=== PATIENT | male | born 1965 | race Caucasian/White ===

== ENCOUNTER → 2017-12-20 | Outpatient (CLI) | payer OTHER | END | disposition home or self-care (01) | LOC: C.LABSPEC 10:52 | PROVIDERS: ATTEND Internal Medicine | DX: L03.90 Cellulitis, unspecified (principal); L97.919 Non-pressure chronic ulcer of unspecified part of right lower leg with unspecified severity ==

== ENCOUNTER 2019-10-08 19:13 | Inpatient (IN) ==
[2019-10-08 20:21] LABS: Basophils # (auto) 0.02 K/uL (0-0.2); Basophils % (auto) 0.2 %; Eosinophils # (auto) 0.31 K/uL (0-0.5); Eosinophils % (auto) 3.4 %; Hemoglobin 11.1 g/dL (14.0-18.0); Immature Granulocytes # (auto) 0.01 K/uL (0.00-0.02); Immature Granulocytes % (auto) 0.1 %; Lymphocytes # (auto) 2.07 K/uL (1.2-3.4); Lymphocytes % (auto) 22.8 %; Mean Corpuscular Hemoglobin 28.1 pg (25-34); Mean Corpuscular Hgb Conc 32.6 g/dL (32-36); Mean Corpuscular Volume 86.1 fL (80-100); Mean Platelet Volume 9.7 fL (7.4-10.4); Monocytes # (auto) 0.98 K/uL (0.11-0.59); Monocytes % (auto) 10.8 %; Neutrophils # (auto) 5.69 K/uL (1.4-6.5); Neutrophils % (auto) 62.7 %; Platelet Count 334 K/uL (130-400); RDW Coefficient of Variation 13.6 % (11.5-14.5); RDW Standard Deviation 42.8 fL (36.4-46.3); Red Blood Count 3.95 M/uL (4.7-6.1); White Blood Count 9.08 K/uL (4.8-10.8)
[2019-10-08 20:42] LABS: Albumin Level 3.3 gm/dl (3.4-5.0); BUN Creatinine Ratio 19.6 (10-20); C Reactive Protein 2.4 mg/dl (0-0.29); Calcium 8.9 mg/dl (8.5-10.1); Creatinine Clr Calc Pharmacy 69.2 ml/min; Est GFR (African American) 62.8; Est GFR (Non-African American) 54.2; Potassium 3.9 mmol/L (3.5-5.1)
[2019-10-08 20:47] LABS: Albumin Globulin Ratio 0.8 (0.9-2); Bilirubin,Total 0.2 mg/dl (0.2-1); Total Protein 7.3 gm/dl (6.4-8.2)
--- NOTE | 2019-10-08 20:54 | XRay Report ---
RIGHT TIBIA AND FIBULA 2 VIEWS CLINICAL HISTORY: Cellulitis and wound. FINDINGS: AP and lateral views of the right tibia and fibula are obtained. No prior studies are avail able for comparison at the time of dictation. The skeletal structures are osteopenic. No fracture is seen. There is no bony erosion or periostitis. Soft tissue edema is present throughout the imaged rig ht lower extremity. The knee and ankle joints are grossly maintained. There are large dorsal and plan tar calcaneal enthesophytes. IMPRESSION: Diffuse soft tissue edema with no acute osseous abnormality identified. Electronically signed by: Kevin Echevarria M.D. 10/08/2019 8:52 PM
[2019-10-08] MEDS ORDERED: VANCOMYCIN HCL 2,000 MG in SODIUM CHLORIDE 0.9% 500 ML IV ONE (21:34)
[2019-10-08] MEDS ORDERED: VANCOMYCIN CONSULT ACTIVE PRN (21:34)
[2019-10-08] MEDS ORDERED: CEFEPIME 2,000 MG/20 ML VIAL IV STA (21:34)
[2019-10-08] MEDS ORDERED: MoRPHine SULFATE 4 MG/ML 1 ML CARP\\VIAL IV STA (21:37)
--- NOTE | 2019-10-08 21:38 | Emergency Department Note ---
Entered by Flash Easton acting as a scribe for ED Provider Note CHIEF COMPLAINT: Worsening ulcer to the outer right ankle HISTORY OF PRESENT ILLNESS: The patient is a 54 year old male who presents to the Emergency Room with co mplaints of worsening ulcer to his outer right ankle beginning 5.5 years ago. The patient states his symptoms started with 2 holes 5.5 years ago in [place], [place]. He reports he was evaluated by Dr. Altamirano about two years ago and given prescriptions for antibiotics and skin bacteria medication. The patient notes one of the medications also caused an increase in drainage from the two holes. He states over the past 2 years, his ankle has been draining a lot. The patient reports he came into the ED tonight because he is tired of the draining and taking ibuprofen just to sleep at night. He notes after he showers it seems like his wound wants to scab but then it keep draining. The patient states a history of a heart murmur, and the last time he had blood work was 2015. He denies a history diabetes or prediabetes. Pt denies LOC, headache, fevers, chills, diaphoresis, visual changes, neck pain, chest pain, drainage of the left leg, breathing difficulties, nausea, vomiting, abdominal pain, back pain, melena, hematochezia, urinary symptoms, numbness, weakness, lymphadenopathy, rash, or other complaints. REVIEW OF SYSTEMS: See HPI for pertinent positives and negatives. A total of ten systems were reviewed and were otherwise negative. PMHx/PSHx: Heart murmur SOCIAL HISTORY: Patient lives at home. PHYSICAL EXAM: GENERAL: Awake, alert, well-appearing, in no distress HENT: Normocephalic, atraumatic. Oropharynx unremarkable. EYES: PERRL. Normal conjunctiva. Sclera non-icteric. NECK: Inspection normal. Non-tender. Supple. No nuchal rigidity. FROM. No mass es. RESPIRATORY: Clear to auscultation. No wheezes. No rales. Normal respiratory effort. CARDIAC: Normal rate. Normal rhythm. Systolic ejection murmurs. No rubs. Extremities warm and well perfused. Pulses equal. No JVD. GI: Soft, non-distended. No tenderness to palpation. No rebound or guarding. No masses. RECTAL: Deferred. MUSCULOSKELETAL: Atraumatic. Chest examination reveals no tenderness. The back is symmetrical on inspection without obvious abnormality. There is no CVA tenderness to palpation. No joint edema. LOWER EXTREMITIES: Calves are non-tender. 1+ pitting edema on the left. 1-2+ pitting edema on the left. Large ulcerative wounds on medial and lateral lower leg and ankle. Surrounding erythema with foul smelling drainage. NEURO: Normal sensorium. No sensory or motor deficits noted. SKIN: No rash or jaundice noted. EMERGENCY DEPARTMENT COURSE: 1936: The patient was evaluated in room C09, and a complete history and physical examination were performed. 2108: Upon reevaluation, the patient is resting comfortably and would like something more for pain. I discussed laboratory and radiographic results with him. He verbalized agreement of the treatment plan. The patient will be evaluated for further management and care. 2122: I reviewed the patient's case with Dr. Garza, [facility] Hospitalist. He will evaluate the patient for further management and is requesting I order an MRI. MEDICAL DECISION MAKING: Triage Nursing notes reviewed and agree them. The patient's history was concerning for swelling and redness of the skin. Differential diagnosis: Etiologies such as cellulitis, osteomyelitis, necrotizing fasciitis, abscess, MRSA infection, dermatitis, drug eruption, as well as others were entertained.. Physical examination: The physical examination was consistent with cellulitis and a superficial wound infection. ER treatment provided: Wound care provided with Adaptic, sterile dressings. IV cefepime and IV vancomycin after wound and blood cultures. IV more On reassessment the patient felt better. Diagnostics interpreted by me: The labs revealed a mild anemia on CBC. Chemistry panel reveals some borderline renal insufficiency as well as mild hyperglycemia. Imaging studies: X-ray imaging of the right lower leg reveals soft tissue edema without obvious fasciitis or osteomyelitis. MRI ordered but is pending. Consultation: A consultation was placed with the hospitalist. The case was discussed and diagnostics were reviewed. The patient was evaluated in the ER for further treatment. This appears to be isolated cellulitis. IMPRESSION: Necrotizing wound of the right lower leg Mild hyperglycemia PLAN: Admitted The scribe's documentation has been prepared under my direction and personally reviewed by me in its entirety. I confirm that the note above accurately reflects all work, treatment, procedures, and medical decision making performed by me. Impression & Plan Wound cellulitis, Hyperglycemia Past Med/Surg History Medical History Heart murmur Surgical History No pertinent past surgical history Family History Other No pertinent family history Social History Preferred Language: Gibralt[place] Feels Safe at Home: Yes Smoking Status: Never smoker Results & Data Vital Signs Vital Signs - 24 hr 10/08/19 19:16 10/08/19 20:59 10/08/19 22:24 Temperature 37.2 C Temperature Source Oral Pulse Rate 104 H Pulse Rate [Left] 81 76 Pulse Rhythm [Left] Regular Regular Pulse Strength [Left] Normal Normal Respiratory Rate 18 18 18 Respiratory Effort / Characteristics Non-Labored Spontaneous Non-Labored Spontaneous Non-Labored Spontaneous Respiratory Depth Normal Normal Normal Respiratory Pattern Regular Regular Regular Blood Pressure 191/106 H Blood Pressure [Right Arm] 155/81 H 179/80 H Blood Pressure Mean 134 Blood Pressure Mean [Right Arm] 105 113 Blood Pressure Position Lying Blood Pressure Position [Right Arm] Lying Lying Pulse Oximetry 97 97 96 Oxygen Delivery Method Room Air Room Air Room Air Sepsis Recent Fever Within 48 Hours No Sepsis Action Taken by Nursing No Action Required Home Medications Current Medication List: was personally reviewed by me Laboratory Data Attestation: I reviewed the patient's lab results. Result diagrams: 10/08/19 20:03 10/08/19 20:03 Lab Results 10/08/19 10/08/19 10/08/19 Range/Units 20:03 20:03 20:03 WBC 9.08 (4.8-10.8) K/uL RBC 3.95 L (4.7-6.1) M/uL Hgb 11.1 L (14.0-18.0) g/dL Hct 34.0 L (42-52) % MCV 86.1 (80-100) fL MCH 28.1 (25-34) pg MCHC 32.6 (32-36) g/dL RDW Std Deviation 42.8 (36.4-46.3) fL RDW Coeff of Stewart 13.6 (11.5-14.5) % Plt Count 334 (130-400) K/uL MPV 9.7 (7.4-10.4) fL Immature Gran % (Auto) 0.1 % Neut % (Auto) 62.7 % Lymph % (Auto) 22.8 % [place] % (Auto) 10.8 % Eos % (Auto) 3.4 % Baso % (Auto) 0.2 % Immature Gran # (Auto) 0.01 (0.00-0.02) K/uL Neut # (Auto) 5.69 (1.4-6.5) K/uL Lymph # (Auto) 2.07 (1.2-3.4) K/uL [place] # (Auto) 0.98 H (0.11-0.59) K/uL Eos # (Auto) 0.31 (0-0.5) K/uL Baso # (Auto) 0.02 (0-0.2) K/uL ESR 46 H (0-14) mm/hr Sodium 137 (136-145) mmol/L Potassium 3.9 (3.5-5.1) mmol/L Chloride 104 (98-107) mmol/L Carbon Dioxide 27 (21-32) mmol/L Anion Gap 6.0 (3-11) BUN 28 H (7-18) mg/dl Creatinine 1.45 H (0.6-1.4) mg/dl Est Cr Clr Drug Dosing 69.2 ml/min Est GFR ( Amer) 62.8 Est GFR (Non-Af Amer) 54.2 BUN/Creatinine Ratio 19.6 (10-20) Glucose 139 H (70-99) mg/dl POC Lactic Acid Ashish (0.90-1.70) mmol/L Calcium 8.9 (8.5-10.1) mg/dl Total Bilirubin 0.2 (0.2-1) mg/dl AST 20 (15-37) U/L ALT 33 (12-78) U/L Alkaline Phosphatase 90 (45-117) U/L C-Reactive Protein 2.40 H (0-0.29) mg/dl Total Protein 7.3 (6.4-8.2) gm/dl Albumin 3.3 L (3.4-5.0) gm/dl Globulin 4.0 (2.5-4.0) gm/dl Albumin/Globulin Ratio 0.8 L (0.9-2) 10/08/ Range/Units 20:13 WBC (4.8-10.8) K/uL RBC (4.7-6.1) M/uL Hgb (14.0-18.0) g/dL Hct (42-52) % MCV (80-100) fL MCH (25-34) pg MCHC (32-36) g/dL RDW Std Deviation (36.4-46.3) fL RDW Coeff of Stewart (11.5-14.5) % Plt Count (130-400) K/uL MPV (7.4-10.4) fL Immature Gran % (Auto) % Neut % (Auto) % Lymph % (Auto) % [place] % (Auto) % Eos % (Auto) % Baso % (Auto) % Immature Gran # (Auto) (0.00-0.02) K/uL Neut # (Auto) (1.4-6.5) K/uL Lymph # (Auto) (1.2-3.4) K/uL [place] # (Auto) (0.11-0.59) K/uL Eos # (Auto) (0-0.5) K/uL Baso # (Auto) (0-0.2) K/uL ESR (0-14) mm/hr Sodium (136-145) mmol/L Potassium (3.5-5.1) mmol/L Chloride (98-107) mmol/L Carbon Dioxide (21-32) mmol/L Anion Gap (3-11) BUN (7-18) mg/dl Creatinine (0.6-1.4) mg/dl Est Cr Clr Drug Dosing ml/min Est GFR ( Amer) Est GFR (Non-Af Amer) BUN/Creatinine Ratio (10-20) Glucose (70-99) mg/dl POC Lactic Acid Ashish 0.69 L (0.90-1.70) mmol/L Calcium (8.5-10.1) mg/dl Total Bilirubin (0.2-1) mg/dl AST (15-37) U/L ALT (12-78) U/L Alkaline Phosphatase (45-117) U/L C-Reactive Protein (0-0.29) mg/dl Total Protein (6.4-8.2) gm/dl Albumin (3.4-5.0) gm/dl Globulin (2.5-4.0) gm/dl Albumin/Globulin Ratio (0.9-2) Administered Medications Discontinued Medications Vancomycin HCl 2,000 mg/ (Sodium Chloride) 540 mls @ 200 mls/hr IV NOW ONE Stop: 10/09/19 00:15 Last Admin: 10/08/19 21:49 Dose: 200 mls/hr Documented by: [id number] Cefepime HCl (Maxipime) 2,000 mg in 20 mls @ 5 mls/min IV NOW STA; Protocol Stop: 10/08/19 21:37 Last Admin: 10/08/19 21:49 Dose: 5 mls/min Documented by: [id number] Morphine Sulfate (Morphine Sulfate) 4 mg IV NOW STA Stop: 10/08/19 21:38 Last Admin: 10/08/19 21:48 Dose: 4 mg Documented by: [id number] Imaging Data Radiologist's Impression: Radiology results as stated below per my review and the radiologist's interpretation: RIGHT TIBIA AND FIBULA 2 VIEWS CLINICAL HISTORY: Cellulitis and wound. FINDINGS: AP and lateral views of the right tibia and fibula are obtained. No prior studies are available for comparison at the time of dictation. The skeletal structures are osteopenic. No fracture is seen. There is no bony erosion or periostitis. Soft tissue edema is present throughout the imaged right lower extremity. The knee and ankle joints are grossly maintained. There are large dorsal and plantar calcaneal enthesophytes. IMPRESSION: Diffuse soft tissue edema with no acute osseous abnormality identified. Electronically signed by: Kevin Echevarria M.D. 10/08/2019 8:52 PM Blood Pressure Blood Pressure Findings: Elevated blood pressure Blood Pressure Disposition: further management by hospitalist Discharge Plan Visit Data Chief Complaint: Leg Injury/Pain Stated Complaint: Leg Cellulitis ED Provider: Micheal Byers Discharge Problem: Wound cellulitis, Hyperglycemia Patient Disposition: Being Evaluated by Hospitalist Discharge Instructions Interventions: ED Discharge Assessment Last Done: 10/08/19 23:29 Forms Stand Alone Forms: My [facility] [employer] Prescriptions Prescriptions: No Action ibuprofen 200 mg Tablet 600 - 800 mg PO BID PRN (Reason: Fever Or Pain) RF: 0 Referrals Referrals: Tiburcio Altamirano MD [Primary Care Provider] - The scribe's documentation has been prepared under my direction and personally reviewed by me in its entirety. I confirm that the note above accurately reflects all work, treatment, procedures, and medical decision making performed by me.
--- NOTE | 2019-10-09 01:11 | History & Physical Report ---
Date of Service October 09, 2019 The patient was seen and examined on 10/08/2019 Assessment & Plan (1) Cellulitis of right lower extremity: Cellulitis of right lower extremity- MRI suggestive of possible chronic venous stasis changes/ Sequela of previous wound. Placed on vancomycin IV and Zosyn IV. Consult infectious disease. Consult wound care. Present on Admission?: Yes (2) Wound cellulitis: See above Present on Admission?: Yes (3) Renal insufficiency: Creatinine 1.45, with GFR 54.2. Encouraged fluid intake, and avoidance of NSAIDs. Present on Admission?: Yes (4) Hyperglycemia: Check hemoglobin A1c Present on Admission?: Yes (5) Heart murmur: Order complete echocardiogram, assessing for SBE Present on Admission?: Yes History of Present Illness Chief Complaint: The patient presents to the emergency department with complaint of worsening ulcer of his right lower extremity primarily around his right ankle, with worsening erythema and pain surrounding. Primary Care Provider: Armand Altamirano MD The patient is a 54-year-old male who presents to the emergency department with a chronically draining and worsening infected right ankle, with an unclear report from him related to treatment with antibiotics in the past. His history is not felt to be completely reliable, as part of what he relates does not make complete sense. He does periodically talk tangentially, but reports no personal history of psychiatric illness. He has taken ibuprofen intermittently in the past for right ankle discomfort. He reports that this infection initially began about 5 years ago when he was involved with some form of injury in [place]. Again, details are somewhat hazy and disjointed. 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: Yes Beliefs That Will Affect Care: None Current Living Situation: Alone Current Living Situation Comment: Apartment Other Information That Helps Us Care for You: No Feels Safe at Home: Yes Smoking Status: Never smoker Do You Dip or Chew Tobacco: No ; Second Hand Exposure: No ; Tobacco Cessation Education Requested by Patient: No Hx Alcohol Use: No Hx Substance Use: No Review of Systems Review of Systems: The patient denies chest pain, palpitations, shortness of breath, dyspnea on exertion, cough, sore throat, fevers, chills, sweats, weight change, fatigue, nausea, vomiting, diarrhea , constipation, abdominal pain, pelvic pain, blood in urine or stool, dysuria, urinary frequency or urgency, lightheadedness, dizziness, headache, memory loss, loss of consciousness, imbalance, focal or generalized weakness, numbness or tingling in arms or left leg, generalized arthralgias or myalgias, back or neck pain, or night sweats. The review of systems is otherwise negative other than for that already noted above, and at least 10 systems have been reviewed. Physical Exam Physical Exam: The patient is awake, alert and oriented 3, well developed and well nourished, normocephalic and atraumatic, lying in bed and in no acute d istress. HEENT--PERRL, EOMI, mucous membranes and oropharynx normal. Neck--supple. No JVD. No bruits. Thyroid normal, trachea midline, no adenopathy. Heart--normal S1 and S2. No murmurs, rubs or gallops. Lungs--clear bilaterally, no respiratory distress, no accessory muscle use. Abdomen--normal bowel sounds and soft. Nontender. Nondistended. Extremities/dermatologic--left lower extremity-skin is normal, with no rash and no areas of abrasion or erosion. --Right lower extremity moderately severe erythema surrounding large area of erosion around the ankle, with underlying granulation tissue, and some weeping. Neurologic--cranial nerves II through XII grossly intact. Rheumatologic--normal range of motion. Psychiatric--normal affect. Results & Data Vital Signs (Past 12 Hours) Vital Signs Temp Pulse Pulse Resp BP BP Pulse Ox 10/08/19 22:24 76 18 179/80 H 96 10/08/19 20:59 81 18 155/81 H 97 10/08/19 19:16 99.0 F 104 H 18 191/106 H 97 Laboratory Results Laboratory Results WBC 9.08 K/uL (4.8-10.8) 10/08/19 20:03 RBC 3.95 M/uL (4.7-6.1) L 10/08/19 20:03 Hgb 11.1 g/dL (14.0-18.0) L 10/08/19 20:03 Hct 34.0 % (42-52) L 10/08/19 20:03 MCV 86.1 fL (80-100) 10/08/19 20:03 MCH 28.1 pg (25-34) 10/08/19 20:03 MCHC 32.6 g/dL (32-36) 10/08/19 20:03 RDW Std Deviation 42.8 fL (36.4-46.3) 10/08/19 20:03 RDW Coeff of Stewart 13.6 % (11.5-14.5) 10/08/19 20:03 Plt Count 334 K/uL (130-400) 10/08/19 20:03 MPV 9.7 fL (7.4-10.4) 10/08/19 20:03 Immature Gran % (Auto) 0.1 % 10/08/19 20:03 Neut % (Auto) 62.7 % 10/08/19 20:03 Lymph % (Auto) 22.8 % 10/08/19 20:03 [place] % (Auto) 10.8 % 10/08/19 20:03 Eos % (Auto) 3.4 % 10/08/19 20:03 Baso % (Auto) 0.2 % 10/08/19 20:03 Immature Gran # (Auto) 0.01 K/uL (0.00-0.02) 10/08/19 20:03 Neut # (Auto) 5.69 K/uL (1.4-6.5) 10/08/19 20:03 Lymph # (Auto) 2.07 K/uL (1.2-3.4) 10/08/19 20:03 [place] # (Auto) 0.98 K/uL (0.11-0.59) H 10/08/19 20:03 Eos # (Auto) 0.31 K/uL (0-0.5) 10/08/19 20:03 Baso # (Auto) 0.02 K/uL (0-0.2) 10/08/19 20:03 ESR 46 mm/hr (0-14) H 10/08/19 20:03 Sodium 137 mmol/L (136-145) 10/08/19 20:03 Potassium 3.9 mmol/L (3.5-5.1) 10/08/19 20:03 Chloride 104 mmol/L (98-107) 10/08/19 20:03 Carbon Dioxide 27 mmol/L (21-32) 10/08/19 20:03 Anion Gap 6.0 (3-11) 10/08/19 20:03 BUN 28 mg/dl (7-18) H 10/08/19 20:03 Creatinine 1.45 mg/dl (0.6-1.4) H 10/08/19 20:03 Est Cr Clr Drug Dosing 69.2 ml/min 10/08/19 20:03 Est GFR ( Amer) 62.8 10/08/19 20:03 Est GFR (Non-Af Amer) 54.2 10/08/19 20:03 BUN/Creatinine Ratio 19.6 (10-20) 10/08/19 20:03 Glucose 139 mg/dl (70-99) H 10/08/19 20:03 POC Lactic Acid Ashish 0.69 mmol/L (0.90-1.70) L 10/08/19 20:13 Calcium 8.9 mg/dl (8.5-10.1) 10/08/19 20:03 Total Bilirubin 0.2 mg/dl (0.2-1) 10/08/19 20:03 AST 20 U/L (15-37) 10/08/19 20:03 ALT 33 U/L (12-78) 10/08/19 20:03 Alkaline Phosphatase 90 U/L (45-117) 10/08/19 20:03 C-Reactive Protein 2.40 mg/dl (0-0.29) H 10/08/19 20:03 Total Protein 7.3 gm/dl (6.4-8.2) 10/08/19 20:03 Albumin 3.3 gm/dl (3.4-5.0) L 10/08/19 20:03 Globulin 4.0 gm/dl (2.5-4.0) 10/08/19 20:03 Albumin/Globulin Ratio 0.8 (0.9-2) L 10/08/19 20:03 Diagnostic Findings [place], [place] [phone] XRay Report Patient: LISA LEGGETT Date: 10/08/19 MR#: [id number]: [address] Acct ID:[id number]: Date: 1965[facility] Zip: [place] [id number] Age: 54Location: ED Sex: M Room/Bed: Att Phy:Diagnosis: Leg Cellulitis Megha Phy: Armand Altamirano MDService Date: 10/08/19 Fam Phy:Interpreting Phy: Kevin Echevarria MD Admit Phy: Ordering Phy: Micheal Byers MD cc: ~ RIGHT TIBIA AND FIBULA 2 VIEWS CLINICAL HISTORY: Cellulitis and wound. FINDINGS: AP and lateral views of the right tibia and fibula are obtained. No prior studies are available for comparison at the time of dictation. The skeletal structures are osteopenic. No fracture is seen. There is no bony eros ion or periostitis. Soft tissue edema is present throughout the imaged right lower extremity. The knee and ankle joints are grossly maintained. There are large dorsal and plantar calcaneal enthesophytes. IMPRESSION: Diffuse soft tissue edema with no acute osseous abnormality identified. Electronically signed by: Kevin Echevarria M.D. 10/08/2019 8:52 PM Dictated: 10/08/192050 Transcribed: 10/08/192050 [facility] Patient: LISA LEGGETT (Male) : 65 test: [id number] Status: IP Date: 10/09/19 02:12 Room #: W359-1 History: hurt leg in 1995. 5.5 years ago all started when must have dinged leg. had discoloration and then a pinhole. states open wound all the way around ankle for 4 years. hx mri in 2013 at [facility] and 2016 at [facility]. states both times said cellulitis on ankle. hx cellulitis on ankle. feels like cinching sensation on outside. no surgery to ankle. hx vein graft in rt leg up in thigh/groin, had previous injury to knee area that led to vein graft. took vein from rt arm and part artificial graft for leg. pt having pain, trouble holding still, scans shortened. Ankle is bandage, markers placed at area pt said wound goes in a U shape around ankle. Slices: 387 Priors: xr rt tib/fib Tech: Vj Sandersno @ [phone] Exams: MRI RIGHT ANKLE Contrast: IV Amt: 10.3ml gadavist Accession Numbers: [id number] Preliminary Findings Only See Final Report For Complete Findings MRI RIGHT ANKLE : Skin defects and soft tissue thickening/edema around the medial, lateral, and posterior aspects of the ankle suggestive of cellulitis or long-term sequela of venous insufficiency. No abscess. No osteomyelitis. Radiologist: Alex Hansen MD Study ready at 02:17 and initial results transmitted at 03:37 Results also transmitted to [facility] ([id number]) @ [phone] (Fax) Results also transmitted to , ER @ [phone] (Fax) *This report constitutes a preliminary interpretation only. Non-acute findings felt to be unrelated to the clinical presentation may not be discussed in this report. The study will be interpreted and a final report will be generated by the local Radiologist the following shift. To reach the hospital radiology department call [phone]. If a discrepancy is found between the preliminary and final interpretations of this study, please notify us via our Client Portal at [email or web address] under [email or web address].You can also fax this report with a description of the discrepancy, or include the final report, to our daytime fax number [phone].If faxing, please indicate the severity of discrepancy using one of the following categories: [ ] 1 - Agree/Informational [ ] 2 - Unlikely to Affect Management [ ] 3 - Possible Eventual Change of Management [ ] 4 - Probable Immediate Change of Management For all other patient related information, please fax us at [phone]. [id number] Code Status & VTE Plan Code Status Full code VTE Prophylaxis Plan VTE Prophylaxis will be ordered: Yes PG Care Time/CCT Total # of Minutes Spent Total Time Spent with Patient: Total time spent is greater than 50% in coordination of care (as documented) at patient's floor/unit and/or counseling patient:
[2019-10-09] MEDS ORDERED: GADOBUTROL 65ML VIAL IV PRN (01:34)
[2019-10-09] MEDS ORDERED: ALUMINUM/MAGNESIUM SUSP 30 ML UDC PO PRN (01:43)
[2019-10-09] MEDS ORDERED: PIPERACILL/TAZOBAC CONSULT ACTIVE PRN (01:43)
[2019-10-09] MEDS ORDERED: ONDANSETRON INJ 2 MG/ML 2 ML VIAL IV PRN (01:43)
[2019-10-09] MEDS ORDERED: CEFEPIME 1,000 MG in SYRINGE 0 ML IV SCH (01:43)
[2019-10-09] MEDS ORDERED: VANCOMYCIN CONSULT ACTIVE PRN (01:43)
[2019-10-09] MEDS ORDERED: MAGNESIUM HYDROXIDE SUSP 30 ML UDC PO PRN (01:43)
[2019-10-09] MEDS ORDERED: PIPERACILLIN/TAZOBACTAM 4.5 GM/120 ML BAG IV ONE (03:00)
--- NOTE | 2019-10-09 05:57 | Magnetic Resonance Report ---
Study: MRI right ankle HISTORY: Infection. Pain. COMPARISON: None. FINDINGS: Signal characteristics of the bony structures are unremarkable. There are findings of mild degenerative bone marrow edema of the intracranial tarsal joints. Mild soft tissue edema is present. No evidence for abscess collection or tendinous disruption. Mild peroneal tendinopathy. Ankle mortise is aligned anatomically. Structures of the plantar fascia region are unremarkable. The study overall is slightly compromised due to moderate patient motion. IMPRESSION: 1. No evidence for osteomyelitis. 2. Mild degenerative change. 3. Mild soft tissue edematous change. 4. Mild peroneal tendinopathy. 5. No evidence for abscess or collection. Electronically signed by: Del Ko M.D. 10/09/2019 5:55 AM
[2019-10-09] MEDS ORDERED: PIPERACILLIN/TAZOBACTAM 3.375 GM in DEXTROSE 5% 100 ML IV SCH (08:00)
[2019-10-09 08:26] LABS: Estimated Average Glucose 131 mg/dl; Hemoglobin A1C 6.2 % (4.5-5.6)
--- NOTE | 2019-10-09 08:42 | Hospitalist Progress Note ---
Date of Service October 09, 2019 Assessment & Plan (1) Cellulitis of right lower extremity: - Per review of Allscripts - patient was seen by Dr. Altamirano in Dec 2017 - started on Bactrim and converted to Cipro - Wound Cx from from that time showed Pseudomonas aeruginosa, group G beta strep, proteus mirabilis - which all appear to have been pansensitive at that time - it appears at that time a full history was hard to obtain as well and duration of issues uncertain - New cultures have been obtained to better select Abx - Ceftaroline BID added - may need further adjustments given H/O Pseudomonas as I cannot find that coverage would be provided with this alone - Overall this does appear to be more venous ulceration with some redness from insufficiency - ID and wound consulted - discussed with wound care nurse and provider will be consulted for debridement - appreciate input (2) Renal insufficiency: - Cr currently 1.51 - uncertain of baseline - Electrolytes stable and will continue to monitor; avoid nephrotoxins (3) Mood disorder: - A full psychiatric history difficult to obtain - appears he has had diagnoses of bipolar/schizophrenia and multiple admissions to the [facility] - Currently not on maintenance medications Patient was noted to make bizarre comments on admission such as serving in the [place] war in 1967 however not obviously possible. Today is descriptions and explanations of things can be abstract or odd making it hard to completely follow the conversation. However largely stays on topic when discussing his leg wound however overall gives vague recall of events. He appears well fed/hydrated/clean. Given the likely prolonged presence of this wound it definitely could look worse. It is hard to say if there may be an intellectual disability as well. However does not appear to be psychotic/hallucinating/delusional at this time. He denies suicidal thoughts/homicidal thoughts and has been cooperative and pleasant. Discussed with psychiatric liasion who can follow along if necessary. Subjective Patient seen with wound care nurse this AM. A true history is hard to obtain as patient gives vague recap of situation but seems this is an on/off process x 5 years. He says he has been trying to manage this on his own with guaze wrapping and over the counter dressings. Does mention lotions and different things like that but uncertain if he has been using other products on this wound. He does venture off topic but largely within context of the topic. But it does make it difficult to truly follow what he is sometimes is trying to explain. He states he lives alone in [place] but did state he has a father that can help him if needed. [facility] but states he hasn't contacted them in 18 months. He appears well groomed/clean. Wound looks better then would be expected. He is not saying bizarre phrases like he did on admission. Does not appear to be delusional/hallucinating/psychotic during my visit. Results & Data Vital Signs (Past 12 Hours) Vital Signs Temp Pulse Pulse Resp BP BP Pulse Ox 10/09/19 06:55 36.7 C 69 18 117/70 95 10/09/19 01:46 36.3 C L 71 16 161/80 H 94 10/08/19 22:24 76 18 179/80 H 96 10/08/19 20:59 81 18 155/81 H 97 PG Care Time/CCT Total # of Minutes Spent Total Time Spent with Patient: Total time spent is greater than 50% in coordination of care (as documented) at patient's floor/unit and/or counseling patient:
[2019-10-09] MEDS ORDERED: CIPROFLOXACIN 400 MG/200 ML BAG IV SCH (09:00)
[2019-10-09] MEDS ORDERED: VANCOMYCIN HCL 1,000 MG in SODIUM CHLORIDE 0.9% 250 ML IV SCH (09:00)
--- NOTE | 2019-10-09 09:11 | Pharmacy Report ---
Pharmacy Abx Initial Consult - Date of Service October 09, 2019 - Pharmacy Dosing Scope Date of Consult: 10/09 Consultation requested by: Dr. Garza Pharmacy is consulted to initiate vancomycin and zosyn IV/PO dosing therapy, order appropriate labs and adjust drug dose/frequency. - Subjective The patient is a 54 year old M admitted on 10/08/19 22:37. - Objective Height: 5 ft 9 in Weight: 101.3 kg Vital Signs (Past 12hrs): Vital Signs Temp Pulse Pulse Resp BP BP Pulse Ox 10/09/19 06:55 36.7 C 69 18 117/70 95 10/09/19 01:46 36.3 C L 71 16 161/80 H 94 10/08/19 22:24 76 18 179/80 H 96 Lab Results (24hrs): Laboratory Tests (24 Hours) 10/08/19 10/08/19 10/08/19 20:03 20:03 20:03 WBC 9.08 Neut # (Auto) 5.69 ESR 46 H Creatinine 1.45 H Est Cr Clr Drug Dosing 69.2 C-Reactive Protein 2.40 H Micro Results: 10/08/19 20:32 Gram Stain - Pending Leg,Right Wound Culture - Pending 10/08/19 20:03 Aerobic Blood Culture - Pending Blood Anaerobic Blood Culture - Pending 10/08/19 20:03 Aerobic Blood Culture - Pending Blood Anaerobic Blood Culture - Pending - Risk Factors for Resistance * History of infection with a multidrug-resistant organism: [dec 2017 - wound culture: PA, group B strep, proteus] - Assessment & Plan Assessment 54 year old male admitted with cellulitis of lower extremity. Hx of wound infection (dec 2017). Blood cultures and wound culture are pending. Imaging of ankle negative for osteomyelitis/negative for abscess. ID consulted to follow the patient. Plan Vancomycin IV * Received loading dose of vancomycin 2000 mg (~20 mg/kg) last evening * Will start maintenance dose of vancomycin 1000 mg iv q 12 hrs to achieve an estimated trough ~15 mcg/ml (less aggressive with dosing due to elevated BMI and increased risk of accumulation while on vancomycin * Estimated kinetics: t1/2~11 hrs, ke~0.06hr-1, CrCl~69 ml/min * Will plan to obtain a trough in next Piperacillin/tazobactam * 3.375 gm iv q 8 hrs - appropriate for CRCL >20 ml/min / no change Pharmacy will continue to follow and will adjust dose/frequency as necessary. Thank you.
--- NOTE | 2019-10-09 09:20 | Infectious Disease Consult ---
Date of Consultation October 09, 2019 Assessment & Plan (1) Cellulitis of right lower extremity: Cellulitis of the right lower extremity complicating chronic venous stasis ulceration. Given patient's BMI, will change to IV ceftaroline to hopefully avoid potential nephrotoxicity of vancomycin and Zosyn pending further culture results. Would obtain wound care consult and likely would benefit from follow- up with wound care center after hospitalization. Length of IV antibiotics will be determined by clinical response and culture results. Will follow. (2) Venous stasis ulcer of ankle: History of Present Illness Reason for Consultation: Right lower extremity cellulitis Attending Physician: Roger Cedeno DO History of Present Illness 54-year-old male, very poor historian, with prior history of heart murmur, hyperglycemia, who states that he has been dealing with right lower extremity lateral leg ulceration for several years. He rarely sought medical care, treated at times with topical antibiotic, but now admitted with several days of progressively worsening leg ulceration with erythema and increasing pain, up to 8 out of 10 in intensity. States that he may have had low-grade fever with some chills. He has been started empirically on vancomycin and Zosyn. He has been afebrile since in the hospital, his white count is normal. Cultures are pending. MRI of the ankle, read by me, shows no evidence of osteomyelitis. Allergies Allergy/AdvReac Type Severity Reaction Status Date / Time bee pollen Allergy Mild FACIAL Unverified 10/09/19 05:36 SWELLING PCN Allergy Mild FACIAL Uncoded 10/08/19 21:21 SWELLING Home Medications Home Medications Medication Instructions Recorded Confirmed Type ibuprofen 600 - 800 mg PO BID PRN 10/08/19 10/08/19 History Patient History Medical History Heart murmur Surgical History No pertinent past surgical history Family History Other No pertinent family history Social History Preferred Language: Chinese 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 Ability: Effective Crtt Required: Yes Beliefs That Will Affect Care: None Current Living Situation: Alone Current Living Situation Comment: Apartment Other Information That Helps Us Care for You: No Feels Safe at Home: Yes Smoking Status: Never smoker Do You Dip or Chew Tobacco: No ; Second Hand Exposure: No ; Tobacco Cessation Education Requested by Patient: No Hx Alcohol Use: No Hx Substance Use: No Review of Systems Review of Systems: All systems reviewed & are unremarkable except as noted in HPI & below Physical Exam Constitutional: WD/WN, vitals as above comfortable; no acute distress Eyes: PERRL, conjunctivae normal, anicteric sclerae ENMT: external ear and nose normal, oropharynx normal Neck: trachea midline, no thyromegaly neck nontender Respiratory: normal respiratory effort, lungs clear to auscultation normal percussion; does not use accessory muscles Cardiovascular: Rate/Rhythm: regular rate and regular rhythm Heart Sounds: normal S1 and normal S2; no gallop, no murmur and no cardiac rub Vessels: normal peripheral pulses; no JVD Gastrointestinal (Abdomen): normal bowel sounds, soft, nontender, no hepatosplenomegaly Musculoskeletal: no cyanosis or clubbing, extremities motor strength 5/5 Spine: thoracic spine normal to inspection and lumbar spine normal to inspection; no cervical spinal tenderness Skin: no rashes, warm and dry normal turgor and + ulcer (Large lateral right ankle ulceration extending posteriorly with surrounding erythema, some serous drainage) Neurologic: patellar DTR's 2+ bilat, sensation intact no focal motor deficits Psychiatric: A+Ox3, euthymic affect Orientation: cooperative Lymphatic: no cervical or axillary lymphadenopathy no inguinal lymphadenopathy Results & Data Vital Signs (Past 12 Hours) Vital Signs Temp Pulse Pulse Resp BP BP Pulse Ox 10/09/19 06:55 36.7 C 69 18 117/70 95 10/09/19 01:46 36.3 C L 71 16 161/80 H 94 10/08/19 22:24 76 18 179/80 H 96 Laboratory Results Short CBC 10/08/19 Range/Units 20:03 WBC 9.08 (4.8-10.8) K/uL Hgb 11.1 L (14.0-18.0) g/dL Hct 34.0 L (42-52) % Plt Count 334 (130-400) K/uL BMP 10/08/19 20:03 Sodium 137 Potassium 3.9 Chloride 104 Carbon Dioxide 27 BUN 28 H Creatinine 1.45 H Glucose 139 H Calcium 8.9 Liver Function 10/08/19 Range/Units 20:03 Total Bilirubin 0.2 (0.2-1) mg/dl AST 20 (15-37) U/L ALT 33 (12-78) U/L Alkaline Phosphatase 90 (45-117) U/L Albumin 3.3 L (3.4-5.0) gm/dl Diagnostic Findings HISTORY: Infection. Pain. COMPARISON: None. FINDINGS: Signal characteristics of the bony structures are unremarkable. There are findings of mild degenerative bone marrow edema of the intracranial tarsal joints. Mild soft tissue edema is present. No evidence for abscess collection or tendinous disruption. Mild peroneal tendinopathy. Ankle mortise is aligned anatomically. Structures of the plantar fascia region are unremarkable. The study overall is slightly compromised due to moderate patient motion. IMPRESSION: 1. No evidence for osteomyelitis. 2. Mild degenerative change. 3. Mild soft tissue edematous change. 4. Mild peroneal tendinopathy. 5. No evidence for abscess or collection. Electronically signed by: Del Ko M.D. 10/09/2019 5:55 AM Dictated: 10/09/19 0549 PG Care Time/CCT Total # of Minutes Spent Total Time Spent with Patient: Total time spent is greater than 50% in coordination of care (as documented) at patient's floor/unit and/or counseling patient:
[2019-10-09 09:51] LABS: Creatinine Clr Calc Pharmacy 65.6 ml/min; Est GFR (African American) 59.8; Est GFR (Non-African American) 51.6
[2019-10-09] MEDS: ACETAMINOPHEN 325 MG TAB PO PRN ×2 (10:40→23:39)
[2019-10-09] MEDS: CEFTAROLINE FOSAMIL ACETATE 600 MG in SODIUM CHLORIDE 0.9% 250 ML IV SCH ×2 (10:47→21:35)
[2019-10-09 13:51] LABS: Amphetamines+Metham, Urine Neg (Neg); Barbiturates, Urine Neg (Neg); Benzodiazepine, Urine Neg (Neg); Cocaine, Urine Neg (Neg); MDMA (Ecstacy), Urine Neg (Neg); Methadone, Urine Neg (Neg); Opiate, Urine Pos (Neg); Phencyclidine, Urine Neg (Neg)
--- NOTE | 2019-10-09 13:56 | Wound Consultation ---
Date of Consultation October 09, 2019 Assessment & Plan (1) Cellulitis of right lower extremity: This is a 54-year-old male with right lower extremity cellulitis in the setting of chronic venous insufficiency. Wounds need debridement. After obtaining permission topical Xylocaine was applied. Using a curette the wound was debrided of fibrin and slough. Scant bleeding was controlled with pressure. This represents a non-excisional debridement of 215 cm. Wound will be dressed with Aquacel Ag and wrapped with a Coban lite wrap. Patient's leg is to tender to obtain ABIs at this time. However, patient does have good pulses. We will check a pulse ox 10 minutes after placement of the wrap. Patient will follow-up in the office upon discharge. Thank you for limited participate in the care of this patient. Please not hesitate to call with any questions. (2) Venous stasis ulcer of ankle: History of Present Illness Reason for Consultation: Right lower extremity cellulitis Attending Physician: Roger Cedeno DO History of Present Illness This is a 54-year-old male who is a poor historian and has a history of CKD and hyperglycemia who was admitted with right lower extremity cellulitis. It appears patient has a history of chronic venous insufficiency and has been followed with wound clinics on and off for the last 5 years. Over the last several days wound is become more painful and patient had developed a low-grade temperature. Patient was admitted. Factious disease is following with the patient. Cultures are pending but preliminary showed gram-negative bacilli, staph aureus and streptococcal species. Allergies Allergy/AdvReac Type Severity Reaction Status Date / Time bee pollen Allergy Mild FACIAL Unverified 10/09/19 05:36 SWELLING Penicillins Allergy Mild FACIAL Verified 10/09/19 09:40 SWELLING Home Medications Home Medications Medication Instructions Recorded Confirmed Type ibuprofen 600 - 800 mg PO BID PRN 10/08/19 10/08/19 History Patient History Medical History Heart murmur Surgical History No pertinent past surgical history Family History Other No pertinent family history Social History (Reviewed 10/09/19 @ 14:00 by ERIK Alvarenga Preferred Language: Tajik 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 Ability: Effective Tire Curer Required: Yes Beliefs That Will Affect Care: None marital status: Single Current Living Situation: Alone Current Living Situation Comment: Apartment Feels Safe at Home: Yes Smoking Status: Never smoker Second Hand Exposure: No ; Hx Alcohol Use: No Hx Substance Use: No Review of Systems Review of Systems: All systems reviewed & are unremarkable except as noted in HPI & below Physical Exam Constitutional: WD/WN, vitals as above Eyes: PERRL, conjunctivae normal, anicteric sclerae ENMT: Ears: no hearing impairment Respiratory: normal respiratory effort, lungs clear to auscultation Cardiovascular: RRR, no murmur, no edema Gastrointestinal (Abdomen): normal bowel sounds, soft, nontender, no hepatosplenomegaly Skin: Wound measuring 12.2 x 17.7 x 0.3 cm. Wound is covered with fibrin and slough. Periwound is intact and erythematous. There is a large amount of drainage and foul odor. Neurologic: awake; not confused Psychiatric: A+Ox3, euthymic affect Results & Data Vital Signs (Past 12 Hours) Vital Signs Temp Pulse Resp BP Pulse Ox 10/09/19 06:55 36.7 C 69 18 117/70 95 PG Care Time/CCT Total # of Minutes Spent Total Time Spent with Patient: Total time spent is greater than 50% in coordination of care (as documented) at patient's floor/unit and/or counseling patient: (1) Venous stasis ulcer of ankle Varicose vein presence: without varicose veins Laterality: right Non- pressure ulcer stage: with fat layer exposed Qualified Code(s): I87.2 - Venous insufficiency (chronic) (peripheral); L97.312 - Non-pressure chronic ulcer of right ankle with fat layer exposed
[2019-10-10 07:54] LABS: Creatinine Clr Calc Pharmacy 69.8 ml/min; Est GFR (African American) 64.4; Est GFR (Non-African American) 55.6
[2019-10-10] MEDS: CEFTAROLINE FOSAMIL ACETATE 600 MG in SODIUM CHLORIDE 0.9% 250 ML IV SCH ×2 (10:00→21:35)
[2019-10-10] MEDS: ACETAMINOPHEN 325 MG TAB PO PRN ×3 (13:54→23:32)
--- NOTE | 2019-10-10 14:21 | Infectious Disease Progress Nt ---
Date of Service October 10, 2019 Assessment & Plan (1) Cellulitis of right lower extremity: Cellulitis of the right lower extremity complicating chronic venous stasis ulceration. Patient should continue on ceftaroline, will await identification of gram-negative bacilli, only will need to change if turns out to be Pseudomonas. We will continue to follow. (2) Venous stasis ulcer of ankle: Subjective Patient seen in follow-up for infected venous stasis ulceration. Wound care consultation noted. Still with significant amount of pain. Remains afebrile. Cultures growing MRSA, streptococcal species, and gram-negative bacilli. Tolerating ceftaroline so far. Review of Systems Review of Systems: All systems reviewed & are unremarkable except as noted in HPI & below Physical Exam Constitutional: WD/WN, vitals as above comfortable; no acute distress Eyes: PERRL, conjunctivae normal, anicteric sclerae ENMT: external ear and nose normal, oropharynx normal Neck: trachea midline, no thyromegaly neck nontender Respiratory: normal respiratory effort, lungs clear to auscultation normal percussion; does not use accessory muscles Cardiovascular: Rate/Rhythm: regular rate and regular rhythm Heart Sounds: normal S1 and normal S2; no gallop, no murmur and no cardiac rub Vessels: normal peripheral pulses; no JVD Gastrointestinal (Abdomen): normal bowel sounds, soft, nontender, no hepatosplenomegaly Musculoskeletal: no cyanosis or clubbing, extremities motor strength 5/5 Spine: thoracic spine normal to inspection and lumbar spine normal to inspection; no cervical spinal tenderness Skin: no rashes, warm and dry normal turgor and + ulcer (Large lateral right ankle ulceration extending posteriorly with surrounding erythema, some serous drainage) Neurologic: patellar DTR's 2+ bilat, sensation intact no focal motor deficits Psychiatric: A+Ox3, euthymic affect Orientation: cooperative Lymphatic: no cervical or axillary lymphadenopathy no inguinal lymph adenopathy Results & Data Vital Signs (Past 12 Hours) Vital Signs Temp Pulse Resp BP Pulse Ox 10/10/19 07:17 36.7 C 75 18 150/68 H 94 Laboratory Results [facility] 10/10/19 06:56 Creatinine 1.42 H Diagnostic Findings Microbiology 10/08/19 20:32 Leg,Right Gram Stain - Final 10/08/19 20:32 Leg,Right Wound Culture - Preliminary Gram negative bacilli Group G Beta Strep Staph aureus MRSA 10/08/19 20:03 Blood Aerobic Blood Culture - Preliminary No growth in Aerobic bottle after 24 hours. 10/08/19 20:03 Blood Anaerobic Blood Culture - Preliminary No growth in Anaerobic bottle after 24 hours. 10/08/19 20:03 Blood Aerobic Blood Culture - Preliminary No growth in Aerobic bottle after 24 hours. 10/08/19 20:03 Blood Anaerobic Blood Culture - Preliminary No growth in Anaerobic bottle after 24 hours. PG Care Time/CCT Total # of Minutes Spent Total Time Spent with Patient: Total time spent is greater than 50% in coordination of care (as documented) at patient's floor/unit and/or counseling patient: (1) Venous stasis ulcer of ankle Varicose vein presence: without varicose veins Laterality: right Non- pressure ulcer stage: with fat layer exposed Qualified Code(s): I87.2 - Venous insufficiency (chronic) (peripheral); L97.312 - Non-pressure chronic ulcer of right ankle with fat layer exposed
--- NOTE | 2019-10-10 20:51 | Hospitalist Progress Note ---
Date of Service October 10, 2019 Assessment & Plan (1) Cellulitis of right lower extremity: - Per review of Allscripts - patient was seen by Dr. Altamirano in Dec 2017 - started on Bactrim and converted to Cipro - Wound Cx from from that time showed Pseudomonas aeruginosa, group G beta strep, proteus mirabilis - which all appear to have been pansensitive at that time - it appears at that time a full history was hard to obtain as well and duration of issues uncertain - New cultures have been obtained to better select Abx - Ceftaroline BID added - may need further adjustments given H/O Pseudomonas -- Currently growing MRSA, Group G Beta Strep, and still waiting on identification of gram negative - Overall this does appear to be more venous ulceration with some redness from insufficiency - ID and wound consulted - S/P debridement - appreciate input -- Dressing instructions - apply aquacel AG, ABD Kerlix and daily changes then PRN - has F/U on Oct 18 - patient states as long as [facility] bus can take him there he can go (2) Renal insufficiency: - Cr currently 1.51 - uncertain of baseline - Electrolytes stable and will continue to monitor; avoid nephrotoxins (3) Mood disorder: - A full psychiatric history difficult to obtain - appears he has had diagnoses of bipolar/schizophrenia and multiple admissions to the [facility] - Currently not on maintenance medications Patient was noted to make bizarre comments on admission such as serving in the [place] war in 1967 however not obviously possible given his age. Today is descriptions and explanations of things can be abstract or odd making it hard to completely follow the conversation. However largely stays on topic when discussing his leg wound however overall gives vague recall of events. He appears well fed/hydrated/clean. Given the likely prolonged presence of this wound it definitely could look worse. It is hard to say if there may be an intellectual disability as well. However does not appear to be psychotic/hallucinating/delusional at this time. But possibly some tangential thinking. He denies suicidal thoughts/homicidal thoughts and has been cooperative and pleasant. Discussed with psychiatric liasion who can follow along if necessary. Subjective Reports feeling well today. Continues to ramble off topic when discussing plan. Seems to always bring the topic back around to the appropriate topic. He can be difficult to truly understand what he is trying to discuss. He went on a long tangent about equilibrium between his extremities and he does this by staying active and working out but he points to his trunk and midsection and says "this doesn't match" when comparing to his extremities? He also had a long discussion on how he was advised to move to his current apartment because he was doing too much work at his previous home and he passed out from exhaustion. He then stated he is glad for the care and that noone has given up on him. It doesn't appear that he is having delusions/hallucinations/psychosis. Review of Systems Constitutional: no fever and no chills Respiratory: no cough and no dyspnea Cardiovascular: no chest pain, no palpitations and no edema Gastrointestinal: no abdominal pain, no nausea, no vomiting, no constipation and no diarrhea/loose stools Genitourinary: no dysuria Musculoskeletal: mild pain/stiffness with ambulating on R foot Integumentary: + skin ulcer Physical Exam Constitutional: WD/WN, vitals as above Respiratory: normal respiratory effort, lungs clear to auscultation Cardiovascular: RRR, no murmur, no edema Gastrointestinal (Abdomen): Inspection/Auscultation: normal bowel sounds Percussion/Palpation: abdomen soft; abdomen nontender Musculoskeletal: Head/Neck/Chest: normocephalic and head atraumatic Skin: + ulcer (currently covered with dressing) did assess wound on 10/09 (however did not place physical exam in note) - would is large and foul smelling with slough present; extends from medial zheng region and wraps around back of foot; thickened yellowed nails Results & Data Vital Signs (Past 12 Hours) Vital Signs Temp Pulse Resp BP Pulse Ox 10/10/19 15:35 36.6 C 77 16 150/80 H 93 PG Care Time/CCT Total # of Minutes Spent Total Time Spent with Patient: Total time spent is greater than 50% in coordination of care (as documented) at patient's floor/unit and/or counseling patient:
[2019-10-11 06:20] LABS: Creatinine Clr Calc Pharmacy 75.6 ml/min; Est GFR (Non-African American) 61.3
[2019-10-11] MEDS: CEFTAROLINE FOSAMIL ACETATE 600 MG in SODIUM CHLORIDE 0.9% 250 ML IV SCH ×2 (09:35→22:21)
--- NOTE | 2019-10-11 13:30 | Hospitalist Progress Note ---
Date of Service October 11, 2019 Assessment & Plan (1) Cellulitis of right lower extremity: - Per review of Allscripts - patient was seen by Dr. Altamirano in Dec 2017 - started Bactrim and converted to Cipro - Wound Cx showed Pseudomonas aeruginosa, group G beta strep, proteus mirabilis. - New wound culture +MRSA, Group B Strep and gram negative bacilli (still pending) - Continue Ceftaroline q12hr, follow wound culture -- will need adjusted if wound culture +Pseudomonas. - ID following, appreciate input. - Wound consulted, s/p debridement. Appreciate input. Continue Aquacel Ag, ABD Kerlix daily changes. Has f/u in wound clinic on Oct 18 (can take the [employer] bus to clinic) - Overall this does appear to be more venous ulceration with some redness from insufficiency. (2) Renal insufficiency: - Creatinine improved to 1.31, monitor frequently. - Renally dose all meds. (3) Mood disorder: - Full psychiatric history difficult to obtain - appears he has had diagnoses of bipolar/schizophrenia and multiple admissions to the [facility]. - Currently not on maintenance medications Dispo: Med/surg; discharge pending results of wound culture. Subjective Pt. has pain in left leg with movement but is doing well otherwise. Denies chest pain, SOB, N/V, decreased appetite. Wound culture is pending. Review of Systems Review of Systems: All systems reviewed & are unremarkable except as noted in HPI & below Constitutional: no fever, no chills, no fatigue and no weakness Respiratory: no cough, no dyspnea, no dyspnea on exertion and no wheezing Cardiovascular: no chest pain and no palpitations Gastrointestinal: no abdominal pain, no nausea and no constipation Genitourinary: no difficulty urinating Musculoskeletal: + joint pain; no back pain Integumentary: + non-healing lesions Physical Exam Physical Exam: General: Resting comfortably HEENT: NC/AT; PERRLA with EOMI; [place] conjunctiva, MMM. No erythema of posterior pharynx Neck: Supple and nontender Cardiac: RRR Lungs: CTA bilaterally Abdomen: Bowel normoactive X 4; Nontender to palpation Extremities: Warm. No edema present. Dressing in place on LLE. Neuro: No focal weakness Skin: see above Results & Data Vital Signs (Past 12 Hours) Vital Signs Temp Pulse Resp BP Pulse Ox 10/11/19 07:16 36.6 C 68 16 149/83 H 94 Laboratory Results 10/11/19 Range/Units 05:33 Creatinine 1.31 (0.6-1.4) mg/dl Est Cr Clr Drug Dosing 75.6 ml/min Est GFR ( Amer) 71.0 Est GFR (Non-Af Amer) 61.3 PG Care Time/CCT Total # of Minutes Spent Total Time Spent with Patient: Total time spent is greater than 50% in coordination of care (as documented) at patient's floor/unit and/or counseling patient:
[2019-10-11] MEDS: ACETAMINOPHEN 325 MG TAB PO PRN ×3 (14:38→23:35)
[2019-10-11] MEDS: ENOXAPARIN INJ 40 MG/0.4 ML SYR SQ SCH (16:03)
[2019-10-12] MEDS: ENOXAPARIN INJ 40 MG/0.4 ML SYR SQ SCH (08:02)
[2019-10-12] MEDS: CEFTAROLINE FOSAMIL ACETATE 600 MG in SODIUM CHLORIDE 0.9% 250 ML IV SCH ×2 (10:11→22:17)
--- NOTE | 2019-10-12 13:04 | Hospitalist Progress Note ---
Date of Service October 12, 2019 Assessment & Plan (1) Cellulitis of right lower extremity: - Per review of Allscripts - patient was seen by Dr. Altamirano in Dec 2017 - started Bactrim and converted to Cipro - Wound Cx showed Pseudomonas aeruginosa, group G beta strep, proteus mirabilis. - New wound culture +MRSA, Group B Strep and gram negative bacilli (still pending, discussed with Micro - culture may need to be sent out tomorrow if no result but is not likely Pseudomonas) - Continue Ceftaroline q12hr, follow wound culture -- discussed with ID, can convert to PO Doxycycline/Levaquin at discharge. - ID following, appreciate input. - Wound consulted, s/p debridement. Appreciate input. Continue Aquacel Ag, ABD Kerlix daily changes. Will need home health for dressing changes. Has f/u in wound clinic on Oct 18 (can take the [employer] bus to clinic) - Overall this does appear to be more venous ulceration with some redness from insufficiency. (2) Renal insufficiency: - Creatinine improved to 1.31, monitor intermittently. - Renally dose all meds. (3) Mood disorder: - Full psychiatric history difficult to obtain - appears he has had diagnoses of bipolar/schizophrenia and multiple admissions to the [facility]. - Currently not on maintenance medications Dispo: Med/surg; discharge on Tuesday, home health is arranged starting Tuesday for daily dressing changes. Subjective Pt. is doing well. Has pain in RLE with movement, denies pain at rest. Dressing was changed this morning. Will need home health for dressing changes and f/u in wound clinic within the next week. Wound culture is pending, +gram negative bacilli at this point. Review of Systems Review of Systems: All systems reviewed & are unremarkable except as noted in HPI & below Constitutional: no fever, no chills, no fatigue, no weakness and no anorexia Respiratory: no cough, no dyspnea, no dyspnea on exertion and no wheezing Cardiovascular: no chest pain, no palpitations and no edema Gastrointestinal: no abdominal pain, no nausea and no constipation Genitourinary: no difficulty urinating Musculoskeletal: no back pain and no joint pain Integumentary: + non-healing lesions and + erythema Physical Exam Physical Exam: General: Resting comfortably HEENT: NC/AT; PERRLA with EOMI; [place] conjunctiva, MMM. No erythema of posterior pharynx Neck: Supple and nontender Cardiac: RRR Lungs: CTA bilaterally Abdomen: Bowel normoactive X 4; Nontender to palpation Extremities: Warm. No edema present. Dressing in place on LLE, non tender to light palpation. Neuro: No focal weakness Skin: see above Results & Data Vital Signs (Past 12 Hours) Vital Signs Temp Pulse Resp BP Pulse Ox 10/12/19 07:34 36.6 C 62 19 139/82 95 PG Care Time/CCT Total # of Minutes Spent Total Time Spent with Patient: Total time spent is greater than 50% in coordination of care (as documented) at patient's floor/unit and/or counseling patient:
[2019-10-12] MEDS: ACETAMINOPHEN 325 MG TAB PO PRN ×3 (14:07→23:33)
[2019-10-13] MEDS: ENOXAPARIN INJ 40 MG/0.4 ML SYR SQ SCH (08:41)
[2019-10-13] MEDS: CEFTAROLINE FOSAMIL ACETATE 600 MG in SODIUM CHLORIDE 0.9% 250 ML IV SCH ×2 (09:48→22:08)
[2019-10-13] MEDS: ACETAMINOPHEN 325 MG TAB PO PRN ×3 (09:54→23:43)
--- NOTE | 2019-10-13 18:24 | Hospitalist Progress Note ---
Date of Service October 13, 2019 Assessment & Plan (1) Cellulitis of right lower extremity: - Venous ulceration with chronic venous insufficiency - Per review of Allscripts - patient was seen by Dr. Altamirano in Dec 2017 - started Bactrim and converted to Cipro - Wound Cx showed Pseudomonas aeruginosa, group G beta strep, proteus mirabilis. - New wound culture +MRSA, Group B Strep and gram negative bacilli (still pending, was discussed with Micro - culture may need to be sent out if no result but is not likely Pseudomonas) - Continue Ceftaroline BID, follow wound culture -- per ID, can convert to PO Doxycycline/Levaquin at discharge - Wound following and S/P Debridement - Continue [employer] Ag, ABD Kerlix daily changes. Will need home health for dressing changes. Has F/U in wound clinic on Oct 18 (can take the [employer] bus to clinic) - ID following - appreciate input (2) Renal insufficiency: - Creatinine improved to 1.31, monitor intermittently. - Renally dose all meds. (3) Mood disorder: - Full psychiatric history difficult to obtain - appears he has had diagnoses of bipolar/schizophrenia and multiple admissions to the [facility]. - Currently not on maintenance medications - Continues to have some circumstantial speech but appears less extreme today; Appears to be taking care of himself adequate and trying to the best of his ability to manage this wound prior to coming in - Continues to not exhibit psychosis/delusions/hallucinations; no suicidal thoughts Dispo: Discharge on Tuesday, home health is arranged starting Tuesday for daily dressing changes. Subjective Verbalizes no complaints today. States pain is somewhat improving when he ambulates but still some pain present. Tolerating dressing changes. Tolerating diet without issue. Thoughts today seem to be less flighty and easier to follow direction of conversation. Review of Systems Constitutional: no fever, no chills and no fatigue Respiratory: no cough and no dyspnea Cardiovascular: no chest pain Gastrointestinal: no abdominal pain, no nausea and no vomiting Musculoskeletal: mild pain/stiffness with ambulating on R foot Integumentary: + non-healing lesions and + erythema Physical Exam Constitutional: WD/WN, vitals as above Eyes: + anicteric sclerae; no conjunctival abnormality ENMT: Ears: no hearing impairment Neck: trachea midline Respiratory: normal respiratory effort, lungs clear to auscultation Cardiovascular: RRR, no murmur, no edema Gastrointestinal (Abdomen): Inspection/Auscultation: normal bowel sounds Percussion/Palpation: abdomen soft; abdomen nontender Musculoskeletal: Head/Neck/Chest: normocephalic and head atraumatic Skin: + ulcer (currently covered with dressing) Neurologic: moves all extremities Psychiatric: Orientation: alert and oriented x 3 Eye Contact: good eye contact Thought Process: + circumstantial thought process Results & Data Vital Signs (Past 12 Hours) Vital Signs Temp Pulse Pulse Resp BP BP Pulse Ox 10/13/19 17:16 36.9 C 82 16 144/78 H 93 10/13/19 15:28 36.7 C 89 17 159/93 H 93 10/13/19 07:05 36.5 C 60 18 149/81 H 95 PG Care Time/CCT Total # of Minutes Spent Total Time Spent with Patient: Total time spent is greater than 50% in coordination of care (as documented) at patient's floor/unit and/or counseling patient:
[2019-10-13 23:06] LABS: Codeine Urine NEGATIVE NG/ML (CUTOFF=50); Hydrocodone Urine NEGATIVE NG/ML (CUTOFF=50); Hydromor Urine NEGATIVE NG/ML (CUTOFF=50); Morphine Urine 377 NG/ML (CUTOFF=50); Norhydrocodone Conf Ur NEGATIVE NG/ML (CUTOFF=50); Noroxycodone Urine NEGATIVE NG/ML (CUTOFF=50); Oxycodone Urine NEGATIVE NG/ML (CUTOFF=50); Oxymorph Urine NEGATIVE NG/ML (CUTOFF=50)
[2019-10-14] MEDS: ACETAMINOPHEN 325 MG TAB PO PRN ×3 (07:01→21:38)
[2019-10-14] MEDS: ENOXAPARIN INJ 40 MG/0.4 ML SYR SQ SCH (08:22)
[2019-10-14] MEDS: CEFTAROLINE FOSAMIL ACETATE 600 MG in SODIUM CHLORIDE 0.9% 250 ML IV SCH ×2 (10:09→21:30)
--- NOTE | 2019-10-14 17:22 | Hospitalist Progress Note ---
Date of Service October 14, 2019 Assessment & Plan (1) Cellulitis of right lower extremity: - Venous ulceration with chronic venous insufficiency - Per review of Allscripts - patient was seen by Dr. Altamirano in Dec 2017 - started Bactrim and converted to Cipro - Wound Cx showed Pseudomonas aeruginosa, group G beta strep, proteus mirabilis. - New wound culture +MRSA, Group B Strep and gram negative bacilli (still pending, was discussed with Micro - culture may need to be sent out if no result but is not likely Pseudomonas) - Continue Ceftaroline BID, follow wound culture -- per ID, can convert to PO Doxycycline/Levaquin at discharge - Wound following and S/P Debridement - Continue [employer] Ag, ABD Kerlix daily changes. Will need home health for dressing changes. Has F/U in wound clinic on Oct 18 (can take the [employer] to clinic) - ID following - appreciate input (2) Renal insufficiency: - Creatinine improved to 1.31, monitor intermittently. - Renally dose all meds. (3) Mood disorder: - Full psychiatric history difficult to obtain - appears he has had diagnoses of bipolar/schizophrenia and multiple admissions to the [facility]. - Currently not on maintenance medications - Continues to have some circumstantial speech but appears less extreme today; Appears to be taking care of himself adequately and trying to the best of his ability to manage this wound prior to coming in - Continues to not exhibit psychosis/delusions/hallucinations; no suicidal thoughts Dispo: Discharge on Tuesday, home health is arranged starting Tuesday for daily dressing changes -patient is largely dependent on [employer] for transportation and was hoping for tomorrow evenings doses of antibiotics if he does leave tomorrow to allow him more time to get to the pharmacy the following day - patient anticipates taking [employer] home from hospital unless other arrangements can be made Subjective Reports feeling well today. Continues to have slightly less pain in his right foot. Pain is more evident when walking. Continues to tolerate dressing changes. Tolerating diet without issue. Anticipating return home tomorrow with outpatient follow-up and home services. Verbalizes no new complaints at this time Review of Systems Constitutional: no fever and no chills Respiratory: no cough and no dyspnea Cardiovascular: no chest pain Gastrointestinal: no abdominal pain, no nausea, no vomiting, no constipation and no diarrhea/loose stools Musculoskeletal: mild pain/stiffness with ambulating on R foot -slowly improving Integumentary: + non-healing lesions and + erythema Neurologic: no tingling and no numbness Physical Exam Constitutional: WD/WN, vitals as above Eyes: + anicteric sclerae; no conjunctival abnormality ENMT: Ears: no hearing impairment Neck: trachea midline Respiratory: normal respiratory effort, lungs clear to auscultation Cardiovascular: RRR, no murmur, no edema Gastrointestinal (Abdomen): Inspection/Auscultation: normal bowel sounds Percussion/Palpation: abdomen soft; abdomen nontender Musculoskeletal: Head/Neck/Chest: normocephalic and head atraumatic Skin: + ulcer (currently covered with dressing) Surrounding skin without erythema or warmth or tenderness; chronic thickening of toenails Neurologic: moves all extremities Psychiatric: Orientation: alert and oriented x 3 Eye Contact: good eye contact Thought Process: + circumstantial thought process Results & Data Vital Signs (Past 12 Hours) Vital Signs Temp Pulse Resp BP Pulse Ox 10/14/19 15:00 36.4 C L 74 16 132/83 94 10/14/19 07:59 36.8 C 70 16 133/79 94 PG Care Time/CCT Total # of Minutes Spent Total Time Spent with Patient: Total time spent is greater than 50% in coordination of care (as documented) at patient's floor/unit and/or counseling patient:
[2019-10-15] MEDS: ENOXAPARIN INJ 40 MG/0.4 ML SYR SQ SCH (08:07)
[2019-10-15] MEDS: ACETAMINOPHEN 325 MG TAB PO PRN (08:11)
[2019-10-15] MEDS: CEFTAROLINE FOSAMIL ACETATE 600 MG in SODIUM CHLORIDE 0.9% 250 ML IV SCH (10:16)
--- NOTE | 2019-10-15 12:24 | Discharge Summary ---
Date of Service October 15, 2019 Admission HPI Per Admitting Provider The patient is a 54-year-old male who presents to the emergency department with a chronically draining and worsening infected right ankle, with an unclear report from him related to treatment with antibiotics in the past. His history is not felt to be completely reliable, as part of what he relates does not make complete sense. He does periodically talk tangentially, but reports no personal history of psychiatric illness. He has taken ibuprofen intermittently in the past for right ankle discomfort. He reports that this infection initially began about 5 years ago when he was involved with some form of injury in [place]. Again, details are somewhat hazy and disjointed. Admission Exam Per Admitting Provider The patient is awake, alert and oriented 3, well developed and well nourished, normocephalic and atraumatic, lying in bed and in no acute distress. HEENT--PERRL, EOMI, mucous membranes and oropharynx normal. Neck--supple. No JVD. No bruits. Thyroid normal, trachea midline, no adenopathy. Heart--normal S1 and S2. No murmurs, rubs or gallops. Lungs--clear bilaterally, no respiratory distress, no accessory muscle use. Abdomen--normal bowel sounds and soft. Nontender. Nondistended. Extremities/dermatologic--left lower extremity-skin is normal, with no rash and no areas of abrasion or erosion. --Right lower extremity moderately severe erythema surrounding large area of erosion around the ankle, with underlying granulation tissue, and some weeping. Neurologic--cranial nerves II through XII grossly intact. Rheumatologic--normal range of motion. Psychiatric--normal affect. Principal Diagnosis Cellulitis Right Lower Extremity Discharge Exam Constitutional WD/WN, vitals as above Eyes PERRL, conjunctivae normal, anicteric sclerae Neck trachea midline, no thyromegaly Respiratory normal respiratory effort, lungs clear to auscultation Cardiovascular Heart Sounds: + murmur (mid systolic EC) Gastrointestinal (Abdomen) normal bowel sounds, soft, nontender, no hepatosplenomegaly Musculoskeletal no cyanosis or clubbing, extremities motor strength 5/5 Skin right heel/medial ankle wound/ulceration with dressing. C/D/I No evidence of streaking Minimally tender to palpation Lymphatic no cervical or axillary lymphadenopathy Discharge Data Allergies Allergy/AdvReac Type Severity Reaction Status Date / Time bee pollen Allergy Mild FACIAL Unverified 10/09/19 05:36 SWELLING Penicillins Allergy Mild FACIAL Verified 10/09/19 09:40 SWELLING Consultations 10/08/19 21:34 ED Decision to Admit Stat 10/09/19 01:43 Consult Case Management - Discharge Planning Routine Consult Infectious Diseases Routine 10/09/19 11:27 Consult Wound Care Provider Routine Ordered Studies 10/08/19 Tibia/Fibula X-Ray 10/09/19 00:32 MR ankle RT wo/w con Urgent Hospital Course (1) Cellulitis of right lower extremity: - Venous ulceration with chronic venous insufficiency. Had been managing as outpatient for the past five years - Per review of Allscripts - patient was seen by Dr. Altamirano in Dec 2017 - started Bactrim and converted to Cipro - Wound Cx showed Pseudomonas aeruginosa, group G beta strep, proteus mirabilis. - New wound culture was done and +MRSA, Group B Strep and gram negative bacilli. Discussion with micro with unlikely pseudomonas, however results sent to reference lab for further testing. - Ceftaroline was given as inpatient and patient was converted to doxycycline/levaquin at discharge for additional ten days -- will need to follow up with infectious disease and wound clinic (2) Renal insufficiency: - Creatinine improved to 1.31 from 1.51 prior to discharge. Medications renally dosed when appropriate. (3) Mood disorder: - Full psychiatric history difficult to obtain - appears he had diagnoses of bipolar/schizophrenia and multiple admissions to the [facility]. However, not on any maintenance medications. No psychosis/delusions/hallucinations or suicidal thoughts prior to discharge Total Time Total Time Spent Total Time Spent (In Minutes): 40 Discharge Plan Discharge Items Patient Disposition: Home - Home Health Services Reason For Visit: RLE CELLULITIS Discharge Diagnosis: Right lower extremity cellulitis Goals: You have been hospitalized for an acute medical problem. During your stay at [facility], we have made an effort to correct the problem that brought you to the hospital while keeping you as comfortable as possible. Medications were used to bring your condition under control and your discharge instructions will include directions for any medications you should take after leaving the hospital. Please make sure you see your Primary Care Provider as part of your follow up plan. Activity: As commented below Exercise/Sports: Wait until after follow-up appointment Non-emergency contact: Primary Care Provider Call non-emergency contact if: you have any medication questions, your symptoms worsen, you have a fever, your wound has increased redness, your wound has increased drainage and your wound pain has increased Follow-up/Referrals: [facility] [place] Group] - 10/18/19 9:00 am (Please, follow up at [facility] on October 18 at 9:00 am. The clinic is located at [address] in [place]. If you need to change this appointment, call the office at [phone].) Tiburcio Altamirano MD [Primary Care Provider] - 10/16/19 3:00 pm (Please, follow up at Dr. Altamirano's office on TuesdayOctober 16 at 3:00 pm. *If you need to change this appointment, call the office at [phone]. ) Diet: Regular Addtl Attending Provider Instructions: 1. Right Lower Extremity Cellulitis * Please continue Levaquin 750 mg daily and Doxycycline 100 mg twice daily for treatment of cellulitis. * You will need to follow up with your primary care provider on Oct 16. * An appointment is scheduled with the wound clinic on Oct 18. * Home health has been arranged for dressing changes. * -- Dressing change instructions: Aquacel Ag with ABD pads and Kerlix wrap daily. Addtl Production Solderer Provider Instructions: You have been provided prescriptions for levaquin (levofloxacin) and doxycycline. These are antibiotics being used to treat your infection. Please take as prescribed and take the full course. Do not skip doses. These antibiotics will be complete on October 24, 2019. For pain, it is recommended that you avoid ibuprofen/motrin/aleeve during the next couple weeks. It is preferred that you use tylenol (acetaminophen) for pain control. Please do not exceed 3,000mg in a 24 hour period. (This is six 500mg tablets in one day). Your A1c (a lab test that measures average blood sugar readings) came back at 6.2. This is technically termed "pre-diabetes". Diet and exercise are encouraged, and follow up testing is recommended in 3-6 months. If continues to remain elevated or rises higher, medications may be neccessary. It was also discussed about a murmur heard on examination. It is recommended that you follow-up on this with your primary care provider and recommended that you have an echocardiogram done as an outpatient. Please keep all appointments with your primary care provider and wound care as scheduled. Our nurse navigator is currently getting an appointment scheduled with infectious disease (Dr. Mcmullen). If you do not hear anything by tomorrow please call the office at [phone]. Please report to the emergency room with any increased drainage, pain, fever or for any other symptoms that are concerning for you. Pending Studies at Discharge: Yes Studies:: Wound culture: +MRSA, Group B strep and Gram negative bacilli (PRELIM) Stand-Alone Forms: [facility], Smoking Cessation Medications and DC Order Prescriptions: New levofloxacin [Levaquin] 750 mg tablet 750 mg PO DAILY 9 Days Qty: 9 RF: 0 doxycycline hyclate 100 mg tablet 100 mg PO BID 9 Days Qty: 18 RF: 0 Discontinued ibuprofen 200 mg Tablet 600 - 800 mg PO BID PRN (Reason: Fever Or Pain) RF: 0 Discharge Orders: Discharge Order (Routine); Ordered 10/15/19 Ordered By: Elly Singer/Other Patient Handouts: Prediabetes, Diabetes Healthy Meals, Diabetes Meal Planning, A1C Admission Data Admit Date/Time: 10/08/19 22:37 Attending Provider: Erich Ambrocio Admit Provider: Dontrell Garza Primary Care Provider: Tiburcio Altamirano Other Providers: Dontrell Garza ; Amberly Ennis ; Emanuel Michaels ; [place] Other Interventions: Discharge Summary Assessment (RN) Last Done: 10/15/19 13:40 DC Date/Time DO NOT enter until pt leaves facility: 10/15/19 15:14 Supervising Physician Co-Signing Physician Notes Attending Attestation & Discharge Note: Pt seen/examined, chart reviewed, discharge care plan d/w LINDSEY Toney. I agree w/ the prater components of her discharge summary. 54yo male with venous insufficiency and mood disorder/psychotic disorder NOS who presented with cellulitis of right ankle region. Improved with IV antibiotic therapy. MRI of right ankle failed to show osteomyelitis or deep tissue infection/abscess. Will discharge home on doxycycline/levaquin as most recent culture showed MRSA, group G strep, and a gram negative dean (pathogen uncertain). Discharge exam: gen - NAD heart - RRR, s1, s2, 2/6 systolic murmur LLSB lungs - CTA b/l abd - soft NT ND BS+ ext - no edema, pulses 2+ b/l skin - right ankle with mod-large ulceration with granulation at periphery; no odor; no drainage; cellulitis resolved psych - alert, no obvious psychotic symptoms f/u with PCP and the [facility] was arranged. Erich Ambrocio MD
--- NOTE | 2019-10-15 13:24 | Infectious Disease Progress Nt ---
Date of Service October 15, 2019 Assessment & Plan (1) Cellulitis of right lower extremity: Cellulitis of the right lower extremity complicating chronic venous stasis ulceration. Patient has improved with IV ceftaroline, agree with transition to oral doxycycline and levofloxacin, likely for 2 more weeks. For follow-up at the wound care center. (2) Venous stasis ulcer of ankle: Subjective Patient seen in follow-up for infected venous stasis ulceration. Recent events reviewed. Patient notes significant improvement in the pain in his right ankle and lower leg. No fever or chills. Still no identification of gram-negative bacilli seen in culture. No other new complaints. Review of Systems Review of Systems: All systems reviewed & are unremarkable except as noted in HPI & below Physical Exam Constitutional: WD/WN, vitals as above comfortable; no acute distress Eyes: PERRL, conjunctivae normal, anicteric sclerae ENMT: external ear and nose normal, oropharynx normal Neck: trachea midline, no thyromegaly neck nontender Respiratory: normal respiratory effort, lungs clear to auscultation normal percussion; does not use accessory muscles Cardiovascular: Rate/Rhythm: regular rate and regular rhythm Heart Sounds: normal S1 and normal S2; no gallop, no murmur and no cardiac rub Vessels: normal peripheral pulses; no JVD Gastrointestinal (Abdomen): normal bowel sounds, soft, nontender, no hepatosplenomegaly Musculoskeletal: no cyanosis or clubbing, extremities motor strength 5/5 Spine: thoracic spine normal to inspection and lumbar spine normal to inspection; no cervical spinal tenderness Skin: no rashes, warm and dry normal turgor and + ulcer (Large lateral right ankle ulceration extending posteriorly with surrounding erythema, some serous drainage) Neurologic: patellar DTR's 2+ bilat, sensation intact no focal motor deficits Psychiatric: A+Ox3, euthymic affect Orientation: cooperative Lymphatic: no cervical or axillary lymphadenopathy no inguinal lymphadenopathy Results & Data Vital Signs (Past 12 Hours) Vital Signs Temp Pulse Resp BP Pulse Ox 10/15/19 07:29 36.8 C 71 17 125/88 93 Laboratory Results Laboratory Results - last 48 hr 10/09/19 13:20 U Codeine Confrm GC/MS NEGATIVE Ur Morphine (GC/MS) 377 A Ur Hydrocodone (GC/MS) NEGATIVE Ur Norhydrocodone NEGATIVE Ur Noroxycodone NEGATIVE Urine Oxycodone (GC/MS) NEGATIVE U Oxymorphone GC/MS NEGATIVE Ur Hydromorphone (GC/MS) NEGATIVE Diagnostic Findings Microbiology 10/08/19 20:32 Leg,Right Gram Stain - Final 10/08/19 20:32 Leg,Right Wound Culture - Preliminary Gram negative bacilli Group G Beta Strep Staph aureus MRSA 10/08/19 20:03 Blood Aerobic Blood Culture - Final No growth in Aerobic bottle after 5 days. 10/08/19 20:03 Blood Anaerobic Blood Culture - Final No growth in Anaerobic bottle after 5 days. 10/08/19 20:03 Blood Aerobic Blood Culture - Final No growth in Aerobic bottle after 5 days. 10/08/19 20:03 Blood Anaerobic Blood Culture - Final No growth in Anaerobic bottle after 5 days. PG Care Time/CCT Total # of Minutes Spent Total Time Spent with Patient: Total time spent is greater than 50% in coordination of care (as documented) at patient's floor/unit and/or counseling patient: (1) Venous stasis ulcer of ankle Varicose vein presence: without varicose veins Laterality: right Non- pressure ulcer stage: with fat layer exposed Qualified Code(s): I87.2 - Venous insufficiency (chronic) (peripheral); L97.312 - Non-pressure chronic ulcer of right ankle with fat layer exposed
== END 2019-10-15 15:14 | disposition home health service (06) | DRG 603 ==
LOC: ED 19:13 → 3W 22:37 → SUATTDRO 22:37 → 3W 23:29

== ENCOUNTER 2023-01-28 14:08 | Inpatient (IN) ==
[2023-01-28] MEDS ORDERED: VANCOMYCIN CONSULT ACTIVE PRN (14:48)
[2023-01-28] MEDS ORDERED: CEFEPIME 2,000 MG in SYRINGE 0 ML IV STA (14:48)
[2023-01-28] MEDS ORDERED: VANCOMYCIN HCL 1,500 MG in SODIUM CHLORIDE 0.9% 500 ML IV ONE (14:48)
[2023-01-28] MEDS ORDERED: metroNIDAZOLE 500 MG/100 ML BAG IV STA (14:50)
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
[2023-01-28] MEDS ORDERED: MoRPHine SULFATE 4 MG/ML 1 ML CARP\\VIAL IV STA (15:37)
[2023-01-28] MEDS ORDERED: ONDANSETRON INJ 2 MG/ML 2 ML VIAL IV STA (15:37)
[2023-01-28 15:38] LABS: Troponin I High Sensitivity 4.2 pg/ml (0-20)
[2023-01-28 15:43] LABS: Albumin Level 3.4 gm/dl (3.4-5.0); Bilirubin,Total 0.3 mg/dl (0.2-1.0); Calcium 8.7 mg/dl (8.5-10.1); Magnesium 1.7 mg/dl (1.7-2.4); Potassium 3.4 mmol/L (3.5-5.1)
--- NOTE | 2023-01-28 15:47 | XRay Report ---
XR ankle RT min 3V routine HISTORY: 57 years-old Male infection patient presents with soft tissue infection of the right lower leg and ankle COMPARISON: Right foot radiographs of same day, right tibia and fibula radiographs 10/08/2019 TECHNIQUE: 3 views of the right ankle FINDINGS: Irregular soft tissue swelling of the distal lower leg and ankle. Progressive cortical thickening wit hin the mid to distal diaphyseal tibia and fibula. No acute fracture, dislocation or osseous erosion. Enthesophytes of the calcaneus. IMPRESSION: 1. Irregular soft tissue swelling without acute fracture, dislocation or acute osseous erosion identi fied. 2. Progressive cortical thickening of the tibia and fibula compared to the study from 2019. This may be secondary to venous stasis. Chronic osteomyelitis could cause a similar appearance. ACT 112: Negative or not required by law. The above report was generated using voice recognition software. It may contain grammatical, syntax o r spelling errors. Electronically signed by: Alex Beyer M.D. 01/28/2023 3:45 PM
[2023-01-28 15:49] LABS: BUN Creatinine Ratio 24.8 (10-20); Creatinine Clr Calc Pharmacy 50.6 ml/min; Est GFR (African American) 54.2 ml/min; Est GFR (Non-African American) 46.8 ml/min; Total Protein 7.5 gm/dl (6.0-8.3)
[2023-01-28] MEDS ORDERED: SODIUM CHLORIDE 0.9% 250 ML IV PRN (15:50)
[2023-01-28] MEDS ORDERED: SODIUM CHLORIDE 0.9% 1000ML 2,000 ML IV ONE (15:51)
--- NOTE | 2023-01-28 15:55 | XRay Report ---
XR chest 1V portable HISTORY: Sepsis COMPARISON: None. FINDINGS: The lungs are clear. Cardiac silhouette is normal in size. No pleural effusions. No pneumot horax. IMPRESSION: No acute process. ACT 112: Negative or not required by law. Electronically signed by: Dawson Corey M.D. 01/28/2023 3:53 PM
[2023-01-28 15:57] LABS: Basophils # (auto) 0.05 K/uL (0-0.2); Basophils % (auto) 0.6 %; Eosinophils # (auto) 0.11 K/uL (0-0.50); Eosinophils % (auto) 1.4 %; Hemoglobin 6.4 g/dl (14.0-18.0); Hypochromasia Present; Immature Granulocytes # (auto) 0.02 K/uL (0.01-0.20); Immature Granulocytes % (auto) 0.3 %; Lymphocytes # (auto) 1.99 K/uL (1.2-3.4); Lymphocytes % (auto) 24.9 %; Mean Corpuscular Hemoglobin 18.9 pg (25.0-34.0); Mean Corpuscular Hgb Conc 29.1 g/dL (32.0-36.0); Mean Corpuscular Volume 65.1 fL (80.0-100.0); Monocytes # (auto) 1.06 K/uL (0.11-0.59); Monocytes % (auto) 13.3 %; Neutrophils # (auto) 4.75 K/uL (1.40-6.50); Neutrophils % (auto) 59.5 %; Platelet Count 629 K/uL (130-400); Polychromasia 1+; RDW Coefficient of Variation 18.6 % (11.5-14.5); RDW Standard Deviation 43.2 fL (36.4-46.3); Red Blood Count 3.38 M/uL (4.70-6.10); Schistocytes 1+; Tear Drop Cells 1+; White Blood Count 7.98 K/ul (4.8-10.8)
--- NOTE | 2023-01-28 16:18 | XRay Report ---
XR foot RT min 3V routine CLINICAL HISTORY: Right foot infection. COMPARISON: MRI of the right ankle October 09, 2019. FINDINGS: Tarsometatarsal joints are intact. No acute fracture within the right foot is noted. Evalu ation of the right first toe is difficult given chronic deformity. There is a suspected wound along t he medial aspect of the right first metatarsophalangeal joint. There is relative lucency within the a djacent lateral aspect of the right first metatarsal head and lateral base of the right first proxima l phalanx. No clear bony destruction is present. IMPRESSION: 1. No fracture or dislocation within the right foot. 2. Soft tissue swelling with suspected wound along the medial aspect of the right first metatarsophal angeal joint. Relative lucency of the adjacent bones is likely artifactual. However, osteomyelitis co uld appear similar. No clear bony destruction. ACT 112: Negative or not required by law. Electronically signed by: Chicho Juárez M.D. 01/28/2023 4:16 PM
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
[2023-01-28] MEDS ORDERED: GLUCAGON FOR INJ 1 MG VIAL SQ PRN (17:54)
[2023-01-28] MEDS ORDERED: GLUCOSE 40% GEL 15 GM TUBE PO PRN (17:54)
[2023-01-28] MEDS ORDERED: GLUCOSE 10 TAB/TUBE PO PRN (17:54)
[2023-01-28] MEDS ORDERED: DEXTROSE 50% 50 ML SYRINGE IV PRN (17:54)
[2023-01-28] MEDS ORDERED: PHARMACY GLYCEMIC MGMT CONSULT PRN (17:54)
[2023-01-28] MEDS ORDERED: CARBOHYDRATES FOR HYPOGLYCEMIA PO PRN (17:54)
--- NOTE | 2023-01-28 18:34 | 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 Note ---
Date of Service: January 28, 2023 Patient initially seen by ROXANN OLSON as on earlier hospitalization previously seen by Lalitha Cisneros and with Lalitha Cisneros PCP. On discussion w pt has recently established with [facility] PCP in the last year. Will transfer to [facility] rounding service in the morning.
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
[2023-01-28] MEDS: PANTOprazole 40 MG in SYRINGE 0 ML IV SCH (20:44)
[2023-01-28] MEDS: INSULIN ASPART PER UNIT CHARGE SC SCH (21:59)
[2023-01-28] MEDS ORDERED: POLYETHYLENE (MIRALAX) 17 GM PACK PO PRN (22:09)
[2023-01-28] MEDS ORDERED: ONDANSETRON INJ 2 MG/ML 2 ML VIAL IV PRN (22:09)
[2023-01-28] MEDS: PLASMA-LYTE A 1,000 ML IV SCH (23:07)
[2023-01-29] MEDS: metroNIDAZOLE 500 MG/100 ML BAG IV SCH ×3 (00:04→17:21)
[2023-01-29 01:14] LABS: Hematocrit (blood only) 23.3 % (42.0-52.0); Hemoglobin 7.2 g/dl (14.0-18.0)
--- NOTE | 2023-01-29 02:38 | Electrocardiogram Report ---
Test Reason : Blood Pressure : / mmHG Vent. Rate : 076 BPM Atrial Rate : 076 BPM P-R Int : 148 ms QRS Dur : 084 ms QT Int : 392 ms P-R-T Axes : 050 052 002 degrees QTc Int : 441 ms Normal sinus rhythm Nonspecific ST and T wave abnormality Abnormal ECG No previous ECGs available Confirmed by Franck Koenig ([id number]) on 01/29/2023 2:38:13 AM Referred By: Confirmed By:Franck Koenig
[2023-01-29] MEDS: VANCOMYCIN HCL 1,000 MG in SODIUM CHLORIDE 0.9% 250 ML IV SCH (05:25)
[2023-01-29] MEDS: CEFEPIME 2,000 MG in SYRINGE 0 ML IV SCH ×2 (05:25→17:21)
[2023-01-29 06:01] LABS: Appearance Urine Clear (Clear); Bacteria Urine Automated Negative (Negative); Bilirubin Urine Negative (Negative); Blood Urine Trace (Negative); Color Urine Yellow; Epithelial Cell Urine Auto >30 /lpf (0-5); Glucose Urine UA Negative (Negative); Ketones Urine Negative (Negative); Leukocyte Esterase Urine 1+ (Negative); Nitrite Urine Negative (Negative); Protein Urine 1+ (Negative); Specific Gravity Urine 1.029 (1.000-1.030); Urobilinogen Urine Negative (Negative); WBC Urine Automated >30 /hpf (0-5); pH Urine 5.5 (4.5-7.5)
[2023-01-29 06:42] LABS: Albumin Level 2.6 gm/dl (3.4-5.0); BUN Creatinine Ratio 25.2 (10-20); Bilirubin,Total 0.5 mg/dl (0.2-1.0); Calcium 7.7 mg/dl (8.5-10.1); Creatinine Clr Calc Pharmacy 63.3 ml/min; Est GFR (African American) 75.1 ml/min; Est GFR (Non-African American) 64.8 ml/min; Globulin 2.7 gm/dl (2.5-4.0); Potassium 3.8 mmol/L (3.5-5.1); Total Protein 5.3 gm/dl (6.0-8.3)
[2023-01-29 06:50] LABS: Hematocrit (blood only) 20.5 % (42.0-52.0); Hemoglobin 6.4 g/dl (14.0-18.0); Mean Corpuscular Hemoglobin 22.9 pg (25.0-34.0); Mean Corpuscular Hgb Conc 31.2 g/dL (32.0-36.0); Mean Corpuscular Volume 73.5 fL (80.0-100.0); Mean Platelet Volume 8.8 fL (9.4-12.4); Platelet Count 340 K/uL (130-400); RDW Coefficient of Variation 22.1 % (11.5-14.5); RDW Standard Deviation 57.9 fL (36.4-46.3); Red Blood Count 2.79 M/uL (4.70-6.10); White Blood Count 6.15 K/ul (4.8-10.8)
[2023-01-29 06:51] LABS: Basophils # (auto) 0.06 K/uL (0-0.2); Eosinophils % (auto) 3.3 %; Immature Granulocytes # (auto) 0.02 K/uL (0.01-0.20); Immature Granulocytes % (auto) 0.3 %; Lymphocytes # (auto) 2.34 K/uL (1.2-3.4); Monocytes # (auto) 0.67 K/uL (0.11-0.59); Monocytes % (auto) 10.9 %; Neutrophils # (auto) 2.86 K/uL (1.40-6.50); Neutrophils % (auto) 46.5 %; Polychromasia 1+
[2023-01-29] MEDS: PLASMA-LYTE A 1,000 ML IV SCH ×2 (07:18→17:21)
[2023-01-29] MEDS ORDERED: SODIUM CHLORIDE 0.9% 250 ML IV PRN (07:31)
[2023-01-29 08:30] LABS: Estimated Average Glucose 105 mg/dl; Hemoglobin A1C 5.3 % (4.5-5.6)
[2023-01-29] MEDS: INSULIN ASPART PER UNIT CHARGE SC SCH ×4 (08:32→20:36)
[2023-01-29 09:47] LABS: Ferritin 10.4 ng/ml (8-388)
--- NOTE | 2023-01-29 10:16 | Hospitalist Progress Note ---
Date of Service January 29, 2023 Assessment & Plan (1) Cellulitis of right lower extremity: (2) Leg wound, right: Plan: Chronic right leg wound Increased drainage and bleeding recently. Foot XR noted soft tiss swelling with wound along medial aspect of Rt 1st MTP j oint. Relative lucency in adjacent bones which could also be osteo Lactate was on presentation and normalized with IVF No leukocytosis MRI pending to rule out osteomyelitis Continue vanc, cefepime and flagyl Follow up blood cultures in lab Surgeon on board (3) Anemia: Plan: Microcytic anemia Likely from bleeding from wound Possible GI bleed as well with report of black stool and ibuprofen intake S/p 2PRBC Hb still at 6.4 today Giving another PRBC this morning Will monitor and transfuse prn to keep >7 Continue PPI BID Avoid NSAIDs Will follow up GI evaluation Get TTE to evaluate murmur (4) ALPHONSO (acute kidney injury): Plan: Cr was 1.61 on presentation. Based on BMP from 2019. Likely ALPHONSO on CKD Cr improved to 1.23 today Monitor (5) Hyperglycemia: Plan: Reported he has been told his blood glucose was high but not diabetic Hemoglobin A1c was 6.2 in 2019. Hence Prediabetic Hemoglobin A1c is normal now at 5.3. Patient has anemia and this was done after 2PRBC yesterday Admission and Anticipated Discharge Date Admission Date: January 28, 2023 Subjective Patient seen and examined. It is tough getting a good history from patient as he is quite tangential. History obtained from him and chart review. He reported he had had right leg wound for years, that started after he had an injury. Stated he was following with [facility] then switched to [facility] PCP in 02/2022 who he saw once. [facility] showed he had presented to Dr Navarrete's on 03/12/2022 to establish care and complained of open wound of right leg. He had mulitple layers of dressing with paper towels, tape, gauze for his large circumferential open wound from ankle to half way up the calf that was foul smelling with black/green drainage. Patient was advised to proceed to the hospital for further eval that day but he declined. Reports ambulatory dysfuntion, worsening pain for the past 1-2 weeks Denied any fever, chills, nausea, vomiting, abd pain, palpitation, chest pain, cough, shortness of breath Reported he had been taking multiple doses of tylenol and ibuprofen for the pain. Reported he has been having black stools for sometime. Denied anxiey/depression/SI/HI Physical Exam Constitutional: + well hydrated; no acute distress Eyes: PERRL, conjunctivae normal, anicteric sclerae ENMT: external ear and nose normal, oropharynx normal Respiratory: normal respiratory effort, lungs clear to auscultation Cardiovascular: Rate/Rhythm: regular rate and regular rhythm S1 S2 +murmur Gastrointestinal (Abdomen): normal bowel sounds, soft, nontender, no hepatosplenomegaly Musculoskeletal: Right leg covered in thick dressing from knee to foot. (will better assess wound once it is time for dressing change today with RN. RN notified) Reviewed wound images from yesterday Neurologic: PERRL, EOMI, accommodation nl, no face palsy, no dysarthria Psychiatric: AOx3. tangential historian. Results & Data Results & Data Vital Signs (Past 12 Hours) Vital Signs Temp Pulse Pulse Resp BP BP Pulse Ox 01/29/23 09:23 36.8 C 64 16 132/75 100 01/29/23 08:53 36.7 C 59 L 16 126/71 100 01/29/23 08:38 36.7 C 59 L 18 109/65 100 01/29/23 08:34 36.3 C L 59 L 18 109/65 100 01/29/23 08:20 36.6 C 61 18 112/65 100 01/29/23 07:49 36.3 C L 60 18 112/63 99 01/29/23 07:25 61 01/28/23 22:01 69 01/28/23 23:01 36.7 C 66 16 118/69 100 O2 Del Method 01/29/23 09:23 01/29/23 08:53 01/29/23 08:38 01/29/23 08:34 01/29/23 08:20 01/29/23 07:49 Room Air 01/29/23 07:25 01/28/23 22:01 01/28/23 23:01 Laboratory Results Abnormal lab results 01/28/23 01/28/23 01/28/23 Range/Units 05:28 12:30 12:30 RBC 3.38 L (4.70-6.10) M/uL Hgb 6.4 L* (14.0-18.0) g/dl Hct 22.0 L (42.0-52.0) % MCV 65.1 L (80.0-100.0) fL MCH 18.9 L (25.0-34.0) pg MCHC 29.1 L (32.0-36.0) g/dL RDW Std Deviation (36.4-46.3) fL RDW Coeff of Stewart 18.6 H (11.5-14.5) % Plt Count 629 H (130-400) K/uL MPV 9.0 L (9.4-12.4) fL Glascock # (Auto) 1.06 H (0.11-0.59) K/uL Potassium 3.4 L (3.5-5.1) mmol/L Chloride (98-107) mmol/L Carbon Dioxide (21-32) mmol/L BUN 40 H (6-23) mg/dl Creatinine 1.61 H (0.6-1.4) mg/dl BUN/Creatinine Ratio 24.8 H (10-20) Glucose 140 H (70-99(Fasting)) mg/dl POC Glucose (70-99) mg/dl Lactate (0.4-2.0) mmol/L Calcium (8.5-10.1) mg/dl Transferrin (200-360) mg/dl AST 9 L (13-39) U/L ALT (7-52) U/L C-Reactive Protein (0-0.5) mg/dl Total Protein (6.0-8.3) gm/dl Albumin (3.4-5.0) gm/dl Urine Protein 1+ H (Negative) Urine Blood Trace H (Negative) Ur Leukocyte Esterase 1+ H (Negative) Urine WBC (Auto) >30 H (0-5) /hpf Urine RBC (Auto) 10-30 H (0-4) /hpf U Hyaline Cast (Auto) 5-10 H (0-5) /lpf U Epithel Cells (Auto) >30 H (0-5) /lpf Crossmatch 01/28/23 01/28/23 01/28/23 Range/Units 15:04 15:04 15:21 RBC (4.70-6.10) M/uL Hgb (14.0-18.0) g/dl Hct (42.0-52.0) % MCV (80.0-100.0) fL MCH (25.0-34.0) pg MCHC (32.0-36.0) g/dL RDW Std Deviation (36.4-46.3) fL RDW Coeff of Stewart (11.5-14.5) % Plt Count (130-400) K/uL MPV (9.4-12.4) fL Glascock # (Auto) (0.11-0.59) K/uL Potassium (3.5-5.1) mmol/L Chloride (98-107) mmol/L Carbon Dioxide (21-32) mmol/L BUN (6-23) mg/dl Creatinine (0.6-1.4) mg/dl BUN/Creatinine Ratio (10-20) Glucose (70-99(Fasting)) mg/dl POC Glucose (70-99) mg/dl Lactate 2.7 H* (0.4-2.0) mmol/L Calcium (8.5-10.1) mg/dl Transferrin (200-360) mg/dl AST (13-39) U/L ALT (7-52) U/L C-Reactive Protein 5.14 H (0-0.5) mg/dl Total Protein (6.0-8.3) gm/dl Albumin (3.4-5.0) gm/dl Urine Protein (Negative) Urine Blood (Negative) Ur Leukocyte Esterase (Negative) Urine WBC (Auto) (0-5) /hpf Urine RBC (Auto) (0-4) /hpf U Hyaline Cast (Auto) (0-5) /lpf U Epithel Cells (Auto) (0-5) /lpf Crossmatch See Detail 01/28/23 01/28/23 01/29/23 Range/Units 19:46 21:50 00:39 RBC (4.70-6.10) M/uL Hgb 7.2 L (14.0-18.0) g/dl Hct 23.3 L (42.0-52.0) % MCV (80.0-100.0) fL MCH (25.0-34.0) pg MCHC (32.0-36.0) g/dL RDW Std Deviation (36.4-46.3) fL RDW Coeff of Stewart (11.5-14.5) % Plt Count (130-400) K/uL MPV (9.4-12.4) fL Glascock # (Auto) (0.11-0.59) K/uL Potassium (3.5-5.1) mmol/L Chloride (98-107) mmol/L Carbon Dioxide (21-32) mmol/L BUN (6-23) mg/dl Creatinine (0.6-1.4) mg/dl BUN/Creatinine Ratio (10-20) Glucose (70-99(Fasting)) mg/dl POC Glucose 113 H 114 H (70-99) mg/dl Lactate (0.4-2.0) mmol/L Calcium (8.5-10.1) mg/dl Transferrin (200-360) mg/dl AST (13-39) U/L ALT (7-52) U/L C-Reactive Protein (0-0.5) mg/dl Total Protein (6.0-8.3) gm/dl Albumin (3.4-5.0) gm/dl Urine Protein (Negative) Urine Blood (Negative) Ur Leukocyte Esterase (Negative) Urine WBC (Auto) (0-5) /hpf Urine RBC (Auto) (0-4) /hpf U Hyaline Cast (Auto) (0-5) /lpf U Epithel Cells (Auto) (0-5) /lpf Crossmatch 01/29/23 01/29/23 01/29/23 Range/Units 05:33 05:33 07:27 RBC 2.79 L (4.70-6.10) M/uL Hgb 6.4 L* (14.0-18.0) g/dl Hct 20.5 L* (42.0-52.0) % MCV 73.5 L D (80.0-100.0) fL MCH 22.9 L (25.0-34.0) pg MCHC 31.2 L (32.0-36.0) g/dL RDW Std Deviation 57.9 H (36.4-46.3) fL RDW Coeff of Stewart 22.1 H (11.5-14.5) % Plt Count (130-400) K/uL MPV 8.8 L (9.4-12.4) fL Glascock # (Auto) 0.67 H (0.11-0.59) K/uL Potassium (3.5-5.1) mmol/L Chloride 114 H (98-107) mmol/L Carbon Dioxide 19 L (21-32) mmol/L BUN 31 H (6-23) mg/dl Creatinine (0.6-1.4) mg/dl BUN/Creatinine Ratio 25.2 H (10-20) Glucose (70-99(Fasting)) mg/dl POC Glucose 101 H (70-99) mg/dl Lactate (0.4-2.0) mmol/L Calcium 7.7 L (8.5-10.1) mg/dl Transferrin (200-360) mg/dl AST 7 L (13-39) U/L ALT 5 L (7-52) U/L C-Reactive Protein 4.00 H (0-0.5) mg/dl Total Protein 5.3 L D (6.0-8.3) gm/dl Albumin 2.6 L (3.4-5.0) gm/dl Urine Protein (Negative) Urine Blood (Negative) Ur Leukocyte Esterase (Negative) Urine WBC (Auto) (0-5) /hpf Urine RBC (Auto) (0-4) /hpf U Hyaline Cast (Auto) (0-5) /lpf U Epithel Cells (Auto) (0-5) /lpf Crossmatch 01/29/23 Range/Units 08:03 RBC (4.70-6.10) M/uL Hgb (14.0-18.0) g/dl Hct (42.0-52.0) % MCV (80.0-100.0) fL MCH (25.0-34.0) pg MCHC (32.0-36.0) g/dL RDW Std Deviation (36.4-46.3) fL RDW Coeff of Stewart (11.5-14.5) % Plt Count (130-400) K/uL MPV (9.4-12.4) fL Glascock # (Auto) (0.11-0.59) K/uL Potassium (3.5-5.1) mmol/L Chloride (98-107) mmol/L Carbon Dioxide (21-32) mmol/L BUN (6-23) mg/dl Creatinine (0.6-1.4) mg/dl BUN/Creatinine Ratio (10-20) Glucose (70-99(Fasting)) mg/dl POC Glucose (70-99) mg/dl Lactate (0.4-2.0) mmol/L Calcium (8.5-10.1) mg/dl Transferrin 191 L (200-360) mg/dl AST (13-39) U/L ALT (7-52) U/L C-Reactive Protein (0-0.5) mg/dl Total Protein (6.0-8.3) gm/dl Albumin (3.4-5.0) gm/dl Urine Protein (Negative) Urine Blood (Negative) Ur Leukocyte Esterase (Negative) Urine WBC (Auto) (0-5) /hpf Urine RBC (Auto) (0-4) /hpf U Hyaline Cast (Auto) (0-5) /lpf U Epithel Cells (Auto) (0-5) /lpf Crossmatch
--- NOTE | 2023-01-29 10:24 | Pharmacy Report ---
Pharmacy PK ABX Note - Date of Service January 29, 2023 - Assessment and Plan Assessment 57 year old M receiving vancomycin/cefepime/flagyl for treatment of left lower extremity wound. Pertinent microbiologic data includes: Blood cultures/urine culture pending. Afebrile, normal white count. SCr initially 1.61 --> 1.23 Plan Vancomycin * Loading dose: 1500 mg IV x 1 * Maintenance dose: 1000 mg IV every 18 hours * Regimen is predicted to achieve target AUC/NASRIN of 400-600 mg/L.hr * Level to be ordered pending change in renal function/continuation Pharmacy will continue to follow and will adjust dose/frequency as necessary. Thank you. Pharmacy has transitioned to AUC monitoring for vancomycin. AUC/NASRIN is the preferred PK/PD target and is associated with decreased risk of nephrotoxicity compared to traditional trough targets.
[2023-01-29] MEDS: PANTOprazole 40 MG in SYRINGE 0 ML IV SCH ×2 (10:28→20:32)
--- NOTE | 2023-01-29 13:03 | Surgery Progress Note ---
Date of Service January 29, 2023 Assessment & Plan (1) Cellulitis of right lower extremity: Plan pt is a 57 year-old male who presents to Er with chronic cellulitis on right low leg, IMP: chronic cellulitis on right low leg, plan, internal medicine team will admit pt to hospital, no emergent surgery indication now, IV antibiotic, MRI to R/O osteomyelitis, Pending, repeat labs in morning, will F/U, 01/29/2023 1:[address] Chávez IMP: chronic cellulitis on right low leg, plan, IV antibiotic, MRI to R/O osteomyelitis, Pending, once get MRI, may decide what kind debridement should do. repeat labs in morning, may need other blood transfusion, will F/U, Admission and Anticipated Discharge Date Admission Date: January 28, 2023 Subjective Patient seen and examined. It is tough getting a good history from patient as he is quite tangential. History obtained from him and chart review. He reported he had had right leg wound for years, that started after he had an injury. Stated he was following with [facility] then switched to [facility] PCP in 02/2022 who he saw once. [facility] showed he had presented to Dr Navarrete's on 03/12/2022 to establish care and complained of open wound of right leg. He had mulitple layers of dressing with paper towels, tape, gauze for his large circumferential open wound from ankle to half way up the calf that was foul smelling with black/green drainage. Patient was advised to proceed to the hospital for further eval that day but he declined. Reports ambulatory dysfuntion, worsening pain for the past 1-2 weeks Denied any fever, chills, nausea, vomiting, abd pain, palpitation, chest pain, cough, shortness of breath Reported he had been taking multiple doses of tylenol and ibuprofen for the pain. Reported he has been having black stools for sometime. Denied anxiey/depression/SI/HI 01/29/2023 12:[address] Chávez F/U RLL infection, pt feels better, no fever, today pt will have MRI done to R/O osteomyelitis. Review of Systems Constitutional: as per Subjective / HPI Eyes: as per Subjective / HPI Respiratory: as per Subjective / HPI Cardiovascular: as per Subjective / HPI Gastrointestinal: as per Subjective / HPI Genitourinary: + as per Subjective / HPI Musculoskeletal: chronic right low cellulitis Neurologic: as per Subjective / HPI Psychiatric: mood disorder Endocrine: as per Subjective / HPI Hematologic / Lymphatic: as per Subjective / HPI anemia Physical Exam Constitutional: WD/WN, vitals as above Eyes: PERRL, conjunctivae normal, anicteric sclerae Neck: trachea midline, no thyromegaly Respiratory: normal respiratory effort, lungs clear to auscultation Cardiovascular: RRR, no murmur, no edema Gastrointestinal (Abdomen): normal bowel sounds, soft, nontender, no hepatosplenomegaly Musculoskeletal: chronic RLL infection, unknown how deep infection, Neurologic: patellar DTR's 2+ bilat, sensation intact Psychiatric: A+Ox3, euthymic affect Results & Data Vital Signs (Past 12 Hours) Vital Signs Temp Pulse Pulse Resp BP BP Pulse Ox 01/29/23 10:45 36.6 C 62 16 126/72 99 01/29/23 10:23 36.5 C 60 16 119/75 100 01/29/23 09:23 36.8 C 64 16 132/75 100 01/29/23 08:53 36.7 C 59 L 16 126/71 100 01/29/23 08:38 36.7 C 59 L 18 109/65 100 01/29/23 08:34 36.3 C L 59 L 18 109/65 100 01/29/23 08:20 36.6 C 61 18 112/65 100 01/29/23 07:49 36.3 C L 60 18 112/63 99 01/29/23 07:25 61 O2 Del Method 01/29/23 10:45 01/29/23 10:23 01/29/23 09:23 01/29/23 08:53 01/29/23 08:38 01/29/23 08:34 01/29/23 08:20 01/29/23 07:49 Room Air 01/29/23 07:25 Laboratory Results Abnormal lab results 01/28/23 01/28/23 01/28/23 Range/Units 05:28 12:30 12:30 RBC 3.38 L (4.70-6.10) M/uL Hgb 6.4 L* (14.0-18.0) g/dl Hct 22.0 L (42.0-52.0) % MCV 65.1 L (80.0-100.0) fL MCH 18.9 L (25.0-34.0) pg MCHC 29.1 L (32.0-36.0) g/dL RDW Std Deviation (36.4-46.3) fL RDW Coeff of Stewart 18.6 H (11.5-14.5) % Plt Count 629 H (130-400) K/uL MPV 9.0 L (9.4-12.4) fL Dickenson # (Auto) 1.06 H (0.11-0.59) K/uL Potassium 3.4 L (3.5-5.1) mmol/L Chloride (98-107) mmol/L Carbon Dioxide (21-32) mmol/L BUN 40 H (6-23) mg/dl Creatinine 1.61 H (0.6-1.4) mg/dl BUN/Creatinine Ratio 24.8 H (10-20) Glucose 140 H (70-99(Fasting)) mg/dl POC Glucose (70-99) mg/dl Lactate (0.4-2.0) mmol/L Calcium (8.5-10.1) mg/dl Transferrin (200-360) mg/dl AST 9 L (13-39) U/L ALT (7-52) U/L C-Reactive Protein (0-0.5) mg/dl Total Protein (6.0-8.3) gm/dl Albumin (3.4-5.0) gm/dl Urine Protein 1+ H (Negative) Urine Blood Trace H (Negative) Ur Leukocyte Esterase 1+ H (Negative) Urine WBC (Auto) >30 H (0-5) /hpf Urine RBC (Auto) 10-30 H (0-4) /hpf U Hyaline Cast (Auto) 5-10 H (0-5) /lpf U Epithel Cells (Auto) >30 H (0-5) /lpf Crossmatch 01/28/23 01/28/23 01/28/23 Range/Units 15:04 15:04 15:21 RBC (4.70-6.10) M/uL Hgb (14.0-18.0) g/dl Hct (42.0-52.0) % MCV (80.0-100.0) fL MCH (25.0-34.0) pg MCHC (32.0-36.0) g/dL RDW Std Deviation (36.4-46.3) fL RDW Coeff of Stewart (11.5-14.5) % Plt Count (130-400) K/uL MPV (9.4-12.4) fL Dickenson # (Auto) (0.11-0.59) K/uL Potassium (3.5-5.1) mmol/L Chloride (98-107) mmol/L Carbon Dioxide (21-32) mmol/L BUN (6-23) mg/dl Creatinine (0.6-1.4) mg/dl BUN/Creatinine Ratio (10-20) Glucose (70-99(Fasting)) mg/dl POC Glucose (70-99) mg/dl Lactate 2.7 H* (0.4-2.0) mmol/L Calcium (8.5-10.1) mg/dl Transferrin (200-360) mg/dl AST (13-39) U/L ALT (7-52) U/L C-Reactive Protein 5.14 H (0-0.5) mg/dl Total Protein (6.0-8.3) gm/dl Albumin (3.4-5.0) gm/dl Urine Protein (Negative) Urine Blood (Negative) Ur Leukocyte Esterase (Negative) Urine WBC (Auto) (0-5) /hpf Urine RBC (Auto) (0-4) /hpf U Hyaline Cast (Auto) (0-5) /lpf U Epithel Cells (Auto) (0-5) /lpf Crossmatch See Detail 01/28/23 01/28/23 01/29/23 Range/Units 19:46 21:50 00:39 RBC (4.70-6.10) M/uL Hgb 7.2 L (14.0-18.0) g/dl Hct 23.3 L (42.0-52.0) % MCV (80.0-100.0) fL MCH (25.0-34.0) pg MCHC (32.0-36.0) g/dL RDW Std Deviation (36.4-46.3) fL RDW Coeff of Stewart (11.5-14.5) % Plt Count (130-400) K/uL MPV (9.4-12.4) fL Dickenson # (Auto) (0.11-0.59) K/uL Potassium (3.5-5.1) mmol/L Chloride (98-107) mmol/L Carbon Dioxide (21-32) mmol/L BUN (6-23) mg/dl Creatinine (0.6-1.4) mg/dl BUN/Creatinine Ratio (10-20) Glucose (70-99(Fasting)) mg/dl POC Glucose 113 H 114 H (70-99) mg/dl Lactate (0.4-2.0) mmol/L Calcium (8.5-10.1) mg/dl Transferrin (200-360) mg/dl AST (13-39) U/L ALT (7-52) U/L C-Reactive Protein (0-0.5) mg/dl Total Protein (6.0-8.3) gm/dl Albumin (3.4-5.0) gm/dl Urine Protein (Negative) Urine Blood (Negative) Ur Leukocyte Esterase (Negative) Urine WBC (Auto) (0-5) /hpf Urine RBC (Auto) (0-4) /hpf U Hyaline Cast (Auto) (0-5) /lpf U Epithel Cells (Auto) (0-5) /lpf Crossmatch 01/29/23 01/29/23 01/29/23 Range/Units 05:33 05:33 07:27 RBC 2.79 L (4.70-6.10) M/uL Hgb 6.4 L* (14.0-18.0) g/dl Hct 20.5 L* (42.0-52.0) % MCV 73.5 L D (80.0-100.0) fL MCH 22.9 L (25.0-34.0) pg MCHC 31.2 L (32.0-36.0) g/dL RDW Std Deviation 57.9 H (36.4-46.3) fL RDW Coeff of Stewart 22.1 H (11.5-14.5) % Plt Count (130-400) K/uL MPV 8.8 L (9.4-12.4) fL Dickenson # (Auto) 0.67 H (0.11-0.59) K/uL Potassium (3.5-5.1) mmol/L Chloride 114 H (98-107) mmol/L Carbon Dioxide 19 L (21-32) mmol/L BUN 31 H (6-23) mg/dl Creatinine (0.6-1.4) mg/dl BUN/Creatinine Ratio 25.2 H (10-20) Glucose (70-99(Fasting)) mg/dl POC Glucose 101 H (70-99) mg/dl Lactate (0.4-2.0) mmol/L Calcium 7.7 L (8.5-10.1) mg/dl Transferrin (200-360) mg/dl AST 7 L (13-39) U/L ALT 5 L (7-52) U/L C-Reactive Protein 4.00 H (0-0.5) mg/dl Total Protein 5.3 L D (6.0-8.3) gm/dl Albumin 2.6 L (3.4-5.0) gm/dl Urine Protein (Negative) Urine Blood (Negative) Ur Leukocyte Esterase (Negative) Urine WBC (Auto) (0-5) /hpf Urine RBC (Auto) (0-4) /hpf U Hyaline Cast (Auto) (0-5) /lpf U Epithel Cells (Auto) (0-5) /lpf Crossmatch 01/29/23 Range/Units 08:03 RBC (4.70-6.10) M/uL Hgb (14.0-18.0) g/dl Hct (42.0-52.0) % MCV (80.0-100.0) fL MCH (25.0-34.0) pg MCHC (32.0-36.0) g/dL RDW Std Deviation (36.4-46.3) fL RDW Coeff of Stewart (11.5-14.5) % Plt Count (130-400) K/uL MPV (9.4-12.4) fL Dickenson # (Auto) (0.11-0.59) K/uL Potassium (3.5-5.1) mmol/L Chloride (98-107) mmol/L Carbon Dioxide (21-32) mmol/L BUN (6-23) mg/dl Creatinine (0.6-1.4) mg/dl BUN/Creatinine Ratio (10-20) Glucose (70-99(Fasting)) mg/dl POC Glucose (70-99) mg/dl Lactate (0.4-2.0) mmol/L Calcium (8.5-10.1) mg/dl Transferrin 191 L (200-360) mg/dl AST (13-39) U/L ALT (7-52) U/L C-Reactive Protein (0-0.5) mg/dl Total Protein (6.0-8.3) gm/dl Albumin (3.4-5.0) gm/dl Urine Protein (Negative) Urine Blood (Negative) Ur Leukocyte Esterase (Negative) Urine WBC (Auto) (0-5) /hpf Urine RBC (Auto) (0-4) /hpf U Hyaline Cast (Auto) (0-5) /lpf U Epithel Cells (Auto) (0-5) /lpf Crossmatch
--- NOTE | 2023-01-29 14:49 | Pharmacy Report ---
Glycemic Ortho Sign Off Note - Date of Service January 29, 2023 - Scope Glycemic Pharmacist consulted for glycemic control and to write orders per [facility] inpatient glycemic control protocol. - Objective Accuchecks BSG (last 24hrs):: 01/28/23 01/28/23 01/28/23 12:30 19:46 21:50 Glucose 140 H POC Glucose 113 H 114 H 01/29/23 01/29/23 01/29/23 05:33 07:27 11:43 Glucose 94 POC Glucose 101 H 92 HbA1c:: Hemoglobin A1c 5.3 % (4.5-5.6) 01/29/23 05:33 - Assessment * Patient does not have a history of diabetes and was not on any anti-diabetic meds prior to admission. * SQ Novolog insulin was ordered yesterday based on weight and stress of 1. Patient has minimal risk factors for insulin resistance (i.e. no steroids). * Patient has not required any insulin in the past 24 hrs. - Plan For Inpatient Glycemic Control * Basal insulin * Not needed based on A1c, pre-op BSGs, and minimal risk factors for insulin resistance * Bolus insulin * Utilize low stress weight based NovoLog parameters per scale ACHS * Pharmacy has entered glycemic orders and is signing off of the glycemic consult. We will no longer be making adjustments to inpatient regimen. Please feel free to re-consult if needed. Thank you.
--- NOTE | 2023-01-29 14:51 | Pharmacy Report ---
Pharmacy Glycemic Sign Off Nt - Date of Service January 29, 2023 - Assessment & Plan ASSESSMENT: * Pharmacy was consulted by Dr Baum on 01/29/23 for glycemic control and to write orders per [facility] inpatient glycemic control protocol. * Patient does not have a history of diabetes and was not on any anti-diabetic meds prior to admission. * SQ Novolog insulin was ordered yesterday based on weight and stress of 1. Patient has minimal risk factors for insulin resistance (i.e. no steroids). * Patient has not required any insulin in the past 24 hrs. PLAN FOR INPATIENT GLYCEMIC CONTROL: No changes needed to current regimen. * Continue NovoLog per scale ACHS/Q6hrs while NPO * Goal range = 110-140 mg/dl * CF = 60 mg/dl/unit * CR = 1 unit for ever 20 g CHO consumed * Pharmacy is signing off of glycemic consult and will no longer be making adjustments to inpatient regimen. Please feel free to re-consult if needed. Thank you.
--- NOTE | 2023-01-29 15:09 | Magnetic Resonance Report ---
MR lower leg RT wo con CLINICAL HISTORY: Nonhealing wound of the right lower leg. Evaluate for osteomyelitis. COMPARISON STUDY: MRI of the right ankle October 09, 2019 and right ankle radiographs January 28 3. TECHNIQUE: Utilizing a 1.5 Marielena magnet and dedicated coil, multiplanar, multiecho imaging of the rig ht lower leg and tibia and fibula was performed without intravenous contrast. FINDINGS: This exam is mildly compromised by motion artifact. However, T1 marrow signal within the ri ght tibia and fibula is preserved. There is no significant marrow edema. There is no MR evidence for acute osteomyelitis of the right tibia or fibula. Moderate subcutaneous fluid of the right lower leg is noted. No fluid collection is identified on this unenhanced exam. There is mild nonspecific signal within the musculature of the right lower leg. Muscular atrophy is present. No significant fascial f luid is present. There is no MR evidence for soft tissue gas. Alignment of the right knee and ankle i s in anatomic. There is a possible small osteochondral defect of the talar dome, suboptimally assesse d on this exam. The Achilles tendon is intact. IMPRESSION: 1. Exam mildly compromised by artifact. No evidence for acute osteomyelitis of the right tibia or fib nelly. 2. Moderate right lower leg subcutaneous fluid. This may reflect edema or cellulitis. No fluid collec tion to suggest abscess on unenhanced exam. 3. Right lower leg muscular atrophy and nonspecific intramuscular signal. No significant fascial flui d. ACT 112: Negative or not required by law. Electronically signed by: Chicho Juárez M.D. 01/29/2023 3:07 PM
--- NOTE | 2023-01-29 15:20 | 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 Note ---
Date of Service: January 29, 2023 GI consult note: patient not at bedside. brief history this is a 57-year-old male with a past medical history of renal insufficiency, chronic right lower extremity recurrent cellulitis, cognitive decline/unreliable historian who presents to the ER with right foot pain swelling and redness.GI consulted for possible gi bleed. He has been having significant bleeding from his RLE wound and hgb noted to be 6.4 this morning. Currently on IV abx and being treated. On protonix BID, did have NSAID use as outpt for his wound pains. Recs: at this time i suspect bleeding is likely from his wound, would monitor for now on protonix BID and off of NSAIDS and continue to treat underlying wound infection via medicine and surgery teams. --continue protonix BID --hold NSAIDS --supportive care, trend h/h transfuse prn --rest as per primary team Bowen Barlow MD Gastroenterology
[2023-01-29] MEDS: ACETAMINOPHEN 325 MG TAB PO PRN (17:20)
[2023-01-29 19:31] LABS: Hematocrit (blood only) 22.9 % (42.0-52.0); Hemoglobin 7.5 g/dl (14.0-18.0); Mean Corpuscular Hemoglobin 24.4 pg (25.0-34.0); Mean Corpuscular Hgb Conc 32.8 g/dL (32.0-36.0); Mean Corpuscular Volume 74.6 fL (80.0-100.0); Mean Platelet Volume 8.8 fL (9.4-12.4); Platelet Count 315 K/uL (130-400); RDW Coefficient of Variation 21.9 % (11.5-14.5); RDW Standard Deviation 58.6 fL (36.4-46.3); Red Blood Count 3.07 M/uL (4.70-6.10)
[2023-01-30] MEDS: VANCOMYCIN HCL 1,000 MG in SODIUM CHLORIDE 0.9% 250 ML IV SCH (00:17)
[2023-01-30] MEDS: metroNIDAZOLE 500 MG/100 ML BAG IV SCH ×3 (00:18→17:16)
[2023-01-30] MEDS: PLASMA-LYTE A 1,000 ML IV SCH ×2 (01:33→09:37)
[2023-01-30] MEDS: CEFEPIME 2,000 MG in SYRINGE 0 ML IV SCH ×2 (06:17→17:16)
[2023-01-30 07:49] LABS: Hematocrit (blood only) 22.8 % (42.0-52.0); Hemoglobin 7.3 g/dl (14.0-18.0); Mean Corpuscular Hemoglobin 24.3 pg (25.0-34.0); Mean Corpuscular Volume 75.7 fL (80.0-100.0); Mean Platelet Volume 8.7 fL (9.4-12.4); Platelet Count 267 K/uL (130-400); RDW Coefficient of Variation 21.9 % (11.5-14.5); RDW Standard Deviation 59.7 fL (36.4-46.3); Red Blood Count 3.01 M/uL (4.70-6.10); White Blood Count 6.98 K/ul (4.8-10.8)
[2023-01-30 08:06] LABS: BUN Creatinine Ratio 20.5 (10-20); Calcium 7.6 mg/dl (8.5-10.1); Creatinine Clr Calc Pharmacy 72.8 ml/min; Est GFR (African American) 84.1 ml/min; Est GFR (Non-African American) 72.5 ml/min; Potassium 4.2 mmol/L (3.5-5.1)
[2023-01-30] MEDS: PANTOprazole 40 MG in SYRINGE 0 ML IV SCH ×2 (09:37→20:01)
[2023-01-30] MEDS: INSULIN ASPART PER UNIT CHARGE SC SCH ×4 (09:43→20:01)
--- NOTE | 2023-01-30 09:52 | Pharmacy Report ---
Pharmacy PK ABX Note - Date of Service January 30, 2023 - Assessment and Plan Assessment 01/30: SCr continues to improve, while current dosing still predicting within low end of goal, will increase dose to ensure patient stays therapeutic. Random level in AM to assist with further dose adjustment 57 year old M receiving vancomycin/cefepime/flagyl for treatment of left lower extremity wound. Pertinent microbiologic data includes: Blood cultures/urine culture pending. Afebrile, normal white count. SCr initially 1.61 --> 1.23 Plan 01/30: * Increase dose to 1250 mg IV every 18 hours * Random level ordered 01/31 AM Vancomycin * Loading dose: 1500 mg IV x 1 * Maintenance dose: 1000 mg IV every 18 hours * Regimen is predicted to achieve target AUC/NASRIN of 400-600 mg/L.hr * Level to be ordered pending change in renal function/continuation Pharmacy will continue to follow and will adjust dose/frequency as necessary. Thank you. Pharmacy has transitioned to AUC monitoring for vancomycin. AUC/NASRIN is the preferred PK/PD target and is associated with decreased risk of nephrotoxicity compared to traditional trough targets.
--- NOTE | 2023-01-30 10:12 | Surgery Progress Note ---
Date of Service January 30, 2023 Assessment & Plan (1) Cellulitis of right lower extremity: Plan pt is a 57 year-old male who presents to [facility] with chronic cellulitis on right low leg, IMP: chronic cellulitis on right low leg, plan, internal medicine team will admit pt to hospital, no emergent surgery indication now, IV antibiotic, MRI to R/O osteomyelitis, Pending, repeat labs in morning, will F/U, 01/29/2023 1:[address] Chávez IMP: chronic cellulitis on right low leg, plan, IV antibiotic, MRI to R/O osteomyelitis, Pending, once get MRI, may decide what kind debridement should do. repeat labs in morning, may need other blood transfusion, will F/U, 01/30/2023 10:[address] Chávez IMP: chronic cellulitis on right low leg, plan, no surgery debridement on RLL now, continue IV antibiotic, MRI - no osteomyelitis, wound care nurse for dressing change once a day, sign off today, please call with questions, Thanks, Admission and Anticipated Discharge Date Admission Date: January 28, 2023 Subjective Patient seen and examined. It is tough getting a good history from patient as he is quite tangential. History obtained from him and chart review. He reported he had had right leg wound for years, that started after he had an injury. Stated he was following with [facility] then switched to [facility] in 02/2022 who he saw once. [facility] showed he had presented to Dr Navarrete's on 03/12/2022 to establish care and complained of open wound of right leg. He had mulitple layers of dressing with paper towels, tape, gauze for his large circumferential open wound from ankle to half way up the calf that was foul smelling with black/green drainage. Patient was advised to proceed to the hospital for further eval that day but he declined. Reports ambulatory dysfuntion, worsening pain for the past 1-2 weeks Denied any fever, chills, nausea, vomiting, abd pain, palpitation, chest pain, cough, shortness of breath Reported he had been taking multiple doses of tylenol and ibuprofen for the pain. Reported he has been having black stools for sometime. Denied anxiey/depression/SI/HI 01/29/2023 12:[address] Chávez F/U RLL infection, pt feels better, no fever, today pt will have MRI done to R/O osteomyelitis. 01/30/2023 10:[address] Chávez F/U RLL infection, pt feels better, no fever, MRI done- no osteomyelitis. Review of Systems Constitutional: as per Subjective / HPI Eyes: as per Subjective / HPI Respiratory: as per Subjective / HPI Cardiovascular: as per Subjective / HPI Gastrointestinal: as per Subjective / HPI Genitourinary: + as per Subjective / HPI Musculoskeletal: chronic right low cellulitis Neurologic: as per Subjective / HPI Psychiatric: mood disorder Endocrine: as per Subjective / HPI Hematologic / Lymphatic: as per Subjective / HPI anemia Physical Exam Constitutional: WD/WN, vitals as above Eyes: PERRL, conjunctivae normal, anicteric sclerae Neck: trachea midline, no thyromegaly Respiratory: normal respiratory effort, lungs clear to auscultation Cardiovascular: RRR, no murmur, no edema Gastrointestinal (Abdomen): normal bowel sounds, soft, nontender, no hepatosplenomegaly Skin: cellulitis on RLL, no abscess, Neurologic: patellar DTR's 2+ bilat, sensation intact Psychiatric: A+Ox3, euthymic affect Results & Data Vital Signs (Past 12 Hours) Vital Signs Temp Pulse Pulse Resp BP Pulse Ox O2 Del Method 01/30/23 07:00 59 L 01/30/23 06:27 36.5 C 63 18 115/67 97 Room Air 01/30/23 03:47 37.3 C 64 16 110/64 98 Room Air 01/29/23 23:42 36.6 C 59 L 16 112/67 98 Room Air Laboratory Results Abnormal lab results 01/29/23 01/30/23 01/30/23 Range/Units 18:55 07:34 07:34 RBC 3.07 L 3.01 L (4.70-6.10) M/uL Hgb 7.5 L 7.3 L (14.0-18.0) g/dl Hct 22.9 L 22.8 L (42.0-52.0) % MCV 74.6 L 75.7 L (80.0-100.0) fL MCH 24.4 L 24.3 L (25.0-34.0) pg RDW Std Deviation 58.6 H 59.7 H (36.4-46.3) fL RDW Coeff of Stewart 21.9 H 21.9 H (11.5-14.5) % MPV 8.8 L 8.7 L (9.4-12.4) fL Sodium 135 L (136-145) mmol/L Chloride 109 H (98-107) mmol/L BUN/Creatinine Ratio 20.5 H (10-20) POC Glucose (70-99) mg/dl Calcium 7.6 L (8.5-10.1) mg/dl 01/30/23 Range/Units 07:41 RBC (4.70-6.10) M/uL Hgb (14.0-18.0) g/dl Hct (42.0-52.0) % MCV (80.0-100.0) fL MCH (25.0-34.0) pg RDW Std Deviation (36.4-46.3) fL RDW Coeff of Stewart (11.5-14.5) % MPV (9.4-12.4) fL Sodium (136-145) mmol/L Chloride (98-107) mmol/L BUN/Creatinine Ratio (10-20) POC Glucose 101 H (70-99) mg/dl Calcium (8.5-10.1) mg/dl Diagnostic Findings MR lower leg RT wo con CLINICAL HISTORY: Nonhealing wound of the right lower leg. Evaluate for osteomyelitis. COMPARISON STUDY: MRI of the right ankle October 09, 2019 and right ankle radiographs January 28, 2023. TECHNIQUE: Utilizing a 1.5 Marielena magnet and dedicated coil, multiplanar, multiecho imaging of the right lower leg and tibia and fibula was performed without intravenous contrast. FINDINGS: This exam is mildly compromised by motion artifact. However, T1 marrow signal within the right tibia and fibula is preserved. There is no significant marrow edema. There is no MR evidence for acute osteomyelitis of the right tibia or fibula. Moderate subcutaneous fluid of the right lower leg is noted. No fluid collection is identified on this unenhanced exam. There is mild nonspecific signal within the musculature of the right lower leg. Muscular atrophy is present. No significant fascial fluid is present. There is no MR evidence for soft tissue gas. Alignment of the right knee and ankle is in anatomic. There is a possible small osteochondral defect of the talar dome, suboptimally assessed on this exam. The Achilles tendon is intact. IMPRESSION: 1. Exam mildly compromised by artifact. No evidence for acute osteomyelitis of the right tibia or fibula. 2. Moderate right lower leg subcutaneous fluid. This may reflect edema or cellulitis. No fluid collection to suggest abscess on unenhanced exam. 3. Right lower leg muscular atrophy and nonspecific intramuscular signal. No significant fascial fluid. ACT 112: Negative or not required by law.
--- NOTE | 2023-01-30 10:49 | Hospitalist Progress Note ---
Date of Service January 30, 2023 Assessment & Plan (1) Cellulitis of right lower extremity: (2) Leg wound, right: Plan: Chronic right leg wound Increased drainage and bleeding recently. Foot XR noted soft tiss swelling with wound along medial aspect of Rt 1st MTP j oint. Relative lucency in adjacent bones which could also be osteo Lactate was 2.7 on presentation and normalized with IVF No leukocytosis MRI reported no evidence of acute osteomyelitis and no fluid Continue vanc, cefepime and flagyl while inpatient Blood cultures negative Surg eval noted. No surgical intervention Continue wound care (3) Anemia: Plan: Microcytic anemia Likely from bleeding from wound Possible GI bleed as well with report of black stool and ibuprofen intake S/p 3 PRBC since admission Hb 7.3today Will monitor and transfuse prn to keep >7 Continue PPI BID Avoid NSAIDs GI evaluation noted. No endoscopy recommended at this time (4) ALPHONSO (acute kidney injury): Plan: Cr was 1.61 on presentation. Based on BMP from 2019. Likely ALPHONSO on CKD Cr improved to 1.12 today Monitor (5) Hyperglycemia: Plan: Reported he has been told his blood glucose was high but not diabetic Hemoglobin A1c was 6.2 in 2019. Hence Prediabetic Hemoglobin A1c is normal now at 5.3. Patient has anemia and this was done after 2PRBC Blood glucose controlled (6) Heart murmur: Plan: Murmur noted on admission No recent previous records to confirm if new or old No previous TTE TTE 01/29/23 noted normal LV size, mild conc LVH, EF 60-65%, mitral valve leaflets and chordea structures are moderately thickened and redundant. Moderate MV posterior leaflet prolaspe with a very eccentric directed anterior jet of mild to mod severity. Considering no sepsis/fever/leukocytosis/bacteremia, low suspicion for endocarditis at this time. However, low threshold for DAO if these develop. DVT ppx- SCD for now May need placement PT/OT eval Admission and Anticipated Discharge Date Admission Date: January 28, 2023 Subjective Patient seen and examined Reports right leg pain is controlled Denied any new complaints Denied fever, chills, nausea, vomiting Denied cough, chest pain, SOB Denied dizziness, palpiations No BM so far today per patient Denied depression, anxiety Very tangential historian Physical Exam Constitutional: + well hydrated; no acute distress Eyes: PERRL, conjunctivae normal, anicteric sclerae ENMT: external ear and nose normal, oropharynx normal Respiratory: normal respiratory effort, lungs clear to auscultation Cardiovascular: Rate/Rhythm: regular rate and regular rhythm S1 S2 +MEGHNA Gastrointestinal (Abdomen): normal bowel sounds, soft, nontender, no hepatosplenomegaly Musculoskeletal: Wound involving much of right leg from upper 1/3 of calf to ankle, malodorous, erythematous Neurologic: PERRL, EOMI, accommodation nl, no face palsy, no dysarthria Psychiatric: AOx3 Results & Data Results & Data Vital Signs (Past 12 Hours) Vital Signs Temp Pulse Pulse Resp BP Pulse Ox O2 Del Method 01/30/23 07:00 59 L 01/30/23 06:27 36.5 C 63 18 115/67 97 Room Air 01/30/23 03:47 37.3 C 64 16 110/64 98 Room Air 01/29/23 23:42 36.6 C 59 L 16 112/67 98 Room Air Laboratory Results Abnormal lab results 01/29/23 01/30/23 01/30/23 Range/Units 18:55 07:34 07:34 RBC 3.07 L 3.01 L (4.70-6.10) M/uL Hgb 7.5 L 7.3 L (14.0-18.0) g/dl Hct 22.9 L 22.8 L (42.0-52.0) % MCV 74.6 L 75.7 L (80.0-100.0) fL MCH 24.4 L 24.3 L (25.0-34.0) pg RDW Std Deviation 58.6 H 59.7 H (36.4-46.3) fL RDW Coeff of Stewart 21.9 H 21.9 H (11.5-14.5) % MPV 8.8 L 8.7 L (9.4-12.4) fL Sodium 135 L (136-145) mmol/L Chloride 109 H (98-107) mmol/L BUN/Creatinine Ratio 20.5 H (10-20) POC Glucose (70-99) mg/dl Calcium 7.6 L (8.5-10.1) mg/dl 01/30/23 Range/Units 07:41 RBC (4.70-6.10) M/uL Hgb (14.0-18.0) g/dl Hct (42.0-52.0) % MCV (80.0-100.0) fL MCH (25.0-34.0) pg RDW Std Deviation (36.4-46.3) fL RDW Coeff of Stewart (11.5-14.5) % MPV (9.4-12.4) fL Sodium (136-145) mmol/L Chloride (98-107) mmol/L BUN/Creatinine Ratio (10-20) POC Glucose 101 H (70-99) mg/dl Calcium (8.5-10.1) mg/dl
[2023-01-30] MEDS: VANCOMYCIN HCL 1,250 MG in SODIUM CHLORIDE 0.9% 250 ML IV SCH (18:18)
[2023-01-30] MEDS: ACETAMINOPHEN 325 MG TAB PO PRN (20:01)
[2023-01-31] MEDS: metroNIDAZOLE 500 MG/100 ML BAG IV SCH ×4 (00:38→22:43)
[2023-01-31] MEDS: CEFEPIME 2,000 MG in SYRINGE 0 ML IV SCH ×2 (06:04→17:05)
[2023-01-31 07:12] LABS: Hematocrit (blood only) 24.2 % (42.0-52.0); Hemoglobin 7.8 g/dl (14.0-18.0); Mean Corpuscular Hemoglobin 24.1 pg (25.0-34.0); Mean Corpuscular Hgb Conc 32.2 g/dL (32.0-36.0); Mean Corpuscular Volume 74.7 fL (80.0-100.0); Mean Platelet Volume 9.6 fL (9.4-12.4); Platelet Count 332 K/uL (130-400); RDW Coefficient of Variation 23.2 % (11.5-14.5); RDW Standard Deviation 62.1 fL (36.4-46.3); Red Blood Count 3.24 M/uL (4.70-6.10); White Blood Count 8.04 K/ul (4.8-10.8)
[2023-01-31 07:35] LABS: BUN Creatinine Ratio 19.7 (10-20); Calcium 7.8 mg/dl (8.5-10.1); Creatinine Clr Calc Pharmacy 59.5 ml/min; Est GFR (African American) 65.9 ml/min; Est GFR (Non-African American) 56.8 ml/min; Potassium 4.4 mmol/L (3.5-5.1)
[2023-01-31] MEDS: ACETAMINOPHEN 325 MG TAB PO PRN ×3 (08:00→22:53)
[2023-01-31] MEDS: INSULIN ASPART PER UNIT CHARGE SC SCH ×4 (09:05→22:44)
[2023-01-31] MEDS: PANTOprazole 40 MG in SYRINGE 0 ML IV SCH ×2 (09:06→22:43)
[2023-01-31] MEDS: VANCOMYCIN HCL 1,250 MG in SODIUM CHLORIDE 0.9% 250 ML IV SCH (12:00)
--- NOTE | 2023-01-31 12:57 | Hospitalist Progress Note ---
Date of Service January 31, 2023 Assessment & Plan (1) Cellulitis of right lower extremity: (2) Leg wound, right: Plan: Chronic right leg wound Increased drainage and bleeding recently. Foot XR noted soft tiss swelling with wound along medial aspect of Rt 1st MTP j oint. Relative lucency in adjacent bones which could also be osteo Lactate was 2.7 on presentation and normalized with IVF No leukocytosis MRI reported no evidence of acute osteomyelitis and no fluid Continue vanc, cefepime and flagyl while inpatient Blood cultures negative Surg eval noted. No surgical intervention Continue wound care Discussed with Infectious disease Dr Dyana Razo. He recommends continuing antibiotics for now. He also recommends getting skin biopsy for pathology to rule out skin malignancy as well as bacterial, fungal cultures and AFB smear/culture Communicated ID recommendations to Surgeon Dr Chávez. Will follow up recommendations (3) Anemia: Plan: Microcytic anemia Likely from bleeding from wound Possible GI bleed as well with report of black stool and ibuprofen intake S/p 3 PRBC since admission Hb 7.8 today Will monitor and transfuse prn to keep >7 Continue PPI BID Avoid NSAIDs GI evaluation noted. No endoscopy recommended at this time (4) ALPHONSO (acute kidney injury): Plan: Cr was 1.61 on presentation. Based on BMP from 2019. Likely ALPHONSO on CKD Cr improved to 1.37 today Monitor (5) Hyperglycemia: Plan: Reported he has been told his blood glucose was high but not diabetic Hemoglobin A1c was 6.2 in 2019. Hence Prediabetic Hemoglobin A1c is normal now at 5.3. Patient has anemia and this was done after 2PRBC Blood glucose controlled (6) Heart murmur: Plan: Murmur noted on admission No recent previous records to confirm if new or old No previous TTE TTE 01/29/23 noted normal LV size, mild conc LVH, EF 60-65%, mitral valve leaflets and chordea structures are moderately thickened and redundant. Moderate MV posterior leaflet prolaspe with a very eccentric directed anterior jet of mild to mod severity. Considering no sepsis/fever/leukocytosis/bacteremia, low suspicion for endocarditis at this time. However, low threshold for DAO if these develop. Patient demonstrates significant tangentiality with history He acknowledged some history of mood disorder but could not get much history of that from him CM working on placement. He will benefit from placement to help with his wound care Psych consulted Discussed with Psych Dr Leonard who noted patient likely has schizotypal personality disorder. She recommended starting ability po 5mg HS PT/OT jorden Shine spent a total of 40 minutes coordinating, documenting and providing care for this patient excluding time spent in performance of separately billed services Admission and Anticipated Discharge Date Admission Date: January 28, 2023 Subjective Patient seen and examined Reports right leg pain is controlled Denied fever, chills, nausea, vomiting, abdominal pain Denied cough, chest pain, SOB Denied depression, anxiety Very tangential historian Physical Exam Constitutional: + well hydrated; no acute distress Eyes: PERRL, conjunctivae normal, anicteric sclerae ENMT: external ear and nose normal, oropharynx normal Respiratory: normal respiratory effort, lungs clear to auscultation Cardiovascular: Rate/Rhythm: regular rate and regular rhythm S1 S2 Gastrointestinal (Abdomen): normal bowel sounds, soft, nontender, no hepatosplenomegaly Musculoskeletal: Right leg wrapped in dressing Neurologic: PERRL, EOMI, accommodation nl, no face palsy, no dysarthria Results & Data Results & Data Vital Signs (Past 12 Hours) Vital Signs Temp Pulse Pulse Resp BP Pulse Ox O2 Del Method 01/31/23 11:34 36.5 C 72 18 135/82 98 Room Air 01/31/23 07:49 51 L 01/31/23 07:28 36.6 C 54 L 18 155/74 H 98 Room Air 01/31/23 06:42 36.5 C 59 L 16 130/71 98 Room Air 01/31/23 03:00 36.8 C 72 16 156/79 H 98 Room Air Laboratory Results Abnormal lab results 01/31/23 01/31/23 01/31/23 Range/Units 06:42 06:42 07:42 RBC 3.24 L (4.70-6.10) M/uL Hgb 7.8 L (14.0-18.0) g/dl Hct 24.2 L (42.0-52.0) % MCV 74.7 L (80.0-100.0) fL MCH 24.1 L (25.0-34.0) pg RDW Std Deviation 62.1 H (36.4-46.3) fL RDW Coeff of Stewart 23.2 H (11.5-14.5) % Sodium 134 L (136-145) mmol/L Chloride 108 H (98-107) mmol/L BUN 27 H (6-23) mg/dl POC Glucose 109 H (70-99) mg/dl Calcium 7.8 L (8.5-10.1) mg/dl 01/31/23 Range/Units 11:33 RBC (4.70-6.10) M/uL Hgb (14.0-18.0) g/dl Hct (42.0-52.0) % MCV (80.0-100.0) fL MCH (25.0-34.0) pg RDW Std Deviation (36.4-46.3) fL RDW Coeff of Stewart (11.5-14.5) % Sodium (136-145) mmol/L Chloride (98-107) mmol/L BUN (6-23) mg/dl POC Glucose 103 H (70-99) mg/dl Calcium (8.5-10.1) mg/dl
--- NOTE | 2023-01-31 13:07 | Pharmacy Report ---
Pharmacy PK ABX Note - Date of Service January 31, 2023 - Assessment and Plan Assessment 01/31: AM random level rendered a level of 15.3 mg/dL, which was similar to the projected value by [employer]. Current regimen achieving ideal target AUC value between 400-600 mg/L.hr, per this projection. Bump in creatinine demonstrated on AM labs, up to 1.37 mg/dL from 1.12 mg/dL. Blood cultures remain NGTD. 01/30: SCr continues to improve, while current dosing still predicting within low end of goal, will increase dose to ensure patient stays therapeutic. Random level in AM to assist with further dose adjustment 57 year old M receiving vancomycin/cefepime/flagyl for treatment of left lower extremity wound. Pertinent microbiologic data includes: Blood cultures/urine culture pending. Afebrile, normal white count. SCr initially 1.61 --> 1.23 Plan 01/31: * Continue Vancomycin 1250 mg IV every 18 hours; Next dose to be given at 0600 on 02/01. 01/30: * Increase dose to 1250 mg IV every 18 hours * Random level ordered 01/31 AM Vancomycin * Loading dose: 1500 mg IV x 1 * Maintenance dose: 1000 mg IV every 18 hours * Regimen is predicted to achieve target AUC/NASRIN of 400-600 mg/L.hr * Level to be ordered pending change in renal function/continuation Pharmacy will continue to follow and will adjust dose/frequency as necessary. Thank you. Pharmacy has transitioned to AUC monitoring for vancomycin. AUC/NASRIN is the preferred PK/PD target and is associated with decreased risk of nephrotoxicity compared to traditional trough targets.
--- NOTE | 2023-01-31 17:25 | Psychiatric Consultation ---
Date of Consultation January 31, 2023 Impression / Recommendations Impression 57 yo man with possible history of schizophrenia though no psychiatric medication use in >5 years and history of polysubstance use in the past admitted for advanced cellulitis for which he significantly delayed medical treatment and then only in part due to involvement of emergency services as part of a welfare check. Diagnostically schizophrenia is possible but less likely given that he has been able to function, though poorly, without medication or any psychiatric hospitalizations in many years; rather suspect he has schizotypal personality disorder which tends to present as eccentric behavior, odd/delusional beliefs, social isolation, and odd thought and speech patterns that can be overly vague or abstract. Review of the medical chart shows quite consistent presentation with odd thought process that tends to be tangential and abstract speech and never with more intense psychiatric symptoms of responding to internal stimuli or evidence of acute sara or major mood episode. Given his long history of alcohol and substance use would not be surprised if there is also a cognitive impairment component at play. At this time I think a trial of an antipsychotic medication would be worthwhile, if tolerated, as it may offer some benefit in improving thought organization and possibly help with encouraging follow-up with medical appointments and necessary treatments for his leg wound. However, overall schizotypal personality disorder does not always respond much to medication treatment. He does not currently meet criteria for inpatient psychiatric hospitalization nor does he desire any type of psychiatric treatment on an inpatient or outpatient basis. The patient is psychiatrically stable for transfer to a retirement facility once medically appropriate for this. There is no acute indication for inpatient psychiatric hospitalization as the patient is not suicidal or homicidal; there is no evidence of acute psychosis, no evidence of responding to internal stimuli nor psychiatric symptoms interfering with their ability to care for their basic needs (he delayed seeking medical care but no evidence this was driven by disorganization/depression/paranoia/delusions but rather seemingly due to his preference to avoid medication and medical care). Psychiatric follow-up care for this patient should include ongoing management of their medications if he benefits from abilify and tolerates this then it should be continued while at SNF. (1) Leg wound, right: (2) Schizotypal personality disorder: Plan -Consider trial of abilify 5mg po HS. If not well tolerated could consider trial of risperidone 0.25 mg po BID in effort to improve motivation for medical follow-up and adherence with tx recommendations for his right leg wound Psych History Identifying Data 57 yo man with possible history of schizophrenia vs schizoaffective disorder, alcohol use disorder in sustained remission, hx of polysubstance use admitted medically for chronic left leg wound with advanced cellulitis resulting in anemia and requiring multiple blood transfusions. Chief Complaint "I do think if we work together we can utilize professional thoughts to consider this". History of Present Illness Miguel was brought to the ED via ambulance for worsening pain and bleeding from a chronic right lower leg wound that he has not sought care for nor followed up with care recommendations in the past. Apparently he has a guardian due to a history of APS involvement for poor decision making and recently his landlord alerted police to concerns for his welfare due to horrible smell coming from his apartment, due to his worsening cellulitis wound. Per case management notes his apartment was very messy and will need to be cleaned before he can return there. He told admitting providers that his leg wound recently became more painful and was bleeding more so he started wrapping it in a garbage bag. On meeting with Miguel is very pleasant but comes across as quite eccentric. He is oriented to person, hospital, tells me the year is 2022 when asked the city and requires me asking this prompt two more times before being able to say [place] and becomes tangential stating "though more officially this is likely considered part of the [facility] landscape or borough), and knows the month (though this takes him some time to come up with). He agrees that in the past a diagnosis of schizophrenia was considered but he states that this was determined to not be accurate. He recalls taking abilify about 8 years ago and seroquel prior to that, he thinks maybe 15 years ago. Reports no recent psychiatric medications. He feels his mood is stable and much better now that his leg pain has improved. Discusses in vague and odd ways his desire to focus his thoughts on being more professional and focused so police don't have to come to his apartment again. Agrees he will need to continue to get treatment for his leg, states frustration in the past with not being able to get refills for his antibiotics after he leaves the hospital and not liking his family medicine providers in the past. Says he delayed coming to the hospital for care of his leg due to concerns about needing to get medication and worried how this would impact his body. He prefers to avoid medication but agrees that since being in the hospital the medication is helping him feel better. He denies SI and HI. Denies any auditory or visual hallucinations but does speak to seeming delusions about "artificial communication" that has been going on in "modern society" for the last 12 years and references use of electronic devices. Denies feeling as though he is being targeted or monitored rather replies by telling me "I'm a man who trusts in God, that's what gives me purpose and helps me out". When asked if he was synagogue he gave a tangential response. Otherwise reality-based throughout our conversation. He is not interested in psychiatric hospitalization or outpatient treatment but does somewhat reluctantly state he would consider trying abilify again at bedtime (because in the past it made him feel "lazy" so only wants to take at night) if the hospitalist provider feels it would be safe for him to get abilify in the midst of the medications and treatment he is receiving for his leg. Without directed questioning he makes vague statements that can be tangential and difficult to follow. Denies any recent substance use, states he has been sober from alcohol for the last 13 years. Toward the end of our conversation, after I ask about the charcoal in his room that is being used to help with the smell from his wound he tells me about a TV program "of Roxana chanting around a charcoal fire". Very pleasant throughout. Per chart review prior ED visit in 2007 with his mother for increase in angry/aggressive statements which he told ED provider was due to being upset his mother had visitors at her apartment and frustration her cats were making a mess and wondered if they had some type of cat disease. At that time his mother reported hx of diagnosis of schizophrenia but in 2008 he had been off psychiatric medication for more than 1 year. History of prior [facility] admissions but unclear why or when but not found to meet hospitalization criteria during 2008 ED visit. History of heavy and significant alcohol use with rehab stays, AA involvement. History of cocaine and amphetamine use in the past. No history of prior suicide attempts. Allergies Allergy/AdvReac Type Severity Reaction Status Date / Time bee venom protein (honey bee) Allergy Severe FACIAL Verified 01/28/23 16:35 SWELLING Penicillins Allergy Severe Anaphylaxis Verified 01/28/23 16:35 Home Medications Medication Instructions Recorded Confirmed Type acetaminophen 500 mg tablet 1,000 mg PO DIRECTED PRN Pain 01/28/23 01/28/23 History (Tylenol Extra Strength) aspirin-caffeine 500 mg-32.5 mg 1 tab PO DIRECTED PRN Pain 01/28/23 01/28/23 History tablet (Back and Body Pain Reliever) calcium carbonate 200 mg calcium 400 mg PO DIRECTED PRN 01/28/23 01/28/23 History (500 mg) chewable tablet (Tums) INDIGESTION/HEARTBURN ibuprofen 200 mg tablet 600 mg PO DIRECTED PRN Pain 01/28/23 01/28/23 History Patient History Medical History (Updated 01/31/23 @ 17:23 by Princess Leonard MD) Heart murmur Surgical History No pertinent past surgical history Family History Other No pertinent family history Social History Smoking Status: Never smoker Second Hand Exposure: No; Do You Dip or Chew Tobacco: No; Hx Alcohol Use: No Hx Substance Use: No Preferred Language: [place]agu[place] 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 Ability: Effective Floor Molder Required: No Beliefs That Will Affect Care: None marital status: Single Current Living Situation: Alone Current Living Situation Comment: Apartment Other Information That Helps Us Care for You: No Feels Safe at Home: Yes Safety Concerns: Feels Safe At This Time Assistive Devices: None Physical Exam Psychiatric: Orientation: alert, oriented to person, oriented to place ([facility], initially responded with 2022 when asked for city) and oriented to time Apperance: appropriately dressed (somewhat odd clothing choice of wearing winter hat ) and appropriately groomed Eye Contact: good eye contact Motor Behavior: no abnormal motor movements Speech: normal rate/rhythm/vo lume of speech Affect: euthymic affect Mood: no depressed mood, no anxious mood and no irritable mood Thought Process: + tangential thought process and + looseness of associations Thought Content: + delusions (possible about "artificial communication" in modern society); not paranoid Suicidal Thoughts: denies suicidal thoughts Homicidal Thoughts: denies homicidal thoughts Hallucinations: no auditory hallucinations and no visual hallucinations Cognition: recent memory grossly intact, attention grossly intact and language grossly intact Insight: + impaired insight Judgment: + impaired judgement Vital Signs (Past 24 Hours): Last Vital Signs Temp 36.6 C 01/31/23 14:46 Pulse 75 01/31/23 15:25 Resp 18 01/31/23 14:46 BP 126/67 01/31/23 14:46 Pulse Ox 98 01/31/23 14:46 O2 Del Method Room Air 01/31/23 14:46 Review of Systems All systems reviewed & are unremarkable except as noted in HPI & below Results & Data (PSY) Laboratory Results mild hyponatremia Medications Administered Acetaminophen (Acetaminophen 325 Mg Tab) 650 mg PO Q4H PRN PRN Reason: Pain or Fever Stop: 02/27/23 22:08 Last Admin: 01/31/23 08:00 Dose: 650 mg Documented By: Admin: 01/30/23 20:01 Dose: 650 mg Documented By: Admin: 01/29/23 17:20 Dose: 650 mg Documented By: DAX Pantoprazole Sodium 40 mg/ (Syringe) 10 mls @ 5 mls/min IV BID FAHAD Stop: 02/27/23 19:44 Last Admin: 01/31/23 09:06 Dose: 5 mls/min Documented By: HRR Co-signed By: JENNIFER Admin: 01/30/23 20:01 Dose: 5 mls/min Documented By: Admin: 01/30/23 09:37 Dose: 5 mls/min Documented By: Admin: 01/29/23 20:32 Dose: 5 mls/min Documented By: Admin: 01/29/23 10:28 Dose: 5 mls/min Documented By: Admin: 01/28/23 20:44 Dose: 5 mls/min Documented By: INOCENCIO Cefepime HCl 2,000 mg/ Syringe 20 mls @ 5 mls/min IV Q12H FAHAD; Protocol Stop: 02/05/23 05:59 Last Admin: 01/31/23 06:04 Dose: 5 mls/min Documented By: Admin: 01/30/23 17:16 Dose: 5 mls/min Documented By: Admin: 01/30/23 06:17 Dose: 5 mls/min Documented By: Admin: 01/29/23 17:21 Dose: 5 mls/min Documented By: Admin: 01/29/23 05:25 Dose: 5 mls/min Documented By: NAIF Metronidazole (Flagyl) 500 mg in 100 mls @ 100 mls/hr IV Q8H FAHAD Stop: 02/05/23 00:00 Last Admin: 01/31/23 15:52 Dose: 100 mls/hr Documented By: Infusion: 01/31/23 10:42 Dose: 0 mls/hr Documented By: Admin: 01/31/23 09:07 Dose: 100 mls/hr Documented By: HRR Co-signed By: JENNIFER Infusion: 01/31/23 01:34 Dose: 0 mls/hr Documented By: Admin: 01/31/23 00:38 Dose: 100 mls/hr Documented By: Infusion: 01/30/23 18:17 Dose: 0 mls/hr Documented By: Admin: 01/30/23 17:16 Dose: 100 mls/hr Documented By: Infusion: 01/30/23 11:10 Dose: 0 mls/hr Documented By: Admin: 01/30/23 09:37 Dose: 100 mls/hr Documented By: Infusion: 01/30/23 02:24 Dose: 0 mls/hr Documented By: Admin: 01/30/23 00:18 Dose: 100 mls/hr Documented By: Infusion: 01/29/23 18:26 Dose: 0 mls/hr Documented By: Admin: 01/29/23 17:21 Dose: 100 mls/hr Documented By: Infusion: 01/29/23 10:44 Dose: 0 mls/hr Documented By: Admin: 01/29/23 09:42 Dose: 100 mls/hr Documented By: Infusion: 01/29/23 01:04 Dose: 0 mls/hr Documented By: Admin: 01/29/23 00:04 Dose: 100 mls/hr Documented By: NAIF Vancomycin HCl 1,250 mg/ (Sodium Chloride) 275 mls @ 200 mls/hr IV Q18H FAHAD; Protocol Stop: 02/06/23 17:59 Last Infusion: 01/31/23 13:32 Dose: 0 mls/hr Documented By: MTHoda Admin: 01/31/23 12:00 Dose: 200 mls/hr Documented By: Infusion: 01/30/23 20:02 Dose: 0 mls/hr Documented By: Admin: 01/30/23 18:18 Dose: 200 mls/hr Documented By: DAX Insulin Aspart (Insulin Aspart Per Unit) 0 units SC ACHS FAHAD Stop: 02/27/23 20:59 Last Admin: 01/31/23 11:56 Dose: 3 units Documented By: VERONICA Co-signed By: MG Admin: 01/31/23 09:05 Dose: 1 units Documented By: HRR Co-signed By: JENNIFER Admin: 01/30/23 20:01 Dose: Not Given Documented By: Admin: 01/30/23 17:16 Dose: 1 units Documented By: DAX Co-signed By: MOHSEN Admin: 01/30/23 12:26 Dose: 2 units Documented By: DAX Co-signed By: [id number] Admin: 01/30/23 09:43 Dose: 1 units Documented By: DAX Co-signed By: [id number] Admin: 01/29/23 20:36 Dose: Not Given Documented By: Admin: 01/29/23 17:23 Dose: 3 units Documented By: DAX Co-signed By: JLA Admin: 01/29/23 12:13 Dose: Not Given Documented By: Admin: 01/29/23 08:32 Dose: Not Given Documented By: Admin: 01/28/23 21:59 Dose: Not Given Documented By: RC Miscellaneous Information (Vancomycin Consult Active) 1 each N/A UD PRN PRN Reason: Consult Stop: 02/27/23 14:47 Last Admin: 01/28/23 15:51 Dose: 1 each Documented By: MONA Coding Level of Care Code 79143 IN/OBS CONSULT LVL 4,60M Diagnoses Leg wound, right S81.801A Schizotypal personality disorder F21 Time Spent (min) 60
[2023-01-31] MEDS: ARIPiprazole 5 MG TAB PO SCH (22:44)
[2023-02-01] MEDS: ACETAMINOPHEN 325 MG TAB PO PRN ×2 (05:13→13:29)
[2023-02-01] MEDS: VANCOMYCIN HCL 1,250 MG in SODIUM CHLORIDE 0.9% 250 ML IV SCH (05:13)
[2023-02-01] MEDS: CEFEPIME 2,000 MG in SYRINGE 0 ML IV SCH ×2 (05:13→17:54)
[2023-02-01] MEDS: metroNIDAZOLE 500 MG/100 ML BAG IV SCH ×2 (08:57→16:32)
[2023-02-01] MEDS: PANTOprazole 40 MG in SYRINGE 0 ML IV SCH ×2 (08:57→22:11)
[2023-02-01] MEDS: INSULIN ASPART PER UNIT CHARGE SC SCH ×4 (08:58→22:10)
[2023-02-01 10:04] LABS: Hematocrit (blood only) 24.9 % (42.0-52.0); Hemoglobin 8.1 g/dl (14.0-18.0); Mean Corpuscular Hemoglobin 24.2 pg (25.0-34.0); Mean Corpuscular Hgb Conc 32.5 g/dL (32.0-36.0); Mean Corpuscular Volume 74.3 fL (80.0-100.0); Mean Platelet Volume 9.4 fL (9.4-12.4); Platelet Count 345 K/uL (130-400); RDW Coefficient of Variation 23.6 % (11.5-14.5); RDW Standard Deviation 62.7 fL (36.4-46.3); Red Blood Count 3.35 M/uL (4.70-6.10)
[2023-02-01 10:21] LABS: BUN Creatinine Ratio 27.4 (10-20); Calcium 7.9 mg/dl (8.5-10.1); Creatinine Clr Calc Pharmacy 72.1 ml/min; Est GFR (African American) 83.2 ml/min; Est GFR (Non-African American) 71.8 ml/min; Potassium 4.4 mmol/L (3.5-5.1)
--- NOTE | 2023-02-01 11:24 | Hospitalist Progress Note ---
Date of Service February 01, 2023 Assessment & Plan (1) Cellulitis of right lower extremity: (2) Leg wound, right: Plan: Chronic right leg wound Increased drainage and bleeding recently. Foot XR noted soft tiss swelling with wound along medial aspect of Rt 1st MTP j oint. Relative lucency in adjacent bones which could also be osteo Lactate was 2.7 on presentation and normalized with IVF No leukocytosis MRI reported no evidence of acute osteomyelitis and no fluid Continue vanc, cefepime and flagyl while inpatient Blood cultures negative Surg eval noted. No surgical intervention Continue wound care Infectious disease Dr Dyana Razo recommends continuing antibiotics for now and getting HIV test He also recommends getting skin biopsy for pathology to rule out skin malignancy as well as bacterial, fungal cultures and AFB smear/culture Dr Madison will evaluate patient today for that Patient updated about recommendations and he agreed PT/OT eval noted. SNF recommended (3) Anemia: Plan: Microcytic anemia Likely from bleeding from wound Possible GI bleed as well with report of black stool and ibuprofen intake S/p 3 PRBC since admission Hb 8.1 today Will monitor and transfuse prn to keep >7 Continue PPI BID Avoid NSAIDs GI evaluation noted. No endoscopy recommended at this time (4) ALPHONSO (acute kidney injury): Plan: Cr was 1.61 on presentation. Based on BMP from 2019. Likely ALPHONSO on CKD Cr improved to 1.13 today Monitor (5) Hyperglycemia: Plan: Reported he has been told his blood glucose was high but not diabetic Hemoglobin A1c was 6.2 in 2019. Hence Prediabetic Hemoglobin A1c is normal now at 5.3. Patient has anemia and this was done after 2PRBC Blood glucose controlled (6) Heart murmur: Plan: Murmur noted on admission No recent previous records to confirm if new or old No previous TTE TTE 01/29/23 noted normal LV size, mild conc LVH, EF 60-65%, mitral valve leaflets and chordea structures are moderately thickened and redundant. Moderate MV posterior leaflet prolaspe with a very eccentric directed anterior jet of mild to mod severity. Considering no sepsis/fever/leukocytosis/bacteremia, low suspicion for endocarditis at this time. However, low threshold for DAO if these develop. (7) Schizotypal personality disorder: Plan: Patient demonstrates significant tangentiality with history He acknowledged some history of mood disorder but could not get much history of that from him CM working on placement. He will benefit from placement to help with his wound care Psych evaluation noted Psych noted patient likely has schizotypal personality disorder and recommended starting ability po 5mg HS Continue abilify already started I spent a total of 45 minutes coordinating, documenting and providing care for this patient excluding time spent in performance of separately billed services Admission and Anticipated Discharge Date Admission Date: January 28, 2023 Subjective Patient seen and examined Reports right leg pain especially with activity Denied fever, chills, nausea, vomiting, abdominal pain Denied cough, chest pain, SOB Denied depression, anxiety Physical Exam Constitutional: + well hydrated; no acute distress Eyes: PERRL, conjunctivae normal, anicteric sclerae ENMT: external ear and nose normal, oropharynx normal Respiratory: normal respiratory effort, lungs clear to auscultation Cardiovascular: Rate/Rhythm: regular rate and regular rhythm S1 S2 +systolic murmur Gastrointestinal (Abdomen): normal bowel sounds, soft, nontender, no hepatosplenomegaly Musculoskeletal: RLE wrapped in clean dressing, malodorous Neurologic: PERRL, EOMI, accommodation nl, no face palsy, no dysarthria Psychiatric: AOx3, tangential historian Results & Data Results & Data Vital Signs (Past 12 Hours) Vital Signs Temp Pulse Pulse Resp BP Pulse Ox O2 Del Method 02/01/23 07:59 82 02/01/23 07:45 36.4 C L 67 131/71 97 Room Air 02/01/23 04:21 37.1 C 78 18 134/64 96 Room Air 01/31/23 23:45 36.7 C 71 18 132/70 97 Room Air Laboratory Results Abnormal lab results 01/31/23 02/01/23 02/01/23 Range/Units 11:33 07:34 09:30 WBC 11.20 H (4.8-10.8) K/ul RBC 3.35 L (4.70-6.10) M/uL Hgb 8.1 L (14.0-18.0) g/dl Hct 24.9 L (42.0-52.0) % MCV 74.3 L (80.0-100.0) fL MCH 24.2 L (25.0-34.0) pg RDW Std Deviation 62.7 H (36.4-46.3) fL RDW Coeff of Stewart 23.6 H (11.5-14.5) % Sodium (136-145) mmol/L BUN (6-23) mg/dl BUN/Creatinine Ratio (10-20) Glucose (70-99(Fasting)) mg/dl POC Glucose 103 H 110 H (70-99) mg/dl Calcium (8.5-10.1) mg/dl 02/01/23 02/01/23 Range/Units 09:30 11:17 WBC (4.8-10.8) K/ul RBC (4.70-6.10) M/uL Hgb (14.0-18.0) g/dl Hct (42.0-52.0) % MCV (80.0-100.0) fL MCH (25.0-34.0) pg RDW Std Deviation (36.4-46.3) fL RDW Coeff of Stewart (11.5-14.5) % Sodium 133 L (136-145) mmol/L BUN 31 H (6-23) mg/dl BUN/Creatinine Ratio 27.4 H (10-20) Glucose 115 H (70-99(Fasting)) mg/dl POC Glucose 116 H (70-99) mg/dl Calcium 7.9 L (8.5-10.1) mg/dl
--- NOTE | 2023-02-01 12:43 | Psychiatric Progress Note ---
Date of Service February 01, 2023 Impression / Recommendations Impression 57 yo man with possible history of schizophrenia though no psychiatric medication use in >5 years and history of polysubstance use in the past admitted for advanced cellulitis for which he significantly delayed medical treatment and then only in part due to involvement of emergency services as part of a welfare check. Diagnostically schizophrenia is possible but less likely given that he has been able to function, though poorly, without medication or any psychiatric hospitalizations in many years; rather suspect he has schizotypal personality disorder which tends to present as eccentric behavior, odd/delusional beliefs, social isolation, and odd thought and speech patterns that can be overly vague or abstract. Review of the medical chart shows quite consistent presentation with odd thought process that tends to be tangential and abstract speech and never with more intense psychiatric symptoms of responding to internal stimuli or evidence of acute sara or major mood episode. Given his long history of alcohol and substance use would not be surprised if there is also a cognitive impairment component at play. The patient is psychiatrically stable for transfer to a custodial facility once medically appropriate for this. There is no acute indication for inpatient psychiatric hospitalization as the patient is not suicidal or homicidal; there is no evidence of acute psychosis, no evidence of responding to internal stimuli nor psychiatric symptoms interfering with their ability to care for their basic needs (he delayed seeking medical care but no evidence this was driven by disorganization/depression/paranoia/delusions but rather seemingly due to his preference to avoid medication and medical care). Psychiatric follow-up care for this patient should include ongoing management of their medications if he benefits from abilify and tolerates this then it should be continued while at SNF. 02/01/2023: no side effects from abilify and may be helping somewhat with thought organization. Remains without any prominent psychiatric symptoms but wants to continue with abilify as he feels this helped him with sleep in the past and likes that it could offer benefit for thought organization. (1) Leg wound, right: (2) Schizotypal personality disorder: Plan -Continue with abilify 5mg po HS. If not well tolerated could consider trial of risperidone 0.25 mg po BID in effort to improve motivation for medical follow-up and adherence with tx recommendations for his right leg wound Interval History Identifying Information 57 yo man with possible history of schizophrenia vs schizoaffective disorder, alcohol use disorder in sustained remission, hx of polysubstance use admitted medically for chronic left leg wound with advanced cellulitis resulting in anemia and requiring multiple blood transfusions. Chief Complaint "I'm good, it's a good day". Review of Systems Notes poor sleep, normal appetite Subjective Subjective Patient was seen & assessed and interval progress reviewed. Took abilify last night though he couldn't recall taking it. Feels tired today as he struggled with sleep last night with some awakenings. Mood is good today, has some pain in his right leg when he moves it. Plans to rest today but hopeful in a few days he can start to walk around more with the walker. Thoughts seem more organized today, made one vague comment about having a nice setup with a table, lamp and cup of coffee after we were talking about the book he is reading that he seemed to feel was somehow related to the theme of the book. But able to describe details about the book and story in an organized way. Denies any other concerns. Continues to have his backpack at his side in bed and continues to wear a winter hat. Physical Exam Psychiatric Orientation: alert, oriented to person, oriented to place ([facility], initially responded with 2022 when asked for city) and oriented to time Apperance: appropriately dressed (somewhat odd clothing choice of wearing winter hat ) and appropriately groomed Eye Contact: good eye contact Motor Behavior: no abnormal motor movements Speech: normal rate/rhythm/volume of speech Affect: euthymic affect Mood: no depressed mood, no anxious mood and no irritable mood Thought Process: + circumstantial thought process and + looseness of associations Thought Content: reality based without delusions Suicidal Thoughts: denies suicidal thoughts Homicidal Thoughts: denies homicidal thoughts Hallucinations: no auditory hallucinations and no visual hallucinations Cognition: recent memory grossly intact, attention grossly intact and language grossly intact Insight: + impaired insight Judgment: + impaired judgement Vital Signs (Past 24 Hours) Last Vital Signs Temp 36.4 C L 02/01/23 11:33 Pulse 71 02/01/23 11:33 Resp 18 02/01/23 04:21 BP 148/75 H 02/01/23 11:33 Pulse Ox 98 02/01/23 11:33 O2 Del Method Room Air 02/01/23 11:33 Results & Data ([facility]) Laboratory Results Laboratory Results - last 24 hr 01/31/23 01/31/23 02/01/23 16:36 20:41 07:34 WBC RBC Hgb Hct MCV MCH MCHC RDW Std Deviation RDW Coeff of Stewart Plt Count MPV Sodium Potassium Chloride Carbon Dioxide Anion Gap BUN Creatinine Est Cr Clr Drug Dosing Est GFR ( Amer) Est GFR (Non-Af Amer) BUN/Creatinine Ratio Glucose POC Glucose 98 97 110 H Calcium HIV (1&2) Ag & Ab Conf 02/01/23 02/01/23 02/01/23 09:30 09:30 09:30 WBC 11.20 H RBC 3.35 L Hgb 8.1 L Hct 24.9 L MCV 74.3 L MCH 24.2 L MCHC 32.5 RDW Std Deviation 62.7 H RDW Coeff of Stewart 23.6 H Plt Count 345 MPV 9.4 Sodium 133 L Potassium 4.4 Chloride 106 Carbon Dioxide 22 Anion Gap 5 BUN 31 H Creatinine 1.13 Est Cr Clr Drug Dosing 72.1 Est GFR ( Amer) 83.2 Est GFR (Non-Af Amer) 71.8 BUN/Creatinine Ratio 27.4 H Glucose 115 H POC Glucose Calcium 7.9 L HIV (1&2) Ag & Ab Conf Pending 02/01/23 11:17 WBC RBC Hgb Hct MCV MCH MCHC RDW Std Deviation RDW Coeff of Stewart Plt Count MPV Sodium Potassium Chloride Carbon Dioxide Anion Gap BUN Creatinine Est Cr Clr Drug Dosing Est GFR ( Amer) Est GFR (Non-Af Amer) BUN/Creatinine Ratio Glucose POC Glucose 116 H Calcium HIV (1&2) Ag & Ab Conf Current Inpatient Medications Current Inpatient Medications: Current Inpatient Medications Acetaminophen (Acetaminophen 325 Mg Tab) 650 mg PO Q4H PRN PRN Reason: Pain or Fever Stop: 02/27/23 22:08 Last Admin: 02/01/23 05:13 Dose: 650 mg Aripiprazole (Aripiprazole 5 Mg Tab) 5 mg PO HS FAHAD Stop: 03/02/23 20:59 Last Admin: 01/31/23 22:44 Dose: 5 mg Dextrose (Dextrose 50% 50 Ml Syringe) 25 - 50 ml IV UD PRN; Protocol PRN Reason: Hypoglycemia Protocol Stop: 02/27/23 17:53 Glucagon (Glucagon For Inj 1 Mg Vial) 1 mg SQ UD PRN; Protocol PRN Reason: Hypoglycemia Protocol Stop: 02/27/23 17:53 Glucose (Glucose 10 Tab/Tube) 4 - 8 tab PO UD PRN; Protocol PRN Reason: Hypoglycemia Treatment Stop: 02/27/23 17:53 Glucose (Glucose 40% Gel 15 Gm Tube) 15 - 30 gm PO UD PRN; Protocol PRN Reason: Hypoglycemia Protocol Stop: 02/27/23 17:53 Pantoprazole Sodium 40 mg/ (Syringe) 10 mls @ 5 mls/min IV BID FAHAD Stop: 02/27/23 19:44 Last Admin: 02/01/23 08:57 Dose: 5 mls/min Cefepime HCl 2,000 mg/ Syringe 20 mls @ 5 mls/min IV Q12H [facility]; Protocol Stop: 02/05/23 05:59 Last Admin: 02/01/23 05:13 Dose: 5 mls/min Metronidazole (Flagyl) 500 mg in 100 mls @ 100 mls/hr IV Q8H [facility] Stop: 02/05/23 00:00 Last Infusion: 02/01/23 10:56 Dose: Infused Vancomycin HCl 1,250 mg/ (Sodium Chloride) 275 mls @ 200 mls/hr IV Q24H [facility]; Protocol Stop: 02/09/23 05:59 Insulin Aspart (Insulin Aspart Per Unit) 0 units SC ACHS [facility]AD Stop: 02/27/23 20:59 Last Admin: 02/01/23 08:58 Dose: 3 units Miscellaneous (Carbohydrates For Hypoglycemia ) 15 - 30 gm PO UD PRN PRN Reason: Hypoglycemia Protocol Stop: 02/27/23 17:53 Miscellaneous Information (Vancomycin Consult Active) 1 each N/A UD PRN PRN Reason: Consult Stop: 02/27/23 14:47 Last Admin: 01/28/23 15:51 Dose: 1 each Ondansetron HCl (Ondansetron Inj 2 Mg/Ml 2 Ml Vial) 4 mg IV Q6H PRN PRN Reason: Nausea Stop: 02/27/23 22:08 Polyethylene Glycol (Polyethylene (Miralax) 17 Gm Pack) 17 gm PO DAILY PRN PRN Reason: Constipation Stop: 02/27/23 22:08
--- NOTE | 2023-02-01 14:56 | Surgery Progress Note ---
Date of Service February 01, 2023 Assessment & Plan (1) Cellulitis of right lower extremity: Plan chronic right lower extremity wound with cellulitis Infectious disease recommending punch biopsy to rule out malignancy as well as cultures Wound looks improved today per wound nurse, continue dressings and wound care will plan for punch biopsy of the wound tomorrow under local anesthesia dr. carbajal has seen and examined pt, agrees with above. Admission and Anticipated Discharge Date Admission Date: January 28, 2023 Subjective patients states he has some discomfort of the RLE and has had this wound for 10+ yeasr Patient seen with wound care nurse Mary Paulino, wound looks improved since she last saw it on Tuesday Patient states he has had multiple cultures of wound but does not believe he has had a biopsy or tissue removed for evaluation. Limited history from patient Physical Exam Constitutional: WD/WN, vitals as above cooperative; no acute distress and not ill appearing Respiratory: normal respiratory effort; no respiratory distress Musculoskeletal: Right lower extremity wound encompassing most of the lower right extremity circumferentially. Hypergranulation tissue is present. There is a ulcer at the lateral ankle with fibrinous tissue present. Small wounds on the toes. Results & Data Vital Signs (Past 12 Hours) Vital Signs Temp Pulse Pulse Resp BP BP Pulse Ox 02/01/23 11:33 36.4 C L 71 148/75 H 98 02/01/23 07:59 82 02/01/23 07:45 36.4 C L 67 131/71 97 02/01/23 04:21 37.1 C 78 18 134/64 96 O2 Del Method 02/01/23 11:33 Room Air 02/01/23 07:59 02/01/23 07:45 Room Air 02/01/23 04:21 Room Air Laboratory Results 02/01/23 02/01/23 02/01/23 Range/Units 11:17 09:30 09:30 WBC (4.8-10.8) K/ul RBC (4.70-6.10) M/uL Hgb (14.0-18.0) g/dl Hct (42.0-52.0) % MCV (80.0-100.0) fL MCH (25.0-34.0) pg MCHC (32.0-36.0) g/dL RDW Std Deviation (36.4-46.3) fL RDW Coeff of Stewart (11.5-14.5) % Plt Count (130-400) K/uL MPV (9.4-12.4) fL Sodium 133 L (136-145) mmol/L Potassium 4.4 (3.5-5.1) mmol/L Chloride 106 (98-107) mmol/L Carbon Dioxide 22 (21-32) mmol/L Anion Gap 5 (3-11) BUN 31 H (6-23) mg/dl Creatinine 1.13 (0.6-1.4) mg/dl Est Cr Clr Drug Dosing 72.1 ml/min Est GFR ( Amer) 83.2 ml/min Est GFR (Non-Af Amer) 71.8 ml/min BUN/Creatinine Ratio 27.4 H (10-20) Glucose 115 H (70-99(Fasting)) mg/dl POC Glucose 116 H (70-99) mg/dl Calcium 7.9 L (8.5-10.1) mg/dl HIV (1&2) Ag & Ab Conf Pending 02/01/23 02/01/23 01/31/23 Range/Units 09:30 07:34 20:41 WBC 11.20 H (4.8-10.8) K/ul RBC 3.35 L (4.70-6.10) M/uL Hgb 8.1 L (14.0-18.0) g/dl Hct 24.9 L (42.0-52.0) % MCV 74.3 L (80.0-100.0) fL MCH 24.2 L (25.0-34.0) pg MCHC 32.5 (32.0-36.0) g/dL RDW Std Deviation 62.7 H (36.4-46.3) fL RDW Coeff of Stewart 23.6 H (11.5-14.5) % Plt Count 345 (130-400) K/uL MPV 9.4 (9.4-12.4) fL Sodium (136-145) mmol/L Potassium (3.5-5.1) mmol/L Chloride (98-107) mmol/L Carbon Dioxide (21-32) mmol/L Anion Gap (3-11) BUN (6-23) mg/dl Creatinine (0.6-1.4) mg/dl Est Cr Clr Drug Dosing ml/min Est GFR ( Amer) ml/min Est GFR (Non-Af Amer) ml/min BUN/Creatinine Ratio (10-20) Glucose (70-99(Fasting)) mg/dl POC Glucose 110 H 97 (70-99) mg/dl Calcium (8.5-10.1) mg/dl HIV (1&2) Ag & Ab Conf 01/31/23 Range/Units 16:36 WBC (4.8-10.8) K/ul RBC (4.70-6.10) M/uL Hgb (14.0-18.0) g/dl Hct (42.0-52.0) % MCV (80.0-100.0) fL MCH (25.0-34.0) pg MCHC (32.0-36.0) g/dL RDW Std Deviation (36.4-46.3) fL RDW Coeff of Tsewart (11.5-14.5) % Plt Count (130-400) K/uL MPV (9.4-12.4) fL Sodium (136-145) mmol/L Potassium (3.5-5.1) mmol/L Chloride (98-107) mmol/L Carbon Dioxide (21-32) mmol/L Anion Gap (3-11) BUN (6-23) mg/dl Creatinine (0.6-1.4) mg/dl Est Cr Clr Drug Dosing ml/min Est GFR ( Amer) ml/min Est GFR (Non-Af Amer) ml/min BUN/Creatinine Ratio (10-20) Glucose (70-99(Fasting)) mg/dl POC Glucose 98 (70-99) mg/dl Calcium (8.5-10.1) mg/dl HIV (1&2) Ag & Ab Conf
[2023-02-01] MEDS: traMADol HCL 50 MG TABLET PO PRN (16:33)
[2023-02-01] MEDS: ARIPiprazole 5 MG TAB PO SCH (22:10)
[2023-02-02] MEDS: metroNIDAZOLE 500 MG/100 ML BAG IV SCH ×3 (00:07→15:57)
[2023-02-02] MEDS: VANCOMYCIN HCL 1,250 MG in SODIUM CHLORIDE 0.9% 250 ML IV SCH ×2 (01:12→17:06)
[2023-02-02] MEDS: CEFEPIME 2,000 MG in SYRINGE 0 ML IV SCH ×2 (05:52→17:04)
[2023-02-02] MEDS ORDERED: VANCOMYCIN HCL 1,250 MG in SODIUM CHLORIDE 0.9% 250 ML IV SCH (06:00)
[2023-02-02 06:58] LABS: Hematocrit (blood only) 24.4 % (42.0-52.0); Hemoglobin 7.9 g/dl (14.0-18.0); Mean Corpuscular Hemoglobin 24.2 pg (25.0-34.0); Mean Corpuscular Hgb Conc 32.4 g/dL (32.0-36.0); Mean Corpuscular Volume 74.6 fL (80.0-100.0); Mean Platelet Volume 9.2 fL (9.4-12.4); Platelet Count 349 K/uL (130-400); RDW Coefficient of Variation 24.4 % (11.5-14.5); RDW Standard Deviation 64.1 fL (36.4-46.3); Red Blood Count 3.27 M/uL (4.70-6.10)
[2023-02-02 07:23] LABS: BUN Creatinine Ratio 24.4 (10-20); Creatinine Clr Calc Pharmacy 64.2 ml/min; Est GFR (African American) 72.2 ml/min; Est GFR (Non-African American) 62.3 ml/min; Potassium 4.2 mmol/L (3.5-5.1)
[2023-02-02] MEDS: INSULIN ASPART PER UNIT CHARGE SC SCH ×4 (07:53→20:43)
[2023-02-02] MEDS: ACETAMINOPHEN 325 MG TAB PO PRN ×2 (07:57→19:37)
[2023-02-02] MEDS: PANTOprazole 40 MG in SYRINGE 0 ML IV SCH ×2 (08:03→20:42)
--- NOTE | 2023-02-02 11:15 | Psychiatric Progress Note ---
Date of Service February 02, 2023 Impression / Recommendations Impression 57 yo man with possible history of schizophrenia though no psychiatric medication use in >5 years and history of polysubstance use in the past admitted for advanced cellulitis for which he significantly delayed medical treatment and then only in part due to involvement of emergency services as part of a welfare check. Diagnostically schizophrenia is possible but less likely given that he has been able to function, though poorly, without medication or any psychiatric hospitalizations in many years; rather suspect he has schizotypal personality disorder which tends to present as eccentric behavior, odd/delusional beliefs, social isolation, and odd thought and speech patterns that can be overly vague or abstract. Review of the medical chart shows quite consistent presentation with odd thought process that tends to be tangential and abstract speech and never with more intense psychiatric symptoms of responding to internal stimuli or evidence of acute sara or major mood episode. Given his long history of alcohol and substance use would not be surprised if there is also a cognitive impairment component at play. The patient is psychiatrically stable for transfer to a fdc facility once medically appropriate for this. There is no acute indication for inpatient psychiatric hospitalization as the patient is not suicidal or homicidal; there is no evidence of acute psychosis, no evidence of responding to internal stimuli nor psychiatric symptoms interfering with their ability to care for their basic needs (he delayed seeking medical care but no evidence this was driven by disorganization/depression/paranoia/delusions but rather seemingly due to his preference to avoid medication and medical care). Psychiatric follow-up care for this patient should include ongoing management of their medications if he benefits from abilify and tolerates this then it should be continued while at SNF. 02/02/2023: Continues to tolerate abilify without side effects. Recommend continuing this if he remains agreeable as may help with thought process and motivation for outpatient follow-up/adherence. Could consider abilify PARK in the future if he continues to tolerate this. Psych liasons will continue to assess if he's agreeable to referal for outpatient psychiatric follow-up (currently declining this but said he would think about it, especially if he finds the abilify helpful). (1) Leg wound, right: (2) Schizotypal personality disorder: Plan -Continue with abilify 5mg po HS. Option for abilify PARK in the future. If not well tolerated could consider trial of risperidone 0.25 mg po BID in effort to improve motivation for medical follow-up and adherence with tx recommendations for his right leg wound Interval History Identifying Information 57 yo man with possible history of schizophrenia vs schizoaffective disorder, alcohol use disorder in sustained remission, hx of polysubstance use admitted medically for chronic left leg wound with advanced cellulitis resulting in anemia and requiring multiple blood transfusions. Chief Complaint "I'm ok". Subjective Subjective Patient was seen & assessed and interval progress reviewed. Continues to have some leg pain. Mood is "ok". Liked having the abilify last night, had only one awakening and was able to fall back asleep. States some confusion in a vague manner about the term "placement" which is written as a goal on the board in his room. Reviewed what subacute rehab is and goals for improving his leg wound through ongoing care once ready to leave the hospital. He stated agreement with this plan and then talked in a somewhat tangential manner about how he prefers care in the hospital and dislikes dealing with outpatient practices for getting medications or wound care. Physical Exam Psychiatric Orientation: alert, oriented to person, oriented to place ([facility], initially responded with 2022 when asked for city) and oriented to time Apperance: appropriately dressed (somewhat odd clothing choice of wearing winter hat ) and appropriately groomed Eye Contact: good eye contact Motor Behavior: no abnormal motor movements Speech: normal rate/rhythm/volume of speech Affect: euthymic affect Mood: no depressed mood, no anxious mood and no irritable mood Thought Process: + circumstantial thought process and + looseness of associations Thought Content: reality based without delusions Suicidal Thoughts: denies suicidal thoughts Homicidal Thoughts: denies homicidal thoughts Hallucinations: no auditory hallucinations and no visual hallucinations Cognition: recent memory grossly intact, attention grossly intact and language grossly intact Insight: + impaired insight Judgment: + impaired judgement Vital Signs (Past 24 Hours) Last Vital Signs Temp 36.8 C 02/02/23 08:46 Pulse 59 L 02/02/23 08:46 Resp 18 02/02/23 08:46 BP 111/64 02/02/23 08:46 Pulse Ox 97 02/02/23 08:46 O2 Del Method Room Air 02/02/23 08:46 Results & Data ([facility]) Laboratory Results Laboratory Results - last 24 hr 02/01/23 02/01/23 02/01/23 11:17 16:42 20:51 WBC RBC Hgb Hct MCV MCH MCHC RDW Std Deviation RDW Coeff of Stewart Plt Count MPV Sodium Potassium Chloride Carbon Dioxide Anion Gap BUN Creatinine Est Cr Clr Drug Dosing Est GFR ( Amer) Est GFR (Non-Af Amer) BUN/Creatinine Ratio Glucose POC Glucose 116 H 90 100 H Calcium 02/02/23 02/02/23 02/02/23 05:55 05:55 07:42 WBC 9.90 RBC 3.27 L Hgb 7.9 L Hct 24.4 L MCV 74.6 L MCH 24.2 L MCHC 32.4 RDW Std Deviation 64.1 H RDW Coeff of Stewart 24.4 H Plt Count 349 MPV 9.2 L Sodium 135 L Potassium 4.2 Chloride 108 H Carbon Dioxide 23 Anion Gap 4 BUN 31 H Creatinine 1.27 Est Cr Clr Drug Dosing 64.2 Est GFR ( Amer) 72.2 Est GFR (Non-Af Amer) 62.3 BUN/Creatinine Ratio 24.4 H Glucose 93 POC Glucose 95 Calcium 8.0 L Current Inpatient Medications Current Inpatient Medications: Current Inpatient Medications Acetaminophen (Acetaminophen 325 Mg Tab) 650 mg PO Q4H PRN PRN Reason: Pain or Fever Stop: 02/27/23 22:08 Last Admin: 02/02/23 07:57 Dose: 650 mg Aripiprazole (Aripiprazole 5 Mg Tab) 5 mg PO HS FAHAD Stop: 03/02/23 20:59 Last Admin: 02/01/23 22:10 Dose: 5 mg Dextrose (Dextrose 50% 50 Ml Syringe) 25 - 50 ml IV UD PRN; Protocol PRN Reason: Hypoglycemia Protocol Stop: 02/27/23 17:53 Glucagon (Glucagon For Inj 1 Mg Vial) 1 mg SQ UD PRN; Protocol PRN Reason: Hypoglycemia Protocol Stop: 02/27/23 17:53 Glucose (Glucose 10 Tab/Tube) 4 - 8 tab PO UD PRN; Protocol PRN Reason: Hypoglycemia Treatment Stop: 02/27/23 17:53 Glucose (Glucose 40% Gel 15 Gm Tube) 15 - 30 gm PO UD PRN; Protocol PRN Reason: Hypoglycemia Protocol Stop: 02/27/23 17:53 Pantoprazole Sodium 40 mg/ (Syringe) 10 mls @ 5 mls/min IV BID [facility]HAD Stop: 02/27/23 19:44 Last Admin: 02/02/23 08:03 Dose: 5 mls/min Cefepime HCl 2,000 mg/ Syringe 20 mls @ 5 mls/min IV Q12H [facility]; Protocol Stop: 02/05/23 05:59 Last Admin: 02/02/23 05:52 Dose: 5 mls/min Metronidazole (Flagyl) 500 mg in 100 mls @ 100 mls/hr IV Q8H [facility] Stop: 02/05/23 00:00 Last Infusion: 02/02/23 08:34 Dose: Infused Vancomycin HCl 1,250 mg/ (Sodium Chloride) 275 mls @ 200 mls/hr IV Q18H [facility]; Protocol Stop: 02/09/23 00:00 Last Infusion: 02/02/23 02:41 Dose: Infused Insulin Aspart (Insulin Aspart Per Unit) 0 units SC ACHS [facility] Stop: 02/27/23 20:59 Last Admin: 02/02/23 07:53 Dose: 3 units Miscellaneous (Carbohydrates For Hypoglycemia ) 15 - 30 gm PO UD PRN PRN Reason: Hypoglycemia Protocol Stop: 02/27/23 17:53 Miscellaneous Information (Vancomycin Consult Active) 1 each N/A UD PRN PRN Reason: Consult Stop: 02/27/23 14:47 Last Admin: 01/28/23 15:51 Dose: 1 each Ondansetron HCl (Ondansetron Inj 2 Mg/Ml 2 Ml Vial) 4 mg IV Q6H PRN PRN Reason: Nausea Stop: 02/27/23 22:08 Polyethylene Glycol (Polyethylene (Miralax) 17 Gm Pack) 17 gm PO DAILY PRN PRN Reason: Constipation Stop: 02/27/23 22:08 Tramadol HCl (Tramadol Hcl 50 Mg Tablet) 25 mg PO Q6H PRN PRN Reason: moderate to severe pain Stop: 03/03/23 16:00 Last Admin: 02/01/23 16:33 Dose: 25 mg
[2023-02-02] MEDS ORDERED: LIDOCAINE/EPINEPHRINE 1% 20 ML VIAL INFIL ONE (12:15)
--- NOTE | 2023-02-02 19:42 | Hospitalist Progress Note ---
Date of Service February 02, 2023 Assessment & Plan (1) Cellulitis of right lower extremity: (2) Leg wound, right: Plan: Chronic right leg wound Increased drainage and bleeding recently. Foot XR noted soft tiss swelling with wound along medial aspect of Rt 1st MTP j oint. Relative lucency in adjacent bones which could also be osteo Lactate was 2.7 on presentation and normalized with IVF No leukocytosis MRI reported no evidence of acute osteomyelitis and no fluid Continue vanc, cefepime and flagyl while inpatient Blood cultures negative Surg eval noted. No surgical intervention Continue wound care Infectious disease Dr Dyana Razo recommends continuing antibiotics for now and getting HIV test He also recommends getting skin biopsy for pathology to rule out skin malignancy as well as bacterial, fungal cultures and AFB smear/culture Dr Madison will evaluate patient today for that Patient updated about recommendations and he agreed Surgery plan for punch biopsy tomorrow PT/OT eval noted. SNF recommended (3) Anemia: Plan: Microcytic anemia Likely from bleeding from wound Possible GI bleed as well with report of black stool and ibuprofen intake S/p 3 PRBC since admission Hb 8.1 today Will monitor and transfuse prn to keep >7 Continue PPI BID Avoid NSAIDs GI evaluation noted. No endoscopy recommended at this time (4) ALPHONSO (acute kidney injury): Plan: Cr was 1.61 on presentation. Based on BMP from 2019. Likely ALPHONSO on CKD Cr improved to 1.13 today Monitor (5) Hyperglycemia: Plan: Reported he has been told his blood glucose was high but not diabetic Hemoglobin A1c was 6.2 in 2019. Hence Prediabetic Hemoglobin A1c is normal now at 5.3. Patient has anemia and this was done after 2PRBC Blood glucose controlled (6) Heart murmur: Plan: Murmur noted on admission No recent previous records to confirm if new or old No previous TTE TTE 01/29/23 noted normal LV size, mild conc LVH, EF 60-65%, mitral valve leaflets and chordea structures are moderately thickened and redundant. Moderate MV posterior leaflet prolaspe with a very eccentric directed anterior jet of mild to mod severity. Considering no sepsis/fever/leukocytosis/bacteremia, low suspicion for endocardi tis at this time. However, low threshold for DAO if these develop. (7) Schizotypal personality disorder: Plan: Patient demonstrates significant tangentiality with history He acknowledged some history of mood disorder but could not get much history of that from him CM working on placement. He will benefit from placement to help with his wound care Psych evaluation noted Psych noted patient likely has schizotypal personality disorder and recommended starting ability po 5mg HS Continue abilify already started I spent a total of 45 minutes coordinating, documenting and providing care for this patient excluding time spent in performance of separately billed services Admission and Anticipated Discharge Date Admission Date: January 28, 2023 Subjective Patient was seen and evaluated for follow-up Lying in bed no acute distress Patient said wound is starting to look better Denies any chest pain, palpitation, dizziness, shortness of breath. Review of Systems Review of Systems: All systems reviewed & are unremarkable except as noted in Subjective Physical Exam Physical Exam: General- No acute distress Head- atraumatic Eyes- PERRL, EOMI, ENT- oropharynx clear Neck- supple, no JVD Lungs- clear to auscultation Heart- regular rhythm; no murmur Abdomen- normal bowel sounds, soft, nontender Extremities- no calf tenderness, Right lower extremity wound wrapped Neuro- alert, oriented x 3; PERRL, EOMI; no facial palsy; no dysarthria Skin- warm & dry Results & Data Results & Data Vital Signs (Past 12 Hours) Vital Signs Temp Pulse Pulse Resp BP Pulse Ox O2 Del Method 02/02/23 16:14 36.6 C 79 18 116/65 96 Room Air 02/02/23 15:37 88 02/02/23 12:21 36.5 C 71 18 119/66 96 Room Air 02/02/23 08:46 36.8 C 59 L 18 111/64 97 Room Air
[2023-02-02] MEDS: ARIPiprazole 5 MG TAB PO SCH (20:42)
[2023-02-03] MEDS: metroNIDAZOLE 500 MG/100 ML BAG IV SCH ×3 (00:38→16:42)
[2023-02-03] MEDS: ACETAMINOPHEN 325 MG TAB PO PRN ×2 (03:02→18:00)
[2023-02-03] MEDS: CEFEPIME 2,000 MG in SYRINGE 0 ML IV SCH ×2 (06:18→18:00)
[2023-02-03 07:09] LABS: Hematocrit (blood only) 24.4 % (42.0-52.0); Hemoglobin 7.8 g/dl (14.0-18.0); Mean Corpuscular Hemoglobin 24.5 pg (25.0-34.0); Mean Corpuscular Volume 76.5 fL (80.0-100.0); Mean Platelet Volume 9.1 fL (9.4-12.4); Platelet Count 319 K/uL (130-400); RDW Coefficient of Variation 24.6 % (11.5-14.5); RDW Standard Deviation 67.1 fL (36.4-46.3); Red Blood Count 3.19 M/uL (4.70-6.10); White Blood Count 8.32 K/ul (4.8-10.8)
[2023-02-03 07:18] LABS: BUN Creatinine Ratio 29.7 (10-20); Calcium 8.3 mg/dl (8.6-10.3); Creatinine Clr Calc Pharmacy 69.1 ml/min; Est GFR (African American) 78.9 ml/min; Est GFR (Non-African American) 68.1 ml/min; Potassium 4.2 mmol/L (3.5-5.1)
--- NOTE | 2023-02-03 08:39 | Pharmacy Report ---
Pharmacy Vanc AUC Short Note - Date of Service February 03, 2023 - Assessment & Plan Assessment 57 year old M receiving vancomycin, cefepime and flagyl for right LE cellulitis. MRI with no evidence of osteomyelitis. Blood cultures negative. ID following patient and recommend broad spectrum antibiotics for now. ID recommends getting skin biopsy to rule out malignancy. Day #7 of antimicrobial therapy. Vancomycin * AUC/NASRIN is the preferred PK/PD target for vancomycin * AUC guided dosing is effective and associated with decreased risk of nephrotoxicity compared to traditional trough targets * Random vancomycin level this morning ~15 mcg/ml - current vancomycin dosing of 1250 mg iv q 18 hr is associated with target AUC/NASRIN of 400-600 mg/L.hr and may be associated with a 8 % risk of nephrotoxicity * Plan to continue current vancomycin regimen. Will consider rechecking level in next 2-3 days or sooner if renal function changes. Pharmacy will continue to follow and will adjust dose/frequency as necessary. Thank you.
[2023-02-03] MEDS: INSULIN ASPART PER UNIT CHARGE SC SCH ×4 (08:43→21:48)
[2023-02-03] MEDS: PANTOprazole 40 MG in SYRINGE 0 ML IV SCH (08:43)
[2023-02-03] MEDS: traMADol HCL 50 MG TABLET PO PRN (13:32)
[2023-02-03] MEDS: VANCOMYCIN HCL 1,250 MG in SODIUM CHLORIDE 0.9% 250 ML IV SCH (13:32)
--- NOTE | 2023-02-03 16:23 | Post Operative Brief Note ---
Immediate Post Op Note v1 Date of Surgery February 03, 2023 Pre & Post Diagnosis Preop diagnosis: Progressive skin lesion right lower leg postop diagnosis same I identified the patient and participated in the time-out.: Yes Procedure Punch biopsy right lower leg Surgeon Musa Madison MD Director Of Consumer Affairs None Estimated Blood Loss 1 Findings Consistent with Post-Op Diagnosis
--- NOTE | 2023-02-03 16:25 | Operative Report ---
Post Operative Report Pre & Post Diagnosis Preop diagnosis: Progressive skin lesion right lower leg Postop diagnosis: Same I identified the patient and participated in the time-out.: Yes Procedure Punch biopsy right lower leg skin lesion Surgeon Musa Madison MD Primer Waterproofing Machine Adjuster None Estimated Blood Loss 1 Findings Consistent with Post-Op Diagnosis Specimens Punch biopsy right lower leg Drains None Anesthesia Type Local Complications No immediate complications Description of Procedure Patient was in his hospital bed. Consent was obtained, and he was prepped with Betadine and draped in the normal sterile fashion. Local anesthetic, 5 mL of lidocaine with epinephrine was injected into and around the area. A 3 mm punch biopsy was taken and sent off field for specimen. Bleeding was controlled with pressure. Dressings were applied. He tolerated the procedure without complication. I attest to the content of the Intraoperative Record and any orders documented therein. Any exceptions are noted below.
[2023-02-03] MEDS: ARIPiprazole 5 MG TAB PO SCH (21:48)
[2023-02-03] MEDS: PANTOprazole 40 MG TAB PO SCH (21:48)
--- NOTE | 2023-02-03 22:59 | Hospitalist Progress Note ---
Date of Service February 03, 2023 Assessment & Plan (1) Cellulitis of right lower extremity: (2) Leg wound, right: Plan: Chronic right leg wound Increased drainage and bleeding recently. Foot XR noted soft tiss swelling with wound along medial aspect of Rt 1st MTP j oint. Relative lucency in adjacent bones which could also be osteo Lactate was 2.7 on presentation and normalized with IVF No leukocytosis MRI reported no evidence of acute osteomyelitis and no fluid Continue vanc, cefepime and flagyl while inpatient Blood cultures negative Surg eval noted. No surgical intervention Continue wound care Infectious disease Dr Dyana Razo recommends continuing antibiotics for now and getting HIV test He also recommends getting skin biopsy for pathology to rule out skin malignancy as well as bacterial, fungal cultures and AFB smear/culture Dr Madison will evaluate patient today for that Patient updated about recommendations and he agreed punch biopsy done today PT/OT eval noted. SNF recommended (3) Anemia: Plan: Microcytic anemia Likely from bleeding from wound Possible GI bleed as well with report of black stool and ibuprofen intake S/p 3 PRBC since admission Hb 8.1 today Will monitor and transfuse prn to keep >7 Continue PPI BID Avoid NSAIDs GI evaluation noted. No endoscopy recommended at this time (4) ALPHONSO (acute kidney injury): Plan: Cr was 1.61 on presentation. Based on BMP from 2019. Likely ALPHONSO on CKD Cr improved to 1.13 today Monitor (5) Hyperglycemia: Plan: Reported he has been told his blood glucose was high but not diabetic Hemoglobin A1c was 6.2 in 2019. Hence Prediabetic Hemoglobin A1c is normal now at 5.3. Patient has anemia and this was done after 2PRBC Blood glucose controlled (6) Heart murmur: Plan: Murmur noted on admission No recent previous records to confirm if new or old No previous TTE TTE 01/29/23 noted normal LV size, mild conc LVH, EF 60-65%, mitral valve leaflets and chordea structures are moderately thickened and redundant. Moderate MV posterior leaflet prolaspe with a very eccentric directed anterior jet of mild to mod severity. Considering no sepsis/fever/leukocytosis/bacteremia, low suspicion for endocarditis at this time. However, low threshold for DAO if these develop. (7) Schizotypal personality disorder: Plan: Patient demonstrates significant tangentiality with history He acknowledged some history of mood disorder but could not get much history of that from him CM working on placement. He will benefit from placement to help with his wound c are Psych evaluation noted Psych noted patient likely has schizotypal personality disorder and recommended starting ability po 5mg HS Continue abilify already started I spent a total of 45 minutes coordinating, documenting and providing care for this patient excluding time spent in performance of separately billed services Admission and Anticipated Discharge Date Admission Date: January 28, 2023 Subjective Patient was seen and evaluated for follow-up Lying in bed no acute distress Patient said wound is starting to look better Spoke to surgery and punch biopsy was done at bedside while I was there to assess the wound Denies any chest pain, palpitation, dizziness, shortness of breath. Review of Systems Review of Systems: All systems reviewed & are unremarkable except as noted in Subjective Physical Exam Physical Exam: General- No acute distress Head- atraumatic Eyes- PERRL, EOMI, ENT- oropharynx clear Neck- supple, no JVD Lungs- clear to auscultation Heart- regular rhythm; no murmur Abdomen- normal bowel sounds, soft, nontender Extremities- no calf tenderness, Right lower extremity wound wrapped Neuro- alert, oriented x 3; PERRL, EOMI; no facial palsy; no dysarthria Skin- warm & dry Results & Data Results & Data Vital Signs (Past 12 Hours) Vital Signs Temp Pulse Resp BP BP Pulse Ox O2 Del Method 02/03/23 22:00 36.5 C 85 18 123/68 93 Room Air 02/03/23 19:56 36.6 C 84 18 112/68 95 Room Air 02/03/23 14:47 36.8 C 78 18 124/77 98 Room Air
[2023-02-04] MEDS: metroNIDAZOLE 500 MG/100 ML BAG IV SCH ×4 (00:07→23:52)
[2023-02-04] MEDS: ACETAMINOPHEN 325 MG TAB PO PRN ×2 (01:44→17:17)
[2023-02-04] MEDS: VANCOMYCIN HCL 1,250 MG in SODIUM CHLORIDE 0.9% 250 ML IV SCH ×2 (05:41→23:52)
[2023-02-04] MEDS: CEFEPIME 2,000 MG in SYRINGE 0 ML IV SCH ×2 (05:41→17:17)
[2023-02-04] MEDS: INSULIN ASPART PER UNIT CHARGE SC SCH ×4 (08:21→20:46)
[2023-02-04 08:26] LABS: Creatinine Clr Calc Pharmacy 73.4 ml/min; Est GFR (Non-African American) 73.3 ml/min
[2023-02-04] MEDS: PANTOprazole 40 MG TAB PO SCH ×2 (08:27→20:46)
[2023-02-04] MEDS: traMADol HCL 50 MG TABLET PO PRN (13:05)
--- NOTE | 2023-02-04 17:04 | Hospitalist Progress Note ---
Date of Service February 04, 2023 Assessment & Plan (1) Cellulitis of right lower extremity: (2) Leg wound, right: Plan: Chronic right leg wound Increased drainage and bleeding recently. Foot XR noted soft tiss swelling with wound along medial aspect of Rt 1st MTP j oint. Relative lucency in adjacent bones which could also be osteo Lactate was 2.7 on presentation and normalized with IVF No leukocytosis MRI reported no evidence of acute osteomyelitis and no fluid Continue vanc, cefepime and flagyl while inpatient Blood cultures negative Surg eval noted. No surgical intervention Continue wound care Infectious disease Dr Dyana Razo recommends continuing antibiotics for now and getting HIV test He also recommends getting skin biopsy for pathology to rule out skin malignancy as well as bacterial, fungal cultures and AFB smear/culture punch biopsy done by surgery PT/OT eval noted. SNF recommended Tried to reach ID today about abx duration, waiting for final recommendation from ID (3) Anemia: Plan: Microcytic anemia Likely from bleeding from wound Possible GI bleed as well with report of black stool and ibuprofen intake S/p 3 PRBC since admission Hb 8.1 today Will monitor and transfuse prn to keep >7 Continue PPI BID Avoid NSAIDs GI evaluation noted. No endoscopy recommended at this time (4) ALPHONSO (acute kidney injury): Plan: Cr was 1.61 on presentation. Based on BMP from 2019. Likely ALPHONSO on CKD Cr improved to 1.1 today Monitor (5) Hyperglycemia: Plan: Reported he has been told his blood glucose was high but not diabetic Hemoglobin A1c was 6.2 in 2019. Hence Prediabetic Hemoglobin A1c is normal now at 5.3. Patient has anemia and this was done after 2PRBC Blood glucose controlled (6) Heart murmur: Plan: Murmur noted on admission No recent previous records to confirm if new or old No previous TTE TTE 01/29/23 noted normal LV size, mild conc LVH, EF 60-65%, mitral valve leaflets and chordea structures are moderately thickened and redundant. Moderate MV posterior leaflet prolaspe with a very eccentric directed anterior jet of mild to mod severity. Considering no sepsis/fever/leukocytosis/bacteremia, low suspicion for endocarditis at this time. However, low threshold for DAO if these develop. (7) Schizotypal personality disorder: Plan: Patient demonstrates significant tangentiality with history He acknowledged some history of mood disorder but could not get much history of that from him CM working on placement. He will benefit from placement to help with his wound care Psych evaluation noted Psych noted patient likely has schizotypal personality disorder and recommended starting ability po 5mg HS Continue abilify already started I spent a total of 45 minutes coordinating, documenting and providing care for this patient excluding time spent in performance of separately billed services Admission and Anticipated Discharge Date Admission Date: January 28, 2023 Subjective Patient was seen and examined for follow-up Lying in bed with no acute distress Denies any chest pain, palpitation, dizziness, shortness of breath. Review of Systems Review of Systems: All systems reviewed & are unremarkable except as noted in Subjective Physical Exam Physical Exam: General- No acute distress Head- atraumatic Eyes- PERRL, EOMI, ENT- oropharynx clear Neck- supple, no JVD Lungs- clear to auscultation Heart- regular rhythm; no murmur Abdomen- normal bowel sounds, soft, nontender Extremities- no calf tenderness, Right lower extremity wound wrapped Neuro- alert, oriented x 3; PERRL, EOMI; no facial palsy; no dysarthria Skin- warm & dry Results & Data Results & Data Vital Signs (Past 12 Hours) Vital Signs Temp Pulse Pulse Resp BP Pulse Ox O2 Del Method 02/04/23 14:44 94 H 02/04/23 15:24 36.6 C 85 18 145/76 H 96 Room Air 02/04/23 11:42 36.6 C 68 16 145/75 H 100 Room Air 02/04/23 07:43 36.4 C L 70 16 111/68 97 Room Air 02/04/23 07:18 71
[2023-02-04] MEDS: ARIPiprazole 5 MG TAB PO SCH (20:45)
[2023-02-05] MEDS: CEFEPIME 2,000 MG in SYRINGE 0 ML IV SCH ×2 (05:56→18:22)
[2023-02-05 07:55] LABS: Hematocrit (blood only) 25.5 % (42.0-52.0); Mean Corpuscular Hgb Conc 31.4 g/dL (32.0-36.0); Mean Corpuscular Volume 76.3 fL (80.0-100.0); Mean Platelet Volume 9.3 fL (9.4-12.4); Platelet Count 353 K/uL (130-400); RDW Coefficient of Variation 25.5 % (11.5-14.5); RDW Standard Deviation 67.9 fL (36.4-46.3); Red Blood Count 3.34 M/uL (4.70-6.10)
[2023-02-05 08:17] LABS: BUN Creatinine Ratio 31.9 (10-20); Calcium 8.4 mg/dl (8.6-10.3); Creatinine Clr Calc Pharmacy 72.1 ml/min; Est GFR (African American) 83.2 ml/min; Est GFR (Non-African American) 71.8 ml/min; Potassium 4.2 mmol/L (3.5-5.1)
[2023-02-05] MEDS: PANTOprazole 40 MG TAB PO SCH ×2 (09:16→21:02)
[2023-02-05] MEDS: metroNIDAZOLE 500 MG/100 ML BAG IV SCH ×3 (09:16→23:53)
[2023-02-05] MEDS: INSULIN ASPART PER UNIT CHARGE SC SCH ×4 (09:20→21:02)
--- NOTE | 2023-02-05 17:57 | Hospitalist Progress Note ---
Date of Service February 05, 2023 Assessment & Plan (1) Cellulitis of right lower extremity: (2) Leg wound, right: Plan: Chronic right leg wound Increased drainage and bleeding recently. Foot XR noted soft tiss swelling with wound along medial aspect of Rt 1st MTP j oint. Relative lucency in adjacent bones which could also be osteo Lactate was 2.7 on presentation and normalized with IVF No leukocytosis MRI reported no evidence of acute osteomyelitis and no fluid Continue vanc, cefepime and flagyl while inpatient Blood cultures negative Surg eval noted. No surgical intervention Continue wound care Infectious disease Dr Dyana Razo recommends continuing antibiotics for now and getting HIV test He also recommends getting skin biopsy for pathology to rule out skin malignancy as well as bacterial, fungal cultures and AFB smear/culture punch biopsy done by surgery PT/OT eval noted. SNF recommended waiting for ID final recommendation about abx duration (3) Anemia: Plan: Microcytic anemia Likely from bleeding from wound Possible GI bleed as well with report of black stool and ibuprofen intake S/p 3 PRBC since admission Hb 8 today Will monitor and transfuse prn to keep >7 Continue PPI BID Avoid NSAIDs GI evaluation noted. No endoscopy recommended at this time (4) ALPHONSO (acute kidney injury): Plan: Cr was 1.61 on presentation. Based on BMP from 2019. Likely ALPHONSO on CKD Cr improved to 1.1 today Monitor (5) Hyperglycemia: Plan: Reported he has been told his blood glucose was high but not diabetic Hemoglobin A1c was 6.2 in 2019. Hence Prediabetic Hemoglobin A1c is normal now at 5.3. Patient has anemia and this was done after 2PRBC Blood glucose controlled (6) Heart murmur: Plan: Murmur noted on admission No recent previous records to confirm if new or old No previous TTE TTE 01/29/23 noted normal LV size, mild conc LVH, EF 60-65%, mitral valve leaflets and chordea structures are moderately thickened and redundant. Moderate MV posterior leaflet prolaspe with a very eccentric directed anterior jet of mild to mod severity. Considering no sepsis/fever/leukocytosis/bacteremia, low suspicion for endocarditis at this time. However, low threshold for DAO if these develop. (7) Schizotypal personality disorder: Plan: Patient demonstrates significant tangentiality with history He acknowledged some history of mood disorder but could not get much history of that from him CM working on placement. He will benefit from placement to help with his wound care Psych evaluation noted Psych noted patient likely has schizotypal personality disorder and recommended starting ability po 5mg HS Continue abilify already started I spent a total of 40 minutes coordinating, documenting and providing care for this patient excluding time spent in performance of separately billed services Admission and Anticipated Discharge Date Admission Date: January 28, 2023 Subjective Patient was seen and examined for follow-up Lying in bed with no acute distress Denies any chest pain, palpitation, dizziness, shortness of breath. Review of Systems Review of Systems: All systems reviewed & are unremarkable except as noted in Subjective Physical Exam Physical Exam: General- No acute distress Head- atraumatic Eyes- PERRL, EOMI, ENT- oropharynx clear Neck- supple, no JVD Lungs- clear to auscultation Heart- regular rhythm; no murmur Abdomen- normal bowel sounds, soft, nontender Extremities- no calf tenderness, Right lower extremity wound wrapped with dressing Neuro- alert, oriented x 3; PERRL, EOMI; no facial palsy; no dysarthria Skin- warm & dry Results & Data Results & Data Vital Signs (Past 12 Hours) Vital Signs Temp Pulse Pulse Resp BP Pulse Ox O2 Del Method 02/05/23 13:27 70 02/05/23 15:44 36.6 C 71 16 126/81 96 Room Air 02/05/23 12:02 36.6 C 72 16 138/73 96 Room Air 02/05/23 07:20 37.2 C 72 16 120/68 96 Room Air 02/05/23 07:14 79
[2023-02-05] MEDS: VANCOMYCIN HCL 1,250 MG in SODIUM CHLORIDE 0.9% 250 ML IV SCH (18:22)
[2023-02-05] MEDS: ARIPiprazole 5 MG TAB PO SCH (21:02)
[2023-02-05] MEDS: ACETAMINOPHEN 325 MG TAB PO PRN (23:55)
[2023-02-06] MEDS: CEFEPIME 2,000 MG in SYRINGE 0 ML IV SCH ×2 (05:08→17:29)
[2023-02-06] MEDS: ACETAMINOPHEN 325 MG TAB PO PRN ×3 (05:15→23:52)
[2023-02-06 07:25] LABS: Creatinine Clr Calc Pharmacy 77.6 ml/min; Est GFR (African American) 90.9 ml/min; Est GFR (Non-African American) 78.4 ml/min
[2023-02-06] MEDS: INSULIN ASPART PER UNIT CHARGE SC SCH ×4 (08:43→21:43)
[2023-02-06] MEDS: PANTOprazole 40 MG TAB PO SCH ×2 (08:47→21:43)
[2023-02-06] MEDS: metroNIDAZOLE 500 MG/100 ML BAG IV SCH ×3 (08:47→23:52)
--- NOTE | 2023-02-06 10:44 | Pharmacy Report ---
Pharmacy PK ABX Note - Date of Service February 06, 2023 - Assessment and Plan Assessment 57 year old M receiving vancomycin/cefepime/flagyl for treatment of left lower extremity wound. Pertinent microbiologic data includes: Blood cultures negative at 5 days. SCr 1.61 --> 1.23 -->1.05. ID consulted. 01/30: SCr continues to improve, while current dosing still predicting within low end of goal, will increase dose to ensure patient stays therapeutic. Random level in AM to assist with further dose adjustment 01/31: AM random level rendered a level of 15.3 mg/dL, which was similar to the projected value by [facility]. Current regimen achieving ideal target AUC value between 400-600 mg/L.hr, per this projection. Bump in creatinine demonstrated on AM labs, up to 1.37 mg/dL from 1.12 mg/dL. Blood cultures remain NGTD. 02/06: Random vancomycin level this AM, 15.1mcg/mL (~12hr level) on 1250mg IV q18hr regimen. This regimen predicted to achieve a SS AUC 408mg/L.hr with an efficacy probability of 56%. Will optimize dose today to ensure therapeutic SS AUC. 1500mg IV q18h predicted to achieve SS AUC 486mg/L.hr with a 92% efficacy probability (SS trough 13.3mcg/mL). Plan Vancomycin * Maintenance dose: 1500mg IV every 18 hours * Regimen is predicted to achieve target AUC/NASRIN of 400-600 mg/L.hr * Will repeat a level around steady state if vancomycin continued. Pharmacy will continue to follow and will adjust dose/frequency as necessary. Thank you. Pharmacy has transitioned to AUC monitoring for vancomycin. AUC/NASRIN is the preferred PK/PD target and is associated with decreased risk of nephrotoxicity compared to traditional trough targets.
[2023-02-06] MEDS: VANCOMYCIN HCL 1,500 MG in SODIUM CHLORIDE 0.9% 500 ML IV SCH (12:17)
--- NOTE | 2023-02-06 17:03 | Hospitalist Progress Note ---
Date of Service February 06, 2023 Assessment & Plan (1) Cellulitis of right lower extremity: (2) Leg wound, right: Plan: Chronic right leg wound Increased drainage and bleeding recently. Foot XR noted soft tiss swelling with wound along medial aspect of Rt 1st MTP j oint. Relative lucency in adjacent bones which could also be osteo Lactate was 2.7 on presentation and normalized with IVF No leukocytosis MRI reported no evidence of acute osteomyelitis and no fluid Continue vanc, cefepime and flagyl while inpatient Blood cultures negative Surg eval noted. No surgical intervention Continue wound care Infectious disease Dr Dyana Razo recommends continuing antibiotics for now and getting HIV test He also recommends getting skin biopsy for pathology to rule out skin malignancy as well as bacterial, fungal cultures and AFB smear/culture punch biopsy done by surgery PT/OT eval noted. SNF recommended waiting for ID final recommendation about abx duration (3) Anemia: Plan: Microcytic anemia Likely from bleeding from wound Possible GI bleed as well with report of black stool and ibuprofen intake S/p 3 PRBC since admission Hb 8 today Will monitor and transfuse prn to keep >7 Continue PPI BID Avoid NSAIDs GI evaluation noted. No endoscopy recommended at this time (4) ALPHONSO (acute kidney injury): Plan: Cr was 1.61 on presentation. Based on BMP from 2019. Likely ALPHONSO on CKD Cr improved to 1.05 today Monitor (5) Hyperglycemia: Plan: Reported he has been told his blood glucose was high but not diabetic Hemoglobin A1c was 6.2 in 2019. Hence Prediabetic Hemoglobin A1c is normal now at 5.3. Patient has anemia and this was done after 2PRBC Blood glucose controlled (6) Heart murmur: Plan: Murmur noted on admission No recent previous records to confirm if new or old No previous TTE TTE 01/29/23 noted normal LV size, mild conc LVH, EF 60-65%, mitral valve leaflets and chordea structures are moderately thickened and redundant. Moderate MV posterior leaflet prolaspe with a very eccentric directed anterior jet of mild to mod severity. Considering no sepsis/fever/leukocytosis/bacteremia, low suspicion for endocarditis at this time. However, low threshold for DAO if these develop. (7) Schizotypal personality disorder: Plan: Patient demonstrates significant tangentiality with history He acknowledged some history of mood disorder but could not get much history of that from him CM working on placement. He will benefit from placement to help with his wound care Psych evaluation noted Psych noted patient likely has schizotypal personality disorder and recommended starting ability po 5mg HS Continue abilify already started I spent a total of 40 minutes coordinating, documenting and providing care for this patient excluding time spent in performance of separately billed services Admission and Anticipated Discharge Date Admission Date: January 28, 2023 Subjective Patient was seen and examined for follow-up Lying in bed with no acute distress watching TV Denies any chest pain, palpitation, dizziness, shortness of breath. Review of Systems Review of Systems: All systems reviewed & are unremarkable except as noted in Subjective Physical Exam Physical Exam: General- No acute distress Head- atraumatic Eyes- PERRL, EOMI, ENT- oropharynx clear Neck- supple, no JVD Lungs- clear to auscultation Heart- regular rhythm; no murmur Abdomen- normal bowel sounds, soft, nontender Extremities- no calf tenderness, Right lower extremity wound wrapped with dressing Neuro- alert, oriented x 3; PERRL, EOMI; no facial palsy; no dysarthria Skin- warm & dry Results & Data Results & Data Vital Signs (Past 12 Hours) Vital Signs Temp Pulse Pulse Resp BP BP Pulse Ox 02/06/23 15:27 36.8 C 71 16 112/68 96 02/06/23 12:14 36.8 C 68 16 135/75 99 02/06/23 07:39 36.6 C 65 16 101/63 96 02/06/23 07:11 64 O2 Del Method 02/06/23 15:27 Room Air 02/06/23 12:14 Room Air 02/06/23 07:39 Room Air 02/06/23 07:11
[2023-02-06] MEDS: ARIPiprazole 5 MG TAB PO SCH (21:43)
[2023-02-07] MEDS: CEFEPIME 2,000 MG in SYRINGE 0 ML IV SCH ×2 (05:24→17:40)
[2023-02-07] MEDS: VANCOMYCIN HCL 1,500 MG in SODIUM CHLORIDE 0.9% 500 ML IV SCH (05:33)
[2023-02-07] MEDS: metroNIDAZOLE 500 MG/100 ML BAG IV SCH ×3 (08:58→23:59)
[2023-02-07] MEDS: INSULIN ASPART PER UNIT CHARGE SC SCH ×4 (09:04→22:20)
[2023-02-07] MEDS: PANTOprazole 40 MG TAB PO SCH ×2 (09:19→22:21)
[2023-02-07 09:46] LABS: Hematocrit (blood only) 24.4 % (42.0-52.0); Hemoglobin 7.7 g/dl (14.0-18.0); Mean Corpuscular Hemoglobin 24.1 pg (25.0-34.0); Mean Corpuscular Hgb Conc 31.6 g/dL (32.0-36.0); Mean Corpuscular Volume 76.5 fL (80.0-100.0); Mean Platelet Volume 9.7 fL (9.4-12.4); Platelet Count 364 K/uL (130-400); RDW Coefficient of Variation 24.7 % (11.5-14.5); RDW Standard Deviation 67.5 fL (36.4-46.3); Red Blood Count 3.19 M/uL (4.70-6.10); White Blood Count 7.07 K/ul (4.8-10.8)
[2023-02-07 10:03] LABS: Albumin Globulin Ratio 0.9 (0.9-2); BUN Creatinine Ratio 35.2 (10-20); Bilirubin,Total 0.2 mg/dl (0.2-1.0); Creatinine Clr Calc Pharmacy 77.6 ml/min; Est GFR (African American) 90.9 ml/min; Est GFR (Non-African American) 78.4 ml/min; Globulin 3.2 gm/dl (2.5-4.0); Potassium 4.1 mmol/L (3.5-5.1); Total Protein 6.2 gm/dl (6.0-8.3)
[2023-02-07] MEDS: traMADol HCL 50 MG TABLET PO PRN (16:21)
--- NOTE | 2023-02-07 22:08 | Hospitalist Progress Note ---
Date of Service February 07, 2023 Assessment & Plan (1) Cellulitis of right lower extremity: (2) Leg wound, right: Plan: Chronic right leg wound Increased drainage and bleeding recently. Foot XR noted soft tiss swelling with wound along medial aspect of Rt 1st MTP j oint. Relative lucency in adjacent bones which could also be osteo Lactate was 2.7 on presentation and normalized with IVF No leukocytosis MRI reported no evidence of acute osteomyelitis and no fluid Continue vanc, cefepime and flagyl while inpatient Blood cultures negative Surg eval noted. No surgical intervention Continue wound care Infectious disease Dr Dyana Razo recommends continuing antibiotics for now and getting HIV test He also recommends getting skin biopsy for pathology to rule out skin malignancy as well as bacterial, fungal cultures and AFB smear/culture punch biopsy done by surgery PT/OT eval noted. SNF recommended Case discussed with ID about abx duration that recommended to d/c abx since pt already completed 10 days course and there was no evidence of abscess (3) Anemia: Plan: Microcytic anemia Likely from bleeding from wound Possible GI bleed as well with report of black stool and ibuprofen intake S/p 3 PRBC since admission Hb 8 today Will monitor and transfuse prn to keep >7 Continue PPI BID Avoid NSAIDs GI evaluation noted. No endoscopy recommended at this time (4) ALPHONSO (acute kidney injury): Plan: Cr was 1.61 on presentation. Based on BMP from 2019. Likely ALPHONSO on CKD Cr improved to 1.05 today Monitor (5) Hyperglycemia: Plan: Reported he has been told his blood glucose was high but not diabetic Hemoglobin A1c was 6.2 in 2019. Hence Prediabetic Hemoglobin A1c is normal now at 5.3. Patient has anemia and this was done after 2PRBC Blood glucose controlled (6) Heart murmur: Plan: Murmur noted on admission No recent previous records to confirm if new or old No previous TTE TTE 01/29/23 noted normal LV size, mild conc LVH, EF 60-65%, mitral valve leaflets and chordea structures are moderately thickened and redundant. Moderate MV posterior leaflet prolaspe with a very eccentric directed anterior jet of mild to mod severity. Considering no sepsis/fever/leukocytosis/bacteremia, low suspicion for endocarditis at this time. However, low threshold for DAO if these develop. (7) Schizotypal personality disorder: Plan: Patient demonstrates significant tangentiality with history He acknowledged some history of mood disorder but could not get much history of that from him CM working on placement. He will benefit from placement to help with his wound care Psych evaluation noted Psych noted patient likely has schizotypal personality disorder and recommended starting ability po 5mg HS Continue abilify already started I spent a total of 40 minutes coordinating, documenting and providing care for this patient excluding time spent in performance of separately billed services Admission and Anticipated Discharge Date Admission Date: January 28, 2023 Subjective Patient was seen and examined for follow-up Lying in bed with no acute distress watching TV I spoke to ID today about the ID duration Denies any chest pain, palpitation, dizziness, shortness of breath. Review of Systems Review of Systems: All systems reviewed & are unremarkable except as noted in Subjective Physical Exam Physical Exam: General- No acute distress Head- atraumatic Eyes- PERRL, EOMI, ENT- oropharynx clear Neck- supple, no JVD Lungs- clear to auscultation Heart- regular rhythm; no murmur Abdomen- normal bowel sounds, soft, nontender Extremities- no calf tenderness, Right lower extremity wound wrapped with dressing Neuro- alert, oriented x 3; PERRL, EOMI; no facial palsy; no dysarthria Skin- warm & dry Results & Data Results & Data Vital Signs (Past 12 Hours) Vital Signs Temp Pulse Pulse Resp BP Pulse Ox O2 Del Method 02/07/23 20:08 36.4 C L 85 20 127/71 97 Room Air 02/07/23 16:56 99 H 02/07/23 15:41 36.5 C 85 16 137/85 97 Room Air 02/07/23 11:47 36.3 C L 72 16 123/67 96 Room Air
[2023-02-07] MEDS: ARIPiprazole 5 MG TAB PO SCH (22:21)
[2023-02-07] MEDS: ACETAMINOPHEN 325 MG TAB PO PRN (22:25)
[2023-02-08] MEDS: VANCOMYCIN HCL 1,500 MG in SODIUM CHLORIDE 0.9% 500 ML IV SCH (01:00)
[2023-02-08] MEDS: CEFEPIME 2,000 MG in SYRINGE 0 ML IV SCH (06:15)
[2023-02-08] MEDS: PANTOprazole 40 MG TAB PO SCH ×2 (09:10→20:02)
[2023-02-08] MEDS: metroNIDAZOLE 500 MG/100 ML BAG IV SCH (09:10)
[2023-02-08] MEDS: INSULIN ASPART PER UNIT CHARGE SC SCH ×4 (09:16→20:05)
[2023-02-08] MEDS: ACETAMINOPHEN 325 MG TAB PO PRN ×2 (09:18→20:22)
[2023-02-08 09:23] LABS: Creatinine Clr Calc Pharmacy 80.7 ml/min; Est GFR (African American) 95.3 ml/min; Est GFR (Non-African American) 82.2 ml/min
[2023-02-08] MEDS ORDERED: INSULIN ASPART PER UNIT CHARGE SC ONE (10:41)
[2023-02-08 10:58] LABS: Hematocrit (blood only) 25.5 % (42.0-52.0); Hemoglobin 7.9 g/dl (14.0-18.0); Mean Corpuscular Volume 77.5 fL (80.0-100.0); Mean Platelet Volume 9.9 fL (9.4-12.4); Platelet Count 394 K/uL (130-400); RDW Coefficient of Variation 24.7 % (11.5-14.5); Red Blood Count 3.29 M/uL (4.70-6.10); White Blood Count 7.41 K/ul (4.8-10.8)
--- NOTE | 2023-02-08 17:01 | Hospitalist Progress Note ---
Date of Service February 08, 2023 Assessment & Plan (1) Cellulitis of right lower extremity: (2) Leg wound, right: Plan: Chronic right leg wound Increased drainage and bleeding recently. Foot XR noted soft tiss swelling with wound along medial aspect of Rt 1st MTP j oint. Relative lucency in adjacent bones which could also be osteo Lactate was 2.7 on presentation and normalized with IVF No leukocytosis MRI reported no evidence of acute osteomyelitis and no fluid Continue vanc, cefepime and flagyl while inpatient Blood cultures negative Surg eval noted. No surgical intervention Continue wound care Infectious disease Dr Dyana Razo recommends continuing antibiotics for now and getting HIV test He also recommends getting skin biopsy for pathology to rule out skin malignancy as well as bacterial, fungal cultures and AFB smear/culture punch biopsy done by surgery PT/OT eval noted. SNF recommended Case discussed with ID about abx duration that recommended to d/c abx since pt already completed 10 days course and there was no evidence of abscess IV antibiotic discontinued today Continue daily wound care (3) Anemia: Plan: Microcytic anemia Likely from bleeding from wound Possible GI bleed as well with report of black stool and ibuprofen intake S/p 3 PRBC since admission Hb 7.9 today Continue monitor and transfuse prn to keep >7 Continue PPI BID Avoid NSAIDs GI evaluation noted. No endoscopy recommended at this time (4) ALPHONSO (acute kidney injury): Plan: Cr was 1.61 on presentation. Based on BMP from 2019. Likely ALPHONSO on CKD Cr improved to 1.01 today Monitor (5) Hyperglycemia: Plan: Reported he has been told his blood glucose was high but not diabetic Hemoglobin A1c was 6.2 in 2019. Hence Prediabetic Hemoglobin A1c is normal now at 5.3. Patient has anemia and this was done after 2PRBC Blood glucose controlled (6) Heart murmur: Plan: Murmur noted on admission No recent previous records to confirm if new or old No previous TTE TTE 01/29/23 noted normal LV size, mild conc LVH, EF 60-65%, mitral valve leaflets and chordea structures are moderately thickened and redundant. Moderate MV posterior leaflet prolaspe with a very eccentric directed anterior jet of mil d to mod severity. Considering no sepsis/fever/leukocytosis/bacteremia, low suspicion for endocarditis at this time. However, low threshold for DAO if these develop. (7) Schizotypal personality disorder: Plan: Patient demonstrates significant tangentiality with history He acknowledged some history of mood disorder but could not get much history of that from him CM working on placement. He will benefit from placement to help with his wound care Psych evaluation noted Psych noted patient likely has schizotypal personality disorder and recommended starting ability po 5mg HS Continue abilify already started I spent a total of 40 minutes coordinating, documenting and providing care for this patient excluding time spent in performance of separately billed services Admission and Anticipated Discharge Date Admission Date: January 28, 2023 Subjective Patient was seen and examined for follow-up Lying in bed with no acute distress watching TV Denies any chest pain, palpitation, dizziness, shortness of breath. Review of Systems Review of Systems: All systems reviewed & are unremarkable except as noted in Subjective Physical Exam Physical Exam: General- No acute distress Head- atraumatic Eyes- PERRL, EOMI, ENT- oropharynx clear Neck- supple, no JVD Lungs- clear to auscultation Heart- regular rhythm; no murmur Abdomen- normal bowel sounds, soft, nontender Extremities- no calf tenderness, Right lower extremity wound wrapped with dressing Neuro- alert, oriented x 3; PERRL, EOMI; no facial palsy; no dysarthria Skin- warm & dry Results & Data Results & Data Vital Signs (Past 12 Hours) Vital Signs Temp Pulse Pulse Resp BP BP Pulse Ox 02/08/23 16:15 36.8 C 87 16 121/76 99 02/08/23 14:10 85 02/08/23 10:40 36.6 C 66 18 114/52 L 97 02/08/23 07:55 36.8 C 80 16 112/66 97 02/08/23 07:10 72 O2 Del Method 02/08/23 16:15 Room Air 02/08/23 14:10 02/08/23 10:40 Room Air 02/08/23 07:55 Room Air 02/08/23 07:10
[2023-02-08] MEDS: ARIPiprazole 5 MG TAB PO SCH (20:03)
[2023-02-09 08:24] LABS: Hematocrit (blood only) 23.6 % (42.0-52.0); Hemoglobin 7.5 g/dl (14.0-18.0); Mean Corpuscular Hemoglobin 23.8 pg (25.0-34.0); Mean Corpuscular Hgb Conc 31.8 g/dL (32.0-36.0); Mean Corpuscular Volume 74.9 fL (80.0-100.0); Mean Platelet Volume 9.8 fL (9.4-12.4); Platelet Count 369 K/uL (130-400); RDW Coefficient of Variation 24.9 % (11.5-14.5); Red Blood Count 3.15 M/uL (4.70-6.10); White Blood Count 7.59 K/ul (4.8-10.8)
[2023-02-09] MEDS: INSULIN ASPART PER UNIT CHARGE SC SCH ×4 (09:15→21:43)
[2023-02-09] MEDS: PANTOprazole 40 MG TAB PO SCH ×2 (09:18→21:48)
[2023-02-09 09:39] LABS: Calcium 8.4 mg/dl (8.6-10.3); Potassium 4.3 mmol/L (3.5-5.1)
[2023-02-09 09:44] LABS: BUN Creatinine Ratio 40.6 (10-20); Creatinine Clr Calc Pharmacy 76.9 ml/min; Est GFR (African American) 89.9 ml/min; Est GFR (Non-African American) 77.5 ml/min
--- NOTE | 2023-02-09 12:41 | Hospitalist Progress Note ---
Date of Service February 09, 2023 Assessment & Plan (1) Cellulitis of right lower extremity: (2) Leg wound, right: Plan: Chronic right leg wound Increased drainage and bleeding recently - prior to admission. Foot XR noted soft tissue swelling with wound along medial aspect of Rt 1st MTP joint. Relative lucency in adjacent bones which could also be osteo Lactate was 2.7 on presentation and normalized with IVF No leukocytosis MRI reported no evidence of acute osteomyelitis and no fluid Continued vanc, cefepime and flagyl while inpatient Blood cultures negative Surg eval noted. No surgical intervention Continue wound care Infectious disease Dr Dyana Razo recommends continuing antibiotics for now and getting HIV test (HIV non-reactive) He also recommends getting skin biopsy for pathology to rule out skin malignancy as well as bacterial, fungal cultures and AFB smear/culture punch biopsy done by surgery - pathology results - - Stasis dermatitis with hemosiderin deposition PT/OT eval noted. SNF recommended Case discussed with ID about abx duration that recommended to d/c abx since pt already completed 10 days course and there was no evidence of abscess IV antibiotic discontinued on 02/08/2023 Continue daily wound care (3) Anemia: Plan: Microcytic anemia Likely from bleeding from wound Possible GI bleed as well with report of black stool and ibuprofen intake S/p 3 PRBC since admission Hb 7.5 today Continue monitor and transfuse prn to keep >7 Continue PPI BID Avoid NSAIDs GI evaluation noted. No endoscopy recommended at this time (4) ALPHONSO (acute kidney injury): Plan: Cr was 1.61 on presentation. Based on BMP from 2019. Likely ALPHONSO on CKD Cr improved to 1 now Monitor (5) Hyperglycemia: Plan: Reported he has been told his blood glucose was high but not diabetic Hemoglobin A1c was 6.2 in 2019. Hence Prediabetic Hemoglobin A1c is normal now at 5.3. Patient has anemia and this was done after 2PRBC Blood glucose controlled (6) Heart murmur: Plan: Murmur noted on admission No recent previous records to confirm if new or old No previous TTE TTE 01/29/23 noted normal LV size, mild conc LVH, EF 60-65%, mitral valve leaflets and chordea structures are moderately thickened and redundant. Moderate MV posterior leaflet prolaspe with a very eccentric directed anterior jet of mild to mod severity. Considering no sepsis/fever/leukocytosis/bacteremia, low suspicion for endocarditis at this time. However, low threshold for DAO if these develop. (7) Schizotypal personality disorder: Plan: Patient demonstrates significant tangentiality with history He acknowledged some history of mood disorder but could not get much history of that from him CM working on placement. He will benefit from placement to help with his wound care Psych evaluation noted Psych noted patient likely has schizotypal personality disorder and recommended starting Abilify po 5mg HS Continue abilify already started Admission and Anticipated Discharge Date Admission Date: January 28, 2023 Subjective Patient seen in follow up of LE cellulitis/wound Sitting up in bed in no acute distress, eating lunch Denies any fever, chills, chest pain, palpitation,shortness of breath, abd. pain, n/v Review of Systems Review of Systems: All systems reviewed & are unremarkable except as noted in Subjective Physical Exam Physical Exam: General- WD/WN M in no acute distress Head- atraumatic Eyes- PERRL, EOMI, ENT- oropharynx clear Neck- supple, no JVD Lungs- clear to auscultation Heart- regular rhythm; no murmur Abdomen- normal bowel sounds, soft, nontender Extremities- Right lower extremity wound wrapped with clean dressings Neuro- alert, oriented x 3; PERRL, EOMI; no facial palsy; no dysarthria, moves extremities Skin- warm & dry Results & Data Results & Data Vital Signs (Past 12 Hours) Vital Signs Temp Pulse Pulse Resp BP Pulse Ox O2 Del Method 02/09/23 10:58 36.5 C 73 18 115/60 97 Room Air 02/09/23 07:52 36.9 C 75 18 118/67 96 Room Air 02/09/23 07:06 95 H 02/09/23 03:25 36.7 C 77 18 117/58 L 96 Room Air Laboratory Results 02/09/23 02/09/23 02/09/23 Range/Units 11:20 07:39 07:30 WBC (4.8-10.8) K/ul RBC (4.70-6.10) M/uL Hgb (14.0-18.0) g/dl Hct (42.0-52.0) % MCV (80.0-100.0) fL MCH (25.0-34.0) pg MCHC (32.0-36.0) g/dL RDW Std Deviation (36.4-46.3) fL RDW Coeff of Stewart (11.5-14.5) % Plt Count (130-400) K/uL MPV (9.4-12.4) fL Sodium 136 (136-145) mmol/L Potassium 4.3 (3.5-5.1) mmol/L Chloride 106 (98-107) mmol/L Carbon Dioxide 24 (21-32) mmol/L Anion Gap 6 (3-11) BUN 43 H (6-23) mg/dl Creatinine 1.06 (0.6-1.4) mg/dl Est Cr Clr Drug Dosing 76.9 ml/min Est GFR ( Amer) 89.9 ml/min Est GFR (Non-Af Amer) 77.5 ml/min BUN/Creatinine Ratio 40.6 H (10-20) Glucose 95 (70-99(Fasting)) mg/dl POC Glucose 116 H 105 H (70-99) mg/dl Calcium 8.4 L (8.6-10.3) mg/dl 02/09/23 02/08/23 02/08/23 Range/Units 07:30 20:04 16:31 WBC 7.59 (4.8-10.8) K/ul RBC 3.15 L (4.70-6.10) M/uL Hgb 7.5 L (14.0-18.0) g/dl Hct 23.6 L (42.0-52.0) % MCV 74.9 L (80.0-100.0) fL MCH 23.8 L (25.0-34.0) pg MCHC 31.8 L (32.0-36.0) g/dL RDW Std Deviation 66.0 H (36.4-46.3) fL RDW Coeff of Stewart 24.9 H (11.5-14.5) % Plt Count 369 (130-400) K/uL MPV 9.8 (9.4-12.4) fL Sodium (136-145) mmol/L Potassium (3.5-5.1) mmol/L Chloride (98-107) mmol/L Carbon Dioxide (21-32) mmol/L Anion Gap (3-11) BUN (6-23) mg/dl Creatinine (0.6-1.4) mg/dl Est Cr Clr Drug Dosing ml/min Est GFR ( Amer) ml/min Est GFR (Non-Af Amer) ml/min BUN/Creatinine Ratio (10-20) Glucose (70-99(Fasting)) mg/dl POC Glucose 101 H 107 H (70-99) mg/dl Calcium (8.6-10.3) mg/dl Medications Administered Current Inpatient Medications Acetaminophen (Acetaminophen 325 Mg Tab) 650 mg PO Q4H PRN PRN Reason: Pain or Fever Stop: 02/27/23 22:08 Last Admin: 02/08/23 20:22 Dose: 650 mg Aripiprazole (Aripiprazole 5 Mg Tab) 5 mg PO HS [facility] Stop: 03/02/23 20:59 Last Admin: 02/08/23 20:03 Dose: 5 mg Dextrose (Dextrose 50% 50 Ml Syringe) 25 - 50 ml IV UD PRN; Protocol PRN Reason: Hypoglycemia Protocol Stop: 02/27/23 17:53 Glucagon (Glucagon For Inj 1 Mg Vial) 1 mg SQ UD PRN; Protocol PRN Reason: Hypoglycemia Protocol Stop: 02/27/23 17:53 Glucose (Glucose 10 Tab/Tube) 4 - 8 tab PO UD PRN; Protocol PRN Reason: Hypoglycemia Treatment Stop: 02/27/23 17:53 Glucose (Glucose 40% Gel 15 Gm Tube) 15 - 30 gm PO UD PRN; Protocol PRN Reason: Hypoglycemia Protocol Stop: 02/27/23 17:53 Insulin Aspart (Insulin Aspart Per Unit Charge) 0 units SC ACHS [facility] Stop: 03/09/23 11:29 Last Admin: 02/09/23 09:15 Dose: 3 units Miscellaneous (Carbohydrates For Hypoglycemia ) 15 - 30 gm PO UD PRN PRN Reason: Hypoglycemia Protocol Stop: 02/27/23 17:53 Ondansetron HCl (Ondansetron Inj 2 Mg/Ml 2 Ml Vial) 4 mg IV Q6H PRN PRN Reason: Nausea Stop: 02/27/23 22:08 Pantoprazole Sodium (Pantoprazole 40 Mg Tab) 40 mg PO BID [facility] Stop: 03/05/23 20:59 Last Admin: 02/09/23 09:18 Dose: 40 mg Polyethylene Glycol (Polyethylene (Miralax) 17 Gm Pack) 17 gm PO DAILY PRN PRN Reason: Constipation Stop: 02/27/23 22:08 Tramadol HCl (Tramadol Hcl 50 Mg Tablet) 25 mg PO Q6H PRN PRN Reason: moderate to severe pain Stop: 03/03/23 16:00 Last Admin: 02/07/23 16:21 Dose: 25 mg
[2023-02-09] MEDS: ARIPiprazole 5 MG TAB PO SCH (21:51)
[2023-02-09] MEDS: ACETAMINOPHEN 325 MG TAB PO PRN (21:51)
[2023-02-10] MEDS: INSULIN ASPART PER UNIT CHARGE SC SCH ×2 (08:53→12:12)
[2023-02-10] MEDS: PANTOprazole 40 MG TAB PO SCH (09:01)
--- NOTE | 2023-02-10 11:17 | Discharge Summary ---
Date of Service February 10, 2023 Admission HPI Per Admitting Provider Miguel Gillis is a 57-year-old male with a past medical history of renal insufficiency, chronic right lower extremity recurrent cellulitis, cognitive decline/unreliable historian who presents to the ER with right foot pain swelling and redness. Patient has kept the leg wrapped for 10 days. Patient was placed on cefepime/vancomycin/Flagyl on admission. He is penicillin allergic. Miguel is seen at the bedside. He reports that he has had chronic issues with his right lower extremity bleeding and with a wound which started on his right ankle but which has progressively worsened for 2 years. He feels this has been much worse in the last month, and then acutely worsened 10 days ago. It has had much more bleeding, discharge, and a foul smell. He wrapped the wound in a trash bag and was trying to keep it covered, but was having increasing pain for which she was taking ojwe-[id number] ibuprofen with little relief. Was taking 600 mg of ibuprofen in addition to aspirincaffeine several times a day. He reports the pain was continuing to worsen, and has not improved until arrival to the ER at which point he was given 4 mg of morphine which does seem to help a little. He has felt like he had chills at night, denies fever, lightheadedness, dizziness. He has had no chest pain or chest pressure. Reports he takes no prescription medications. Did recently establish with [facility] in the last year and [place] office. Full code. Is allergic to penicillin and bees, denies other allergies. He is a former smoker, denies recent tobacco use. Denies alcohol use. Denies recreational drug use Medical History: Reviewed Medications: Reviewed Surgical History: Reviewed Family history: Reviewed Allergies: Reviewed Social History: Reviewed Code Status: Full code Admission Exam Per Admitting Provider General: Circumferential thought process during exam but is oriented to name, place, and date. No acute distress. HEENT: Atraumatic, normocephalic. Vision/hearing intact. Pupils equal and reactive to light. Pulm: CTAB A&P. -wheezes, -rales, -rhonchi. Symmetrical chest rise. No increased work of breathing. No respiratory distress. Cardiac: RRR, +sm. Radial pulses intact and symmetrical. Abdominal: Nontender, nondistended, soft. BS present. Extremities: Right lower extremity with extensive bleeding, discharge, and foul odor. See same-day photographs under notes. Of note PT pulse is intact and palpable. Left lower extremity warm, dry and PT pulse intact. Ankle dorsiflexion/plantarflexion, global cto strength, elbow flexion 5/5 bilaterally. Principal Diagnosis RLE cellulitis Stasis dermatitis Discharge Exam General- WD/WN M in no acute distress Head- atraumatic Eyes- PERRL, EOMI, ENT- oropharynx clear Neck- supple, no JVD Lungs- clear to auscultation Heart- regular rhythm; no murmur Abdomen- normal bowel sounds, soft, nontender Extremities- Right lower extremity wound wrapped with clean dressings Neuro- alert, oriented x 3; PERRL, EOMI; no facial palsy; no dysarthria, moves extremities Skin- warm & dry Discharge Data Allergies Allergy/AdvReac Type Severity Reaction Status Date / Time bee venom protein (honey bee) Allergy Severe FACIAL Verified 01/28/23 16:35 SWELLING Penicillins Allergy Severe Anaphylaxis Verified 01/28/23 16:35 Consultations 01/28/23 15:51 ED Decision to Admit Stat 01/28/23 22:09 Consult Gastroenterology Routine Consult General Surgery Routine 01/31/23 07:53 Consult Infectious Diseases Routine 01/31/23 10:40 Consult Psychiatry Routine Ordered Studies 01/29/23 08:52 MR lower leg RT wo con Routine FINDINGS: This exam is mildly compromised by motion artifact. However, T1 marrow signal within the right tibia and fibula is preserved. There is no significant marrow edema. There is no MR evidence for acute osteomyelitis of the right tibia or fibula. Moderate subcutaneous fluid of the right lower leg is noted. No fluid collection is identified on this unenhanced exam. There is mild nonspecific signal within the musculature of the right lower leg. Muscular atrophy is present. No significant fascial fluid is present. There is no MR evidence for soft tissue gas. Alignment of the right knee and ankle is in anatomic. There is a possible small osteochondral defect of the talar dome, suboptimally assessed on this exam. The Achilles tendon is intact. IMPRESSION: 1. Exam mildly compromised by artifact. No evidence for acute osteomyelitis of the right tibia or fibula. 2. Moderate right lower leg subcutaneous fluid. This may reflect edema or cellulitis. No fluid collection to suggest abscess on unenhanced exam. 3. Right lower leg muscular atrophy and nonspecific intramuscular signal. No significant fascial fluid. Hospital Course (1) Cellulitis of right lower extremity: (2) Leg wound, right: Chronic right leg wound Increased drainage and bleeding recently - prior to admission. Foot XR noted soft tissue swelling with wound along medial aspect of Rt 1st MTP joint. Relative lucency in adjacent bones which could also be osteo Lactate was 2.7 on presentation and normalized with IVF No leukocytosis MRI reported no evidence of acute osteomyelitis and no fluid Continued vanc, cefepime and flagyl while inpatient Blood cultures negative Surg eval noted. No surgical intervention Continue wound care Infectious disease Dr Dyana Razo recommends continuing antibiotics for now and getting HIV test (HIV non-reactive) He also recommends getting skin biopsy for pathology to rule out skin malignancy as well as bacterial, fungal cultures and AFB smear/culture punch biopsy done by surgery - pathology results - - Stasis dermatitis with hemosiderin deposition PT/OT eval noted. SNF recommended Case discussed with ID about abx duration that recommended to d/c abx since pt already completed 10 days course and there was no evidence of abscess IV antibiotic discontinued on 02/08/2023 Continue daily wound care (3) Anemia: Microcytic anemia Likely from bleeding from wound Possible GI bleed as well with report of black stool and ibuprofen intake S/p 3 PRBC since admission Hb 7.5 today Continue monitor and transfuse prn to keep >7 Continue PPI BID Avoid NSAIDs iron supplement started GI evaluation noted. No endoscopy recommended at this time (4) ALPHONSO (acute kidney injury): Cr was 1.61 on presentation. Based on BMP from 2019. Likely ALPHONSO on CKD Cr improved to 1 now Monitor (5) Hyperglycemia: Reported he has been told his blood glucose was high but not diabetic Hemoglobin A1c was 6.2 in 2019. Hence Prediabetic Hemoglobin A1c is normal now at 5.3. Patient has anemia and this was done after 2PRBC Blood glucose controlled (6) Heart murmur: Murmur noted on admission No recent previous records to confirm if new or old No previous TTE TTE 01/29/23 noted normal LV size, mild conc LVH, EF 60-65%, mitral valve leaflets and chordea structures are moderately thickened and redundant. Moderate MV posterior leaflet prolaspe with a very eccentric directed anterior jet of mild to mod severity. Considering no sepsis/fever/leukocytosis/bacteremia, low suspicion for endocarditis at this time. However, low threshold for DAO if these develop. (7) Schizotypal personality disorder: Patient demonstrates significant tangentiality with history He acknowledged some history of mood disorder but could not get much history of that from him CM working on placement. He will benefit from placement to help with his wound care Psych evaluation noted Psych noted patient likely has schizotypal personality disorder and recommended starting Abilify po 5mg HS Continue abilify already started Total Time Total Time Spent Total Time Spent (In Minutes): 40 Discharge Plan Discharge Items Patient Disposition: Transfer Care Home Fac Reason For Visit: RLE CELLULITIS, OSTEO Discharge Diagnosis: RLE cellulitis Stasis dermatitis Activity: Per Instructions section Non-emergency contact: Primary Care Provider Call non-emergency contact if: you have any medication questions and your symptoms worsen Follow-up/Referrals: Elkin Navarrete MD [Primary Care Provider] - Diet: Carb Consistent or DM2 and Heart Healthy Addtl Attending Provider Instructions: Follow up with your primary care doctor and wound care within one week after you leave [facility]. Wound care is very important for your right leg to heal. Due to some blood loss and anemia, recommend taking iron pill supplement. For pain, recommend using tylenol and tramadol. Try to avoid ibuprofen and other NSAIDs such as motrin, aleve.. Continue taking pantoprazole 40 mg twice a day and discuss with your primary care doctor how long you should be on it. You were also started here on a new medication, abilify, take is directed, 5 mg every night. Pending Studies at Discharge: No Stand-Alone Forms: My [facility] Skilled Items Patient informed of condition?: Yes DNR: No Discharge Level of Care: Skilled Communicable Disease: No Discharge Prognosis: Stable Lines: None Urinary Catheter: No Medications and DC Order Prescriptions: New aripiprazole [Abilify] 5 mg Tablet 5 mg PO HS 30 Days Qty: 30 0RF pantoprazole 40 mg Tablet,Delayed Release (Dr/Ec) 40 mg PO BID 30 Days Qty: 60 0RF ferrous sulfate 325 mg (65 mg iron) Tablet,Delayed Release (Dr/Ec) 325 mg PO BIDM 30 Days Qty: 60 0RF tramadol 50 mg Tablet 25 mg PO Q6H PRN (Reason: pain) Qty: 14 0RF Continued acetaminophen [Tylenol Extra Strength] 500 mg Tablet 1,000 mg PO DIRECTED PRN (Reason: Pain) calcium carbonate [Tums] 200 mg calcium (500 mg) Tablet,Chewable 400 mg PO DIRECTED PRN (Reason: INDIGESTION/HEARTBURN) Back and Body Pain Reliever 500-32.5 mg Tablet 1 tab PO DIRECTED PRN (Reason: Pain) Discontinued ibuprofen 200 mg Tablet 600 mg PO DIRECTED PRN (Reason: Pain) Discharge Orders: Discharge Order (Routine); Ordered 02/10/23 Ordered By: Kevin Diaz Admission Data Admit Date/Time: 01/28/23 18:26 Attending Provider: Kevin Diaz Admit Provider: Rogleio Baum Primary Care Provider: Elkin Navarrete Other Providers: Rogelio Baum ; Bowen Barlow ; Adan Chávez ; [facility] ; [facility] ; [facility], ; Peter Jurado ; Russ Turpin ; Jeremiah Hodgson I. ; Darinel Anders II ; Aliyah Pierson ; Del Thurman ; Daniel Rush ; Gauri Hopkins ; Princess Leonard ; Meri Teresa ; Del Jenkins ; Zita Thomas I. ; Kaitlin Rubio
[2023-02-10] MEDS: ACETAMINOPHEN 325 MG TAB PO PRN (11:52)
[2023-02-10] MEDS ORDERED: FERROUS SULFATE 325 MG TAB PO SCH (17:00)
== END 2023-02-10 16:50 | DRG 603 ==
LOC: ED 14:08 → 2W 18:26 → SUATTDRO 18:26 → 2W 21:20

== ENCOUNTER 2023-05-11 18:49 | Inpatient (IN) ==
--- NOTE | 2023-05-11 19:03 | ED Triage Note ---
Date of Service May 11, 2023 History of Present Illness This patient was briefly evaluated while in triage. An abbreviated physical exam was performed. This patient is a 57-year-old Male who presents to the ED for evaluation of right leg wound. Has had this for awhile. Increasing pain and swelling. PCP re portedly sent to ER. Leg is foul smelling. Physical Exam Limited Triage Exam: VITALS: Vitals are noted on the nurse's note and reviewed by myself. Vital signs stable. GENERAL: White male, who is in no acute distress and resting comfortably. Patient is cooperative with the examination. HEART: Regular rate and rhythm without murmurs gallops or rubs. LUNGS: Clear to auscultation bilaterally without wheezes, rales or rhonchi. No retractions or accessory muscle use. NEURO: Patient was alert and oriented to person place and time. CN II through XII grossly intact. Initial orders for labs and / or imaging were placed and patient was placed in the waiting area until a bed is available. Please see further documentation for the full ED course. MDM / Impression Impression Impression: Cellulitis of right leg, Anemia, Wound infection Impression: Anemia Qualifiers: Anemia type: unspecified type Qualified Code(s): D64.9 - Anemia, unspecified
[2023-05-11 19:39] LABS: Basophils # (auto) 0.06 K/uL (0-0.2); Basophils % (auto) 0.6 %; Eosinophils % (auto) 4.8 %; Hematocrit (blood only) 32.2 % (42.0-52.0); Immature Granulocytes # (auto) 0.04 K/uL (0.01-0.20); Immature Granulocytes % (auto) 0.4 %; Lymphocytes # (auto) 1.66 K/uL (1.2-3.4); Lymphocytes % (auto) 15.9 %; Mean Corpuscular Hemoglobin 24.2 pg (25.0-34.0); Mean Corpuscular Hgb Conc 31.1 g/dL (32.0-36.0); Mean Corpuscular Volume 77.8 fL (80.0-100.0); Mean Platelet Volume 10.1 fL (9.4-12.4); Monocytes # (auto) 0.91 K/uL (0.11-0.59); Monocytes % (auto) 8.7 %; Neutrophils % (auto) 69.6 %; Platelet Count 376 K/uL (130-400); RDW Coefficient of Variation 18.4 % (11.5-14.5); RDW Standard Deviation 50.9 fL (36.4-46.3); Red Blood Count 4.14 M/uL (4.70-6.10); White Blood Count 10.47 K/ul (4.8-10.8)
[2023-05-11 20:02] LABS: Albumin Globulin Ratio 1.1 (0.9-2); BUN Creatinine Ratio 26.7 (10-20); Bilirubin,Total 0.2 mg/dl (0.2-1.0); C Reactive Protein 1.74 mg/dl (0-0.5); Calcium 8.6 mg/dl (8.6-10.3); Creatinine Clr Calc Pharmacy 66.7 ml/min; Est GFR (African American) 67.1 ml/min; Est GFR (Non-African American) 57.9 ml/min; Globulin 3.5 gm/dl (2.5-4.0); Potassium 4.3 mmol/L (3.5-5.1); Total Protein 7.5 gm/dl (6.0-8.3)
[2023-05-11] MEDS ORDERED: VANCOMYCIN CONSULT ACTIVE PRN (20:09)
[2023-05-11] MEDS ORDERED: CLINDAMYCIN/D5W 900 MG/50 ML BAG IV ONE (20:09)
[2023-05-11] MEDS ORDERED: VANCOMYCIN HCL 2,250 MG in SODIUM CHLORIDE 0.9% 500 ML IV ONE (20:09)
--- NOTE | 2023-05-11 20:16 | Emergency Department Note ---
Impression & Plan Cellulitis of right leg, Anemia, Wound infection ED Provider Note NAME: LISA LEGGETT AGE: 57 SEX: M : 1965 ARRIVES VIA: Walk-In INFORMANT: [Patient] ED PROVIDER(S): [Kevin Don MD] CHIEF COMPLAINT: Infection HISTORY OF PRESENT ILLNESS: The patient is a 57-year-old male who presents to the ED with increasing drainage and odor to the right lower extremity. He has an ongoing wound to this leg. He was in the hospital previously for this wound. He was at [facility] up until about a month ago. Since discharge from [facility], the wound has worsened and he has noticed increased drainage as well as a foul odor. No fever or chills. Has been no vomiting or diarrhea, no cough or congestion. He is concerned for worsening infection. He is not currently on any antibiotics PMHx/PSHx: See Below SOCIAL HISTORY: See Below. PHYSICAL EXAM: GENERAL: Patient is in no acute distress. HEENT: No acute trauma, normocephalic atraumatic, mucous membranes moist, no nasal congestion. NECK: No stridor, no adenopathy, no meningismus, trachea is midline. LUNGS: Clear to auscultation bilaterally, no wheeze, no rhonchi, breath sounds equal. HEART: Subtle systolic murmur, regular rate and rhythm. ABDOMEN: Soft, nontender, bowel sounds positive, no peritonitis. EXTREMITIES: No cyanosis. The patient has a yellow soaked dressing on the right lower extremity. When this was removed, there was a foul odor. The patient had extensive discharge and debris about the mid to distal right lower extremity. There was surrounding erythema. The wound was circumferential. NEUROLOGIC: Oriented x 3, no acute motor or sensory deficits, no focal weakness. SKIN: No jaundice, no diaphoresis. DIFFERENTIAL DIAGNOSIS: Cellulitis, wound infection, MRSA, pseudomonal infection, failed outpatient management, bacteremia or sepsis, among others. EMERGENCY DEPARTMENT COURSE/PROCEDURES: Prior/Outside records reviewed: Previous discharge summary. MEDICAL DECISION MAKING: There is no leukocytosis. The patient is anemic however, the hemoglobin is improved compared to recent testing. There is a normal platelet count. No renal failure or significant electrolyte abnormality. Lactic acid level is not elevated making sepsis less likely. There was no concerning liver enzyme elevation. C-reactive protein was somewhat elevated at 1.74, although, improved compared to previous testing. Sed rate was elevated at 60, higher than previous testing. COVID test returned negative. On exam, the patient had a foul-sme lling dressing and wound. He had an open area and there appeared to be associated cellulitis. No evidence for right lower extremity neurovascular compromise. A culture of the wound discharge was obtained. This result is pending. Patient was given IV vancomycin, IV clindamycin. The patient does not appear septic. He does have a right lower extremity cellulitis though and I do think hospitalization for IV antibiotic therapy would be warranted. I spoke with the patient and case management, the on-call hospitalist was consulted. DISPOSITION: Patient's presentation and findings warrant a hospital stay. Past Med/Surg History Medical History Anemia Cellulitis of right lower extremity chronic cellulitis on right low leg Heart murmur Leg wound, right Schizotypal personality disorder Surgical History No pertinent past surgical history Family History Other No pertinent family history Social History Smoking Status: Never smoker Second Hand Exposure: No; Do You Dip or Chew Tobacco: No; Hx Alcohol Use: No Hx Substance Use: No Preferred Language: Swedish 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 Ability: Effective Conveyor Operator Required: No Beliefs That Will Affect Care: None marital status: Single Current Living Situation: Alone Current Living Situation Comment: Apartment Feels Safe at Home: Yes Assistive Devices: None Allergies Allergies Allergy/AdvReac Type Severity Reaction Status Date / Time bee venom protein (honey bee) Allergy Severe FACIAL Verified 05/11/23 21:14 SWELLING Penicillins Allergy Severe Anaphylaxis Verified 05/11/23 21:14 Home Meds Home Medications Medication Instructions Recorded Confirmed aripiprazole 5 mg tablet 5 mg PO HS 05/11/23 05/11/23 pantoprazole 40 mg tablet,delayed 40 mg PO DIRECTED 05/11/23 05/11/23 release Previous Rx's Medication Instructions Recorded tramadol 50 mg tablet 25 mg PO Q6H PRN pain #14 tabs 02/10/23 Results & Data (ED) Vital Signs Vital Signs - 24 hr 05/11/23 18:59 05/11/23 20:46 Temperature 36.9 C Temperature Source Temporal Artery Scan Pulse Rate 99 H Pulse Rate [Finger] 77 Respiratory Rate 18 16 Blood Pressure 137/77 Blood Pressure [Left Arm] 133/79 Blood Pressure Mean 97 Blood Pressure Mean [Left Arm] 97 Pulse Oximetry 95 100 Oxygen Delivery Method Room Air Room Air Sepsis Recent Fever Within 48 Hours No Sepsis New/Unexplained Change in Mental Status No Sepsis Action Taken by Nursing No Action Required Home Medications Current Medication List: was personally reviewed by me Laboratory Data Attestation: I reviewed the patient's lab results. 05/11/23 19:08 05/11/23 19:08 Lab Results 05/11/23 05/11/23 05/11/23 Range/Units 19:08 19:08 19:08 WBC 10.47 (4.8-10.8) K/ul RBC 4.14 L (4.70-6.10) M/uL Hgb 10.0 L (14.0-18.0) g/dl Hct 32.2 L (42.0-52.0) % MCV 77.8 L (80.0-100.0) fL MCH 24.2 L (25.0-34.0) pg MCHC 31.1 L (32.0-36.0) g/dL RDW Std Deviation 50.9 H (36.4-46.3) fL RDW Coeff of Stewart 18.4 H (11.5-14.5) % Plt Count 376 (130-400) K/uL MPV 10.1 (9.4-12.4) fL Immature Gran % (Auto) 0.4 % Neut % (Auto) 69.6 % Lymph % (Auto) 15.9 % Kings % (Auto) 8.7 % Eos % (Auto) 4.8 % Baso % (Auto) 0.6 % Neut # (Auto) 7.30 H (1.40-6.50) K/uL Lymph # (Auto) 1.66 (1.2-3.4) K/uL Kings # (Auto) 0.91 H (0.11-0.59) K/uL Eos # (Auto) 0.50 (0-0.50) K/uL Baso # (Auto) 0.06 (0-0.2) K/uL Immature Gran # (Auto) 0.04 (0.01-0.20) K/uL ESR 60 H (0-20) mm/hr Sodium (136-145) mmol/L Potassium (3.5-5.1) mmol/L Chloride (98-107) mmol/L Carbon Dioxide (21-32) mmol/L Anion Gap (3-11) BUN (6-23) mg/dl Creatinine (0.6-1.4) mg/dl Est Cr Clr Drug Dosing ml/min Est GFR ( Amer) ml/min Est GFR (Non-Af Amer) ml/min BUN/Creatinine Ratio (10-20) Glucose (70-99(Fasting)) mg/dl Lactate 0.8 (0.4-2.0) mmol/L Calcium (8.6-10.3) mg/dl Total Bilirubin (0.2-1.0) mg/dl AST (13-39) U/L ALT (7-52) U/L Alkaline Phosphatase (34-104) U/L C-Reactive Protein (0-0.5) mg/dl Total Protein (6.0-8.3) gm/dl Albumin (3.4-5.0) gm/dl Globulin (2.5-4.0) gm/dl Albumin/Globulin Ratio (0.9-2) SARS-CoV-2, RNA, NAAT (NEGATIVE) 05/11/23 05/11/23 Range/Units 19:08 20:55 WBC (4.8-10.8) K/ul RBC (4.70-6.10) M/uL Hgb (14.0-18.0) g/dl Hct (42.0-52.0) % MCV (80.0-100.0) fL MCH (25.0-34.0) pg MCHC (32.0-36.0) g/dL RDW Std Deviation (36.4-46.3) fL RDW Coeff of Stewart (11.5-14.5) % Plt Count (130-400) K/uL MPV (9.4-12.4) fL Immature Gran % (Auto) % Neut % (Auto) % Lymph % (Auto) % Kings % (Auto) % Eos % (Auto) % Baso % (Auto) % Neut # (Auto) (1.40-6.50) K/uL Lymph # (Auto) (1.2-3.4) K/uL Kings # (Auto) (0.11-0.59) K/uL Eos # (Auto) (0-0.50) K/uL Baso # (Auto) (0-0.2) K/uL Immature Gran # (Auto) (0.01-0.20) K/uL ESR (0-20) mm/hr Sodium 138 (136-145) mmol/L Potassium 4.3 (3.5-5.1) mmol/L Chloride 107 (98-107) mmol/L Carbon Dioxide 24 (21-32) mmol/L Anion Gap 7 (3-11) BUN 36 H (6-23) mg/dl Creatinine 1.35 (0.6-1.4) mg/dl Est Cr Clr Drug Dosing 66.7 ml/min Est GFR ( Amer) 67.1 ml/min Est GFR (Non-Af Amer) 57.9 ml/min BUN/Creatinine Ratio 26.7 H (10-20) Glucose 93 (70-99(Fasting)) mg/dl Lactate (0.4-2.0) mmol/L Calcium 8.6 (8.6-10.3) mg/dl Total Bilirubin 0.2 (0.2-1.0) mg/dl AST 21 (13-39) U/L ALT 17 (7-52) U/L Alkaline Phosphatase 95 (34-104) U/L C-Reactive Protein 1.74 H (0-0.5) mg/dl Total Protein 7.5 (6.0-8.3) gm/dl Albumin 4.0 (3.4-5.0) gm/dl Globulin 3.5 (2.5-4.0) gm/dl Albumin/Globulin Ratio 1.1 (0.9-2) SARS-CoV-2, RNA, NAAT NEGATIVE (NEGATIVE) Administered Medications Sodium Chloride (Nss 1000ml) 1,000 mls @ 60 mls/hr IV .[id number] ONE Stop: 05/12/23 13:07 Last Admin: 06/28/23 20:45 Dose: 60 mls/hr Documented By: RAJNI Discontinued Medications Clindamycin Phosphate (Cleocin/D5w) 900 mg in 50 mls @ 100 mls/hr IV NOW ONE Stop: 05/11/23 20:38 Last Infusion: 05/11/23 22:30 Dose: 0 mls/hr Documented By: Admin: 05/11/23 21:59 Dose: 100 mls/hr Documented By: RAJNI Vancomycin HCl 2,250 mg/ (Sodium Chloride) 545 mls @ 200 mls/hr IV NOW ONE Stop: 05/11/23 22:52 Last Admin: 05/11/23 22:35 Dose: 200 mls/hr Documented By: RAJNI Cefepime HCl (Maxipime) 2,000 mg in 20 mls @ 5 mls/min IV NOW STA; Protocol Stop: 05/11/23 20:29 Last Admin: 05/11/23 20:43 Dose: 5 mls/min Documented By: RAJNI Imaging Data Radiologist's Impression: Lower Extremity CT 05/11/23 21:45 Exam(s): CT EXTREMITY RIGHT LOWER With Contrast IV Amt: 90 ml optiray 320 EXAM: CT Right Lower Extremity With Intravenous Contrast CLINICAL HISTORY: Reason for exam: RLE swelling ro abscess. TECHNIQUE: Axial computed tomography images of the right lower extremity with intravenous contrast. CTDI is 6.03 mGy and DLP is 296.72 mGy-cm. Automated exposure control was utilized for the study. A dose lowering technique was utilized adhering to the principles of ALARA. CONTRAST: Patient received 90 ml optiray 320 of IV contrast COMPARISON: No relevant prior studies available. FINDINGS: Bones/joints: No acute fracture. No dislocation. No CT evidence of osteomyelitis. Soft tissues: Severe subcutaneous edema and skin irregularity, consistent with cellulitis. These findings preferentially involve the lower calf and ankle No fluid collection or abscess. No subcutaneous air. No edema or infection involving the compartments of the calf. IMPRESSION: Severe subcutaneous edema and skin irregularity, consistent with cellulitis. These findings preferentially involve the lower calf and ankle No fluid collection or abscess. No subcutaneous air. Electronically signed by: Tye Rodriguez MD 05/11/23 23:31 PM Discharge Plan Visit Data Chief Complaint: Infection, Wound Stated Complaint: REF BY ABDON,R LEG PAIN,DISCHARGE COMING FROM WOUND ED Provider: Kevin Don Discharge Problem: Cellulitis of right leg, Anemia, Wound infection Patient Disposition: Admitted As Inpatient Condition: Fair Discharge Instructions Interventions: ED Discharge Assessment Last Done: 05/11/23 23:30
[2023-05-11] MEDS ORDERED: CEFEPIME 2,000 MG/20 ML VIAL IV STA (20:26)
[2023-05-11] MEDS ORDERED: SODIUM CHLORIDE 0.9% 1000ML 1,000 ML IV ONE (20:28)
--- NOTE | 2023-05-11 20:41 | History & Physical Report ---
Date of Service May 11, 2023 Assessment & Plan (1) Cellulitis of right lower extremity: (2) Leg wound, right: (3) Schizotypal personality disorder: (4) Anemia: Plan: Assessment and plan per Dr. Khan. See addendum. History of Present Illness Chief Complaint: Right leg wound Primary Care Provider: Dr. Navarrete Patient is 57-year-old male with PMH chronic right leg wound, schizotypical personality disorder presented to the ER with complaint of worsening appearance of right leg wound. Patient is very poor historian and has tangential thoughts and history is difficult to obtain. Per chart review patient with recent hospitalization January 2023 for RLE cellulitis. At that time MRI was without acute osteomyelitis. Had punch biopsy by general surgeon with results of stasis dermatitis with hemosiderin deposition. Was treated with IV antibiotics. He was also noted to have anemia and was given 3 units PRBC transfusion. GI was consulted and no endoscopy was recommended, and anemia was thought secondary to bleeding from wound with possible underlying GI source secondary to patient's ibuprofen use. Patient states presented to ER today secondary to increased drainage from right lower extremity wound. He states it has been draining yellow fluid for the past week. He feels for the past 2 to 3 weeks has had increased redness around wound. He also reports increased discomfort to right lower leg. He states he has been wrapping wound with gauze and a "surgical dressing". Patient prev iously was at [facility] after last admission. He is unsure when he was discharged from [facility]. Patient reports currently is residing at the [facility]. Patient keeps referring to as "we" live at the [facility] however he does not describe if anyone else is living with him. Patient admits that he has not been taking any prescription medication. He denies any recent follow-up. He states he has been using 2 ibuprofen daily the past several days secondary to right lower extremity pain. Denies fever/chills, diaphoresis, N/V/D/C, ROSAS, dizziness, syncope, CP, SOB, orthopnea, palpitations, cough, sore throat, rhinorrhea, abdominal pain, paresthesias, weakness, extremity edema, rashes, urinary symptoms. Allergies Allergy/AdvReac Type Severity Reaction Status Date / Time bee venom protein (honey bee) Allergy Severe FACIAL Verified 05/11/23 21:14 SWELLING Penicillins Allergy Severe Anaphylaxis Verified 05/11/23 21:14 Home Medications Medication Instructions Recorded Confirmed Type tramadol 50 mg tablet 25 mg PO Q6H PRN pain #14 tabs 02/10/23 05/11/23 Rx aripiprazole 5 mg tablet 5 mg PO HS 05/11/23 05/11/23 History pantoprazole 40 mg tablet,delayed 40 mg PO DIRECTED 05/11/23 05/11/23 History release Past Med/Surg History Medical History Anemia Cellulitis of right lower extremity chronic cellulitis on right low leg Heart murmur Leg wound, right Schizotypal personality disorder Surgical History No pertinent past surgical history Family History Other No pertinent family history Social History Smoking Status: Never smoker Second Hand Exposure: No; Do You Dip or Chew Tobacco: No; Hx Alcohol Use: No Hx Substance Use: No Preferred Language: Japanese 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 Ability: Effective Commercial Estimator Required: No Beliefs That Will Affect Care: None marital status: Single Current Living Situation: Alone Current Living Situation Comment: living in a hotel Feels Safe at Home: Yes Safety Concerns: Feels Safe At This Time Assistive Devices: Cane Review of Systems Review of Systems: All systems reviewed & are unremarkable except as noted in HPI & below Physical Exam Physical Exam: General: no acute distress, WDWN Head: normocephalic, atraumatic Eyes: conjunctiva non-injected, anicteric ENT: normal inspection external ears, nose, mucous membranes moist Neck: supple, trachea midline Lungs: clear, no respiratory distress, no wheezing/rhonchi/rales CV: RRR, + murmur, no pretibial edema Abd: normal BS, soft, non-tender Ext: no cyanosis; RLE: +extensive wound with slough to right lower leg that is circumferential with yellow drainage, +surrounding erythema and edema, +tender to palpation, right medial aspect great toe with ulcer without drainage, + dorsalis pedis pulse with doppler Neuro: Alert, oriented to person, place and year. +tangential thoughts, no focal deficits noted Skin: warm, dry Results & Data Results & Data Vital Signs (Past 12 Hours) Vital Signs Temp Pulse Resp BP Pulse Ox O2 Del Method 05/11/23 18:59 36.9 C 99 H 18 137/77 95 Room Air Laboratory Results Short CBC 05/11/23 Range/Units 19:08 WBC 10.47 (4.8-10.8) K/ul Hgb 10.0 L (14.0-18.0) g/dl Hct 32.2 L (42.0-52.0) % Plt Count 376 (130-400) K/uL BMP 05/11/23 19:08 Sodium 138 Potassium 4.3 Chloride 107 Carbon Dioxide 24 BUN 36 H Creatinine 1.35 Glucose 93 Calcium 8.6 Liver Function 05/11/23 Range/Units 19:08 Total Bilirubin 0.2 (0.2-1.0) mg/dl AST 21 (13-39) U/L ALT 17 (7-52) U/L Alkaline Phosphatase 95 (34-104) U/L Albumin 4.0 (3.4-5.0) gm/dl Supervising Physician Co-Signing Physician Notes IM ATTENDING : Patient seen and examined. History obtained from patient and records. Preceding documentation by Ms. Antonia Miller PA-C reviewed. FINAL ASSESSMENT AND PLAN as follows : Recurrent RLE wound hx stasis dermatitis as per records (MRSA, group G beta strep, Wohlfahrtiimonas on prior wound CS) No sepsis for now Rule out osteomyelitis Schizotypal personality disorder, patient unable to comply with Abilify Rx since discharge from [facility] GERD on PPI Chronic anemia, hemoglobin at baseline Functional disability likely secondary to psychiatric disorder, patient open to placement. Past tobacco abuse GMF CS, Doxycycline, Cefepime MRI right leg rule out osteomyelitis General surgery consult Re: Infected RLE wound (Patient seen by [facility] last visit.) Facilitate patient's Abilify and GERD medications for chronic disease. PT OT eval Social service re: possible placement DVT prophylaxis with Lovenox subcu Full code Patient requests for stepfather to be given periodic updates regarding his care. Mr. Sin Ortez, contact #[phone]. Text document was generated using Dragon voice recognition software. It may contain grammatical or spelling errors. Kindly contact undersigned for clarification of any documentation item in question.
--- NOTE | 2023-05-11 23:31 | CT Scan Report ---
Exam(s): CT EXTREMITY RIGHT LOWER With Contrast IV Amt: 90 ml optiray 320 EXAM: CT Right Lower Extremity With Intravenous Contrast CLINICAL HISTORY: Reason for exam: RLE swelling ro abscess. TECHNIQUE: Axial computed tomography images of the right lower extremity with intravenous contrast. CTDI is 6.03 mGy and DLP is 296.72 mGy-cm. Automated exposure control was utilized for the study. A dose lowering technique was utilized adhering to the principles of ALARA. CONTRAST: Patient received 90 ml optiray 320 of IV contrast COMPARISON: No relevant prior studies available. FINDINGS: Bones/joints: No acute fracture. No dislocation. No CT evidence of osteomyelitis. Soft tissues: Severe subcutaneous edema and skin irregularity, consistent with cellulitis. These findings preferentially involve the lower calf and ankle No fluid collection or abscess. No subcutaneous air. No edema or infection involving the compartments of the calf. IMPRESSION: Severe subcutaneous edema and skin irregularity, consistent with cellulitis. These findings preferentially involve the lower calf and ankle No fluid collection or abscess. No subcutaneous air. Electronically signed by: Tye Rodriguez MD 05/11/23 23:31 PM
[2023-05-11] MEDS ORDERED: PROMETHAZINE HCL 12.5 MG in SODIUM CHLORIDE 0.9% 50 ML IV PRN (23:37)
--- NOTE | 2023-05-12 00:30 | Ultrasound Report ---
Exam(s): US VENOUS RIGHT LOWER EXTREMITY EXAM: US Duplex Right Lower Extremity Veins CLINICAL HISTORY: Reason for exam: RLE swelling. TECHNIQUE: Real-time duplex ultrasound scan of the right lower extremity veins integrating B-mode two-dimensional vascular structure, Doppler spectral analysis, color flow Doppler imaging and compression. COMPARISON: No relevant prior studies available. FINDINGS: Deep veins: Unremarkable. No DVT in the visualized common femoral, femoral, proximal deep femoral or popliteal veins. The veins demonstrate normal color flow, are normally compressible, with normal phasic flow and/or augmentation response. Superficial veins: Unremarkable. No thrombus in the visualized great saphenous vein. Soft tissues: Subcutaneous edema. RIGHT Chavez cyst measures 5.2 x 2.4 cm. Lymph nodes: RIGHT inguinal lymph node measures 6.0 x 2.8 cm. IMPRESSION: No acute findings in the right lower extremity veins. Electronically signed by: Tye Rodriguez MD 05/12/23 00:28 AM
[2023-05-12] MEDS: ARIPiprazole 5 MG TAB PO SCH ×2 (00:37→20:06)
[2023-05-12] MEDS: traMADol HCL 50 MG TABLET PO PRN ×2 (02:25→16:23)
[2023-05-12] MEDS: CEFEPIME 2,000 MG in SYRINGE 0 ML IV SCH ×3 (05:43→22:01)
[2023-05-12] MEDS: PANTOprazole 40 MG TAB PO SCH (08:21)
[2023-05-12] MEDS: DOXYCYCLINE HYCLATE 100 MG CAP PO SCH ×2 (08:21→20:06)
[2023-05-12] MEDS: ENOXAPARIN INJ 40 MG/0.4 ML SYR SQ SCH (08:22)
--- NOTE | 2023-05-12 10:50 | Surgery Consultation ---
Date of Consultation May 12, 2023 Assessment & Plan (1) Cellulitis of right leg: We took the dressing down and the patient does have significant circumferential right lower extremity wound with significant cellulitis and slough present This is been present in some form or another since 2018 Due to the location and size of the wound, would advocate for an orthopedic consult to see if debridement is indicated Agree with an MRI to rule out any osteomyelitis If he has not had a vascular work-up in the past, would order arterial duplexes General surgery will sign off at this time, please call with any questions or concerns (2) Wound infection: (3) Leg wound, right: History of Present Illness Reason for Consultation: Right lower extremity wound Attending Physician: Ray Lyman MD History of Present Illness This is a 57-year-old male for which we were consulted for right lower extremity wound. Patient states he had the wound for many years that is worsened over time. Dr. Madison performed a punch biopsy of this in January 2023. He does state that over the last couple weeks its been worsening and smell and drainage lenz. He denies any fevers or chills. Allergies Allergy/AdvReac Type Severity Reaction Status Date / Time bee venom protein (honey bee) Allergy Severe FACIAL Verified 05/11/23 21:14 SWELLING Penicillins Allergy Severe Anaphylaxis Verified 05/11/23 21:14 Home Medications Medication Instructions Recorded Confirmed Type tramadol 50 mg tablet 25 mg PO Q6H PRN pain #14 tabs 02/10/23 05/11/23 Rx aripiprazole 5 mg tablet 5 mg PO HS 05/11/23 05/11/23 History pantoprazole 40 mg tablet,delayed 40 mg PO DIRECTED 05/11/23 05/11/23 History release Patient History Medical History Anemia Cellulitis of right lower extremity chronic cellulitis on right low leg Heart murmur Leg wound, right Schizotypal personality disorder Surgical History No pertinent past surgical history Family History Other No pertinent family history Social History Smoking Status: Never smoker Second Hand Exposure: No; Do You Dip or Chew Tobacco: No; Hx Alcohol Use: No Hx Substance Use: No Preferred Language: Nepali 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 Ability: Effective Barn Worker Required: No Beliefs That Will Affect Care: None marital status: Single Current Living Situation: Alone Current Living Situation Comment: living in a hotel Feels Safe at Home: Yes Safety Concerns: Feels Safe At This Time Assistive Devices: Cane Review of Systems Constitutional: no fever and no chills Eyes: no worsening vision Ear, Nose, Mouth, Throat: no ear pain and no hearing loss Respiratory: no cough and no dyspnea Cardiovascular: no chest pain, no dyspnea on exertion and no palpitations Gastrointestinal: + abdominal pain; no nausea and no vomiting Genitourinary: no dysuria Musculoskeletal: no back pain and no neck pain Integumentary: + skin ulcer, + erythema and + skin swelling Neurologic: no headache(s) Psychiatric: no behavioral changes and no depression Physical Exam Constitutional: WD/WN, vitals as above Eyes: PERRL, conjunctivae normal, anicteric sclerae ENMT: external ear and nose normal, oropharynx normal Neck: trachea midline, no thyromegaly Respiratory: normal respiratory effort, lungs clear to auscultation Cardiovascular: RRR, no murmur, no edema Gastrointestinal (Abdomen): normal bowel sounds, soft, nontender, no hepatosplenomegaly Musculoskeletal: Circumferential distal right lower extremity wound, foul-smelling, significant slough present Skin: no rashes, warm and dry Neurologic: PERRL, EOMI, accommodation nl, no face palsy, no dysarthria Psychiatric: A+Ox3, euthymic affect Results & Data Vital Signs (Past 12 Hours) Vital Signs Temp Pulse Resp BP Pulse Ox O2 Del Method 05/12/23 07:52 36.3 C L 74 18 126/67 95 Room Air 05/11/23 23:37 36.3 C L 77 18 157/92 H 97 Room Air PG Care Time/CCT Total # of Minutes Spent Total Time Spent with Patient: Total time spent is greater than 50% in coordination of care (as documented) at patient's floor/unit and/or counseling patient: Coding Level of Care Code 80242 IN/OBS CONSULT LVL 3,45M Diagnoses Cellulitis of right leg L03.115 Wound infection T14.8XXA; L08.9 Leg wound, right S81.801A
--- NOTE | 2023-05-12 12:00 | Orthopedic Consultation ---
Date of Consultation May 12, 2023 Assessment & Plan (1) Venous stasis ulcer of ankle: Patient was evaluated with the wound care nurse present. She applied Aquacel dressings circumferentially over the necrotic tissue along with ABDs and a light wrap. She states that she will need results of a duplex arterial study before she can debride the hypergranular tissue. An order was placed for the study. I also placed a consultation order for her to treat the patient as well. At this point I do not feel that this is an orthopedic issue. There is no sign of any type of osteomyelitis. We will defer care to the medicine service. Supervising Physician Co-Signing Physician Notes I saw and examined the patient, reviewed his imaging and chart and agree with the above note. No orthopaedic surgery indicated. Needs appropriate follow-up for his stasis dermatitis after discharge. History of Present Illness Reason for Consultation: Right lower extremity venous stasis dermatitis Requesting Physician: Rogelio Gomez MD Attending Physician: Ray Lyman MD History of Present Illness This 57-year-old male seen in consultation for possible infection of his right lower extremity. He has a history of venous stasis dermatitis and cellulitis. Patient states he resides at [facility]. He states that over the past 2 weeks since being discharged the wound on his lower extremity has extended from his mid lower leg to the ankle circumferentially. He states that the overlying tissue is yellow in appearance and is malodorous. He states that he has had issues with wounds on the right lower extremity for the past 10 years. He denies being diabetic but states that when he is admitted to the hospital he usually give him insulin. He has a significant psych history as well as history of renal insufficiency and anemia. Currently he denies chest pain, shortness of breath, fever, chills, sweats or numbness or tingling in the right lower extremity. Allergies Allergy/AdvReac Type Severity Reaction Status Date / Time bee venom protein (honey bee) Allergy Severe FACIAL Verified 05/11/23 21:14 SWELLING Penicillins Allergy Severe Anaphylaxis Verified 05/11/23 21:14 Home Medications Medication Instructions Recorded Confirmed Type tramadol 50 mg tablet 25 mg PO Q6H PRN pain #14 tabs 02/10/23 05/11/23 Rx aripiprazole 5 mg tablet 5 mg PO HS 05/11/23 05/11/23 History pantoprazole 40 mg tablet,delayed 40 mg PO DIRECTED 05/11/23 05/11/23 History release Patient History Medical History Anemia Cellulitis of right lower extremity chronic cellulitis on right low leg Heart murmur Leg wound, right Schizotypal personality disorder Surgical History No pertinent past surgical history Family History Other No pertinent family history Social History Smoking Status: Never smoker Second Hand Exposure: No; Do You Dip or Chew Tobacco: No; Hx Alcohol Use: No Hx Substance Use: No Preferred Language: Pashto 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 Ability: Effective Manager Brand Required: No Beliefs That Will Affect Care: None marital status: Single Current Living Situation: Alone Current Living Situation Comment: living in a hotel Feels Safe at Home: Yes Safety Concerns: Feels Safe At This Time Assistive Devices: None Review of Systems Review of Systems: All systems reviewed & are unremarkable except as noted in Subjective Physical Exam Physical Exam: Right lower extremity: Patient has significant amount of hypergranular tissue extending approximately 18 cm medial laterally and circumferentially for 26 cm. Underlying tissue appears to be macerated. Patient's peripheral pulses are 2+. He is able to detect light sensation to touch over the pads of all digits. There is significant malodorous smell from the necrotic tissue. He is neurovascularly intact. Results & Data Vital Signs (Past 12 Hours) Vital Signs Temp Pulse Resp BP Pulse Ox O2 Del Method 05/12/23 07:52 36.3 C L 74 18 126/67 95 Room Air Diagnostic Findings Laboratory Results WBC 10.47 K/ul (4.8-10.8) 05/11/23 19:08 RBC 4.14 M/uL (4.70-6.10) L 05/11/23 19:08 Hgb 10.0 g/dl (14.0-18.0) L 05/11/23 19:08 Hct 32.2 % (42.0-52.0) L 05/11/23 19:08 MCV 77.8 fL (80.0-100.0) L 05/11/23 19:08 MCH 24.2 pg (25.0-34.0) L 05/11/23 19:08 MCHC 31.1 g/dL (32.0-36.0) L 05/11/23 19:08 RDW Std Deviation 50.9 fL (36.4-46.3) H 05/11/23 19:08 RDW Coeff of Stewart 18.4 % (11.5-14.5) H 05/11/23 19:08 Plt Count 376 K/uL (130-400) 05/11/23 19:08 MPV 10.1 fL (9.4-12.4) 05/11/23 19:08 Immature Gran % (Auto) 0.4 % 05/11/23 19:08 Neut % (Auto) 69.6 % 05/11/23 19:08 Lymph % (Auto) 15.9 % 05/11/23 19:08 [place] % (Auto) 8.7 % 05/11/23 19:08 Eos % (Auto) 4.8 % 05/11/23 19:08 Baso % (Auto) 0.6 % 05/11/23 19:08 Neut # (Auto) 7.30 K/uL (1.40-6.50) H 05/11/23 19:08 Lymph # (Auto) 1.66 K/uL (1.2-3.4) 05/11/23 19:08 [place] # (Auto) 0.91 K/uL (0.11-0.59) H 05/11/23 19:08 Eos # (Auto) 0.50 K/uL (0-0.50) 05/11/23 19:08 Baso # (Auto) 0.06 K/uL (0-0.2) 05/11/23 19:08 Immature Gran # (Auto) 0.04 K/uL (0.01-0.20) 05/11/23 19:08 ESR 60 mm/hr (0-20) H 05/11/23 19:08 Sodium 138 mmol/L (136-145) 05/11/23 19:08 Potassium 4.3 mmol/L (3.5-5.1) 05/11/23 19:08 Chloride 107 mmol/L (98-107) 05/11/23 19:08 Carbon Dioxide 24 mmol/L (21-32) 05/11/23 19:08 Anion Gap 7 (3-11) 05/11/23 19:08 BUN 36 mg/dl (6-23) H 05/11/23 19:08 Creatinine 1.35 mg/dl (0.6-1.4) 05/11/23 19:08 Est Cr Clr Drug Dosing 66.7 ml/min 05/11/23 19:08 Est GFR ( Amer) 67.1 ml/min 05/11/23 19:08 Est GFR (Non-Af Amer) 57.9 ml/min 05/11/23 19:08 BUN/Creatinine Ratio 26.7 (10-20) H 05/11/23 19:08 Glucose 93 mg/dl (70-99(Fasting)) 05/11/23 19:08 Lactate 0.8 mmol/L (0.4-2.0) 05/11/23 19:08 Calcium 8.6 mg/dl (8.6-10.3) 05/11/23 19:08 Total Bilirubin 0.2 mg/dl (0.2-1.0) 05/11/23 19:08 AST 21 U/L (13-39) 05/11/23 19:08 ALT 17 U/L (7-52) 05/11/23 19:08 Alkaline Phosphatase 95 U/L (34-104) 05/11/23 19:08 C-Reactive Protein 1.74 mg/dl (0-0.5) H 05/11/23 19:08 Total Protein 7.5 gm/dl (6.0-8.3) 05/11/23 19:08 Albumin 4.0 gm/dl (3.4-5.0) 05/11/23 19:08 Globulin 3.5 gm/dl (2.5-4.0) 05/11/23 19:08 Albumin/Globulin Ratio 1.1 (0.9-2) 05/11/23 19:08 SARS-CoV-2, RNA, NAAT NEGATIVE (NEGATIVE) 05/11/23 20:[address] 05/11/23 21:45 Exam(s): CT EXTREMITY RIGHT LOWER With Contrast IV Amt: 90 ml optiray 320 EXAM: CT Right Lower Extremity With Intravenous Contrast CLINICAL HISTORY: Reason for exam: RLE swelling ro abscess. TECHNIQUE: Axial computed tomography images of the right lower extremity with intravenous contrast. CTDI is 6.03 mGy and DLP is 296.72 mGy-cm. Automated exposure control was utilized for the study. A dose lowering technique was utilized adhering to the principles of ALARA. CONTRAST: Patient received 90 ml optiray 320 of IV contrast COMPARISON: No relevant prior studies available. FINDINGS: Bones/joints: No acute fracture. No dislocation. No CT evidence of osteomyelitis. Soft tissues: Severe subcutaneous edema and skin irregularity, consistent with cellulitis. These findings preferentially involve the lower calf and ankle No fluid collection or abscess. No subcutaneous air. No edema or infection involving the compartments of the calf. IMPRESSION: Severe subcutaneous edema and skin irregularity, consistent with cellulitis. These findings preferentially involve the lower calf and ankle No fluid collection or abscess. No subcutaneous air. Electronically signed by: Tye Rodriguez MD 05/11/23 23:31 PM Venous Doppler Study 05/11/23 21:45 Exam(s): US VENOUS RIGHT LOWER EXTREMITY EXAM: US Duplex Right Lower Extremity Veins CLINICAL HISTORY: Reason for exam: RLE swelling. TECHNIQUE: Real-time duplex ultrasound scan of the right lower extremity veins integrating B-mode two-dimensional vascular structure, Doppler spectral analysis, color flow Doppler imaging and compression. COMPARISON: No relevant prior studies available. FINDINGS: Deep veins: Unremarkable. No DVT in the visualized common femoral, femoral, proximal deep femoral or popliteal veins. The veins demonstrate normal color flow, are normally compressible, with normal phasic flow and/or augmentation response. Superficial veins: Unremarkable. No thrombus in the visualized great saphenous vein. Soft tissues: Subcutaneous edema. RIGHT Chavez cyst measures 5.2 x 2.4 cm. Lymph nodes: RIGHT inguinal lymph node measures 6.0 x 2.8 cm. IMPRESSION: No acute findings in the right lower extremity veins. Electronically signed by: Tye Rodriguez MD 05/12/23 00:28 AM (1) Venous stasis ulcer of ankle Laterality: right Non-pressure ulcer stage: with fat layer exposed Varicose vein presence: without varicose veins Qualified Code(s): I87.2 - Venous insufficiency (chronic) (peripheral); L97.312 - Non-pressure chronic ulcer of right ankle with fat layer exposed
[2023-05-12] MEDS ORDERED: GADOBUTROL 65ML VIAL IV ONE (13:25)
--- NOTE | 2023-05-12 14:01 | Magnetic Resonance Report ---
MR lower leg RT wo/w con CLINICAL HISTORY: Worsening right lower extremity wound. COMPARISON STUDY: MRI of the right lower leg January 29, 2023. CT of the right tibia and fibula April. TECHNIQUE: Utilizing a 1.5 Marielena magnet and dedicated coil, multiplanar, multiecho imaging of the rig ht lower leg was performed pre and postcontrast administration. Intravenous injection of 9 cc of Gada vist was uneventful. FINDINGS: No marrow edema within the right tibia or fibula is present. There is no fracture within th e right tibia or fibula. No suspicious marrow replacement is present. Note is made of extensive subcu taneous edema of the right lower leg and ankle. This has increased since compared to MRI of January 29, 2023. No fluid collection is identified to suggest an abscess. There is no soft tissue gas by MRI. N o gas was shown on the CT performed on May 11, 2023. Mild increased T2 signal within the musculature of the right lower leg has slightly decreased when compared to prior exam. The Achilles tendon is in tact. Flexor and extensor tendons appear intact. Peroneal tendons are intact. IMPRESSION: 1. No evidence for acute osteomyelitis within the right tibia or fibula. 2. Extensive right lower leg and ankle soft tissue swelling. This could reflect cellulitis or edema. No rim-enhancing fluid collection to suggest abscess. ACT 112: Negative or not required by law. Electronically signed by: Chicho Juárez M.D. 05/12/2023 2:00 PM
--- NOTE | 2023-05-12 15:19 | Ultrasound Report ---
ULTRASOUND RIGHT LOWER EXTREMITY ARTERIAL CLINICAL HISTORY: Venous stasis. Dermatitis. COMPARISON STUDY: No priors. TECHNIQUE: Real-time grayscale and color Doppler sonography of the arteries of the right lower extrem ity is performed from the inguinal crease to the foot. Ankle brachial indices were not assessed due t o bandages around the ankle. FINDINGS: Atherosclerotic plaque and irregularity is seen throughout the arteries of the right lower extremity. There are triphasic arterial waveforms in the common femoral artery with velocities measur ing up to 174 cm/s. The profunda femoris artery is patent with velocities measuring up to 76 cm/s. Th ere are triphasic arterial waveforms throughout the superficial femoral artery with velocities measur ing up to 155 cm/s. There are [id number]-[id number] waveforms in the popliteal artery with velocities measuring up to 127 cm/s. There is three-vessel runoff to the foot. Velocities within the calf arter ies measure up to 127 cm/s. The dorsalis pedis artery is patent with velocities measuring up to 67 cm /s. IMPRESSION: There is no sonographic evidence of high-grade stenosis or focal vessel cut off throughou t the arteries of the right lower extremity. Dictated: 05/12/2023 2:49 PM Transcribed: 05/12/2023 3:12 PM Emiliano [id number] [email or web address] Electronically signed by: Kevin Echevarria M.D. 05/12/2023 3:18 PM
--- NOTE | 2023-05-12 15:38 | Hospitalist Progress Note ---
Date of Service May 12, 2023 Assessment & Plan (1) Cellulitis of right lower extremity: (2) Leg wound, right: (3) Schizotypal personality disorder: (4) Anemia: Plan Recurrent Right leg wound Venous stasis ulcer of ankle H/O stasis dermatitis H/O MRSA, group G beta strep, Wohlfahrtiimonas on prior wound cultures --LE CT:Severe subcutaneous edema and skin irregularity, consistent with cellulitis. These findings preferentially involve the lower calf and ankle. No fluid collection or abscess. No subcutaneous air. --Venous Doppler:No acute findings in the right lower extremity veins. --LE MRI:No evidence for acute osteomyelitis within the right tibia or fibula. Extensive right lower leg and ankle soft tissue swelling. This could reflect cellulitis or edema. No rim-enhancing fluid collection to suggest abscess. --Arterial Doppler:There is no sonographic evidence of high-grade stenosis or focal vessel cut off throughout the arteries of the right lower extremity. -- Blood cultures pending Wound cultures pending --Continue doxycycline, cefepime Appreciate orthopedics, surgery input: No surgical intervention suggested Consult ID for further recommendations Continue wound care Schizotypal personality disorder Noncompliant with Abilify treatment No acute issues Continue Abilify GERD Continue Protonix Chronic anemia Hb at baseline Monitor CBC Functional disability likely secondary to psychiatric disorder Past tobacco abuse May need placement PT OT eval DVT Px: Lovenox SQ Code Status Full code Admission and Anticipated Discharge Date Admission Date: May 11, 2023 Subjective Patient is seen and examined at bedside States having some pain of right lower extremity wound associated with swelling Denies any chest pain, dyspnea, dizziness, nausea, vomiting, abdominal pain Discussed with surgery today Review of Systems Review of Systems: All systems reviewed & are unremarkable except as noted in Subjective Physical Exam Physical Exam: Physical Exam: Vitals signs as noted above General Appearance:Moderately built and nourished, no apparent distress Head: normocephalic, Atraumatic Eyes: normal inspection, EOMI Neck: supple, Trachea midline Respiratory/Chest: Normal breath sounds, CTA, No accessory muscle use Cardiovascular: S1, S2, No murmur Abdomen/GI:Soft, Non tender, Bowel sounds present Extremities/Musculoskeletal:normal inspection, right distal lower extremity circumferential wound, foul-smelling, significant slough Neurologic/Psych:AAOX3, grossly no focal neurological deficits Skin: normal color, warm Results & Data Results & Data Vital Signs (Past 12 Hours) Vital Signs Temp Pulse Resp BP Pulse Ox O2 Del Method 05/12/23 07:52 36.3 C L 74 18 126/67 95 Room Air Laboratory Results Short CBC 05/11/23 Range/Units 19:08 WBC 10.47 (4.8-10.8) K/ul Hgb 10.0 L (14.0-18.0) g/dl Hct 32.2 L (42.0-52.0) % Plt Count 376 (130-400) K/uL BMP 05/11/23 19:08 Sodium 138 Potassium 4.3 Chloride 107 Carbon Dioxide 24 BUN 36 H Creatinine 1.35 Glucose 93 Calcium 8.6 Liver Function 05/11/23 Range/Units 19:08 Total Bilirubin 0.2 (0.2-1.0) mg/dl AST 21 (13-39) U/L ALT 17 (7-52) U/L Alkaline Phosphatase 95 (34-104) U/L Albumin 4.0 (3.4-5.0) gm/dl
[2023-05-12 16:34] LABS: Basophils # (auto) 0.06 K/uL (0-0.2); Basophils % (auto) 0.6 %; Eosinophils # (auto) 0.53 K/uL (0-0.50); Eosinophils % (auto) 5.6 %; Hematocrit (blood only) 29.8 % (42.0-52.0); Hemoglobin 9.4 g/dl (14.0-18.0); Immature Granulocytes # (auto) 0.03 K/uL (0.01-0.20); Immature Granulocytes % (auto) 0.3 %; Lymphocytes # (auto) 1.23 K/uL (1.2-3.4); Lymphocytes % (auto) 12.9 %; Mean Corpuscular Hemoglobin 24.4 pg (25.0-34.0); Mean Corpuscular Hgb Conc 31.5 g/dL (32.0-36.0); Mean Corpuscular Volume 77.2 fL (80.0-100.0); Mean Platelet Volume 9.9 fL (9.4-12.4); Monocytes # (auto) 0.86 K/uL (0.11-0.59); Neutrophils # (auto) 6.83 K/uL (1.40-6.50); Neutrophils % (auto) 71.6 %; Platelet Count 307 K/uL (130-400); RDW Coefficient of Variation 18.5 % (11.5-14.5); RDW Standard Deviation 51.7 fL (36.4-46.3); Red Blood Count 3.86 M/uL (4.70-6.10); White Blood Count 9.54 K/ul (4.8-10.8)
[2023-05-12 16:49] LABS: BUN Creatinine Ratio 21.5 (10-20); Calcium 8.3 mg/dl (8.6-10.3); Creatinine Clr Calc Pharmacy 61.8 ml/min; Est GFR (Non-African American) 53.5 ml/min; Potassium 4.5 mmol/L (3.5-5.1)
[2023-05-13] MEDS: CEFEPIME 2,000 MG in SYRINGE 0 ML IV SCH ×3 (05:56→21:45)
[2023-05-13 07:12] LABS: BUN Creatinine Ratio 23.3 (10-20); Calcium 8.4 mg/dl (8.6-10.3); Creatinine Clr Calc Pharmacy 66.9 ml/min; Est GFR (African American) 68.3 ml/min; Est GFR (Non-African American) 58.9 ml/min; Potassium 4.4 mmol/L (3.5-5.1)
[2023-05-13] MEDS: PANTOprazole 40 MG TAB PO SCH (08:13)
[2023-05-13] MEDS: DOXYCYCLINE HYCLATE 100 MG CAP PO SCH ×2 (08:14→20:07)
[2023-05-13] MEDS: ENOXAPARIN INJ 40 MG/0.4 ML SYR SQ SCH (08:14)
[2023-05-13] MEDS ORDERED: SODIUM CHLORIDE 0.9% 1000ML 1,000 ML IV ONE (09:04)
--- NOTE | 2023-05-13 16:16 | Hospitalist Progress Note ---
Date of Service May 13, 2023 Assessment & Plan (1) Cellulitis of right lower extremity: (2) Leg wound, right: (3) Schizotypal personality disorder: (4) Anemia: Plan Recurrent Right leg wound Venous stasis ulcer of ankle H/O stasis dermatitis H/O MRSA, group G beta strep, Wohlfahrtiimonas on prior wound cultures --LE CT:Severe subcutaneous edema and skin irregularity, consistent with cellulitis. These findings preferentially involve the lower calf and ankle. No fluid collection or abscess. No subcutaneous air. --Venous Doppler:No acute findings in the right lower extremity veins. --LE MRI:No evidence for acute osteomyelitis within the right tibia or fibula. Extensive right lower leg and ankle soft tissue swelling. This could reflect cellulitis or edema. No rim-enhancing fluid collection to suggest abscess. --Arterial Doppler:There is no sonographic evidence of high-grade stenosis or focal vessel cut off throughout the arteries of the right lower extremity. -- Blood cultures negative to date Wound cultures : Preliminary--mixed probable skin microbiota --Continue doxycycline, cefepime Appreciate orthopedics, surgery input: No surgical intervention suggested Appreciate ID input: We will consider to transition to ceftriaxone. Continue doxycycline for now. Will anticipate 2-week antibiotic course. Aggressive wound care, if no improvement will likely need repeat skin biopsy for pathology and wound cultures to rule out cancer or alternative dermatological process. Needs follow-up with wound clinic upon discharge Discussed with orthopedics today--regarding need for debridement, await input Continue wound care Schizotypal personality disorder Noncompliant with Abilify treatment No acute issues Continue Abilify GERD Continue Protonix Chronic anemia Hb at baseline Monitor CBC Functional disability likely secondary to psychiatric disorder Past tobacco abuse May need placement PT OT eval DVT Px: Lovenox SQ Code Status Full code Admission and Anticipated Discharge Date Admission Date: May 11, 2023 Subjective Patient is seen and examined at bedside Right leg pain is better Was able to ambulate with PT this morning with no issues Discussed with ID, Ortho today Also discussed with wound care No new complaints Denies any chest pain, dyspnea, dizziness, nausea, vomiting, abdominal pain Review of Systems Review of Systems: All systems reviewed & are unremarkable except as noted in Subjective Physical Exam Physical Exam: Physical Exam: Vitals signs as noted above General Appearance:Moderately built and nourished, no apparent distress Head: normocephalic, Atraumatic Eyes: normal inspection, EOMI Neck: supple, Trachea midline Respiratory/Chest: Normal breath sounds, CTA, No accessory muscle use Cardiovascular: S1, S2, No murmur Abdomen/GI:Soft, Non tender, Bowel sounds present Extremities/Musculoskeletal:normal inspection, right distal lower extremity circumferential wound, foul-smelling, significant slough in dressing Neurologic/Psych:AAOX3, grossly no focal neurological deficits Skin: normal color, warm Results & Data Results & Data Vital Signs (Past 12 Hours) Vital Signs Temp Pulse Resp BP Pulse Ox O2 Del Method 05/13/23 15:24 36.3 C L 75 16 139/84 99 Room Air 05/13/23 08:57 36.4 C L 74 16 116/72 96 Room Air Laboratory Results Short CBC 05/12/23 Range/Units 16:13 WBC 9.54 (4.8-10.8) K/ul Hgb 9.4 L (14.0-18.0) g/dl Hct 29.8 L (42.0-52.0) % Plt Count 307 (130-400) K/uL [facility] 05/12/23 05/13/23 16:13 06:01 Sodium 137 136 Potassium 4.5 4.4 Chloride 108 H 110 H Carbon Dioxide 23 21 BUN 31 H 31 H Creatinine 1.44 H 1.33 Glucose 110 H 95 Calcium 8.3 L 8.4 L
--- NOTE | 2023-05-13 16:24 | 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 Note ---
Date of Service: May 13, 2023 Discussed with orthopedics today. Recommends to consult plastic surgery/vascular surgery for wound debridement
[2023-05-13] MEDS: ARIPiprazole 5 MG TAB PO SCH (20:07)
[2023-05-14] MEDS: CEFEPIME 2,000 MG in SYRINGE 0 ML IV SCH ×2 (05:23→14:08)
[2023-05-14 06:15] LABS: Hematocrit (blood only) 31.3 % (42.0-52.0); Hemoglobin 9.9 g/dl (14.0-18.0); Mean Corpuscular Hemoglobin 24.4 pg (25.0-34.0); Mean Corpuscular Hgb Conc 31.6 g/dL (32.0-36.0); Mean Corpuscular Volume 77.3 fL (80.0-100.0); Mean Platelet Volume 9.9 fL (9.4-12.4); Platelet Count 306 K/uL (130-400); RDW Coefficient of Variation 17.9 % (11.5-14.5); RDW Standard Deviation 50.2 fL (36.4-46.3); Red Blood Count 4.05 M/uL (4.70-6.10); White Blood Count 8.06 K/ul (4.8-10.8)
[2023-05-14 06:41] LABS: Calcium 8.5 mg/dl (8.6-10.3); Creatinine Clr Calc Pharmacy 58.5 ml/min; Est GFR (African American) 58.1 ml/min; Est GFR (Non-African American) 50.1 ml/min; Potassium 4.3 mmol/L (3.5-5.1)
[2023-05-14] MEDS: DOXYCYCLINE HYCLATE 100 MG CAP PO SCH ×2 (08:56→20:46)
[2023-05-14] MEDS: ENOXAPARIN INJ 40 MG/0.4 ML SYR SQ SCH (08:57)
[2023-05-14] MEDS: PANTOprazole 40 MG TAB PO SCH (08:58)
[2023-05-14] MEDS ORDERED: SODIUM CHLORIDE 0.9% 1000ML 1,000 ML IV ONE (09:51)
[2023-05-14] MEDS: ACETAMINOPHEN 325 MG TAB PO PRN (14:17)
--- NOTE | 2023-05-14 17:18 | Hospitalist Progress Note ---
Date of Service May 14, 2023 Assessment & Plan (1) Cellulitis of right lower extremity: (2) Leg wound, right: (3) Schizotypal personality disorder: (4) Anemia: Plan Recurrent Right leg wound Venous stasis ulcer of ankle H/O stasis dermatitis H/O MRSA, group G beta strep, Wohlfahrtiimonas on prior wound cultures --LE CT:Severe subcutaneous edema and skin irregularity, consistent with cellulitis. These findings preferentially involve the lower calf and ankle. No fluid collection or abscess. No subcutaneous air. --Venous Doppler:No acute findings in the right lower extremity veins. --LE MRI:No evidence for acute osteomyelitis within the right tibia or fibula. Extensive right lower leg and ankle soft tissue swelling. This could reflect cellulitis or edema. No rim-enhancing fluid collection to suggest abscess. --Arterial Doppler:There is no sonographic evidence of high-grade stenosis or focal vessel cut off throughout the arteries of the right lower extremity. -- Blood cultures negative to date Wound cultures : Gram-negative bacilli --Continue doxycycline, cefepime Appreciate orthopedics, surgery input: No surgical intervention suggested Appreciate ID input: We will consider to transition to ceftriaxone. Continue doxycycline for now. Will anticipate 2-week antibiotic course. Aggressive wound care, if no improvement will likely need repeat skin biopsy for pathology and wound cultures to rule out cancer or alternative dermatological process. Needs follow-up with wound clinic upon discharge Continue wound care Plan for wound debridement on Tuesday Plastic surgery consulted Follow-up cultures Schizotypal personality disorder Noncompliant with Abilify treatment No acute issues Continue Abilify GERD Continue Protonix Chronic anemia Hb at baseline Monitor CBC Functional disability likely secondary to psychiatric disorder Past tobacco abuse May need placement PT OT eval DVT Px: Lovenox SQ Code Status Full code Admission and Anticipated Discharge Date Admission Date: May 11, 2023 Subjective Patient is seen and examined at bedside No new complaints Denies any right leg pain today Denies any chest pain, dyspnea, dizziness, nausea, vomiting, abdominal pain Review of Systems Review of Systems: All systems reviewed & are unremarkable except as noted in Subjective Physical Exam Physical Exam: Physical Exam: Vitals signs as noted above General Appearance:Moderately built and nourished, no apparent distress Head: normocephalic, Atraumatic Eyes: normal inspection, EOMI Neck: supple, Trachea midline Respiratory/Chest: Normal breath sounds, CTA, No accessory muscle use Cardiovascular: S1, S2, No murmur Abdomen/GI:Soft, Non tender, Bowel sounds present Extremities/Musculoskeletal:normal inspection, right distal lower extremity circumferential wound, foul-smelling, significant slough in dressing Neurologic/Psych:AAOX3, grossly no focal neurological deficits Skin: normal color, warm Results & Data Results & Data Vital Signs (Past 12 Hours) Vital Signs Temp Pulse Resp BP Pulse Ox O2 Del Method 05/14/23 15:54 36.6 C 78 16 156/87 H 99 Room Air 05/14/23 07:44 36.5 C 72 16 138/78 98 Room Air Laboratory Results Short CBC 05/14/23 Range/Units 05:36 WBC 8.06 (4.8-10.8) K/ul Hgb 9.9 L (14.0-18.0) g/dl Hct 31.3 L (42.0-52.0) % Plt Count 306 (130-400) K/uL BMP 05/14/23 05:36 Sodium 136 Potassium 4.3 Chloride 109 H Carbon Dioxide 20 L BUN 35 H Creatinine 1.52 H Glucose 98 Calcium 8.5 L
[2023-05-14] MEDS: ARIPiprazole 5 MG TAB PO SCH (20:45)
[2023-05-15] MEDS: CEFEPIME 2,000 MG in SYRINGE 0 ML IV SCH ×2 (01:18→15:09)
[2023-05-15 06:34] LABS: BUN Creatinine Ratio 24.5 (10-20); Calcium 8.3 mg/dl (8.6-10.3); Est GFR (African American) 64.7 ml/min; Est GFR (Non-African American) 55.9 ml/min; Potassium 4.7 mmol/L (3.5-5.1)
[2023-05-15] MEDS: PANTOprazole 40 MG TAB PO SCH (08:28)
[2023-05-15] MEDS: DOXYCYCLINE HYCLATE 100 MG CAP PO SCH ×2 (08:28→20:42)
[2023-05-15] MEDS: ENOXAPARIN INJ 40 MG/0.4 ML SYR SQ SCH (08:28)
[2023-05-15] MEDS: ACETAMINOPHEN 325 MG TAB PO PRN (15:14)
--- NOTE | 2023-05-15 16:31 | Hospitalist Progress Note ---
Date of Service May 15, 2023 Assessment & Plan (1) Cellulitis of right lower extremity: (2) Leg wound, right: (3) Schizotypal personality disorder: (4) Anemia: Plan Recurrent Right leg wound Venous stasis ulcer of ankle H/O stasis dermatitis H/O MRSA, group G beta strep, Wohlfahrtiimonas on prior wound cultures --LE CT:Severe subcutaneous edema and skin irregularity, consistent with cellulitis. These findings preferentially involve the lower calf and ankle. No fluid collection or abscess. No subcutaneous air. --Venous Doppler:No acute findings in the right lower extremity veins. --LE MRI:No evidence for acute osteomyelitis within the right tibia or fibula. Extensive right lower leg and ankle soft tissue swelling. This could reflect cellulitis or edema. No rim-enhancing fluid collection to suggest abscess. --Arterial Doppler:There is no sonographic evidence of high-grade stenosis or focal vessel cut off throughout the arteries of the right lower extremity. -- Blood cultures negative to date Wound cultures : Gram-negative bacilli --Continue doxycycline, cefepime Appreciate orthopedics, surgery input: No surgical intervention suggested Appreciate ID input: We will consider to transition to ceftriaxone. Continue doxycycline for now. Will anticipate 2-week antibiotic course. Aggressive wound care, if no improvement will likely need repeat skin biopsy for pathology and wound cultures to rule out cancer or alternative dermatological process. Needs follow-up with wound clinic upon discharge Continue wound care Plan for wound debridement on Tuesday Plastic surgery consulted Continue current management for now Schizotypal personality disorder Noncompliant with Abilify treatment No acute issues Continue Abilify GERD Continue Protonix Chronic anemia Hb at baseline Monitor CBC Functional disability likely secondary to psychiatric disorder Past tobacco abuse May need placement PT OT eval DVT Px: Lovenox SQ Code Status Full code Admission and Anticipated Discharge Date Admission Date: May 11, 2023 Subjective Patient is seen and examined at bedside Offers no new complaints Had right leg dressing changed today Right leg wound draining discharge Denies any chest pain, dyspnea, dizziness, nausea, vomiting, abdominal pain Review of Systems Review of Systems: All systems reviewed & are unremarkable except as noted in Subjective Physical Exam Physical Exam: Physical Exam: Vitals signs as noted above General Appearance:Moderately built and nourished, no apparent distress Head: normocephalic, Atraumatic Eyes: normal inspection, EOMI Neck: supple, Trachea midline Respiratory/Chest: Normal breath sounds, CTA, No accessory muscle use Cardiovascular: S1, S2, No murmur Abdomen/GI:Soft, Non tender, Bowel sounds present Extremities/Musculoskeletal:normal inspection, right distal lower extremity circumferential wound, foul-smelling, significant slough in dressing Neurologic/Psych:AAOX3, grossly no focal neurological deficits Skin: normal color, warm Results & Data Results & Data Vital Signs (Past 12 Hours) Vital Signs Temp Pulse Resp BP Pulse Ox O2 Del Method 05/15/23 15:29 36.6 C 73 16 153/88 H 100 Room Air 05/15/23 07:12 36.7 C 77 16 133/82 97 Room Air Laboratory Results [facility] 05/15/23 05:56 Sodium 137 Potassium 4.7 Chloride 111 H Carbon Dioxide 21 BUN 34 H Creatinine 1.39 Glucose 100 H Calcium 8.3 L
[2023-05-15] MEDS: ARIPiprazole 5 MG TAB PO SCH (20:42)
[2023-05-16] MEDS: CEFEPIME 2,000 MG in SYRINGE 0 ML IV SCH (02:37)
[2023-05-16 07:19] LABS: Hematocrit (blood only) 31.5 % (42.0-52.0); Hemoglobin 9.9 g/dl (14.0-18.0); Mean Corpuscular Hemoglobin 24.1 pg (25.0-34.0); Mean Corpuscular Hgb Conc 31.4 g/dL (32.0-36.0); Mean Corpuscular Volume 76.6 fL (80.0-100.0); Mean Platelet Volume 9.7 fL (9.4-12.4); Platelet Count 301 K/uL (130-400); RDW Coefficient of Variation 17.7 % (11.5-14.5); RDW Standard Deviation 49.7 fL (36.4-46.3); Red Blood Count 4.11 M/uL (4.70-6.10); White Blood Count 8.54 K/ul (4.8-10.8)
[2023-05-16 07:30] LABS: Calcium 8.5 mg/dl (8.6-10.3); Creatinine Clr Calc Pharmacy 63.5 ml/min; Est GFR (African American) 64.2 ml/min; Est GFR (Non-African American) 55.4 ml/min; Potassium 4.4 mmol/L (3.5-5.1)
[2023-05-16] MEDS: PANTOprazole 40 MG TAB PO SCH (08:33)
[2023-05-16] MEDS: DOXYCYCLINE HYCLATE 100 MG CAP PO SCH (08:33)
[2023-05-16] MEDS: ENOXAPARIN INJ 40 MG/0.4 ML SYR SQ SCH (08:34)
[2023-05-16] MEDS: traMADol HCL 50 MG TABLET PO PRN ×2 (10:58→17:05)
--- NOTE | 2023-05-16 12:41 | Surgery Consultation ---
Date of Consultation May 16, 2023 Assessment & Plan (1) Venous stasis ulcer of ankle: (2) Wound infection: (3) Leg wound, right: Plan Patient seen and examined with Dr. Lambert. Miguel is a 57 yo male with recurrent right lower extremity wound. He was recently admitted due to worsening of the wound and need for IV antibiotics. Our service was consulted to assess need for debridement. Bedside debridement was performed today. Patient tolerated this well. Post- debridement culture was obtained. Initial culture showed growth of Pseudomonas. Recommend acetic acid solution for next 2 days- can change dressing daily. Continue current antibiotic regimen per primary service. Will plan to see patient on Tuesday if he is still hospitalized. He will need follow-up with [facility] once discharged. Supervising Physician Co-Signing Physician Notes I personally saw and examined this patient with Ms. Madison prior to and during debridement today. Cx obtained. Biopsy of wound performed by Dr. Madison in January shows stasis dermatitis. Will dress with acetic acid dressings to cover pseudomonas noted in culture on admission. We will follow up Tuesday. If discharged patient should follow up at the wound care center. History of Present Illness Reason for Consultation: Wound of right leg- venous stasis ulcer of right ankle. Attending Physician: Ray Lyman MD History of Present Illness Miguel is a 57-year-old male with recurrent right lower extremity wound- venous stasis ulcer of right ankle. Wound has been present for many years, but has recently become worse. He was admitted for antibiotics. Plastic Surgery has been consulted for possible wound debridement. Allergies Allergy/AdvReac Type Severity Reaction Status Date / Time bee venom protein (honey bee) Allergy Severe FACIAL Verified 05/11/23 21:14 SWELLING Penicillins Allergy Severe Anaphylaxis Verified 05/11/23 21:14 Home Medications Medication Instructions Recorded Confirmed Type tramadol 50 mg tablet 25 mg PO Q6H PRN pain #14 tabs 02/10/23 05/11/23 Rx aripiprazole 5 mg tablet 5 mg PO HS 05/11/23 05/11/23 History pantoprazole 40 mg tablet,delayed 40 mg PO DIRECTED 05/11/23 05/11/23 History release Patient History Medical History Anemia Cellulitis of right lower extremity chronic cellulitis on right low leg Heart murmur Leg wound, right Schizotypal personality disorder Surgical History No pertinent past surgical history Family History Other No pertinent family history Social History Smoking Status: Never smoker Second Hand Exposure: No; Do You Dip or Chew Tobacco: No; Hx Alcohol Use: No Hx Substance Use: No Preferred Language: Albanian 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 Ability: Effective Office Assistance Required: No Beliefs That Will Affect Care: None marital status: Single Current Living Situation: Alone Current Living Situation Comment: living in a hotel Feels Safe at Home: Yes Safety Concerns: Feels Safe At This Time Assistive Devices: None Physical Exam Constitutional: WD/WN, vitals as above Respiratory: normal respiratory effort; no respiratory distress and no labored breathing Skin: Patient seen and examined with Dr. Lambert. 17 cm x 27 cm wound of the right distal lower extremity- circumferential wound, foul-smelling, significant slough in dressing. Significant debridement was performed at bedside after topical anesthetic applied to the wound. With the patient's permission wound was debrided of slough using sterile scissors and forceps. Minimal bleeding occurred, which was controlled with pressure. Patient tolerated the procedure well. This represents a nonexcisional debridement of greater than 20 cm. Wound was then irrigated with 50 cc of normal saline. Post-debridement culture was obtained. Wound dressed by Reanna Paulino using Dakins solution. Results & Data Vital Signs (Past 12 Hours) Vital Signs Temp Pulse Resp BP Pulse Ox O2 Del Method 05/16/23 07:06 36.7 C 74 18 150/81 H 97 Room Air PG Care Time/CCT Total # of Minutes Spent Total Time Spent with Patient: Total time spent is greater than 50% in coordination of care (as documented) at patient's floor/unit and/or counseling patient: Coding Level of Care Code 74462 IN/OBS CONSULT LVL 3,45M Diagnoses Venous stasis ulcer of ankle I87.2; L97.312 Laterality: right Non-pressure ulcer stage: with fat layer exposed Varicose vein presence: without varicose veins Wound infection T14.8XXA; L08.9 Leg wound, right S81.801A (1) Venous stasis ulcer of ankle Laterality: right Non-pressure ulcer stage: with fat layer exposed Varicose vein presence: without varicose veins Qualified Code(s): I87.2 - Venous insufficiency (chronic) (peripheral); L97.312 - Non-pressure chronic ulcer of right ankle with fat layer exposed
[2023-05-16] MEDS ORDERED: CEFEPIME 2,000 MG in SYRINGE 0 ML IV SCH (13:00)
[2023-05-16] MEDS: CIPROFLOXACIN 500 MG TAB PO SCH ×2 (17:02→20:13)
[2023-05-16] MEDS: ADVANCED PROBIOTIC 1250 MG CAPSULE PO SCH (17:03)
[2023-05-16] MEDS: cephALEXin 500 MG CAP PO SCH ×2 (17:03→20:14)
--- NOTE | 2023-05-16 19:06 | Hospitalist Progress Note ---
Date of Service May 16, 2023 Assessment & Plan (1) Cellulitis of right lower extremity: (2) Leg wound, right: (3) Schizotypal personality disorder: (4) Anemia: Plan Recurrent Right leg wound Venous stasis ulcer of ankle H/O stasis dermatitis H/O MRSA, group G beta strep, Wohlfahrtiimonas on prior wound cultures --LE CT:Severe subcutaneous edema and skin irregularity, consistent with cellulitis. These findings preferentially involve the lower calf and ankle. No fluid collection or abscess. No subcutaneous air. --Venous Doppler:No acute findings in the right lower extremity veins. --LE MRI:No evidence for acute osteomyelitis within the right tibia or fibula. Extensive right lower leg and ankle soft tissue swelling. This could reflect cellulitis or edema. No rim-enhancing fluid collection to suggest abscess. --Arterial Doppler:There is no sonographic evidence of high-grade stenosis or focal vessel cut off throughout the arteries of the right lower extremity. -- Blood cultures negative to date Wound cultures : +Pseudomonas --S/P bedside wound debridement by Dr. Lambert on 05/16/2023 -- Postdebridement wound cultures pending --Continue doxycycline, cefepime>> patient refused IV access so transition to p.o. antibiotics as below Appreciate orthopedics, surgery input: No surgical intervention suggested Appreciate ID input: Discussed with on 05/16/23: Advised to transition cefepime, doxycycline to ciprofloxacin, Keflex Needs follow-up with wound clinic upon discharge Continue wound care Appreciate plastic surgery help Follow-up final cultures Schizotypal personality disorder Noncompliant with Abilify treatment No acute issues Continue Abilify GERD Continue Protonix Chronic anemia Hb at baseline Monitor CBC Functional disability likely secondary to psychiatric disorder Past tobacco abuse May need placement PT OT eval DVT Px: Lovenox SQ Code Status Full code Admission and Anticipated Discharge Date Admission Date: May 11, 2023 Subjective Patient is seen and examined at bedside Patient had wound debridement today No new complaints Denies any chest pain, dyspnea, dizziness, nausea, vomiting, abdominal pain Discussed with plastic surgery today Review of Systems Review of Systems: All systems reviewed & are unremarkable except as noted in Subjective Physical Exam Physical Exam: Physical Exam: Vitals signs as noted above General Appearance:Moderately built and nourished, no apparent distress Head: normocephalic, Atraumatic Eyes: normal inspection, EOMI Neck: supple, Trachea midline Respiratory/Chest: Normal breath sounds, CTA, No accessory muscle use Cardiovascular: S1, S2, No murmur Abdomen/GI:Soft, Non tender, Bowel sounds present Extremities/Musculoskeletal:normal inspection, right distal lower extremity circumferential wound, foul-smelling, significant slough in dressing Neurologic/Psych:AAOX3, grossly no focal neurological deficits Skin: normal color, warm Results & Data Results & Data Vital Signs (Past 12 Hours) Vital Signs Temp Pulse Resp BP Pulse Ox O2 Del Method 05/16/23 15:03 36.5 C 77 18 150/72 H 98 Room Air 05/16/23 07:06 36.7 C 74 18 150/81 H 97 Room Air Laboratory Results Short CBC 05/16/23 Range/Units 06:33 WBC 8.54 (4.8-10.8) K/ul Hgb 9.9 L (14.0-18.0) g/dl Hct 31.5 L (42.0-52.0) % Plt Count 301 (130-400) K/uL BMP 05/16/23 06:33 Sodium 136 Potassium 4.4 Chloride 108 H Carbon Dioxide 22 BUN 35 H Creatinine 1.40 Glucose 93 Calcium 8.5 L
[2023-05-16] MEDS: ARIPiprazole 5 MG TAB PO SCH (20:14)
[2023-05-17] MEDS: traMADol HCL 50 MG TABLET PO PRN ×2 (03:34→20:44)
[2023-05-17] MEDS: cephALEXin 500 MG CAP PO SCH ×4 (09:32→20:45)
[2023-05-17] MEDS: PANTOprazole 40 MG TAB PO SCH (09:32)
[2023-05-17] MEDS: ENOXAPARIN INJ 40 MG/0.4 ML SYR SQ SCH (09:32)
[2023-05-17] MEDS: CIPROFLOXACIN 500 MG TAB PO SCH ×2 (09:33→20:45)
[2023-05-17] MEDS: ADVANCED PROBIOTIC 1250 MG CAPSULE PO SCH (09:33)
[2023-05-17] MEDS ORDERED: ACETIC ACID 0.25% IRRIG SOLN 1000 ML PLCT IR PRN (10:15)
[2023-05-17] MEDS: ACETAMINOPHEN 325 MG TAB PO PRN ×2 (11:04→17:37)
--- NOTE | 2023-05-17 17:02 | Hospitalist Progress Note ---
Date of Service May 17, 2023 Assessment & Plan (1) Cellulitis of right lower extremity: (2) Leg wound, right: (3) Schizotypal personality disorder: (4) Anemia: Plan Recurrent Right leg wound Venous stasis ulcer of ankle H/O stasis dermatitis H/O MRSA, group G beta strep, Wohlfahrtiimonas on prior wound cultures --LE CT:Severe subcutaneous edema and skin irregularity, consistent with cellulitis. These findings preferentially involve the lower calf and ankle. No fluid collection or abscess. No subcutaneous air. --Venous Doppler:No acute findings in the right lower extremity veins. --LE MRI:No evidence for acute osteomyelitis within the right tibia or fibula. Extensive right lower leg and ankle soft tissue swelling. This could reflect cellulitis or edema. No rim-enhancing fluid collection to suggest abscess. --Arterial Doppler:There is no sonographic evidence of high-grade stenosis or focal vessel cut off throughout the arteries of the right lower extremity. -- Blood cultures negative to date Wound cultures : +Pseudomonas --S/P bedside wound debridement by Dr. Lambert on 05/16/2023 -- Postdebridement wound cultures growing gram-negative bacilli --Continue doxycycline, cefepime>> patient refused IV access so transition to p.o. antibiotics as below Appreciate orthopedics, surgery input: No surgical intervention suggested Appreciate ID input: Discussed with on 05/16/23: Advised to transition cefepime, doxycycline to ciprofloxacin, Keflex Continue wound care Appreciate plastic surgery help Plan to discharge once cultures finalized Possible repeat debridement at bedside tomorrow Needs follow-up with wound clinic upon discharge Schizotypal personality disorder Noncompliant with Abilify treatment No acute issues Continue Abilify GERD Continue Protonix Chronic anemia Hb at baseline Monitor CBC Functional disability likely secondary to psychiatric disorder Past tobacco abuse May need placement PT OT eval DVT Px: Lovenox SQ Code Status Full code Admission and Anticipated Discharge Date Admission Date: May 11, 2023 Subjective Patient is seen and examined at bedside Plan for repeat wound debridement tomorrow as per patient Offers no complaints Denies any chest pain, dyspnea, dizziness, nausea, vomiting, abdominal pain Review of Systems Review of Systems: All systems reviewed & are unremarkable except as noted in Subjective Physical Exam Physical Exam: Physical Exam: Vitals signs as noted above General Appearance:Moderately built and nourished, no apparent distress Head: normocephalic, Atraumatic Eyes: normal inspection, EOMI Neck: supple, Trachea midline Respiratory/Chest: Normal breath sounds, CTA, No accessory muscle use Cardiovascular: S1, S2, No murmur Abdomen/GI:Soft, Non tender, Bowel sounds present Extremities/Musculoskeletal:normal inspection, right distal lower extremity circumferential wound, foul-smelling, significant slough in dressing Neurologic/Psych:AAOX3, grossly no focal neurological deficits Skin: normal color, warm Results & Data Results & Data Vital Signs (Past 12 Hours) Vital Signs Temp Pulse Resp BP Pulse Ox O2 Del Method 05/17/23 14:58 36.7 C 63 18 137/78 99 Room Air 05/17/23 07:11 36.8 C 69 16 114/70 96 Room Air
[2023-05-17] MEDS: ARIPiprazole 5 MG TAB PO SCH (20:45)
[2023-05-18] MEDS: ENOXAPARIN INJ 40 MG/0.4 ML SYR SQ SCH (08:34)
[2023-05-18] MEDS: cephALEXin 500 MG CAP PO SCH ×4 (08:35→20:44)
[2023-05-18] MEDS: ADVANCED PROBIOTIC 1250 MG CAPSULE PO SCH (08:36)
[2023-05-18] MEDS: CIPROFLOXACIN 500 MG TAB PO SCH ×2 (08:36→20:44)
[2023-05-18] MEDS: PANTOprazole 40 MG TAB PO SCH (08:37)
[2023-05-18] MEDS: traMADol HCL 50 MG TABLET PO PRN ×2 (11:52→20:44)
[2023-05-18] MEDS ORDERED: DAKIN'S SOLN 0.125% QUARTER STRENGTH 473 ML BTL EXT SCH (13:15)
--- NOTE | 2023-05-18 13:18 | Surgery Progress Note ---
Date of Service May 18, 2023 Assessment & Plan (1) Venous stasis ulcer of ankle: (2) Wound infection: (3) Leg wound, right: Plan 05/18/23 Patient seen with Mary Paulino RN. Additional debridement performed today at bedside. Still significant amount of slough and necrotic tissue present. Will switch treatment from Acetic Acid solution to Dakins solution. No need for debridement in operating room. Recent culture results reviewed. Infectious Disease has been consulted by Primary Service. Spoke with Primary Service, Dr. Diaz, regarding discharge planning. Recommend that patient return to [facility] at discharge for wound management, if possible. I do not feel that he would be able to carry out wound care/dressing changes on his own. If patient is unable to go to facility following discharge then [facility]. If patient remains in hospital, will plan on seeing patient Tuesday. 05/16/23 Patient seen and examined with Dr. Lambert. Miguel is a 57 yo male with recurrent right lower extremity wound. He was recently admitted due to worsening of the wound and need for IV antibiotics. Our service was consulted to assess need for debridement. Bedside debridement was performed today. Patient tolerated this well. Post-debridement culture was obtained. Initial culture showed growth of Pseudomonas. Recommend acetic acid solution for next 2 days- can change dressing daily. Continue current antibiotic regimen per primary service. Will plan to see patient on Tuesday if he is still hospitalized. He will need follow-up with [facility] once discharged. Admission and Anticipated Discharge Date Admission Date: May 11, 2023 Subjective Miguel is resting in bed- bedside debridement performed 2 days ago on recurrent right lower extremity wound. Wound is currently being dressed with Acetic Acid solution. Wound culture obtained 2 days ago, following debridement, shows growth of Citrobacter freundii and Proteus mirabilis. Physical Exam Constitutional: WD/WN, vitals as above Respiratory: normal respiratory effort; no respiratory distress and no labored breathing Skin: Dressing saturated- wound size unchanged from 2 days ago 17 cm x 27 cm wound of the right distal lower extremity- circumferential wound, foul-smelling, significant slough in dressing. Significant debridement was performed at bedside after topical anesthetic applied to the wound. With the patient's permission wound was debrided of slough using sterile scissors and forceps. Minimal bleeding occurred, which was controlled with pressure. Patient tolerated the procedure well. This represents a nonexcisional debridement of greater than 20 cm. Wound dressed by Reanna Paulino using Dakins solution. Results & Data Vital Signs (Past 12 Hours) Vital Signs Temp Pulse Resp BP Pulse Ox O2 Del Method 05/18/23 07:24 36.8 C 70 16 137/85 96 Room Air PG Care Time/CCT Total # of Minutes Spent Total Time Spent with Patient: Total time spent is greater than 50% in coordination of care (as documented) at patient's floor/unit and/or counseling patient: Coding Level of Care Code 16081 SUB INP/OBS CARE 2/35MIN Diagnoses Venous stasis ulcer of ankle I87.2; L97.312 Laterality: right Non-pressure ulcer stage: with fat layer exposed Varicose vein presence: without varicose veins Wound infection T14.8XXA; L08.9 Leg wound, right S81.801A (1) Venous stasis ulcer of ankle Laterality: right Non-pressure ulcer stage: with fat layer exposed Varicose vein presence: without varicose veins Qualified Code(s): I87.2 - Venous insufficiency (chronic) (peripheral); L97.312 - Non-pressure chronic ulcer of right ankle with fat layer exposed
--- NOTE | 2023-05-18 18:00 | Hospitalist Progress Note ---
Date of Service May 18, 2023 Assessment & Plan (1) Cellulitis of right lower extremity: (2) Leg wound, right: (3) Schizotypal personality disorder: (4) Anemia: Plan Recurrent Right leg wound Venous stasis ulcer of ankle H/O stasis dermatitis H/O MRSA, group G beta strep, Wohlfahrtiimonas on prior wound cultures --LE CT:Severe subcutaneous edema and skin irregularity, consistent with cellulitis. These findings preferentially involve the lower calf and ankle. No fluid collection or abscess. No subcutaneous air. --Venous Doppler:No acute findings in the right lower extremity veins. --LE MRI:No evidence for acute osteomyelitis within the right tibia or fibula. Extensive right lower leg and ankle soft tissue swelling. This could reflect cellulitis or edema. No rim-enhancing fluid collection to suggest abscess. --Arterial Doppler:There is no sonographic evidence of high-grade stenosis or focal vessel cut off throughout the arteries of the right lower extremity. -- Blood cultures negative Wound cultures : +Pseudomonas --S/P bedside wound debridement by Dr. Lambert on 05/16/2023 -- Postdebridement wound cultures growing gram-negative bacilli - Citrobacter freundii, and Proteus mirabilis --Continue doxycycline, cefepime>> patient refused IV access so transition to p.o. antibiotics as below Appreciate orthopedics, surgery input: No surgical intervention suggested Appreciate ID input: Discussed with on 05/16/23: Advised to transition cefepime, doxycycline to ciprofloxacin, Keflex Continue wound care Appreciate plastic surgery help Plan to discharge once cultures finalized S/ p repeat debridement at bedside today 05/18 Needs follow-up with wound clinic upon discharge Schizotypal personality disorder Noncompliant with Abilify treatment No acute issues Continue Abilify GERD Continue Protonix Chronic anemia Hb at baseline Monitor CBC Functional disability likely secondary to psychiatric disorder Past tobacco abuse May need placement PT OT eval DVT Px: Lovenox SQ Code Status Full code Admission and Anticipated Discharge Date Admission Date: May 11, 2023 Subjective Patient is seen in follow up of R leg wound S/p debridement today and 2 days ago by plastic surgery Pt offers no complaints Denies any chest pain, dyspnea, dizziness, nausea, vomiting, abdominal pain Discussed w/ plastic surgery - ideally pt placed so that wound care is adequate Review of Systems Review of Systems: All systems reviewed & are unremarkable except as noted in Subjective Physical Exam Physical Exam: General Appearance:Moderately built and nourished, no apparent distress Head: normocephalic, Atraumatic Eyes: normal inspection, EOMI Neck: supple Respiratory/Chest: Normal breath sounds, CTA, No accessory muscle use Cardiovascular: S1, S2, + murmur Abdomen/GI:Soft, Non tender, Bowel sounds present Extremities/Musculoskeletal:normal inspection, right distal lower extremity c ircumferential wound (pls see image in EMR), dressings applied Neurologic/Psych:AAOX3, grossly no focal neurological deficits Skin: normal color, warm Results & Data Results & Data Vital Signs (Past 12 Hours) Vital Signs Temp Pulse Resp BP Pulse Ox O2 Del Method 05/18/23 16:02 36.4 C L 68 16 166/74 H 99 Room Air 05/18/23 07:24 36.8 C 70 16 137/85 96 Room Air Medications Administered Current Inpatient Medications Acetaminophen (Acetaminophen 325 Mg Tab) 650 mg PO Q4H PRN PRN Reason: pain/fever Stop: 06/10/23 23:36 Last Admin: 05/17/23 17:37 Dose: 650 mg Aripiprazole (Aripiprazole 5 Mg Tab) 5 mg PO HS [facility] Stop: 06/10/23 23:36 Last Admin: 05/17/23 20:45 Dose: 5 mg Cephalexin HCl (Cephalexin 500 Mg Cap) 500 mg PO QID [facility]; Protocol Stop: 05/23/23 16:59 Last Admin: 05/18/23 17:37 Dose: 500 mg Ciprofloxacin (Ciprofloxacin 500 Mg Tab) 500 mg PO BID [facility]; Protocol Stop: 05/23/23 15:29 Last Admin: 05/18/23 08:36 Dose: 500 mg Enoxaparin Sodium (Enoxaparin Inj 40 Mg/0.4 Ml Syr) 40 mg SQ QAM [facility] Stop: 06/11/23 08:59 Last Admin: 05/18/23 08:34 Dose: Not Given Promethazine HCl 12.5 mg/ (Sodium Chloride) 50.5 mls @ 202 mls/hr IV Q6H PRN PRN Reason: Nausea And Vomiting Stop: 06/10/23 23:36 Lactobacillus Acidophilus (Advanced Probiotic 1250 Mg Capsule) 2 cap PO DAILY [facility] Stop: 08/02/23 15:59 Last Admin: 05/18/23 08:36 Dose: 2 cap Pantoprazole Sodium (Pantoprazole 40 Mg Tab) 40 mg PO DAILY [facility] Stop: 06/11/23 08:59 Last Admin: 05/18/23 08:37 Dose: 40 mg Sodium Hypochlorite (Dakin's Soln 0.125% Quarter Strength 473 Ml Btl) 1 appln EXT UD [facility] Stop: 06/17/23 13:14 Tramadol HCl (Tramadol Hcl 50 Mg Tablet) 25 - 50 mg PO Q4H PRN PRN Reason: Pain Stop: 06/10/23 23:36 Last Admin: 05/18/23 11:52 Dose: 50 mg
[2023-05-18] MEDS: ARIPiprazole 5 MG TAB PO SCH (20:48)
[2023-05-19] MEDS: ADVANCED PROBIOTIC 1250 MG CAPSULE PO SCH (08:22)
[2023-05-19] MEDS: CIPROFLOXACIN 500 MG TAB PO SCH ×2 (08:22→21:38)
[2023-05-19] MEDS: cephALEXin 500 MG CAP PO SCH ×4 (08:22→21:39)
[2023-05-19] MEDS: ENOXAPARIN INJ 40 MG/0.4 ML SYR SQ SCH (08:22)
[2023-05-19] MEDS: PANTOprazole 40 MG TAB PO SCH (08:23)
[2023-05-19] MEDS: ACETAMINOPHEN 325 MG TAB PO PRN ×2 (08:40→21:51)
--- NOTE | 2023-05-19 19:14 | Hospitalist Progress Note ---
Date of Service May 19, 2023 Assessment & Plan (1) Cellulitis of right lower extremity: (2) Leg wound, right: (3) Schizotypal personality disorder: (4) Anemia: Plan Recurrent Right leg wound Venous stasis ulcer of ankle H/O stasis dermatitis H/O MRSA, group G beta strep, Wohlfahrtiimonas on prior wound cultures --LE CT:Severe subcutaneous edema and skin irregularity, consistent with cellulitis. These findings preferentially involve the lower calf and ankle. No fluid collection or abscess. No subcutaneous air. --Venous Doppler:No acute findings in the right lower extremity veins. --LE MRI:No evidence for acute osteomyelitis within the right tibia or fibula. Extensive right lower leg and ankle soft tissue swelling. This could reflect cellulitis or edema. No rim-enhancing fluid collection to suggest abscess. --Arterial Doppler:There is no sonographic evidence of high-grade stenosis or focal vessel cut off throughout the arteries of the right lower extremity. -- Blood cultures negative Wound cultures : +Pseudomonas --S/P bedside wound debridement by Dr. Lambert on 05/16/2023 and 05/18/23 -- Postdebridement wound cultures growing gram-negative bacilli - Citrobacter freundii, and Proteus mirabilis, and Staph - sensitivities pending for Staph (discussed w/ ID Dr. Rush - 05/19/23) --Continue doxycycline, cefepime>> patient refused IV access so transitioned to p.o. antibiotics as below Appreciate orthopedics, surgery input: No surgical intervention suggested Appreciate ID input: Discussed with on 05/16/23: Advised to transition cefepime, doxycycline to ciprofloxacin, Keflex Continue wound care Appreciate plastic surgery help Plan to discharge once cultures finalized Needs follow-up with wound clinic upon discharge Schizotypal personality disorder Noncompliant with Abilify treatment No acute issues Continue Abilify GERD Continue Protonix Chronic anemia Hb at baseline Monitor CBC Functional disability likely secondary to psychiatric disorder Past tobacco abuse May need placement PT OT eval DVT Px: Lovenox SQ Code Status Full code Admission and Anticipated Discharge Date Admission Date: May 11, 2023 Subjective Patient is seen in follow up of R leg wound S/p debridement x2 during this admission by plastic surgery Pt offers no complaints Denies any chest pain, dyspnea, dizziness, nausea, vomiting, abdominal pain Discussed w/ plastic surgery - ideally pt placed so that wound care is adequate Discussed w/ ID - await results of cultx and sensitivities of Staph Review of Systems Review of Systems: All systems reviewed & are unremarkable except as noted in Subjective Physical Exam Physical Exam: General Appearance:Moderately built and nourished, no apparent distress Head: normocephalic, Atraumatic Eyes: normal inspection, EOMI Neck: supple Respiratory/Chest: Normal breath sounds, CTA, No accessory muscle use Cardiovascular: S1, S2, + murmur Abdomen/GI:Soft, Non tender, Bowel sounds present Extremities/Musculoskeletal:normal inspection, right distal lower extremity circumferential wound (pls see image in EMR), dressings applied Neurologic/Psych:AAOX3, grossly no focal neurological deficits Skin: normal color, warm Results & Data Results & Data Vital Signs (Past 12 Hours) Vital Signs Temp Pulse Resp BP Pulse Ox O2 Del Method 05/19/23 14:52 36.5 C 63 16 133/79 100 Room Air 05/19/23 07:23 36.7 C 74 16 114/61 94 Room Air Medications Administered Current Inpatient Medications Acetaminophen (Acetaminophen 325 Mg Tab) 650 mg PO Q4H PRN PRN Reason: pain/fever Stop: 06/10/23 23:36 Last Admin: 05/19/23 08:40 Dose: 650 mg Aripiprazole (Aripiprazole 5 Mg Tab) 5 mg PO HS [facility] Stop: 06/10/23 23:36 Last Admin: 05/18/23 20:48 Dose: 5 mg Cephalexin HCl (Cephalexin 500 Mg Cap) 500 mg PO QID [facility]; Protocol Stop: 05/23/23 16:59 Last Admin: 05/19/23 17:56 Dose: 500 mg Ciprofloxacin (Ciprofloxacin 500 Mg Tab) 500 mg PO BID [facility]; Protocol Stop: 05/23/23 15:29 Last Admin: 05/19/23 08:22 Dose: 500 mg Enoxaparin Sodium (Enoxaparin Inj 40 Mg/0.4 Ml Syr) 40 mg SQ QAM [facility] Stop: 06/11/23 08:59 Last Admin: 05/19/23 08:22 Dose: Not Given Promethazine HCl 12.5 mg/ (Sodium Chloride) 50.5 mls @ 202 mls/hr IV Q6H PRN PRN Reason: Nausea And Vomiting Stop: 06/10/23 23:36 Lactobacillus Acidophilus (Advanced Probiotic 1250 Mg Capsule) 2 cap PO DAILY [facility] Stop: 06/15/23 15:59 Last Admin: 05/19/23 08:22 Dose: 2 cap Pantoprazole Sodium (Pantoprazole 40 Mg Tab) 40 mg PO DAILY [facility] Stop: 06/11/23 08:59 Last Admin: 05/19/23 08:23 Dose: 40 mg Sodium Hypochlorite (Dakin's Soln 0.125% Quarter Strength 473 Ml Btl) 1 appln EXT UD [facility] Stop: 06/17/23 13:14 Tramadol HCl (Tramadol Hcl 50 Mg Tablet) 25 - 50 mg PO Q4H PRN PRN Reason: Pain Stop: 06/10/23 23:36 Last Admin: 05/18/23 20:44 Dose: 50 mg
[2023-05-19] MEDS: DOXYCYCLINE HYCLATE 100 MG CAP PO SCH (21:37)
[2023-05-19] MEDS: ARIPiprazole 5 MG TAB PO SCH (21:39)
[2023-05-20] MEDS: CIPROFLOXACIN 500 MG TAB PO SCH ×2 (08:10→22:15)
[2023-05-20] MEDS: cephALEXin 500 MG CAP PO SCH (08:10)
[2023-05-20] MEDS: ENOXAPARIN INJ 40 MG/0.4 ML SYR SQ SCH ×2 (08:10→08:11)
[2023-05-20] MEDS: PANTOprazole 40 MG TAB PO SCH (08:10)
[2023-05-20] MEDS: ADVANCED PROBIOTIC 1250 MG CAPSULE PO SCH (08:10)
[2023-05-20] MEDS: DOXYCYCLINE HYCLATE 100 MG CAP PO SCH ×2 (08:10→22:14)
[2023-05-20] MEDS: traMADol HCL 50 MG TABLET PO PRN (11:02)
--- NOTE | 2023-05-20 13:28 | Surgery Progress Note ---
Date of Service May 20, 2023 Assessment & Plan (1) Venous stasis ulcer of ankle: (2) Wound infection: (3) Leg wound, right: Plan 05/20/23 Patient seen with Mary Paulino RN. Additional debridement performed today at bedside. Still significant amount of slough and necrotic tissue present. Continue to dress wound with Dakins solution (please see wound dressing treatment plan from Mary Paulino). No need for debridement in operating room. Per case management note, insurance has denied admission to [facility]. Attempting to get approval for home health. Unsure if patient will be able to manage wound dressing changes on his own. We will continue to follow while he remains in house. 05/18/23 Patient seen with Mary Paulino RN. Additional debridement performed today at bedside. Still significant amount of slough and necrotic tissue present. Will switch treatment from Acetic Acid solution to Dakins solution. No need for debridement in operating room. Recent culture results reviewed. Infectious Disease has been consulted by Primary Service. Spoke with Primary Service, Dr. Diaz, regarding discharge planning. Recommend that patient return to [facility] at discharge for wound management, if possible. I do not feel that he would be able to carry out wound care/dressing changes on his own. If patient is unable to go to facility following discharge then he must [facility]. If patient remains in hospital, will plan on seeing patient Tuesday. 05/16/23 Patient seen and examined with Dr. Lambert. Miguel is a 57 yo male with recurrent right lower extremity wound. He was recently admitted due to worsening of the wound and need for IV antibiotics. Our service was consulted to assess need for debridement. Bedside debridement was performed today. Patient tolerated this well. Post- debridement culture was obtained. Initial culture showed growth of Pseudomonas. Recommend acetic acid solution for next 2 days- can change dressing daily. Continue current antibiotic regimen per primary service. Will plan to see patient on Tuesday if he is still hospitalized. He will need follow-up with [facility] once discharged. Admission and Anticipated Discharge Date Admission Date: May 11, 2023 Subjective Miguel is resting in bed- bedside debridement performed both on 05/16 and 05/18 on recurrent right lower extremity wound. Wound is currently being dressed with Dakin's solution. Physical Exam Constitutional: WD/WN, vitals as above Respiratory: normal respiratory effort; no respiratory distress and no labored breathing Skin: Dressing saturated- wound size still measuring essentially the same, large amount of hypergranulated tissue circumferential wound, foul-smelling, significant slough in dressing. Significant debridement was performed at bedside after topical anesthetic applied to the wound. With the patient's permission wound was debrided of slough using sterile scissors and forceps. Minimal bleeding occurred, which was controlled with pressure. Patient tolerated the procedure well. This represents a nonexcisional debridement of greater than 20 cm. Wound dressed by Reanna Paulino using Dakins solution. Results & Data Vital Signs (Past 12 Hours) Vital Signs Temp Pulse Resp BP Pulse Ox O2 Del Method 05/20/23 07:07 36.8 C 74 16 132/69 96 Room Air PG Care Time/CCT Total # of Minutes Spent Total Time Spent with Patient: Total time spent is greater than 50% in coordination of care (as documented) at patient's floor/unit and/or counseling patient: Coding Level of Care Code 36047 SUB INP/OBS CARE 2/35MIN Diagnoses Venous stasis ulcer of ankle I87.2; L97.312 Varicose vein presence: without varicose veins Laterality: right Non-pressure ulcer stage: with fat layer exposed Wound infection T14.8XXA; L08.9 Leg wound, right S81.801A (1) Venous stasis ulcer of ankle Varicose vein presence: without varicose veins Laterality: right Non- pressure ulcer stage: with fat layer exposed Qualified Code(s): I87.2 - Venous insufficiency (chronic) (peripheral); L97.312 - Non-pressure chronic ulcer of right ankle with fat layer exposed
--- NOTE | 2023-05-20 18:38 | Hospitalist Progress Note ---
Date of Service May 20, 2023 Assessment & Plan (1) Cellulitis of right lower extremity: (2) Leg wound, right: (3) Schizotypal personality disorder: (4) Anemia: Plan Recurrent Right leg wound Venous stasis ulcer of ankle H/O stasis dermatitis H/O MRSA, group G beta strep, Wohlfahrtiimonas on prior wound cultures --LE CT:Severe subcutaneous edema and skin irregularity, consistent with cellulitis. These findings preferentially involve the lower calf and ankle. No fluid collection or abscess. No subcutaneous air. --Venous Doppler:No acute findings in the right lower extremity veins. --LE MRI:No evidence for acute osteomyelitis within the right tibia or fibula. Extensive right lower leg and ankle soft tissue swelling. This could reflect cellulitis or edema. No rim-enhancing fluid collection to suggest abscess. --Arterial Doppler:There is no sonographic evidence of high-grade stenosis or focal vessel cut off throughout the arteries of the right lower extremity. -- Blood cultures negative Wound cultures : +Pseudomonas --S/P bedside wound debridement by Dr. Lambert / plastic surg. w/wound care - on 05/16/2023 and 05/18/23 and 05/20/23 -- Postdebridement wound cultures growing gram-negative bacilli - Citrobacter freundii, and Proteus mirabilis, and Staph - MRSA (discussed w/ ID Dr. Rush - 05/19/23 and 05/20) --Continued doxycycline, cefepime>> patient refused IV access so transitioned to p.o. antibiotics as below Appreciate orthopedics, surgery input: No surgical intervention suggested Appreciate ID input: Discussed with on 05/16/23: Advised to transition cefepime, doxycycline to ciprofloxacin, Keflex Discussed w/ Dr. Rush after culx back - cont. w/ cipro + doxy Continue wound care Appreciate plastic surgery help Plan to discharge once cultures finalized and plan for wound care established Needs follow-up with wound clinic upon discharge - ideally pt is placed so that wound care is adequate Schizotypal personality disorder Noncompliant with Abilify treatment No acute issues Continue Abilify GERD Continue Protonix Chronic anemia Hb at baseline Monitor CBC Functional disability likely secondary to psychiatric disorder Past tobacco abuse May need placement PT OT eval DVT Px: Lovenox SQ Code Status Full code Admission and Anticipated Discharge Date Admission Date: May 11, 2023 Subjective Patient is seen in follow up of R leg wound S/p debridement x2 during this admission by plastic surgery and additional debridement today Pt offers no complaints Denies any chest pain, dyspnea, dizziness, nausea, vomiting, abdominal pain Discussed w/ plastic surgery - ideally pt placed so that wound care is adequate Discussed w/ID - staph now to mrsa - cont. w/ cipro and doxy Review of Systems Review of Systems: All systems reviewed & are unremarkable except as noted in Subjective Physical Exam Physical Exam: General Appearance:Moderately built and nourished, no apparent distress Head: normocephalic, Atraumatic Eyes: normal inspection, EOMI Neck: supple Respiratory/Chest: Normal breath sounds, CTA, No accessory muscle use Cardiovascular: S1, S2, + murmur Abdomen/GI:Soft, Non tender, Bowel sounds present Extremities/Musculoskeletal:normal inspection, right distal lower extremity circumferential wound (pls see image in EMR), dressings applied Neurologic/Psych:AAOX3, grossly no focal neurological deficits Skin: normal color, warm Results & Data Results & Data Vital Signs (Past 12 Hours) Vital Signs Temp Pulse Resp BP Pulse Ox O2 Del Method 05/20/23 14:48 36.3 C L 69 18 128/74 97 Room Air 05/20/23 07:07 36.8 C 74 16 132/69 96 Room Air Medications Administered Current Inpatient Medications Acetaminophen (Acetaminophen 325 Mg Tab) 650 mg PO Q4H PRN PRN Reason: pain/fever Stop: 06/10/23 23:36 Last Admin: 05/19/23 21:51 Dose: 650 mg Aripiprazole (Aripiprazole 5 Mg Tab) 5 mg PO HS [facility] Stop: 06/10/23 23:36 Last Admin: 05/19/23 21:39 Dose: 5 mg Ciprofloxacin (Ciprofloxacin 500 Mg Tab) 500 mg PO BID [facility]; Protocol Stop: 05/23/23 15:29 Last Admin: 05/20/23 08:10 Dose: 500 mg Doxycycline Hyclate (Doxycycline Hyclate 100 Mg Cap) 100 mg PO BID [facility] Stop: 05/26/23 20:59 Last Admin: 05/20/23 08:10 Dose: 100 mg Enoxaparin Sodium (Enoxaparin Inj 40 Mg/0.4 Ml Syr) 40 mg SQ QAM [facility] Stop: 06/11/23 08:59 Last Admin: 05/20/23 08:11 Dose: Not Given Promethazine HCl 12.5 mg/ (Sodium Chloride) 50.5 mls @ 202 mls/hr IV Q6H PRN PRN Reason: Nausea And Vomiting Stop: 06/10/23 23:36 Lactobacillus Acidophilus (Advanced Probiotic 1250 Mg Capsule) 2 cap PO DAILY [facility] Stop: 06/15/23 15:59 Last Admin: 05/20/23 08:10 Dose: 2 cap Pantoprazole Sodium (Pantoprazole 40 Mg Tab) 40 mg PO DAILY [facility] Stop: 06/11/23 08:59 Last Admin: 05/20/23 08:10 Dose: 40 mg Sodium Hypochlorite (Dakin's Soln 0.125% Quarter Strength 473 Ml Btl) 1 appln EXT UD [facility] Stop: 06/17/23 13:14 Tramadol HCl (Tramadol Hcl 50 Mg Tablet) 25 - 50 mg PO Q4H PRN PRN Reason: Pain Stop: 06/10/23 23:36 Last Admin: 05/20/23 11:02 Dose: 50 mg
[2023-05-20] MEDS: ARIPiprazole 5 MG TAB PO SCH (22:15)
[2023-05-20] MEDS: ACETAMINOPHEN 325 MG TAB PO PRN (22:23)
--- NOTE | 2023-05-21 09:25 | Hospitalist Progress Note ---
Date of Service May 21, 2023 Assessment & Plan (1) Cellulitis of right lower extremity: (2) Leg wound, right: (3) Schizotypal personality disorder: (4) Anemia: Plan Recurrent Right leg wound Venous stasis ulcer of ankle H/O stasis dermatitis H/O MRSA, group G beta strep, Wohlfahrtiimonas on prior wound cultures --LE CT:Severe subcutaneous edema and skin irregularity, consistent with cellulitis. These findings preferentially involve the lower calf and ankle. No fluid collection or abscess. No subcutaneous air. --Venous Doppler:No acute findings in the right lower extremity veins. --LE MRI:No evidence for acute osteomyelitis within the right tibia or fibula. Extensive right lower leg and ankle soft tissue swelling. This could reflect cellulitis or edema. No rim-enhancing fluid collection to suggest abscess. --Arterial Doppler:There is no sonographic evidence of high-grade stenosis or focal vessel cut off throughout the arteries of the right lower extremity. -- Blood cultures negative Wound cultures : +Pseudomonas --S/P bedside wound debridement by Dr. Lambert / plastic surg. w/wound care - on 05/16/2023 and 05/18/23 and 05/20/23 -- Postdebridement wound cultures growing gram-negative bacilli - Citrobacter freundii, and Proteus mirabilis, and Staph - MRSA (discussed w/ ID Dr. Rush - 05/19/23 and 05/20) --Continued doxycycline, cefepime>> patient refused IV access so transitioned to p.o. antibiotics as below Appreciate orthopedics, surgery input: No surgical intervention suggested Appreciate ID input: Discussed with on 05/16/23: Advised to transition cefepime, doxycycline to ciprofloxacin, Keflex Discussed w/ Dr. Rush after culx back - cont. w/ cipro + doxy Continue wound care Appreciate plastic surgery help Plan to discharge once cultures finalized and plan for wound care established Needs follow-up with wound clinic upon discharge - ideally pt is placed so that wound care is adequate Schizotypal personality disorder Noncompliant with Abilify treatment No acute issues Continue Abilify GERD Continue Protonix Chronic anemia Hb at baseline Monitor CBC Functional disability likely secondary to psychiatric disorder Past tobacco abuse May need placement PT OT eval DVT Px: Lovenox SQ Code Status Full code Admission and Anticipated Discharge Date Admission Date: May 11, 2023 Subjective Patient is seen in follow up of R leg wound S/p debridement x3 during this admission by plastic surgery / wound care, last time yesterday Pt offers no complaints Denies any chest pain, dyspnea, dizziness, nausea, vomiting, abdominal pain Discussed w/ plastic surgery - ideally pt placed so that wound care is adequate Review of Systems Review of Systems: All systems reviewed & are unremarkable except as noted in Subjective Physical Exam Physical Exam: General Appearance:Moderately built and nourished, no apparent distress Head: normocephalic, Atraumatic Eyes: normal inspection, EOMI Neck: supple Respiratory/Chest: Normal breath sounds, CTA, No accessory muscle use Cardiovascular: S1, S2, + murmur Abdomen/GI:Soft, Non tender, Bowel sounds present Extremities/Musculoskeletal:normal inspection, right distal lower extremity circumferential wound (pls see image in EMR), dressings applied Neurologic/Psych:AAOX3, grossly no focal neurological deficits Skin: normal color, warm Results & Data Results & Data Vital Signs (Past 12 Hours) Vital Signs Temp Pulse Resp BP Pulse Ox O2 Del Method 05/21/23 07:46 37.1 C 79 16 137/66 96 Room Air Medications Administered Current Inpatient Medications Acetaminophen (Acetaminophen 325 Mg Tab) 650 mg PO Q4H PRN PRN Reason: pain/fever Stop: 06/10/23 23:36 Last Admin: 05/20/23 22:23 Dose: 650 mg Aripiprazole (Aripiprazole 5 Mg Tab) 5 mg PO HS [facility] Stop: 06/10/23 23:36 Last Admin: 05/20/23 22:15 Dose: 5 mg Ciprofloxacin (Ciprofloxacin 500 Mg Tab) 500 mg PO BID [facility]; Protocol Stop: 05/23/23 15:29 Last Admin: 05/20/23 22:15 Dose: 500 mg Doxycycline Hyclate (Doxycycline Hyclate 100 Mg Cap) 100 mg PO BID [facility] Stop: 05/26/23 20:59 Last Admin: 05/20/23 22:14 Dose: 100 mg Enoxaparin Sodium (Enoxaparin Inj 40 Mg/0.4 Ml Syr) 40 mg SQ QAM [facility] Stop: 06/11/23 08:59 Last Admin: 05/20/23 08:11 Dose: Not Given Promethazine HCl 12.5 mg/ (Sodium Chloride) 50.5 mls @ 202 mls/hr IV Q6H PRN PRN Reason: Nausea And Vomiting Stop: 06/10/23 23:36 Lactobacillus Acidophilus (Advanced Probiotic 1250 Mg Capsule) 2 cap PO DAILY [facility] Stop: 06/15/23 15:59 Last Admin: 05/20/23 08:10 Dose: 2 cap Pantoprazole Sodium (Pantoprazole 40 Mg Tab) 40 mg PO DAILY [facility] Stop: 06/11/23 08:59 Last Admin: 05/20/23 08:10 Dose: 40 mg Sodium Hypochlorite (Dakin's Soln 0.125% Quarter Strength 473 Ml Btl) 1 appln EXT UD [facility] Stop: 06/17/23 13:14 Tramadol HCl (Tramadol Hcl 50 Mg Tablet) 25 - 50 mg PO Q4H PRN PRN Reason: Pain Stop: 06/10/23 23:36 Last Admin: 05/20/23 11:02 Dose: 50 mg
[2023-05-21] MEDS: CIPROFLOXACIN 500 MG TAB PO SCH ×2 (09:33→20:47)
[2023-05-21] MEDS: ADVANCED PROBIOTIC 1250 MG CAPSULE PO SCH (09:34)
[2023-05-21] MEDS: DOXYCYCLINE HYCLATE 100 MG CAP PO SCH ×2 (09:34→20:32)
[2023-05-21] MEDS: PANTOprazole 40 MG TAB PO SCH (09:34)
[2023-05-21] MEDS: ENOXAPARIN INJ 40 MG/0.4 ML SYR SQ SCH (09:35)
[2023-05-21] MEDS: traMADol HCL 50 MG TABLET PO PRN ×2 (09:39→15:36)
[2023-05-21] MEDS: ACETAMINOPHEN 325 MG TAB PO PRN (20:31)
[2023-05-21] MEDS: ARIPiprazole 5 MG TAB PO SCH (20:48)
[2023-05-22] MEDS: DOXYCYCLINE HYCLATE 100 MG CAP PO SCH ×2 (08:20→21:07)
[2023-05-22] MEDS: CIPROFLOXACIN 500 MG TAB PO SCH ×2 (08:20→21:10)
[2023-05-22] MEDS: ENOXAPARIN INJ 40 MG/0.4 ML SYR SQ SCH (08:21)
[2023-05-22] MEDS: PANTOprazole 40 MG TAB PO SCH (08:21)
[2023-05-22] MEDS: ADVANCED PROBIOTIC 1250 MG CAPSULE PO SCH (08:21)
[2023-05-22] MEDS: ACETAMINOPHEN 325 MG TAB PO PRN (09:31)
--- NOTE | 2023-05-22 13:36 | Hospitalist Progress Note ---
Date of Service May 22, 2023 Assessment & Plan (1) Cellulitis of right lower extremity: (2) Leg wound, right: (3) Schizotypal personality disorder: (4) Anemia: Plan Recurrent Right leg wound Venous stasis ulcer of ankle H/O stasis dermatitis H/O MRSA, group G beta strep, Wohlfahrtiimonas on prior wound cultures --LE CT:Severe subcutaneous edema and skin irregularity, consistent with cellulitis. These findings preferentially involve the lower calf and ankle. No fluid collection or abscess. No subcutaneous air. --Venous Doppler:No acute findings in the right lower extremity veins. --LE MRI:No evidence for acute osteomyelitis within the right tibia or fibula. Extensive right lower leg and ankle soft tissue swelling. This could reflect cellulitis or edema. No rim-enhancing fluid collection to suggest abscess. --Arterial Doppler:There is no sonographic evidence of high-grade stenosis or focal vessel cut off throughout the arteries of the right lower extremity. -- Blood cultures negative Wound cultures : +Pseudomonas --S/P bedside wound debridement by Dr. Lambert / plastic surg. w/wound care - on 05/16/2023 and 05/18/23 and 05/20/23 -- Postdebridement wound cultures growing gram-negative bacilli - Citrobacter freundii, and Proteus mirabilis, and Staph - MRSA (discussed w/ ID Dr. Rush - 05/19/23 and 05/20) --Continued doxycycline, cefepime>> patient refused IV access so transitioned to p.o. antibiotics as below Appreciate orthopedics, surgery input: No surgical intervention suggested Appreciate ID input: Discussed with on 05/16/23: Advised to transition cefepime, doxycycline to ciprofloxacin, Keflex Discussed w/ Dr. Rush after culx back - cont. w/ cipro + doxy Continue wound care Appreciate plastic surgery help Plan to discharge once cultures finalized and plan for wound care established Needs follow-up with wound clinic upon discharge - recommend pt is placed so that wound care is adequate Schizotypal personality disorder Noncompliant with Abilify treatment No acute issues Continue Abilify GERD Continue Protonix Chronic anemia Hb at baseline Monitor CBC Functional disability likely secondary to psychiatric disorder Past tobacco abuse May need placement PT OT eval DVT Px: Lovenox SQ Code Status Full code Admission and Anticipated Discharge Date Admission Date: May 11, 2023 Subjective Patient is seen in follow up of R leg wound S/p debridement x3 during this admission by plastic surgery / wound care, last time on Tuesday - wound care to resume and re-assess for any further need for debridement tmrw Pt offers no complaints Denies any chest pain, dyspnea, dizziness, nausea, vomiting, abdominal pain Discussed w/ plastic surgery - recommend placement so that wound care is adequate Review of Systems Review of Systems: All systems reviewed & are unremarkable except as noted in Subjective Physical Exam Physical Exam: General Appearance:Moderately built and nourished, no apparent distress Head: normocephalic, Atraumatic Eyes: normal inspection, EOMI Neck: supple Respiratory/Chest: Normal breath sounds, CTA, No accessory muscle use Cardiovascular: S1, S2, + murmur Abdomen/GI:Soft, Non tender, Bowel sounds present Extremities/Musculoskeletal:normal inspection, right distal lower extremity circumferential wound (pls see image in EMR), dressings applied Neurologic/Psych:AAOX3, grossly no focal neurological deficits Skin: normal color, warm Results & Data Results & Data Vital Signs (Past 12 Hours) Vital Signs Temp Pulse Resp BP Pulse Ox O2 Del Method 05/22/23 07:18 36.6 C 74 16 133/71 95 Room Air Medications Administered Current Inpatient Medications Acetaminophen (Acetaminophen 325 Mg Tab) 650 mg PO Q4H PRN PRN Reason: pain/fever Stop: 06/10/23 23:36 Last Admin: 05/22/23 09:31 Dose: 650 mg Aripiprazole (Aripiprazole 5 Mg Tab) 5 mg PO HS [facility] Stop: 06/10/23 23:36 Last Admin: 05/21/23 20:48 Dose: 5 mg Ciprofloxacin (Ciprofloxacin 500 Mg Tab) 500 mg PO BID [facility]; Protocol Stop: 05/23/23 15:29 Last Admin: 05/22/23 08:20 Dose: 500 mg Doxycycline Hyclate (Doxycycline Hyclate 100 Mg Cap) 100 mg PO BID [facility] Stop: 05/26/23 20:59 Last Admin: 05/22/23 08:20 Dose: 100 mg Enoxaparin Sodium (Enoxaparin Inj 40 Mg/0.4 Ml Syr) 40 mg SQ QAM [facility] Stop: 06/11/23 08:59 Last Admin: 05/22/23 08:21 Dose: Not Given Promethazine HCl 12.5 mg/ (Sodium Chloride) 50.5 mls @ 202 mls/hr IV Q6H PRN PRN Reason: Nausea And Vomiting Stop: 06/10/23 23:36 Lactobacillus Acidophilus (Advanced Probiotic 1250 Mg Capsule) 2 cap PO DAILY [facility] Stop: 06/15/23 15:59 Last Admin: 05/22/23 08:21 Dose: 2 cap Pantoprazole Sodium (Pantoprazole 40 Mg Tab) 40 mg PO DAILY [facility] Stop: 06/11/23 08:59 Last Admin: 05/22/23 08:21 Dose: 40 mg Sodium Hypochlorite (Dakin's Soln 0.125% Quarter Strength 473 Ml Btl) 1 appln EXT UD [facility] Stop: 06/17/23 13:14 Last Admin: 05/22/23 08:22 Dose: 1 appln Tramadol HCl (Tramadol Hcl 50 Mg Tablet) 25 - 50 mg PO Q4H PRN PRN Reason: Pain Stop: 06/10/23 23:36 Last Admin: 05/21/23 15:36 Dose: 50 mg
[2023-05-22] MEDS: ARIPiprazole 5 MG TAB PO SCH (21:07)
[2023-05-23] MEDS: DOXYCYCLINE HYCLATE 100 MG CAP PO SCH ×2 (08:53→20:25)
[2023-05-23] MEDS: metroNIDAZOLE 500 MG TAB PO SCH ×3 (08:53→20:24)
[2023-05-23] MEDS: PANTOprazole 40 MG TAB PO SCH (08:54)
[2023-05-23] MEDS: ENOXAPARIN INJ 40 MG/0.4 ML SYR SQ SCH (08:54)
[2023-05-23] MEDS: ADVANCED PROBIOTIC 1250 MG CAPSULE PO SCH (08:54)
[2023-05-23] MEDS: CIPROFLOXACIN 500 MG TAB PO SCH ×2 (08:54→20:25)
[2023-05-23] MEDS: traMADol HCL 50 MG TABLET PO PRN (11:43)
--- NOTE | 2023-05-23 16:05 | Hospitalist Progress Note ---
Date of Service May 23, 2023 Assessment & Plan (1) Cellulitis of right lower extremity: (2) Leg wound, right: (3) Schizotypal personality disorder: (4) Anemia: Plan Recurrent Right leg wound Venous stasis ulcer of ankle H/O stasis dermatitis H/O MRSA, group G beta strep, Wohlfahrtiimonas on prior wound cultures --LE CT:Severe subcutaneous edema and skin irregularity, consistent with cellulitis. These findings preferentially involve the lower calf and ankle. No fluid collection or abscess. No subcutaneous air. --Venous Doppler:No acute findings in the right lower extremity veins. --LE MRI:No evidence for acute osteomyelitis within the right tibia or fibula. Extensive right lower leg and ankle soft tissue swelling. This could reflect cellulitis or edema. No rim-enhancing fluid collection to suggest abscess. --Arterial Doppler:There is no sonographic evidence of high-grade stenosis or focal vessel cut off throughout the arteries of the right lower extremity. -- Blood cultures negative Wound cultures : +Pseudomonas --S/P bedside wound debridement by Dr. Lambert / plastic surg. w/wound care - on 05/16/2023 and 05/18/23 and 05/20/23. Limited debridement today 05/23. -- Postdebridement wound cultures growing gram-negative bacilli - Citrobacter freundii, and Proteus mirabilis, and Staph - MRSA (discussed w/ ID Dr. Rush - 05/19/23 and 05/20). Also growing Eggerthella lenta (05/23) and metronidazole started. --Continued doxycycline, cefepime>> patient refused IV access so transitioned to p.o. antibiotics as below Appreciate orthopedics, surgery input: No surgical intervention suggested Appreciate ID input: Discussed with on 05/16/23: Advised to transition cefepime, doxycycline to ciprofloxacin, Keflex Discussed w/ Dr. Rush after culx back - cont. w/ cipro + doxy Continue wound care Appreciate plastic surgery help Plan to discharge once cultures finalized and plan for wound care established Needs follow-up with wound clinic upon discharge - recommend pt is placed so t hat wound care is adequate 05/23 another bacteria identified on wound culture Eggerthella lenta - metronidazole started. Patient also underwent limited debridement today again with plastic surgery/wound care. Schizotypal personality disorder Noncompliant with Abilify treatment No acute issues Continue Abilify GERD Continue Protonix Chronic anemia Hb at baseline Monitor CBC Functional disability likely secondary to psychiatric disorder Past tobacco abuse May need placement PT OT eval DVT Px: Lovenox SQ Code Status Full code Admission and Anticipated Discharge Date Admission Date: May 11, 2023 Subjective Patient is seen in follow up of R leg wound S/p debridement x3 during this admission by plastic surgery / wound care, and another limited debridement today Pt offers no complaints Denies any chest pain, dyspnea, dizziness, nausea, vomiting, abdominal pain Discussed w/ plastic surgery - recommend placement so that wound care is adequate Another bacteria identified on wound cultx - Eggerthella lenta - metronidazole started Review of Systems Review of Systems: All systems reviewed & are unremarkable except as noted in Subjective Physical Exam Physical Exam: General Appearance:Moderately built and nourished, no apparent distress Head: normocephalic, Atraumatic Eyes: normal inspection, EOMI Neck: supple Respiratory/Chest: Normal breath sounds, CTA, No accessory muscle use Cardiovascular: S1, S2, + murmur Abdomen/GI:Soft, Non tender, Bowel sounds present Extremities/Musculoskeletal:normal inspection, right distal lower extremity circumferential wound (pls see image in EMR), dressings applied Neurologic/Psych:AAOX3, grossly no focal neurological deficits Skin: normal color, warm Results & Data Results & Data Vital Signs (Past 12 Hours) Vital Signs Temp Pulse Resp BP Pulse Ox O2 Del Method 05/23/23 07:49 36.4 C L 68 16 159/80 H 96 Room Air Medications Administered Current Inpatient Medications Acetaminophen (Acetaminophen 325 Mg Tab) 650 mg PO Q4H PRN PRN Reason: pain/fever Stop: 06/10/23 23:36 Last Admin: 05/22/23 09:31 Dose: 650 mg Aripiprazole (Aripiprazole 5 Mg Tab) 5 mg PO HS [facility] Stop: 06/10/23 23:36 Last Admin: 05/22/23 21:07 Dose: 5 mg Doxycycline Hyclate (Doxycycline Hyclate 100 Mg Cap) 100 mg PO BID [facility] Stop: 05/26/23 20:59 Last Admin: 05/23/23 08:53 Dose: 100 mg Enoxaparin Sodium (Enoxaparin Inj 40 Mg/0.4 Ml Syr) 40 mg SQ QAM [facility] Stop: 06/11/23 08:59 Last Admin: 05/23/23 08:54 Dose: Not Given Promethazine HCl 12.5 mg/ (Sodium Chloride) 50.5 mls @ 202 mls/hr IV Q6H PRN PRN Reason: Nausea And Vomiting Stop: 06/10/23 23:36 Lactobacillus Acidophilus (Advanced Probiotic 1250 Mg Capsule) 2 cap PO DAILY [facility] Stop: 06/15/23 15:59 Last Admin: 05/23/23 08:54 Dose: 2 cap Metronidazole (Metronidazole 500 Mg Tab) 500 mg PO TID [facility] Stop: 05/30/23 08:59 Last Admin: 05/23/23 13:40 Dose: 500 mg Pantoprazole Sodium (Pantoprazole 40 Mg Tab) 40 mg PO DAILY [facility] Stop: 06/11/23 08:59 Last Admin: 05/23/23 08:54 Dose: 40 mg Sodium Hypochlorite (Dakin's Soln 0.125% Quarter Strength 473 Ml Btl) 1 appln EXT UD [facility] Stop: 06/17/23 13:14 Last Admin: 05/22/23 08:22 Dose: 1 appln Tramadol HCl (Tramadol Hcl 50 Mg Tablet) 25 - 50 mg PO Q4H PRN PRN Reason: Pain Stop: 06/10/23 23:36 Last Admin: 05/23/23 11:43 Dose: 50 mg
--- NOTE | 2023-05-23 16:15 | Surgery Progress Note ---
Date of Service May 23, 2023 Assessment & Plan (1) Venous stasis ulcer of ankle: (2) Wound infection: (3) Leg wound, right: Plan 05/23/23 Patient seen with Theresa Bro. Limited amount of bedside debridement performed today. Will continue to dress would with Dakins solution- will increase dressing change to BID due to dressing being significantly saturated. Unlikely that wound will need additional debridement at bedside tomorrow. Continue mechanical debridement with dressing changes. May consider switching to Santyl tomorrow after evaluation. Still continue to recommend placement in [facility] for aggressive, localized wound care. Plastic surgery will see patient tomorrow. 05/20/23 Patient seen with Mary Paulino RN. Additional debridement performed today at bedside. Still significant amount of slough and necrotic tissue present. Continue to dress wound with Dakins solution (please see wound dressing treatment plan from Mary Paulino). No need for debridement in operating room. Per case management note, insurance has denied admission to [facility]. Attempting to get approval for home health. Unsure if patient will be able to manage wound dressing changes on his own. We will continue to follow while he remains in house. 05/18/23 Patient seen with Mary Paulino RN. Additional debridement performed today at bedside. Still significant amount of slough and necrotic tissue present. Will switch treatment from Acetic Acid solution to Dakins solution. No need for debri awais in operating room. Recent culture results reviewed. Infectious Disease has been consulted by Primary Service. Spoke with Primary Service, Dr. Diaz, regarding discharge planning. Recommend that patient return to [facility] at discharge for wound management, if possible. I do not feel that he would be able to carry out wound care/dressing changes on his own. If patient is unable to go to facility following discharge then he must [facility] with [facility]. If patient remains in hospital, will plan on seeing patient Tuesday. 05/16/23 Patient seen and examined with Dr. Lambert. Miguel is a 57 yo male with recurrent right lower extremity wound. He was recently admitted due to worsening of the wound and need for IV antibiotics. Our service was consulted to assess need for debridement. Bedside debridement was performed today. Patient tolerated this well. Post- debridement culture was obtained. Initial culture showed growth of Pseudomonas. Recommend acetic acid solution for next 2 days- can change dressing daily. Continue current antibiotic regimen per primary service. Will plan to see patient on Tuesday if he is still hospitalized. He will need [facility] with [facility] once discharged. Admission and Anticipated Discharge Date Admission Date: May 11, 2023 Subjective Miguel is resting in bed- bedside debridement performed on 05/16, 05/18, 05/20 on recurrent right lower extremity wound. Wound is currently being dressed with Dakin's solution. Review of Systems Review of Systems: All systems reviewed & are unremarkable except as noted in Subjective Physical Exam Constitutional: WD/WN, vitals as above Respiratory: normal respiratory effort; no respiratory distress and no labored breathing Skin: Dressing saturated- wound size still measuring essentially the same, circumferential wound, no longer malodorous, significant slough in dressing. Minimal amount of debridement performed at bedside today. Wound dressed by Theresa Bro using Dakins solution. Results & Data Vital Signs (Past 12 Hours) Vital Signs Temp Pulse Resp BP Pulse Ox O2 Del Method 05/23/23 07:49 36.4 C L 68 16 159/80 H 96 Room Air PG Care Time/CCT Total # of Minutes Spent Total Time Spent with Patient: Total time spent is greater than 50% in coordination of care (as documented) at patient's floor/unit and/or counseling patient: Coding Level of Care Code 86470 SUB INP/OBS CARE 2/35MIN Diagnoses Venous stasis ulcer of ankle I87.2; L97.312 Varicose vein presence: without varicose veins Laterality: right Non-pressure ulcer stage: with fat layer exposed Wound infection T14.8XXA; L08.9 Leg wound, right S81.801A (1) Venous stasis ulcer of ankle Varicose vein presence: without varicose veins Laterality: right Non- pressure ulcer stage: with fat layer exposed Qualified Code(s): I87.2 - Venous insufficiency (chronic) (peripheral); L97.312 - Non-pressure chronic ulcer of right ankle with fat layer exposed
[2023-05-23] MEDS: ARIPiprazole 5 MG TAB PO SCH (20:25)
[2023-05-23] MEDS: ACETAMINOPHEN 325 MG TAB PO PRN (20:28)
[2023-05-24] MEDS: ENOXAPARIN INJ 40 MG/0.4 ML SYR SQ SCH (09:15)
[2023-05-24] MEDS: CIPROFLOXACIN 500 MG TAB PO SCH ×2 (09:16→20:25)
[2023-05-24] MEDS: DOXYCYCLINE HYCLATE 100 MG CAP PO SCH ×2 (09:16→20:25)
[2023-05-24] MEDS: metroNIDAZOLE 500 MG TAB PO SCH ×3 (09:16→20:25)
[2023-05-24] MEDS: PANTOprazole 40 MG TAB PO SCH (09:16)
[2023-05-24] MEDS: ADVANCED PROBIOTIC 1250 MG CAPSULE PO SCH (09:16)
[2023-05-24] MEDS: traMADol HCL 50 MG TABLET PO PRN ×2 (09:30→14:32)
[2023-05-24] MEDS: ACETAMINOPHEN 325 MG TAB PO PRN (12:08)
--- NOTE | 2023-05-24 12:49 | Hospitalist Progress Note ---
Date of Service May 24, 2023 Assessment & Plan (1) Cellulitis of right lower extremity: (2) Leg wound, right: (3) Schizotypal personality disorder: (4) Anemia: Plan Recurrent Right leg wound Venous stasis ulcer of ankle H/O stasis dermatitis H/O MRSA, group G beta strep, Wohlfahrtiimonas on prior wound cultures --LE CT:Severe subcutaneous edema and skin irregularity, consistent with cellulitis. These findings preferentially involve the lower calf and ankle. No fluid collection or abscess. No subcutaneous air. --Venous Doppler:No acute findings in the right lower extremity veins. --LE MRI:No evidence for acute osteomyelitis within the right tibia or fibula. Extensive right lower leg and ankle soft tissue swelling. This could reflect cellulitis or edema. No rim-enhancing fluid collection to suggest abscess. --Arterial Doppler:There is no sonographic evidence of high-grade stenosis or focal vessel cut off throughout the arteries of the right lower extremity. -- Blood cultures negative Wound cultures : +Pseudomonas --S/P bedside wound debridement by Dr. Lambert / plastic surg. w/wound care - on 05/16/2023 , 05/18/23 and 05/20/23, 05/23 and 05/24 -- Postdebridement wound cultures growing gram-negative bacilli - Citrobacter freundii, and Proteus mirabilis, and Staph - MRSA (discussed w/ ID Dr. Rush - 05/19/23 and 05/20). Also growing Eggerthella lenta (05/23) and metronidazole started. --Continued doxycycline, cefepime>> patient refused IV access so transitioned to p.o. antibiotics as below Appreciate orthopedics, surgery input: No surgical intervention suggested Appreciate ID input: Discussed with on 05/16/23: Advised to transition cefepime, doxycycline to ciprofloxacin, Keflex Discussed w/ Dr. Rush after culx back - cont. w/ cipro + doxy Continue wound care Appreciate plastic surgery help Plan to discharge once cultures finalized and plan for wound care established Needs follow-up with wound clinic upon discharge - recommend pt is placed so that wound care is adequate 05/23 another bacteria identified on wound culture Eggerthella lenta - metronidazole started. Patient also underwent limited debridement today again with plastic surgery/wound care. 7/11 patient underwent another debridement by plastic surgery/wound care. Patient in need of aggressive wound care, recommend dressing changes twice a day. Ideally patient discharged to [facility]. CM involved. Schizotypal personality disorder Noncompliant with Abilify treatment No acute issues Continue Abilify GERD Continue Protonix Chronic anemia Hb at baseline Monitor CBC Functional disability likely secondary to psychiatric disorder Past tobacco abuse May need placement PT OT eval DVT Px: Lovenox SQ Code Status Full code Admission and Anticipated Discharge Date Admission Date: May 11, 2023 Subjective Patient is seen in follow up of R leg wound S/p debridement x5 during this admission by plastic surgery / wound care, last debridement today Pt offers no complaints Denies any chest pain, dyspnea, dizziness, nausea, vomiting, abdominal pain Discussed w/ plastic surgery - recommend placement so that wound care is adequate -aggressive wound care with twice daily dressing changes recommended Another bacteria identified on wound cultx yesterday - Eggertangelic lenta - metronidazole started Review of Systems Review of Systems: All systems reviewed & are unremarkable except as noted in Subjective Physical Exam Physical Exam: General Appearance:Moderately built and nourished, no apparent distress Head: normocephalic, Atraumatic Eyes: normal inspection, EOMI Neck: supple Respiratory/Chest: Normal breath sounds, CTA, No accessory muscle use Cardiovascular: S1, S2, + murmur Abdomen/GI:Soft, Non tender, Bowel sounds present Extremities/Musculoskeletal:normal inspection, right distal lower extremity circumferential wound (pls see image in EMR), dressings applied Neurologic/Psych:AAOX3, grossly no focal neurological deficits Skin: normal color, warm Results & Data Results & Data Vital Signs (Past 12 Hours) Vital Signs Temp Pulse Resp BP Pulse Ox O2 Del Method 05/24/23 07:26 37.1 C 69 14 114/66 96 Room Air Medications Administered Current Inpatient Medications Acetaminophen (Acetaminophen 325 Mg Tab) 650 mg PO Q4H PRN PRN Reason: pain/fever Stop: 06/10/23 23:36 Last Admin: 05/24/23 12:08 Dose: 650 mg Aripiprazole (Aripiprazole 5 Mg Tab) 5 mg PO HS FAHAD Stop: 06/10/23 23:36 Last Admin: 05/23/23 20:25 Dose: 5 mg Ciprofloxacin (Ciprofloxacin 500 Mg Tab) 500 mg PO BID FAHAD; Protocol Stop: 05/30/23 20:59 Last Admin: 05/24/23 09:16 Dose: 500 mg Doxycycline Hyclate (Doxycycline Hyclate 100 Mg Cap) 100 mg PO BID [facility] Stop: 05/26/23 20:59 Last Admin: 05/24/23 09:16 Dose: 100 mg Enoxaparin Sodium (Enoxaparin Inj 40 Mg/0.4 Ml Syr) 40 mg SQ QAM [facility] Stop: 06/11/23 08:59 Last Admin: 05/24/23 09:15 Dose: Not Given Promethazine HCl 12.5 mg/ (Sodium Chloride) 50.5 mls @ 202 mls/hr IV Q6H PRN PRN Reason: Nausea And Vomiting Stop: 06/10/23 23:36 Lactobacillus Acidophilus (Advanced Probiotic 1250 Mg Capsule) 2 cap PO DAILY [facility] Stop: 06/15/23 15:59 Last Admin: 05/24/23 09:16 Dose: 2 cap Metronidazole (Metronidazole 500 Mg Tab) 500 mg PO TID [facility] Stop: 05/30/23 08:59 Last Admin: 05/24/23 09:16 Dose: 500 mg Pantoprazole Sodium (Pantoprazole 40 Mg Tab) 40 mg PO DAILY [facility] Stop: 06/11/23 08:59 Last Admin: 05/24/23 09:16 Dose: 40 mg Sodium Hypochlorite (Dakin's Soln 0.125% Quarter Strength 473 Ml Btl) 1 appln EXT UD [facility] Stop: 06/17/23 13:14 Last Admin: 05/22/23 08:22 Dose: 1 appln Tramadol HCl (Tramadol Hcl 50 Mg Tablet) 25 - 50 mg PO Q4H PRN PRN Reason: Pain Stop: 06/10/23 23:36 Last Admin: 05/24/23 09:30 Dose: 50 mg
--- NOTE | 2023-05-24 12:53 | Surgery Progress Note ---
Date of Service May 24, 2023 Assessment & Plan (1) Venous stasis ulcer of ankle: (2) Wound infection: (3) Leg wound, right: Plan Patient seen with Theresa Bro. Bedside debridement performed today. Will continue to dress would with Dakins solution-continue with twice daily dressing changes for optimal mechanical debridement. Still continue to recommend placement in [facility] for aggressive, localized wound care. Patient will continue to follow with wound car for dressing changes until he is able to be evaluated and treated at the wound care enter once discharged. If they are unable to accept patient, he can be seen at [facility]. There is no acute surgical intervention required at this time, will sign off. Admission and Anticipated Discharge Date Admission Date: May 11, 2023 Polo Rivera is resting in bed- bedside debridement performed on 05/16, 05/18, 05/20, 05/23, 05/24 on recurrent right lower extremity wound. Wound is being dressed with Daki n's solution wet-dry, twice daily. Currently working towards placement at [facility]. Review of Systems Review of Systems: All systems reviewed & are unremarkable except as noted in HPI & below Physical Exam Constitutional: WD/WN, vitals as above Respiratory: normal respiratory effort; no respiratory distress, no labored breathing and does not use accessory muscles Skin: Dressing saturated- wound size still measuring essentially the same, circumferential wound, no longer malodorous, significant slough in dressing. Significant amount of slough was debrided today using scissor and forceps. Majority of the thick slough is now debrided. wound bed has areas of hypergranulation, fibrin Wound dressed by Theresa Bro using Dakins solution. Results & Data Vital Signs (Past 12 Hours) Vital Signs Temp Pulse Resp BP Pulse Ox O2 Del Method 05/24/23 07:26 37.1 C 69 14 114/66 96 Room Air PG Care Time/CCT Total # of Minutes Spent Total Time Spent with Patient: Total time spent is greater than 50% in coordination of care (as documented) at patient's floor/unit and/or counseling patient: Coding Level of Care Code 04696 SUB INP/OBS CARE 2/35MIN Diagnoses Venous stasis ulcer of ankle I87.2; L97.312 Varicose vein presence: without varicose veins Laterality: right Non-pressure ulcer stage: with fat layer exposed Wound infection T14.8XXA; L08.9 Leg wound, right S81.801A CPT Codes Debride Skin/Tissue - 47629 ([id number]) (1) Venous stasis ulcer of ankle Varicose vein presence: without varicose veins Laterality: right Non- pressure ulcer stage: with fat layer exposed Qualified Code(s): I87.2 - Venous insufficiency (chronic) (peripheral); L97.312 - Non-pressure chronic ulcer of right ankle with fat layer exposed
[2023-05-24] MEDS: ARIPiprazole 5 MG TAB PO SCH (20:25)
[2023-05-24 21:14] LABS: Hematocrit (blood only) 30.1 % (42.0-52.0); Hemoglobin 9.7 g/dl (14.0-18.0); Mean Corpuscular Hemoglobin 24.7 pg (25.0-34.0); Mean Corpuscular Hgb Conc 32.2 g/dL (32.0-36.0); Mean Corpuscular Volume 76.6 fL (80.0-100.0); Mean Platelet Volume 9.4 fL (9.4-12.4); Platelet Count 246 K/uL (130-400); RDW Coefficient of Variation 17.1 % (11.5-14.5); RDW Standard Deviation 47.9 fL (36.4-46.3); Red Blood Count 3.93 M/uL (4.70-6.10); White Blood Count 6.48 K/ul (4.8-10.8)
[2023-05-24 21:31] LABS: BUN Creatinine Ratio 21.3 (10-20); Calcium 8.7 mg/dl (8.6-10.3); Creatinine Clr Calc Pharmacy 54.2 ml/min; Est GFR (Non-African American) 45.7 ml/min; Magnesium 1.7 mg/dl (1.7-2.4); Phosphorus 4.1 mg/dl (2.5-4.9)
[2023-05-25] MEDS: ACETAMINOPHEN 325 MG TAB PO PRN ×2 (04:44→13:45)
[2023-05-25] MEDS: ENOXAPARIN INJ 40 MG/0.4 ML SYR SQ SCH (08:02)
[2023-05-25] MEDS: metroNIDAZOLE 500 MG TAB PO SCH ×3 (08:02→20:00)
[2023-05-25] MEDS: PANTOprazole 40 MG TAB PO SCH (08:02)
[2023-05-25] MEDS: CIPROFLOXACIN 500 MG TAB PO SCH ×2 (08:02→20:00)
[2023-05-25] MEDS: ADVANCED PROBIOTIC 1250 MG CAPSULE PO SCH (08:02)
[2023-05-25] MEDS: DOXYCYCLINE HYCLATE 100 MG CAP PO SCH ×2 (08:02→20:00)
--- NOTE | 2023-05-25 17:08 | Hospitalist Progress Note ---
Date of Service May 25, 2023 Assessment & Plan (1) Cellulitis of right lower extremity: (2) Leg wound, right: (3) Schizotypal personality disorder: (4) Anemia: Plan per Dr. Diaz's notes with addendum: Recurrent Right leg wound Venous stasis ulcer of ankle H/O stasis dermatitis H/O MRSA, group G beta strep, Wohlfahrtiimonas on prior wound cultures --LE CT:Severe subcutaneous edema and skin irregularity, consistent with cellulitis. These findings preferentially involve the lower calf and ankle. No fluid collection or abscess. No subcutaneous air. --Venous Doppler:No acute findings in the right lower extremity veins. --LE MRI:No evidence for acute osteomyelitis within the right tibia or fibula. Extensive right lower leg and ankle soft tissue swelling. This could reflect cellulitis or edema. No rim-enhancing fluid collection to suggest abscess. --Arterial Doppler:There is no sonographic evidence of high-grade stenosis or focal vessel cut off throughout the arteries of the right lower extremity. -- Blood cultures negative Wound cultures : +Pseudomonas --S/P bedside wound debridement by Dr. Lambert / plastic surg. w/wound care - on 05/16/2023 , 05/18/23 and 05/20/23, 05/23 and 05/24 -- Postdebridement wound cultures growing gram-negative bacilli - Citrobacter freundii, and Proteus mirabilis, and Staph - MRSA (discussed w/ ID Dr. Rush - 05/19/23 and 05/20). Also growing Eggerthella lenta (05/23) and metronidazole star rudy. --Continued doxycycline, cefepime>> patient refused IV access so transitioned to p.o. antibiotics as below Appreciate orthopedics, surgery input: No surgical intervention suggested Appreciate ID input: Discussed with on 05/16/23: Advised to transition cefepime, doxycycline to ciprofloxacin, Keflex Discussed w/ Dr. Rush after culx back - cont. w/ cipro + doxy Continue wound care Appreciate plastic surgery help Plan to discharge once cultures finalized and plan for wound care established Needs follow-up with wound clinic upon discharge - recommend pt is placed so that wound care is adequate 05/23 another bacteria identified on wound culture Eggerthella lenta - metronidazole started. Patient also underwent limited debridement today again with plastic surgery/wound care. 05/24 patient underwent another debridement by plastic surgery/wound care. Patient in need of aggressive wound care, recommend dressing changes twice a day. Ideally patient discharged to [facility]. CM involved. 05/25 We will check wound under the dressing tomorrow with dressing change Continue Cipro, Doxy, Flagyl p.o. Continue probiotics Continue daily wound care manager information working on transitioning patient to [facility] facility Schizotypal personality disorder Noncompliant with Abilify treatment Stable at this time Continue Abilify GERD Continue Protonix Chronic anemia Hb at baseline Monitor CBC Functional disability likely secondary to psychiatric disorder Past tobacco abuse PT OT evaluation DVT Px: Lovenox SQ Code Status Full code Disposition Transition to [facility] facility when accepted plan of care discussed with patient in detail and at length all questions answered he is understanding, agreeable, comfortable with the plan of care Admission and Anticipated Discharge Date Admission Date: May 11, 2023 Subjective ff up for current right leg wound, etc. Seen sitting up at the edge of the bed, comfortable, not in distress States he feels fine overall Very minimal discomfort over the right foot No fevers or chills no chest pain, dyspnea, palpitations, dizziness No other new symptoms Review of Systems Review of Systems: all noted and negative except for above Physical Exam Physical Exam: General- oriented x 3, not in distress, speaks in sentences with no effort or accessory muscle use Head- atraumatic Eyes- PERRL, EOMI, anicteric ENT- oropharynx clear Neck- supple, no JVD, no adenopathy, no thyromegaly; carotids +2/2, no bruits appreciated Lungs- clear to auscultation bilaterally, no rales/wheezes Heart- normal rate, regular rhythm; no murmur, no gallop, no rub appreciated Abdomen- normal bowel sounds, nondistended, soft, nontender, no masses or hepatosplenomegaly Extremities- no pretibial edema, no calf tenderness; peripheral pulses intact Right lower extremity: Heavy dressing in place, no bleeding or discharge Mild surrounding edema, but no warmth, no tenderness Neuro- alert, oriented x 3; CN 2-12 grossly intact; motor 5/5 bilaterally;sensation 100% on all extremities; no other gross focal neurologic deficits Skin- warm & dry Results & Data Results & Data Vital Signs (Past 12 Hours) Vital Signs Temp Pulse Resp BP Pulse Ox O2 Del Method 05/25/23 15:11 36.7 C 65 16 140/74 99 Room Air 05/25/23 07:16 36.6 C 72 18 133/73 93 Room Air all noted and reviewed including below
[2023-05-25] MEDS: ARIPiprazole 5 MG TAB PO SCH (19:59)
[2023-05-25] MEDS: traMADol HCL 50 MG TABLET PO PRN (20:04)
[2023-05-26] MEDS: traMADol HCL 50 MG TABLET PO PRN ×2 (03:24→20:27)
[2023-05-26] MEDS: metroNIDAZOLE 500 MG TAB PO SCH ×3 (07:53→20:28)
[2023-05-26] MEDS: ADVANCED PROBIOTIC 1250 MG CAPSULE PO SCH (07:53)
[2023-05-26] MEDS: CIPROFLOXACIN 500 MG TAB PO SCH ×2 (07:53→20:28)
[2023-05-26] MEDS: PANTOprazole 40 MG TAB PO SCH (07:53)
[2023-05-26] MEDS: DOXYCYCLINE HYCLATE 100 MG CAP PO SCH (07:53)
[2023-05-26] MEDS: ENOXAPARIN INJ 40 MG/0.4 ML SYR SQ SCH (07:53)
[2023-05-26] MEDS: ACETAMINOPHEN 325 MG TAB PO PRN (09:45)
[2023-05-26 10:13] LABS: BUN Creatinine Ratio 21.5 (10-20); Calcium 8.5 mg/dl (8.6-10.3); Creatinine Clr Calc Pharmacy 61.8 ml/min; Est GFR (Non-African American) 53.5 ml/min; Potassium 4.2 mmol/L (3.5-5.1)
--- NOTE | 2023-05-26 18:48 | Hospitalist Progress Note ---
Date of Service May 26, 2023 Assessment & Plan (1) Cellulitis of right lower extremity: (2) Leg wound, right: (3) Schizotypal personality disorder: (4) Anemia: Plan per Dr. Diaz's notes with addendum: Recurrent Right leg wound Venous stasis ulcer of ankle H/O stasis dermatitis H/O MRSA, group G beta strep, Wohlfahrtiimonas on prior wound cultures --LE CT:Severe subcutaneous edema and skin irregularity, consistent with cellulitis. These findings preferentially involve the lower calf and ankle. No fluid collection or abscess. No subcutaneous air. --Venous Doppler:No acute findings in the right lower extremity veins. --LE MRI:No evidence for acute osteomyelitis within the right tibia or fibula. Extensive right lower leg and ankle soft tissue swelling. This could reflect cellulitis or edema. No rim-enhancing fluid collection to suggest abscess. --Arterial Doppler:There is no sonographic evidence of high-grade stenosis or focal vessel cut off throughout the arteries of the right lower extremity. -- Blood cultures negative Wound cultures : +Pseudomonas --S/P bedside wound debridement by Dr. Lambert / plastic surg. w/wound care - on 05/16/2023 , 05/18/23 and 05/20/23, 05/23 and 05/24 -- Postdebridement wound cultures growing gram-negative bacilli - Citrobacter freundii, and Proteus mirabilis, and Staph - MRSA (discussed w/ ID Dr. Rush - 05/19/23 and 05/20). Also growing Eggerthella lenta (05/23) and metronidazole star rudy. --Continued doxycycline, cefepime>> patient refused IV access so transitioned to p.o. antibiotics as below Appreciate orthopedics, surgery input: No surgical intervention suggested Appreciate ID input: Discussed with on 05/16/23: Advised to transition cefepime, doxycycline to ciprofloxacin, Keflex Discussed w/ Dr. Rush after culx back - cont. w/ cipro + doxy Continue wound care Appreciate plastic surgery help Plan to discharge once cultures finalized and plan for wound care established Needs follow-up with wound clinic upon discharge - recommend pt is placed so that wound care is adequate 05/23 another bacteria identified on wound culture Eggerthella lenta - metronidazole started. Patient also underwent limited debridement today again with plastic surgery/wound care. 05/24 patient underwent another debridement by plastic surgery/wound care. Patient in need of aggressive wound care, recommend dressing changes twice a day. Ideally patient discharged to [facility]. CM involved. 05/25 We will check wound under the dressing tomorrow with dressing change Continue Cipro, Doxy, Flagyl p.o. Continue probiotics Continue daily wound care oracle manager working on transitioning patient to shelter facility 05/26 Stable overall Continue Cipro plus Doxy plus Flagyl Daily wound care Schizotypal personality disorder Noncompliant with Abilify treatment Stable at this time Continue Abilify GERD Continue Protonix Chronic anemia Hb at baseline Monitor CBC Functional disability likely secondary to psychiatric disorder Past tobacco abuse PT OT evaluation DVT Px: Lovenox SQ Code Status Full code Disposition Transition to shelter facility when accepted plan of care discussed with patient in detail and at length all questions answered he is understanding, agreeable, comfortable with the plan of care Admission and Anticipated Discharge Date Admission Date: May 11, 2023 Subjective Follow-up for right lower extremity wound infection, etc. Seen sitting up in bed, comfortable, not in distress, States he feels fine overall Minimal discomfort over the wound site no chest pain, dyspnea, palpitations, dizziness No fevers or chills No other symptoms Review of Systems Review of Systems: all noted and negative except for above Physical Exam Physical Exam: General- oriented x 3, not in distress, speaks in sentences with no effort or accessory muscle use Eyes- anicteric Neck- no JVD Lungs- clear BS BL Heart- normal rate, regular rhythm; no murmurs Abdomen- normal bowel sounds, nondistended, soft, no tenderness Extremities-left lower extremity: No pretibial edema, no calf tenderness Right lower extremity: Large open wound on the distal lower leg-granulation tissue noted, surrounding mild erythema, no warmth, no tenderness Neuro- alert, oriented x 3; no gross focal neurologic deficits Skin- warm & dry Results & Data Results & Data Vital Signs (Past 12 Hours) Vital Signs Temp Pulse Resp BP Pulse Ox O2 Del Method 05/26/23 16:01 36.7 C 75 16 139/78 100 Room Air 05/26/23 07:57 36.9 C 14 123/81 93 Room Air all noted and reviewed including below
[2023-05-26] MEDS: ARIPiprazole 5 MG TAB PO SCH (20:29)
[2023-05-27] MEDS: CIPROFLOXACIN 500 MG TAB PO SCH (08:04)
[2023-05-27] MEDS: ENOXAPARIN INJ 40 MG/0.4 ML SYR SQ SCH (08:04)
[2023-05-27] MEDS: PANTOprazole 40 MG TAB PO SCH (08:05)
[2023-05-27] MEDS: metroNIDAZOLE 500 MG TAB PO SCH ×2 (08:05→13:22)
[2023-05-27] MEDS: ADVANCED PROBIOTIC 1250 MG CAPSULE PO SCH (08:05)
[2023-05-27] MEDS: ACETAMINOPHEN 325 MG TAB PO PRN (12:55)
--- NOTE | 2023-05-27 15:38 | Hospitalist Progress Note ---
Date of Service May 27, 2023 Assessment & Plan (1) Cellulitis of right lower extremity: (2) Leg wound, right: (3) Schizotypal personality disorder: (4) Anemia: Plan per Dr. Diaz's notes with addendum: Recurrent Right leg wound Venous stasis ulcer of ankle H/O stasis dermatitis H/O MRSA, group G beta strep, Wohlfahrtiimonas on prior wound cultures --LE CT:Severe subcutaneous edema and skin irregularity, consistent with cellulitis. These findings preferentially involve the lower calf and ankle. No fluid collection or abscess. No subcutaneous air. --Venous Doppler:No acute findings in the right lower extremity veins. --LE MRI:No evidence for acute osteomyelitis within the right tibia or fibula. Extensive right lower leg and ankle soft tissue swelling. This could reflect cellulitis or edema. No rim-enhancing fluid collection to suggest abscess. --Arterial Doppler:There is no sonographic evidence of high-grade stenosis or focal vessel cut off throughout the arteries of the right lower extremity. -- Blood cultures negative Wound cultures : +Pseudomonas --S/P bedside wound debridement by Dr. Lambert / plastic surg. w/wound care - on 05/16/2023 , 05/18/23 and 05/20/23, 05/23 and 05/24 -- Postdebridement wound cultures growing gram-negative bacilli - Citrobacter freundii, and Proteus mirabilis, and Staph - MRSA (discussed w/ ID Dr. Rush - 05/19/23 and 05/20). Also growing Eggerthella lenta (05/23) and metronidazole started. Appreciate orthopedics, surgery input: No surgical intervention suggested ID consulted, multiple discussions held with all specialists Discussed w/ Dr. Rush after culx back - cont. w/ cipro + doxy Patient in need of aggressive wound care, recommend dressing changes twice a day Patient completed 2-week course of ciprofloxacin Patient to continue doxycycline 100 mg twice daily x5 more days, and Flagyl x5 more days Continue probiotics Continue daily wound care Transition to group home facility Schizotypal personality disorder Noncompliant with Abilify treatment Stable at this time Continue Abilify GERD Continue Protonix Chronic anemia Hb at baseline Monitor CBC Functional disability likely secondary to psychiatric disorder Past tobacco abuse PT OT evaluation DVT Px: Lovenox SQ Code Status Full code Disposition Transition to group home facility Follow-up with [facility] care center in 1 week Admission and Anticipated Discharge Date Admission Date: May 11, 2023 Subjective Follow-up for right lower extremity wound, etc. Seen resting at the edge of the bed, comfortable, in good spirits States he feels fine overall Minimal pain over the wound site No fevers or chills No any other symptoms Review of Systems Review of Systems: all noted and negative except for above Physical Exam Physical Exam: General- oriented x 3, not in distress, speaks in sentences with no effort or accessory muscle use Eyes- anicteric Neck- no JVD Lungs- clear breath sounds bilaterally, no wheezing no crackles Heart- normal rate, regular rhythm; no murmurs Abdomen- normal bowel sounds, nondistended, soft, nontender Extremities- no pretibial edema, no calf tenderness Right lower extremity: Wound site with heavy dressing in place, no bleeding or discharge, minimal surrounding erythema Neuro- alert, oriented x 3; no gross focal neurologic deficits Skin- warm & dry Results & Data Results & Data Vital Signs (Past 12 Hours) Vital Signs Temp Pulse Resp BP Pulse Ox O2 Del Method 05/27/23 08:11 36.6 C 76 14 149/77 H 97 Room Air all noted and reviewed including below
--- NOTE | 2023-05-27 15:52 | Discharge Summary ---
Discharge Summary Date of Service May 27, 2023 Notes For Next Care Provider Medication Changes From Visit Doxycycline 100 mg p.o. twice daily x5 days Flagyl 5 mg 3 times daily x5 days Admission HPI Per Admitting Provider Patient is 57-year-old male with PMH chronic right leg wound, schizotypical personality disorder presented to the ER with complaint of worsening appearance of right leg wound. Patient is very poor historian and has tangential thoughts and history is difficult to obtain. Per chart review patient with recent hospitalization January 2023 for RLE cellulitis. At that time MRI was without acute osteomyelitis. Had punch biopsy by general surgeon with results of stasis dermatitis with hemosiderin deposition. Was treated with IV antibiotics. He was also noted to have anemia and was given 3 units PRBC transfusion. GI was consulted and no endoscopy was recommended, and anemia was thought secondary to bleeding from wound with possible underlying GI source secondary to patient's ibuprofen use. Patient states presented to ER today secondary to increased drainage from right lower extremity wound. He states it has been draining yellow fluid for the past week. He feels for the past 2 to 3 weeks has had increased redness around wound. He also reports increased discomfort to right lower leg. He states he has been wrapping wound with gauze and a "surgical dressing". Patient previously was at [facility] after last admission. He is unsure when he was discharged from [facility]. Patient reports currently is residing at the [facility]. Patient keeps referring to as "we" live at the [facility] however he does not describe if anyone else is living with him. Patient admits that he has not been taking any prescription medication. He denies any recent follow-up. He states he has been using 2 ibuprofen daily the past several days secondary to right lower extremity pain. Denies fever/chills, diaphoresis, N/V/D/C, ROSAS, dizziness, syncope, CP, SOB, orthopnea, palpitations, cough, sore throat, rhinorrhea, abdominal pain, paresthesias, weakness, extremity edema, rashes, urinary symptoms. Admission Exam Per Admitting Provider General: no acute distress, WDWN Head: normocephalic, atraumatic Eyes: conjunctiva non-injected, anicteric ENT: normal inspection external ears, nose, mucous membranes moist Neck: supple, trachea midline Lungs: clear, no respiratory distress, no wheezing/rhonchi/rales CV: RRR, + murmur, no pretibial edema Abd: normal BS, soft, non-tender Ext: no cyanosis; RLE: +extensive wound with slough to right lower leg that is circumferential with yellow drainage, +surrounding erythema and edema, +tender to palpation, right medial aspect great toe with ulcer without drainage, + dorsalis pedis pulse with doppler Neuro: Alert, oriented to person, place and year. +tangential thoughts, no focal deficits noted Skin: warm, dry Principal Dx & Hospital Course #1 = Principal Diagnosis (1) Cellulitis of right lower extremity: (2) Leg wound, right: (3) Schizotypal personality disorder: (4) Anemia: Plan per Dr. Diaz's notes with addendum: Recurrent Right leg wound Venous stasis ulcer of ankle H/O stasis dermatitis H/O MRSA, group G beta strep, Wohlfahrtiimonas on prior wound cultures --LE CT:Severe subcutaneous edema and skin irregularity, consistent with cellulitis. These findings preferentially involve the lower calf and ankle. No fluid collection or abscess. No subcutaneous air. --Venous Doppler:No acute findings in the right lower extremity veins. --LE MRI:No evidence for acute osteomyelitis within the right tibia or fibula. Extensive right lower leg and ankle soft tissue swelling. This could reflect cellulitis or edema. No rim-enhancing fluid collection to suggest abscess. --Arterial Doppler:There is no sonographic evidence of high-grade stenosis or focal vessel cut off throughout the arteries of the right lower extremity. -- Blood cultures negative Wound cultures : +Pseudomonas --S/P bedside wound debridement by Dr. Lambert / plastic surg. w/wound care - on 05/16/2023 , 05/18/23 and 05/20/23, 05/23 and 05/24 -- Postdebridement wound cultures growing gram-negative bacilli - Citrobacter freundii, and Proteus mirabilis, and Staph - MRSA (discussed w/ ID Dr. Rush - 05/19/23 and 05/20). Also growing Eggerthella lenta (05/23) and metronidazole started. Appreciate orthopedics, surgery input: No surgical intervention suggested ID consulted, multiple discussions held with all specialists Patient in need of aggressive wound care, recommend dressing changes twice a day Patient completed 2-week course of ciprofloxacin Patient to continue doxycycline 100 mg twice daily x5 more days, and Flagyl x5 more days Continue probiotics Continue daily wound care Transition to care home facility Schizotypal personality disorder Noncompliant with Abilify treatment Stable at this time Continue Abilify GERD Continue Protonix Chronic anemia Hb at baseline Monitor CBC Functional disability likely secondary to psychiatric disorder Past tobacco abuse PT OT evaluation DVT Px: Lovenox SQ Code Status Full code Disposition Transition to care home facility Follow-up with [facility] wound care center in 1 week Discharge Exam General- oriented x 3, not in distress, speaks in sentences with no effort or accessory muscle use Eyes- anicteric Neck- no JVD Lungs- clear breath sounds bilaterally, no wheezing no crackles Heart- normal rate, regular rhythm; no murmurs Abdomen- normal bowel sounds, nondistended, soft, nontender Extremities- no pretibial edema, no calf tenderness Right lower extremity: Wound site with heavy dressing in place, no bleeding or discharge, minimal surrounding erythema Neuro- alert, oriented x 3; no gross focal neurologic deficits Skin- warm & dry Updated Medication List Medication Instructions Recorded Confirmed Type tramadol 50 mg tablet 25 mg PO Q6H PRN pain #14 tabs 02/10/23 05/11/23 Rx aripiprazole 5 mg tablet 5 mg PO HS 05/11/23 05/11/23 History pantoprazole 40 mg tablet,delayed 40 mg PO DIRECTED 05/11/23 05/11/23 History release doxycycline hyclate 100 mg capsule 100 mg PO BID 5 days #10 caps 05/27/23 Rx metronidazole 500 mg tablet 500 mg PO TID 5 days #15 tabs 05/27/23 Rx Hospital Stay Data Consultations 05/11/23 20:19 ED Decision to Admit Stat 05/12/23 00:18 Consult Orthopedic Surgery Routine 05/12/23 15:39 Consult Infectious Diseases Routine 05/16/23 08:00 Consult Plastic Surgery Routine Diagnostic Imagining Performed 05/11/23 21:45 CT tib/fib RT w con Stat US venous doppler LE RT Stat COMPARISON: No relevant prior studies available. FINDINGS: Bones/joints: No acute fracture. No dislocation. No CT evidence of osteomyelitis. Soft tissues: Severe subcutaneous edema and skin irregularity, consistent with cellulitis. These findings preferentially involve the lower calf and ankle No fluid collection or abscess. No subcutaneous air. No edema or infection involving the compartments of the calf. IMPRESSION: Severe subcutaneous edema and skin irregularity, consistent with cellulitis. These findings preferentially involve the lower calf and ankle No fluid collection or abscess. No subcutaneous air. 05/12/23 06:09 MRI Leg [MR lower leg RT wo/w con] Urgent COMPARISON STUDY: MRI of the right lower leg January 29, 2023. CT of the right tibia and fibula May 11, 2023. TECHNIQUE: Utilizing a 1.5 Marielena magnet and dedicated coil, multiplanar, multiecho imaging of the right lower leg was performed pre and postcontrast administration. Intravenous injection of 9 cc of Gadavist was uneventful. FINDINGS: No marrow edema within the right tibia or fibula is present. There is no fracture within the right tibia or fibula. No suspicious marrow replacement is present. Note is made of extensive subcutaneous edema of the right lower leg and ankle. This has increased since compared to MRI of January 29, 2023. No fluid collection is identified to suggest an abscess. There is no soft tissue gas by MRI. No gas was shown on the CT performed on May 11, 2023. Mild increased T2 signal within the musculature of the right lower leg has slightly decreased when compared to prior exam. The Achilles tendon is intact. Flexor and extensor tendons appear intact. Peroneal tendons are intact. IMPRESSION: 1. No evidence for acute osteomyelitis within the right tibia or fibula. 2. Extensive right lower leg and ankle soft tissue swelling. This could reflect cellulitis or edema. No rim-enhancing fluid collection to suggest abscess. ACT 112: Negative or not required by law. 05/12/23 11:50 US arterial duplex LE RT Urgent FINDINGS: Atherosclerotic plaque and irregularity is seen throughout the arteries of the right lower extremity. There are triphasic arterial waveforms in the common femoral artery with velocities measuring up to 174 cm/s. The profunda femoris artery is patent with velocities measuring up to 76 cm/s. There are triphasic arterial waveforms throughout the superficial femoral artery with velocities measuring up to 155 cm/s. There are [id number] waveforms in the popliteal artery with velocities measuring up to 127 cm/s. There is th ree-vessel runoff to the foot. Velocities within the calf arteries measure up to 127 cm/s. The dorsalis pedis artery is patent with velocities measuring up to 67 cm/s. IMPRESSION: There is no sonographic evidence of high-grade stenosis or focal vessel cut off throughout the arteries of the right lower extremity. Pending Results Patient Have Any Pending Studies at Discharge: No Discharge Instructions Given to Patient (Per Discharging Provider) Please refer to accompanying hospital discharge summary for full details. Cleanse wound site with Dakin solution and wrapped with dressings twice a day. Clean and dry wound. Cover only open area on the right leg with Dakin solutions moistened wet 4 x 4's, then covered with dry ABDs and Kerlix Keep moistened gauze off the good tissue. Change dressings twice daily and if covered dressings become too wet. Do not allow wet dressings remain in place, changed them to right first toe/met head-clean with saline. Cover with OPTi foam Follow-up with [facility] wound clinic in 1 week. Total Time Total Time Spent Total Time Spent (In Minutes): >30 minutes
[2023-05-27] MEDS: traMADol HCL 50 MG TABLET PO PRN (16:15)
--- NOTE | 2023-05-29 11:04 | Coding Query ---
DEBRIDEMENT DOCUMENTATION To promote full compliance with coding requirements relating to patient care, physician participation is requested in all cases of weight loss centre manager uncertainty. Please assist us with the question(s) below: Please place an X in the parenthesis (x). If other, please document the finding: Type of Debridement: ( x) Excisional Debridement- Cutting away necrotic, devitalized tissue or slough to the level of viable tissue using a sharp instrument (i.e. scalpel, scissors, etc.) ( ) Non Excisional Debridement- The removal of necrotic, devitalized tissue or slough by means of scraping, mechanical brushing, flushing, or washing (i.e. irrigation,whirlpool);minor removal of loose fragments. ( ) Other (please specify): Instrument Used: (x ) Scissors ( ) Scalpel ( ) Curette ( ) Other (please specify): Depth of Debridement: ( ) Skin ( ) Skin and Subcutaneous Tissue (x ) Skin, Subcutaneous Tissue and Muscle ( ) Skin, Subcutaneous Tissue, Muscle and Bone ( ) Other (please specify): Please Specify the Size of Debridement in cm2: 18x26 cm Thank you Priya ESPINAL
--- NOTE | 2023-05-29 11:07 | Coding Query ---
To promote full compliance with coding requirements relating to patient care, physician participation is requested in all cases of gold buyer uncertainty. Please assist us with the question(s) below: Please specify the known or suspected type by placing an "X" within the parenthesis (x). A venous stasis ulcer of (right ankle) If possible, please check the box that provides the specific stage of the venous stasis ulcer ( x) limited to breakdown of skin ( ) with fat layer exposed ( ) with necrosis of muscle ( ) with necrosis of bone ( ) with muscle involvement without evidence of necrosis ( ) with bone involvement without evidence of necrosis ( ) with other specified severity ( ) with unspecified severity Thank you Priya ESPINAL
== END 2023-05-27 16:35 | DRG 580 ==
LOC: ED 18:49 → SUATTDRO 21:52 → 3W 21:52

== ENCOUNTER 2024-08-20 19:25 | Observation (INO) ==
[2024-08-20 20:16] LABS: Basophils # (auto) 0.09 K/uL (0.00-0.20); Basophils % (auto) 0.8 %; Eosinophils # (auto) 0.73 K/uL (0.00-0.50); Eosinophils % (auto) 6.4 %; Hemoglobin 9.1 g/dl (14.0-18.0); Immature Granulocytes # (auto) 0.06 K/uL (0.01-0.20); Immature Granulocytes % (auto) 0.5 %; Lymphocytes # (auto) 2.78 K/uL (1.20-3.40); Lymphocytes % (auto) 24.3 %; Mean Corpuscular Hemoglobin 23.4 pg (25.0-34.0); Mean Corpuscular Hgb Conc 30.3 g/dL (32.0-36.0); Mean Corpuscular Volume 77.1 fL (80.0-100.0); Mean Platelet Volume 9.4 fL (9.4-12.4); Monocytes # (auto) 0.84 K/uL (0.11-0.59); Monocytes % (auto) 7.3 %; Neutrophils # (auto) 6.94 K/uL (1.40-6.50); Neutrophils % (auto) 60.7 %; Platelet Count 478 K/uL (130-400); RDW Coefficient of Variation 16.2 % (11.5-14.5); RDW Standard Deviation 45.2 fL (36.4-46.3); Red Blood Count 3.89 M/uL (4.70-6.10); White Blood Count 11.44 K/ul (4.8-10.8)
[2024-08-20 20:31] LABS: Albumin Globulin Ratio 1.1 (0.9-2); Albumin Level 3.6 gm/dl (3.4-5.0); BUN Creatinine Ratio 22.6 (10-20); Bilirubin,Total 0.2 mg/dl (0.2-1.0); Calcium 8.2 mg/dl (8.6-10.3); Creatinine Clr Calc Pharmacy 68.2 ml/min; Globulin 3.3 gm/dl (2.5-4.0); Potassium 3.8 mmol/L (3.5-5.1); Total Protein 6.9 gm/dl (6.0-8.3)
[2024-08-20] MEDS ORDERED: VANCOMYCIN CONSULT ACTIVE PRN (21:41)
--- NOTE | 2024-08-20 21:44 | Emergency Department Note ---
History of Present Illness General Chief complaint: Infection, Wound Stated complaint: RT ANKLE WOUND WITH PAIN, SMELL, AND DRAINAGE Time Seen by Provider: 08/20/24 21:32 History of Present Illness This is a 58-year-old male presenting to the emergency department for evaluation of drainage and discharge from a right lower leg wound. Patient has had this wound for some time, and it has begun worsening over the past several days. He has tried to use bandages at home but is sleeping through the bandages. He does not know if he has had a fever. He rates his discomfort a 3/10. He has been hospitalized for this wound within the past, and states that it was almost healed his last hospitalization, which was last year. Home Medications Medication Instructions Recorded Confirmed Type acetaminophen 500 mg tablet 1,000 mg PO Q6 PRN Pain 08/20/24 08/20/24 History (Tylenol Extra Strength) ibuprofen 200 mg tablet 400 - 800 mg PO Q6H PRN Pain 08/20/24 08/20/24 History Allergies Allergy/AdvReac Type Severity Reaction Status Date / Time bee venom protein (honey bee) Allergy Severe FACIAL Verified 08/20/24 22:05 SWELLING Penicillins Allergy Severe Anaphylaxis Verified 08/20/24 22:05 Past Med/Surg History Problem List (Updated 08/21/24 @ 01:02 by Bobby Salazar PA-C) Cellulitis of right leg (Acute) Anemia (Acute) Wound infection (Acute) Leg wound, right (Acute) Schizotypal personality disorder Anemia (Acute) Cellulitis of right lower extremity chronic cellulitis on right low leg Sepsis (Acute) ALPHONSO (acute kidney injury) (Acute) Melena Anemia Mood disorder Venous stasis ulcer of ankle Renal insufficiency Wound cellulitis (Acute) Hyperglycemia (Acute) Heart murmur Surgical History No pertinent past surgical history Family History Other No pertinent family history Social History Smoking Status: Never smoker Second Hand Exposure: No; Do You Dip or Chew Tobacco: No; Hx Alcohol Use: No Hx Substance Use: No Preferred Language: Mongolian 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 Ability: Effective Naturalist Required: No Beliefs That Will Affect Care: None marital status: Single Current Living Situation: Alone Current Living Situation Comment: living in a hotel Feels Safe at Home: Yes Assistive Devices: None Review of Systems A total of 10 systems reviewed and were otherwise negative Physical Exam Vital Signs Vital Signs - 24 hr 08/20/24 19:30 Temperature 36.8 C Temperature Source Temporal Artery Scan Pulse Rate 97 H Respiratory Rate 18 Respiratory Effort / Characteristics Non-Labored Spontaneous Respiratory Depth Normal Respiratory Pattern Regular Blood Pressure 188/93 H Blood Pressure Mean 124 Pulse Oximetry 99 Oxygen Delivery Method Room Air Sepsis Recent Fever Within 48 Hours No Sepsis New/Unexplained Change in Mental Status No Sepsis Action Taken by Nursing No Action Required VITALS: Vitals are noted on the nurse's note and reviewed by myself. Vital signs stable. GENERAL: Well-developed, well-nourished, white male, who is in no acute distress and resting comfortably. Patient is cooperative with the examination. HEAD: Normocephalic atraumatic. HEART: Regular rate and rhythm without murmurs gallops or rubs. LUNGS: Clear to auscultation bilaterally without wheezes, rales or rhonchi. No retractions or accessory muscle use. MUSCULOSKELETAL: There is significant and notable wound noted to the right lower extremity. This is circumferential and essentially looks like desquamation of the top layer of skin. The underlying tissue is beefy red with straw-colored discharge. No obvious abscess is identified. Neurovascular status is intact distally. No obvious abscess. There does appear to be old batting/bandage material throughout the wound as well. NEURO: Patient was alert and oriented to person place and time. CN II through XII grossly intact. Course Administered Medications Discontinued Medications Vancomycin HCl 2,000 mg/ (Sodium Chloride) 540 mls @ 200 mls/hr IV NOW ONE Stop: 08/21/24 00:22 Last Admin: 08/21/24 00:52 Dose: 200 mls/hr Documented By: RUTHIE Clindamycin Phosphate (Cleocin/D5w) 600 mg in 50 mls @ 100 mls/hr IV NOW ONE Stop: 08/20/24 22:10 Last Infusion: 08/21/24 00:52 Dose: Infused Documented By: Admin: 08/21/24 00:10 Dose: 100 mls/hr Documented By: RUTHIE Cefepime HCl (Maxipime 2000mg) 2,000 mg in 20 mls @ 5 mls/min IV NOW STA; Protocol Stop: 08/20/24 21:44 Last Admin: 08/20/24 23:37 Dose: 5 mls/min Documented By: RUTHIE Metronidazole (Flagyl) 500 mg in 100 mls @ 100 mls/hr IV NOW STA; Protocol Stop: 08/20/24 23:31 Last Infusion: 08/21/24 00:52 Dose: Infused Documented By: Admin: 08/20/24 23:47 Dose: 100 mls/hr Documented By: RUTHIE Ioversol (Optiray 320 100ml) 92 ml IV ONCE ONE Stop: 08/20/24 23:01 Last Admin: 08/20/24 23:00 Dose: 92 ml Documented By: YUSRA Lisinopril (Lisinopril 2.5 Mg Tab) 2.5 mg PO NOW STA Stop: 08/20/24 22:15 Last Admin: 08/20/24 23:36 Dose: 2.5 mg Documented By: RUTHIE Medical Decision Making Differential Diagnosis Differential diagnosis includes: Etiologies such as cellulitis, abscess, osteomyelitis, MRSA infection, DVT, necrotizing fasciitis, dermatitis, drug eruption, as well as others were entertained Laboratory Data 08/20/24 20:00 08/20/24 20:00 Lab Results 08/20/24 Range/Units 20:00 WBC 11.44 H (4.8-10.8) K/ul RBC 3.89 L (4.70-6.10) M/uL Hgb 9.1 L (14.0-18.0) g/dl Hct 30.0 L (42.0-52.0) % MCV 77.1 L (80.0-100.0) fL MCH 23.4 L (25.0-34.0) pg MCHC 30.3 L (32.0-36.0) g/dL RDW Std Deviation 45.2 (36.4-46.3) fL RDW Coeff of Stewart 16.2 H (11.5-14.5) % Plt Count 478 H (130-400) K/uL MPV 9.4 (9.4-12.4) fL Immature Gran % (Auto) 0.5 % Neut % (Auto) 60.7 % Lymph % (Auto) 24.3 % [place] % (Auto) 7.3 % Eos % (Auto) 6.4 % Baso % (Auto) 0.8 % Neut # (Auto) 6.94 H (1.40-6.50) K/uL Lymph # (Auto) 2.78 (1.20-3.40) K/uL [place] # (Auto) 0.84 H (0.11-0.59) K/uL Eos # (Auto) 0.73 H (0.00-0.50) K/uL Baso # (Auto) 0.09 (0.00-0.20) K/uL Immature Gran # (Auto) 0.06 (0.01-0.20) K/uL Sodium 137 (136-145) mmol/L Potassium 3.8 (3.5-5.1) mmol/L Chloride 108 H (98-107) mmol/L Carbon Dioxide 21 (21-32) mmol/L Anion Gap 8 (3-11) BUN 31 H (6-23) mg/dl Creatinine 1.37 (0.6-1.4) mg/dl Est Cr Clr Drug Dosing 68.2 ml/min eGFR 59.79 BUN/Creatinine Ratio 22.6 H (10-20) Glucose 100 H (70-99(Fasting)) mg/dl Calcium 8.2 L (8.6-10.3) mg/dl Total Bilirubin 0.2 (0.2-1.0) mg/dl AST 13 (13-39) U/L ALT 15 (7-52) U/L Alkaline Phosphatase 66 (34-104) U/L Total Creatine Kinase 111 (30-223) U/L Total Protein 6.9 (6.0-8.3) gm/dl Albumin 3.6 (3.4-5.0) gm/dl Globulin 3.3 (2.5-4.0) gm/dl Albumin/Globulin Ratio 1.1 (0.9-2) MDM Narrative Physical exam and history were performed. Nursing notes, EMR, and Medication List were personally reviewed. No social concerns were identified as barriers to patients care. Patient appears to have a fairly large wound on his right lower leg. I did review the medical record and patient has had multiple bacterial infections of this wound over the past year. Several of these are atypical in nature. IV access was established and labs were obtained. Surface culture was performed. Patient's blood work is as above and was reviewed. He does have a slightly elevated white count of 11,000. He is anemic at 9.1, however some of this seems chronic. He does not have significant transaminitis. Overall the patient does not appear well for discharge. Treating his wound will certainly be quite challenging, and I did review previous antibiotic regimens. He was started on vancomycin, cefepime, and clindamycin here in the ER. Escalation of care is felt to be necessary, and case was discussed with the on- call hospitalist who agreed to evaluate the patient here in the ER. Please see their dictation for further patient course, plan, disposition. The chart was completed utilizing [employer] Voice Recognition Software. Grammatical errors, random word insertions, pronoun errors, and incomplete sentences are an occasional consequence of this system due to software limitations, ambient noise, and hardware issues. Any formal questions or concerns about the content, text, or information contained within the body of this dictation should be directly addressed to the provider for clarification. Impression & Plan Leg wound, right, Cellulitis of right leg Discharge Plan Visit Data Chief Complaint: Infection, Wound Stated Complaint: RT ANKLE WOUND WITH PAIN, SMELL, AND DRAINAGE ED Provider: Del Plunkett ED Midlevel Provider: Bobby Salazar Discharge Problem: Leg wound, right, Cellulitis of right leg Forms Stand Alone Forms: [facility] [employer] Prescriptions Prescriptions: No Action acetaminophen [Tylenol Extra Strength] 500 mg Tablet 1,000 mg PO Q6 PRN (Reason: Pain) ibuprofen 200 mg Tablet 400 - 800 mg PO Q6H PRN (Reason: Pain) Referrals Referrals: Elkin Navarrete MD [Primary Care Provider] -
[2024-08-20] MEDS: OPTIRAY 320 100ml IV ONE (23:00)
[2024-08-20] MEDS: lisinopril 2.5 MG TAB PO STA (23:36)
[2024-08-20] MEDS: CEFEPIME 2000MG 2,000 MG/20 ML SYR IV STA (23:37)
[2024-08-20] MEDS: metroNIDAZOLE 500 MG/100 ML BAG IV STA (23:47)
[2024-08-21] MEDS: CLINDAMYCIN/D5W 600 MG/50 ML BAG IV ONE (00:10)
[2024-08-21] MEDS: VANCOMYCIN HCL 2,000 MG in SODIUM CHLORIDE 0.9% 500 ML IV ONE (00:52)
--- NOTE | 2024-08-21 01:24 | CT Scan Report ---
Exam(s): CT RIGHT FOOT With Contrast IV Amt: 92ml optiray 320 EXAM: CT Right Lower Extremity With Intravenous Contrast, Foot CLINICAL HISTORY: Reason for exam: swelling. TECHNIQUE: Axial computed tomography images of the right foot with intravenous contrast. CTDI is 24.91 mGy and DLP is 1376.72 mGy-cm. Automated exposure control was utilized for the study. A dose lowering technique was utilized adhering to the principles of ALARA. CONTRAST: Patient received 92ml optiray 320 of IV contrast COMPARISON: No relevant prior studies available. FINDINGS: Bones/joints: Diffuse osseous demineralization. No acute fracture. No dislocation. Soft tissues: Moderate soft tissue swelling about the ankle and the dorsum of the foot. Mild skin irregularity, correlate for cellulitis or skin ulcerations. Atrophy of the foot musculature, likely from diabetes. No radiopaque foreign body. No fluid collection, abscess, or subcutaneous air. IMPRESSION: 1. No fluid collection, abscess, or subcutaneous air. 2. Moderate soft tissue swelling about the ankle and the dorsum of the foot. Mild skin irregularity, correlate for cellulitis or skin ulcerations. Electronically signed by: Tye Rodriguez MD 08/21/24 01:23 AM
--- NOTE | 2024-08-21 01:38 | History & Physical Report ---
Date of Service August 21, 2024 Assessment & Plan (1) Cellulitis of right leg: Plan: Worsening chronic RLE (right lower leg and right proximal foot) wound infection chronic RLE stasis dermatitis Patient noncompliance owing to his personality disorder likely contributory to recurrent/incompletely healing chronic RLE wound infections Possible sepsis Rule out osteomyelitis Rule out DVT Hypertensive urgency Likely chronic BP elevation given LVH on TTE from last year chronic anemia, hemoglobin at baseline GERD, not on maintenance medications history of MRSA past tobacco abuse Admit to [facility], daptomycin, cefepime, Flagyl MRI RLE/right foot LE venous Dopplers rule out DVT Orthopedics consult re: RLE wound infection (Patient known to. [facility] from last year's consultation.) Initiate lisinopril PT OT eval once medically stable DVT prophylaxis. SCDs re: episodic RLE bleeding wounds Full code Text document was generated using [employer] voice recognition software. It may contain grammatical or spelling errors. Kindly contact undersigned for clarification of any documentation item in question. History of Present Illness Chief Complaint: Worsening right leg wound/drainage Primary Care Provider: Elkin Navarrete MD History obtained from patient and records. Medical history significant for schizotypal personality disorder, chronic RLE stasis dermatitis, chronic anemia (baseline hemoglobin of 9), GERD, history of MRSA, medication noncompliance as per records, past tobacco abuse. Patient has had chronic RLE swelling/wounds for about 15 years. Punch biopsy from last year showed stasis dermatitis. Last confinement May 2023 for RLE cellulitis/wound infection status postdebridement. No evidence of osteomyelitis on MRI. Pseudomonas on predebridement wound cultures. MRSA, Citrobacter, Proteus, Kevin telemetry length on postdebridement wound Cx. Patient discharged to [facility] for rehab and wound care. Patient has not had follow-up with PCP since discharge from [facility]. Patient noted progressive RLE swelling and bloody/purulent wound drainage over the last 5 months. No consultations done. Denies fever, chills. Denies chest pain, SOB, headache symptoms. SBP 180s upon arrival at the ER. Vancomycin, cefepime, and clindamycin administered at the ER. Medical History as above Surgical History : Knee surgery Family History : DM Personal/Social history : Past tobacco abuse, no EtOH intake, disabled Allergies Allergy/AdvReac Type Severity Reaction Status Date / Time bee venom protein (honey bee) Allergy Severe FACIAL Verified 08/20/24 22:05 SWELLING Penicillins Allergy Severe Anaphylaxis Verified 08/20/24 22:05 Home Medications Medication Instructions Recorded Confirmed Type acetaminophen 500 mg tablet 1,000 mg PO Q6 PRN Pain 08/20/24 08/20/24 History (Tylenol Extra Strength) ibuprofen 200 mg tablet 400 - 800 mg PO Q6H PRN Pain 08/20/24 08/20/24 History Past Med/Surg History Problem List (Updated 08/21/24 @ 01:02 by Bobby Salazar PA-C) Cellulitis of right leg (Acute) Anemia (Acute) Wound infection (Acute) Leg wound, right (Acute) Schizotypal personality disorder Anemia (Acute) Cellulitis of right lower extremity chronic cellulitis on right low leg Sepsis (Acute) ALPHONSO (acute kidney injury) (Acute) Melena Anemia Mood disorder Venous stasis ulcer of ankle Renal insufficiency Wound cellulitis (Acute) Hyperglycemia (Acute) Heart murmur Surgical History No pertinent past surgical history Family History Other No pertinent family history Social History Smoking Status: Never smoker Second Hand Exposure: No; Do You Dip or Chew Tobacco: No; Tobacco Cessation Education Requested by Patient: No Hx Alcohol Use: No Hx Substance Use: No Preferred Language: Norwegian 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 Ability: Effective Idea Worker Required: No Beliefs That Will Affect Care: None marital status: Single Current Living Situation: Alone Current Living Situation Comment: living in a hotel Other Information That Helps Us Care for You: No Feels Safe at Home: Yes Safety Concerns: Feels Safe At This Time Assistive Devices: Cane Review of Systems Review of Systems: As per HPI, all other systems reviewed and negative Physical Exam Physical Exam: GENERAL: Comfortable, obese, unkempt, pallor no respiratory distress SKIN: Normal color, warm HEENT: Partial alopecia, pale palpebral conjunctivae, no ptosis, dry buccal mucosa NECK : Supple, no tenderness CHEST : CTA, no tenderness HEART : RRR, no obvious murmurs ABDOMEN: Some distention, nontender EXTREMITIES : Foul-smelling necrotic wound over erythematous right lower leg and right proximal foot with tenderness, no other conspicuous deformities noted NEUROLOGIC : Coherent, no facial asymmetry, no other gross focality Results & Data Results & Data Vital Signs (Past 12 Hours) Vital Signs Temp Pulse Resp BP Pulse Ox O2 Del Method 08/20/24 19:30 36.8 C 97 H 18 188/93 H 99 Room Air Laboratory Results Laboratory Results WBC 11.44 K/ul (4.8-10.8) H 08/20/24 20:00 RBC 3.89 M/uL (4.70-6.10) L 08/20/24 20:00 Hgb 9.1 g/dl (14.0-18.0) L 08/20/24 20:00 Hct 30.0 % (42.0-52.0) L 08/20/24 20:00 MCV 77.1 fL (80.0-100.0) L 08/20/24 20:00 MCH 23.4 pg (25.0-34.0) L 08/20/24 20:00 MCHC 30.3 g/dL (32.0-36.0) L 08/20/24 20:00 RDW Std Deviation 45.2 fL (36.4-46.3) 08/20/24 20:00 RDW Coeff of Stewart 16.2 % (11.5-14.5) H 08/20/24 20:00 Plt Count 478 K/uL (130-400) H 08/20/24 20:00 MPV 9.4 fL (9.4-12.4) 08/20/24 20:00 Immature Gran % (Auto) 0.5 % 08/20/24 20:00 Neut % (Auto) 60.7 % 08/20/24 20:00 Lymph % (Auto) 24.3 % 08/20/24 20:00 [place] % (Auto) 7.3 % 08/20/24 20:00 Eos % (Auto) 6.4 % 08/20/24 20:00 Baso % (Auto) 0.8 % 08/20/24 20:00 Neut # (Auto) 6.94 K/uL (1.40-6.50) H 08/20/24 20:00 Lymph # (Auto) 2.78 K/uL (1.20-3.40) 08/20/24 20:00 [place] # (Auto) 0.84 K/uL (0.11-0.59) H 08/20/24 20:00 Eos # (Auto) 0.73 K/uL (0.00-0.50) H 08/20/24 20:00 Baso # (Auto) 0.09 K/uL (0.00-0.20) 08/20/24 20:00 Immature Gran # (Auto) 0.06 K/uL (0.01-0.20) 08/20/24 20:00 Sodium 137 mmol/L (136-145) 08/20/24 20:00 Potassium 3.8 mmol/L (3.5-5.1) 08/20/24 20:00 Chloride 108 mmol/L (98-107) H 08/20/24 20:00 Carbon Dioxide 21 mmol/L (21-32) 08/20/24 20:00 Anion Gap 8 (3-11) 08/20/24 20:00 BUN 31 mg/dl (6-23) H 08/20/24 20:00 Creatinine 1.37 mg/dl (0.6-1.4) 08/20/24 20:00 Est Cr Clr Drug Dosing 68.2 ml/min 08/20/24 20:00 eGFR 59.79 08/20/24 20:00 BUN/Creatinine Ratio 22.6 (10-20) H 08/20/24 20:00 Glucose 100 mg/dl (70-99(Fasting)) H 08/20/24 20:00 Calcium 8.2 mg/dl (8.6-10.3) L 08/20/24 20:00 Total Bilirubin 0.2 mg/dl (0.2-1.0) 08/20/24 20:00 AST 13 U/L (13-39) 08/20/24 20:00 ALT 15 U/L (7-52) 08/20/24 20:00 Alkaline Phosphatase 66 U/L (34-104) 08/20/24 20:00 Total Creatine Kinase 111 U/L (30-223) 08/20/24 20:00 Total Protein 6.9 gm/dl (6.0-8.3) 08/20/24 20:00 Albumin 3.6 gm/dl (3.4-5.0) 08/20/24 20:00 Globulin 3.3 gm/dl (2.5-4.0) 08/20/24 20:00 Albumin/Globulin Ratio 1.1 (0.9-2) 08/20/24 20:[address] 08/20/24 22:23 Exam(s): CT RIGHT FOOT With Contrast IV Amt: 92ml optiray 320 EXAM: CT Right Lower Extremity With Intravenous Contrast, Foot CLINICAL HISTORY: Reason for exam: swelling. TECHNIQUE: Axial computed tomography images of the right foot with intravenous contrast. CTDI is 24.91 mGy and DLP is 1376.72 mGy-cm. Automated exposure control was utilized for the study. A dose lowering technique was utilized adhering to the principles of ALARA. CONTRAST: Patient received 92ml optiray 320 of IV contrast COMPARISON: No relevant prior studies available. FINDINGS: Bones/joints: Diffuse osseous demineralization. No acute fracture. No dislocation. Soft tissues: Moderate soft tissue swelling about the ankle and the dorsum of the foot. Mild skin irregularity, correlate for cellulitis or skin ulcerations. Atrophy of the foot musculature, likely from diabetes. No radiopaque foreign body. No fluid collection, abscess, or subcutaneous air. IMPRESSION: 1. No fluid collection, abscess, or subcutaneous air. 2. Moderate soft tissue swelling about the ankle and the dorsum of the foot. Mild skin irregularity, correlate for cellulitis or skin ulcerations. Electronically signed by: Tye Rodriguez MD 08/21/24 01:[address] 08/20/24 22:23 Exam(s): CT EXTREMITY RIGHT LOWER With Contrast IV Amt: 92ml optiray 320 EXAM: CT Right Lower Extremity With Intravenous Contrast CLINICAL HISTORY: Reason for exam: swelling. TECHNIQUE: Axial computed tomography images of the right lower extremity with intravenous contrast. CTDI is 24.91 mGy and DLP is 1376.72 mGy-cm. Automated exposure control was utilized for the study. A dose lowering technique was utilized adhering to the principles of ALARA. CONTRAST: Patient received 92ml optiray 320 of IV contrast COMPARISON: No relevant prior studies available. FINDINGS: Bones/joints: Periosteal reaction along the distal fibula may be a sign of chronic osteomyelitis. Consider MRI for further evaluation. Soft tissues: Skin thickening and ulceration throughout the distal calf and ankle, correlate with physical exam. No fluid collection, abscess, or subcutaneous air. IMPRESSION: 1. No fluid collection, abscess, or subcutaneous air. 2. Periosteal reaction along the distal fibula may be a sign of chronic osteomyelitis. Consider MRI for further evaluation. 3. Skin thickening and ulceration throughout the distal calf and ankle, correlate with physical exam. Electronically signed by: Tye Rodriguez MD 08/21/24 01:35 AM
[2024-08-21] MEDS ORDERED: PROMETHAZINE 6.25 MG/50.25 ML BAG IV PRN (01:44)
[2024-08-21] MEDS: GADOBUTROL 65ML VIAL IV ONE (03:41)
--- NOTE | 2024-08-21 05:17 | Ultrasound Report ---
Exam(s): US VENOUS RIGHT LOWER EXTREMITY EXAM: US Duplex Right Lower Extremity Veins CLINICAL HISTORY: swelling. TECHNIQUE: Real-time duplex ultrasound scan of the right lower extremity veins integrating B-mode two-dimensional vascular structure, Doppler spectral analysis, color flow Doppler imaging and compression. COMPARISON: 05/11/2023. FINDINGS: Deep veins: Unremarkable. No DVT in the visualized common femoral, femoral, proximal deep femoral or popliteal veins. The veins demonstrate normal color flow, are normally compressible, with normal phasic flow and/or augmentation response. Superficial veins: Unremarkable. No thrombus in the visualized great saphenous vein. Soft tissues: Right groin lymphadenopathy up to 6.6 x 2.6 x 4.1 cm. No popliteal cyst. IMPRESSION: No evidence of deep venous thrombosis. Redemonstrated right groin lymphadenopathy. Electronically signed by: Miguel Panda M.D. 08/21/24 05:15 AM
[2024-08-21] MEDS: ACETAMINOPHEN 325 MG TAB PO PRN (05:25)
[2024-08-21] MEDS: SODIUM CHLORIDE 0.9% 1,000 ML IV ONE (05:50)
[2024-08-21 05:58] LABS: Basophils # (auto) 0.07 K/uL (0.00-0.20); Basophils % (auto) 0.6 %; Eosinophils # (auto) 0.69 K/uL (0.00-0.50); Eosinophils % (auto) 5.4 %; Hematocrit (blood only) 26.9 % (42.0-52.0); Hemoglobin 8.3 g/dl (14.0-18.0); Immature Granulocytes # (auto) 0.05 K/uL (0.01-0.20); Immature Granulocytes % (auto) 0.4 %; Lymphocytes # (auto) 2.47 K/uL (1.20-3.40); Lymphocytes % (auto) 19.5 %; Mean Corpuscular Hemoglobin 23.7 pg (25.0-34.0); Mean Corpuscular Hgb Conc 30.9 g/dL (32.0-36.0); Mean Corpuscular Volume 76.9 fL (80.0-100.0); Mean Platelet Volume 9.4 fL (9.4-12.4); Monocytes # (auto) 1.01 K/uL (0.11-0.59); Neutrophils % (auto) 66.1 %; Platelet Count 396 K/uL (130-400); RDW Coefficient of Variation 16.1 % (11.5-14.5); RDW Standard Deviation 44.6 fL (36.4-46.3); White Blood Count 12.69 K/ul (4.8-10.8)
[2024-08-21 06:13] LABS: BUN Creatinine Ratio 21.1 (10-20); C Reactive Protein 3.62 mg/dl (0-0.5); Calcium 7.9 mg/dl (8.6-10.3); Creatinine Clr Calc Pharmacy 75.6 ml/min; Potassium 3.4 mmol/L (3.5-5.1)
[2024-08-21] MEDS: DAPTOmycin 325 MG in SYRINGE 0 ML IV SCH (07:18)
[2024-08-21] MEDS: metroNIDAZOLE 500 MG/100 ML BAG IV SCH (07:21)
[2024-08-21] MEDS: CEFEPIME 2000MG 2,000 MG/20 ML SYR IV SCH (08:17)
--- NOTE | 2024-08-21 08:26 | Magnetic Resonance Report ---
Exam(s): MRI EXTREMITY W/WO Contrast IV Amt: 9.5cc gadavist EXAM: MR lower extremity Without and With Intravenous Contrast CLINICAL HISTORY: Reason for exam: swelling ro osteomyelitis. TECHNIQUE: Multiplanar magnetic resonance images of the chest without and with intravenous contrast. CONTRAST: Patient received 9.5cc gadavist of IV contrast COMPARISON: No relevant prior studies available. FINDINGS: There is diffuse subcutaneous soft tissue edema. Multifocal cutaneous irregularities and region of enhancement are redemonstrated. There is some increased T2 signal intensity within the muscle bellies of the medial and to a lesser extent lateral heads of the gastrocnemius limited in assessment on this exam. The bony marrow signal intensity is normal. Bony cortices are well maintained. Neurovascular bundles are without significant abnormality. No formed fluid collections demonstrated. Ligaments and tendons as visualized unremarkable. IMPRESSION: Bony marrow and bony cortices unremarkable, no evidence to suggest osteomyelitis. Moderate cellulitis with additional apparent myositis to the gastrocnemius muscles incompletely assessed, cutaneous abnormalities as well correlate with physical exam. Electronically signed by: Farzad Cardenas MD 08/21/24 08:25 AM
[2024-08-21 08:42] LABS: Thyroid Stimulating Hormone 1.914 uIu/ml (0.300-4.500)
[2024-08-21 08:48] LABS: Ferritin 34.3 ng/ml (8-388)
[2024-08-21] MEDS: oxyCODONE HCL IR 5 MG TAB (IMMEDIATE RELEASE) PO PRN (08:52)
[2024-08-21 09:08] LABS: Folate (Folic Acid),Ser orPlas 15.7 ng/ml (>5.38)
--- NOTE | 2024-08-21 10:05 | Orthopedic Consultation ---
Date of Consultation August 21, 2024 Assessment & Plan (1) Cellulitis of right leg: Continue IV Flagyl, cefepime and daptomycin MRI showed no signs of osteomyelitis Venous Doppler was negative for DVT Wound care nurse was consulted Floor nurse was applying Aquacel per instructions of wound care nurse Medicine will be primary care Patient will most likely need infectious disease consultation Will discuss findings with Dr. Valentine History of Present Illness Reason for Consultation: Right lower extremity cellulitis Requesting Physician: Rogelio Valentine MD Attending Physician: Harley Thurman DO History of Present Illness This 58-year-old male seen in consultation for severe right lower extremity cellulitis. Medical history significant for schizotypal personality disorder, chronic RLE stasis dermatitis, chronic anemia (baseline hemoglobin of 9), GERD, history of MRSA, medication noncompliance as per records, past tobacco abuse. Patient has had chronic RLE swelling/wounds for about 15 years. Punch biopsy from last year showed stasis dermatitis. Last confinement May 2023 for RLE cellulitis/wound infection status postdebridement.No evidence of osteomyelitis on MRI. Pseudomonas on predebridement wound cultures. Patient Previously discharged to [facility] for rehab and wound care. Patient states that he has not seen his primary care provider or been followed at the wound clinic since his discharge from [facility]. Patient noted progressive RLE swelling and bloody/purulent wound drainage over the last 5 months. Patient denies chest pain, shortness of breath, fever, chills, sweats, nausea, vomiting, diarrhea or difficulty voiding. He also denies numbness or tingling in his right lower extremity and states that he has been trying to cover the wound with gauze on his own. Allergies Allergy/AdvReac Type Severity Reaction Status Date / Time bee venom protein (honey bee) Allergy Severe FACIAL Verified 08/20/24 22:05 SWELLING Penicillins Allergy Severe Anaphylaxis Verified 08/20/24 22:05 Home Medications Medication Instructions Recorded Confirmed Type acetaminophen 500 mg tablet 1,000 mg PO Q6 PRN Pain 08/20/24 08/20/24 History (Tylenol Extra Strength) ibuprofen 200 mg tablet 400 - 800 mg PO Q6H PRN Pain 08/20/24 08/20/24 History Patient History Surgical History No pertinent past surgical history Family History Other No pertinent family history Social History Smoking Status: Never smoker Second Hand Exposure: No; Do You Dip or Chew Tobacco: No; Tobacco Cessation Education Requested by Patient: No Hx Alcohol Use: No Hx Substance Use: No Preferred Language: Portuguese 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 Ability: Effective 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 The wound is circumferential. There is note of multiple areas of hyper granulated tissue and skin sloughing. There is note of some necrotic tissue as well most significant in the proximal areas. The wound is malodorous. There are no open deep areas. There is noted excoriation distally. Peripheral pulses are 1+. Patient is able to actively dorsi and plantarflex his foot. He has appropriate range of motion of his knee. There is no active bleeding. He is neurovascularly intact. Results & Data Vital Signs (Past 12 Hours) Vital Signs Temp Pulse Resp BP Pulse Ox O2 Del Method 08/21/24 07:31 36.4 C L 69 16 107/58 L 97 Room Air 08/21/24 05:56 36.5 C 66 21 147/65 H 100 Room Air 08/21/24 02:41 Room Air 08/21/24 01:50 69 14 134/71 97 Room Air Diagnostic Findings Laboratory Results WBC 12.69 K/ul (4.8-10.8) H 08/21/24 05:39 RBC 3.50 M/uL (4.70-6.10) L 08/21/24 05:39 Hgb 8.3 g/dl (14.0-18.0) L 08/21/24 05:39 Hct 26.9 % (42.0-52.0) L 08/21/24 05:39 MCV 76.9 fL (80.0-100.0) L 08/21/24 05:39 MCH 23.7 pg (25.0-34.0) L 08/21/24 05:39 MCHC 30.9 g/dL (32.0-36.0) L 08/21/24 05:39 RDW Std Deviation 44.6 fL (36.4-46.3) 08/21/24 05:39 RDW Coeff of Stewart 16.1 % (11.5-14.5) H 08/21/24 05:39 Plt Count 396 K/uL (130-400) 08/21/24 05:39 MPV 9.4 fL (9.4-12.4) 08/21/24 05:39 Immature Gran % (Auto) 0.4 % 08/21/24 05:39 Neut % (Auto) 66.1 % 08/21/24 05:39 Lymph % (Auto) 19.5 % 08/21/24 05:39 [place] % (Auto) 8.0 % 08/21/24 05:39 Eos % (Auto) 5.4 % 08/21/24 05:39 Baso % (Auto) 0.6 % 08/21/24 05:39 Neut # (Auto) 8.40 K/uL (1.40-6.50) H 08/21/24 05:39 Lymph # (Auto) 2.47 K/uL (1.20-3.40) 08/21/24 05:39 [place] # (Auto) 1.01 K/uL (0.11-0.59) H 08/21/24 05:39 Eos # (Auto) 0.69 K/uL (0.00-0.50) H 08/21/24 05:39 Baso # (Auto) 0.07 K/uL (0.00-0.20) 08/21/24 05:39 Immature Gran # (Auto) 0.05 K/uL (0.01-0.20) 08/21/24 05:39 ESR 48 mm/hr (0-20) H 08/21/24 05:39 Sodium 136 mmol/L (136-145) 08/21/24 05:39 Potassium 3.4 mmol/L (3.5-5.1) L 08/21/24 05:39 Chloride 108 mmol/L (98-107) H 08/21/24 05:39 Carbon Dioxide 21 mmol/L (21-32) 08/21/24 05:39 Anion Gap 7 (3-11) 08/21/24 05:39 BUN 26 mg/dl (6-23) H 08/21/24 05:39 Creatinine 1.23 mg/dl (0.6-1.4) 08/21/24 05:39 Est Cr Clr Drug Dosing 75.6 ml/min 08/21/24 05:39 eGFR 68.05 08/21/24 05:39 BUN/Creatinine Ratio 21.1 (10-20) H 08/21/24 05:39 Glucose 91 mg/dl (70-99(Fasting)) 08/21/24 05:39 Calcium 7.9 mg/dl (8.6-10.3) L 08/21/24 05:39 Iron 19 mcg/dl (35-175) L 08/21/24 05:39 Transferrin 214 mg/dl (200-360) 08/21/24 05:39 Ferritin 34.3 ng/ml (8-388) 08/21/24 05:39 Total Bilirubin 0.2 mg/dl (0.2-1.0) 08/20/24 20:00 AST 13 U/L (13-39) 08/20/24 20:00 ALT 15 U/L (7-52) 08/20/24 20:00 Alkaline Phosphatase 66 U/L (34-104) 08/20/24 20:00 Total Creatine Kinase 111 U/L (30-223) 08/20/24 20:00 C-Reactive Protein 3.62 mg/dl (0-0.5) H 08/21/24 05:39 Total Protein 6.9 gm/dl (6.0-8.3) 08/20/24 20:00 Albumin 3.6 gm/dl (3.4-5.0) 08/20/24 20:00 Globulin 3.3 gm/dl (2.5-4.0) 08/20/24 20:00 Albumin/Globulin Ratio 1.1 (0.9-2) 08/20/24 20:00 Vitamin B12 549 pg/ml (180-914) 08/21/24 05:39 Folate 15.70 ng/ml (>5.38) 08/21/24 05:39 TSH 1.914 uIu/ml (0.300-4.500) 08/21/24 05:[address] 08/20/24 22:23 Exam(s): CT RIGHT FOOT With Contrast IV Amt: 92ml optiray 320 EXAM: CT Right Lower Extremity With Intravenous Contrast, Foot CLINICAL HISTORY: Reason for exam: swelling. TECHNIQUE: Axial computed tomography images of the right foot with intravenous contrast. CTDI is 24.91 mGy and DLP is 1376.72 mGy-cm. Automated exposure control was utilized for the study. A dose lowering technique was utilized adhering to the principles of ALARA. CONTRAST: Patient received 92ml optiray 320 of IV contrast COMPARISON: No relevant prior studies available. FINDINGS: Bones/joints: Diffuse osseous demineralization. No acute fracture. No dislocation. Soft tissues: Moderate soft tissue swelling about the ankle and the dorsum of the foot. Mild skin irregularity, correlate for cellulitis or skin ulcerations. Atrophy of the foot musculature, likely from diabetes. No radiopaque foreign body. No fluid collection, abscess, or subcutaneous air. IMPRESSION: 1. No fluid collection, abscess, or subcutaneous air. 2. Moderate soft tissue swelling about the ankle and the dorsum of the foot. Mild skin irregularity, correlate for cellulitis or skin ulcerations. Electronically signed by: Tye Rodriguez MD 08/21/24 01:[address] 08/20/24 22:23 Exam(s): CT EXTREMITY RIGHT LOWER With Contrast IV Amt: 92ml optiray 320 EXAM: CT Right Lower Extremity With Intravenous Contrast CLINICAL HISTORY: Reason for exam: swelling. TECHNIQUE: Axial computed tomography images of the right lower extremity with intravenous contrast. CTDI is 24.91 mGy and DLP is 1376.72 mGy-cm. Automated exposure control was utilized for the study. A dose lowering technique was utilized adhering to the principles of ALARA. CONTRAST: Patient received 92ml optiray 320 of IV contrast COMPARISON: No relevant prior studies available. FINDINGS: Bones/joints: Periosteal reaction along the distal fibula may be a sign of chronic osteomyelitis. Consider MRI for further evaluation. Soft tissues: Skin thickening and ulceration throughout the distal calf and ankle, correlate with physical exam. No fluid collection, abscess, or subcutaneous air. IMPRESSION: 1. No fluid collection, abscess, or subcutaneous air. 2. Periosteal reaction along the distal fibula may be a sign of chronic osteomyelitis. Consider MRI for further evaluation. 3. Skin thickening and ulceration throughout the distal calf and ankle, correlate with physical exam. Electronically signed by: Tye Rodriguez MD 08/21/24 01:35 AM Venous Doppler Study 08/21/24 01:39 Exam(s): US VENOUS RIGHT LOWER EXTREMITY EXAM: US Duplex Right Lower Extremity Veins CLINICAL HISTORY: swelling. TECHNIQUE: Real-time duplex ultrasound scan of the right lower extremity veins integrating B-mode two-dimensional vascular structure, Doppler spectral analysis, color flow Doppler imaging and compression. COMPARISON: 05/11/2023. FINDINGS: Deep veins: Unremarkable. No DVT in the visualized common femoral, femoral, proximal deep femoral or popliteal veins. The veins demonstrate normal color flow, are normally compressible, with normal phasic flow and/or augmentation response. Superficial veins: Unremarkable. No thrombus in the visualized great saphenous vein. Soft tissues: Right groin lymphadenopathy up to 6.6 x 2.6 x 4.1 cm. No popliteal cyst. IMPRESSION: No evidence of deep venous thrombosis. Redemonstrated right groin lymphadenopathy. Electronically signed by: Miguel Panda M.D. 08/21/24 05:15 AM Lower Extremity MRI 08/21/24 01:54 Exam(s): MRI EXTREMITY W/WO Contrast IV Amt: 9.5cc gadavist EXAM: MR lower extremity Without and With Intravenous Contrast CLINICAL HISTORY: Reason for exam: swelling ro osteomyelitis. TECHNIQUE: Multiplanar magnetic resonance images of the chest without and with intravenous contrast. CONTRAST: Patient received 9.5cc gadavist of IV contrast COMPARISON: No relevant prior studies available. FINDINGS: There is diffuse subcutaneous soft tissue edema. Multifocal cutaneous irregularities and region of enhancement are redemonstrated. There is some increased T2 signal intensity within the muscle bellies of the medial and to a lesser extent lateral heads of the gastrocnemius limited in assessment on this exam. The bony marrow signal intensity is normal. Bony cortices are well maintained. Neurovascular bundles are without significant abnormality. No formed fluid collections demonstrated. Ligaments and tendons as visualized unremarkable. IMPRESSION: Bony marrow and bony cortices unremarkable, no evidence to suggest osteomyelitis. Moderate cellulitis with additional apparent myositis to the gastrocnemius muscles incompletely assessed, cutaneous abnormalities as well correlate with physical exam. Electronically signed by: Farzad Cardenas MD 08/21/24 08:25 AM
--- NOTE | 2024-08-21 11:25 | XRay Report ---
XR ankle RT min 3V routine HISTORY: 58 years-old Male Right LE cellulitis acute pain and swelling of the right lower leg COMPARISON: MRI 08/21/2024 TECHNIQUE: 3 views of the right ankle FINDINGS: Mild to moderate soft tissue swelling. Demineralized appearance of the bones. Mild osteoarthritis wit h spurring of the calcaneus. No acute fracture, dislocation, osteochondral defect or osseous erosion. Mature appearing cortical thickening of the visualized tibia and fibula may be secondary to chronic venous stasis. IMPRESSION: Soft tissue swelling without acute osseous abnormality. ACT 112: Negative or not required by law. The above report was generated using voice recognition software. It may contain grammatical, syntax o r spelling errors. Electronically signed by: Alex Beyer M.D. 08/21/2024 11:23 AM
--- NOTE | 2024-08-21 13:02 | Hospitalist Progress Note ---
Date of Service August 21, 2024 Assessment & Plan (1) Myositis of right lower extremity: (2) Cellulitis of right leg: (3) Anemia, chronic disease: (4) Schizotypal personality disorder: Plan Continue cefepime and daptomycin for infection of lower extremity, no indication for metronidazole. Follow wound culture Reviewed orthopedic recommendations, no indication for surgical intervention at this time Oral iron supplementation, suspects patient's anemia is due to chronic disease with his chronic wound infection. May need outpatient hematology evaluation if does not improve as infection improves Follow laboratory studies Aggressive wound care Case management to help coordinate disposition plans, anticipate patient will need aggressive ongoing wound care for many months, anticipate will be able to be converted to oral antibiotics prior to discharge. Admission and Anticipated Discharge Date Admission Date: August 21, 2024 Subjective No acute issues reported. Patient states that he really has not paid much attention to his chronic wounds for almost a year Physical Exam Physical Exam: Constitutional: Alert, nontoxic in appearance HEENT: Mucous membranes moist. Lungs: Clear to auscultation, decreased, no wheezes rales or rhonchi CV: S1-S2, regular Abdomen: Soft, nontender, nondistended Extremities: Right lower extremity with circumferential granulomatous wound lower extremity with seropurulent drainage. Significant onychomycosis on both feet/toenails Neuro: No focal deficits Psych: Cooperative, normal mood Results & Data Results & Data Vital Signs (Past 12 Hours) Vital Signs Temp Pulse Resp BP Pulse Ox O2 Del Method 08/21/24 07:31 36.4 C L 69 16 107/58 L 97 Room Air 08/21/24 05:56 36.5 C 66 21 147/65 H 100 Room Air 08/21/24 02:41 Room Air 08/21/24 01:50 69 14 134/71 97 Room Air Diagnostic Findings Reviewed imaging, laboratory and diagnostic studies. Pertinent findings as below. MRI lower extremity negative for osteomyelitis, possibly mild myositis in addition to cellulitis Ultrasound lower extremities negative for DVT WBCs 12.6 Hemoglobin 8.3 Iron 19 TSH 1.9 Vitamin B12 folate within normal ranges
[2024-08-21] MEDS: POTASSIUM CHLORIDE CRTAB 20 MEQ TABCR PO STA (13:31)
[2024-08-21] MEDS: lisinopril 2.5 MG TAB PO SCH (20:58)
[2024-08-22 06:08] LABS: Hematocrit (blood only) 25.7 % (42.0-52.0); Hemoglobin 7.9 g/dl (14.0-18.0); Mean Corpuscular Hemoglobin 23.6 pg (25.0-34.0); Mean Corpuscular Hgb Conc 30.7 g/dL (32.0-36.0); Mean Corpuscular Volume 76.7 fL (80.0-100.0); Mean Platelet Volume 9.7 fL (9.4-12.4); Platelet Count 344 K/uL (130-400); RDW Coefficient of Variation 16.3 % (11.5-14.5); Red Blood Count 3.35 M/uL (4.70-6.10); White Blood Count 13.53 K/ul (4.8-10.8)
[2024-08-22 06:36] LABS: BUN Creatinine Ratio 19.6 (10-20); Creatinine Clr Calc Pharmacy 64.4 ml/min; Potassium 4.6 mmol/L (3.5-5.1)
[2024-08-22] MEDS: FERROUS SULFATE 325 MG TAB PO SCH (08:09)
--- NOTE | 2024-08-22 14:45 | Hospitalist Progress Note ---
Date of Service August 22, 2024 Assessment & Plan (1) Cellulitis of right lower extremity: Plan: Chronic right leg swelling/wound for the last 15 years with biopsy that was done last year showed stasis dermatitis Was in hospital in May 2023 for wound infection and is status post debridement He has had ID evaluation and was sent to heart site for rehab Noted to have progressive right leg swelling with purulent drainage for the last 5 months Has been very noncompliant and has been following with providers MRI did not show any evidence of abscess and/or osteomyelitis Has been getting intravenous daptomycin and cefepime and Flagyl has been discontinued Appreciate Ortho input and recommendation- continue conservative management Wound care has been consulted Wound culture is growing Citrobacter brachii and Proteus mirabilis which are pansensitive (2) Wound infection: (3) Myositis of right lower extremity: (4) Venous stasis ulcer of ankle: (5) Cellulitis of right leg: (6) Anemia, chronic disease: Plan: will monitor hemoglobin seems to be at baseline (7) Schizotypal personality disorder: Plan: no acute issues Plan Other significant medical conditions are stable and as below: GERD Hypertension- lisinopril has been started DVT prophylaxis SCDs for now CODE STATUS Full Admission and Anticipated Discharge Date Admission Date: August 21, 2024 Subjective 08/22/2024 The patient was seen and examined in telemetry unit He was sent in from primary care's office with worsening right leg wound/drain is He also complains to have more pain involving the right leg Denies any fever and/or chills Review of Systems Review of Systems: all systems reviewed and are unremarkable except as noted below Physical Exam Physical Exam: Sitting on a chair without any acute distress Constitutional: well developed, well nourished, + ill appearing and + obese Eyes: PERRL, conjunctivae normal, anicteric sclerae ENMT: external ear and nose normal, oropharynx normal Neck: trachea midline, no thyromegaly Respiratory: no respiratory distress Auscultation: lungs clear to auscultation bilaterally Cardiovascular: Rate/Rhythm: regular rate and regular rhythm; not tachycardic Heart Sounds: normal S1 and normal S2; no murmur Extremities: + edema ( edema and wound with cellulitis involving the right leg) Gastrointestinal (Abdomen): Inspection/Auscultation: normal bowel sounds; abdomen not distended Percussion/Palpation: abdomen soft; abdomen nontender Musculoskeletal: no acute arthritis involving any of the joint Neurologic: normal touch/pain/proprioception and moves all extremities; no focal motor deficits Lymphatic: no cervical or axillary lymphadenopathy Results & Data Results & Data Vital Signs (Past 12 Hours) Vital Signs Temp Pulse Resp BP Pulse Ox O2 Del Method 08/22/24 07:18 36.3 C L 77 16 118/68 98 Room Air Laboratory Results Short CBC 08/22/24 Range/Units 05:28 WBC 13.53 H (4.8-10.8) K/ul Hgb 7.9 L (14.0-18.0) g/dl Hct 25.7 L (42.0-52.0) % Plt Count 344 (130-400) K/uL BMP 08/22/24 05:28 Sodium 139 Potassium 4.6 D Chloride 112 H Carbon Dioxide 22 BUN 28 H Creatinine 1.43 H Glucose 109 H Calcium 8.0 L Medications Administered Current Inpatient Medications Acetaminophen (Acetaminophen 325 Mg Tab) 650 mg PO QID PRN PRN Reason: pain/fever Stop: 09/20/24 01:43 Last Admin: 08/21/24 05:25 Dose: 650 mg Ferrous Sulfate (Ferrous Sulfate 325 Mg Tab) 325 mg PO QAM [facility] Stop: 09/21/24 08:59 Last Admin: 08/22/24 08:09 Dose: 325 mg Promethazine HCl (Phenergan) 6.25 mg in 50.25 mls @ 201 mls/hr IV Q6H PRN PRN Reason: Nausea And Vomiting Stop: 09/20/24 01:43 Daptomycin 325 mg/ Syringe 6.5 mls @ 3.25 mls/min IV Q24H FAHAD; Protocol Stop: 08/28/24 05:59 Last Admin: 08/22/24 06:26 Dose: 3.25 mls/min Cefepime HCl (Maxipime 2000mg) 2,000 mg in 20 mls @ 5 mls/min IV Q8H FAHAD; Protocol Stop: 08/28/24 04:59 Last Admin: 08/22/24 08:09 Dose: 5 mls/min Lisinopril (Lisinopril 2.5 Mg Tab) 2.5 mg PO HS FAHAD Stop: 09/20/24 20:59 Last Admin: 08/21/24 20:58 Dose: 2.5 mg Oxycodone HCl (Oxycodone Hcl Ir 5 Mg Tab (Immediate Release)) 5 - 10 mg PO QID PRN PRN Reason: Pain Stop: 09/04/24 01:43 Last Admin: 08/21/24 08:52 Dose: 10 mg (4) Venous stasis ulcer of ankle Varicose vein presence: without varicose veins Laterality: right Non- pressure ulcer stage: with fat layer exposed Qualified Code(s): I87.2 - Venous insufficiency (chronic) (peripheral); L97.312 - Non-pressure chronic ulcer of right ankle with fat layer exposed
--- NOTE | 2024-08-23 16:18 | Hospitalist Progress Note ---
Date of Service August 23, 2024 Assessment & Plan (1) Cellulitis of right lower extremity: Plan: Chronic right leg swelling/wound for the last 15 years with biopsy that was done last year showed stasis dermatitis Was in hospital in May 2023 for wound infection and is status post debridement He has had ID evaluation and was sent to heart site for rehab Noted to have progressive right leg swelling with purulent drainage for the last 5 months Has been very noncompliant and has been following with providers MRI did not show any evidence of abscess and/or osteomyelitis Has been getting intravenous daptomycin and cefepime and Flagyl has been discontinued Appreciate Ortho input and recommendation- continue conservative management Wound care has been consulted Wound culture is growing Citrobacter brachii and Proteus mirabilis which are pansensitive Cellulitis shows much improvement and looks like inflammation without real infection Plan to continue the antibiotic for about 7 days (2) Wound infection: Plan: Please see the picture of the wound to have an idea about the wound itself Appreciate wound care nurse assessment and plan Will need appointment with outpatient wound clinic on discharge Will need home health nurse for dressing of the right leg wounds (3) Myositis of right lower extremity: (4) Venous stasis ulcer of ankle: (5) Anemia, chronic disease: Plan: will monitor hemoglobin seems to be at baseline (6) Schizotypal personality disorder: Plan: no acute issues Plan Other significant medical conditions are stable and as below: GERD Hypertension- lisinopril has been started DVT prophylaxis SCDs for now CODE STATUS Full Admission and Anticipated Discharge Date Admission Date: August 21, 2024 Subjective 08/22/2024 The patient was seen and examined in telemetry unit He was sent in from primary care's office with worsening right leg wound/drain i s He also complains to have more pain involving the right leg Denies any fever and/or chills 08/23/2024 The patient was seen and examined in medical floor He has been feeling much better and denies any fever and/or chills His leg pain seems to be stable He has been ambulating without any difficulties He can be discharged in a day or 2 with home health nurse Review of Systems Review of Systems: all systems reviewed and are unremarkable except as noted below Physical Exam Physical Exam: Sitting on a chair without any acute distress Constitutional: well developed, well nourished, + ill appearing and + obese Eyes: PERRL, conjunctivae normal, anicteric sclerae ENMT: external ear and nose normal, oropharynx normal Neck: trachea midline, no thyromegaly Respiratory: no respiratory distress Auscultation: lungs clear to auscultation bilaterally Cardiovascular: Rate/Rhythm: regular rate and regular rhythm; not tachycardic Heart Sounds: normal S1 and normal S2; no murmur Extremities: + edema ( edema and wound with cellulitis involving the right leg) Gastrointestinal (Abdomen): Inspection/Auscultation: normal bowel sounds; abdomen not distended Percussion/Palpation: abdomen soft; abdomen nontender Skin: Please see the picture for the leg wounds on the right side Neurologic: normal touch/pain/proprioception and moves all extremities; no focal motor deficits Lymphatic: no cervical or axillary lymphadenopathy Results & Data Results & Data Vital Signs (Past 12 Hours) Vital Signs Temp Pulse Resp BP Pulse Ox O2 Del Method 08/23/24 14:24 36.2 C L 74 157/84 H 100 Room Air 08/23/24 07:10 36.6 C 74 18 126/71 96 Room Air Medications Administered Current Inpatient Medications Acetaminophen (Acetaminophen 325 Mg Tab) 650 mg PO QID PRN PRN Reason: pain/fever Stop: 09/20/24 01:43 Last Admin: 08/23/24 10:07 Dose: 650 mg Ferrous Sulfate (Ferrous Sulfate 325 Mg Tab) [facility] Stop: 09/21/24 08:59 Last Admin: 08/23/24 10:08 Dose: 325 mg Promethazine HCl (Phenergan) 6.25 mg in 50.25 mls @ 201 mls/hr IV Q6H PRN PRN Reason: Nausea And Vomiting Stop: 09/20/24 01:43 Daptomycin 325 mg/ Syringe 6.5 mls @ 3.25 mls/min IV Q24H FAHAD; Protocol Stop: 08/28/24 05:59 Last Admin: 08/23/24 05:31 Dose: 3.25 mls/min Cefepime HCl (Maxipime 2000mg) 2,000 mg in 20 mls @ 5 mls/min IV Q8H FAHAD; Protocol Stop: 08/28/24 04:59 Last Admin: 08/23/24 15:46 Dose: 5 mls/min Lisinopril (Lisinopril 2.5 Mg Tab) 2.5 mg PO HS FAHAD Stop: 09/20/24 20:59 Last Admin: 08/22/24 20:36 Dose: 2.5 mg Oxycodone HCl (Oxycodone Hcl Ir 5 Mg Tab (Immediate Release)) 5 - 10 mg PO QID PRN PRN Reason: Pain Stop: 09/04/24 01:43 Last Admin: 08/21/24 08:52 Dose: 10 mg (4) Venous stasis ulcer of ankle Varicose vein presence: without varicose veins Laterality: right Non- pressure ulcer stage: with fat layer exposed Qualified Code(s): I87.2 - Venous insufficiency (chronic) (peripheral); L97.312 - Non-pressure chronic ulcer of right ankle with fat layer exposed
[2024-08-24 07:18] VITALS: BP 105/66; PULSE 60; RESP 17; TEMP 97.9; O2SAT 96
--- NOTE | 2024-08-24 13:43 | Discharge Summary ---
Discharge Summary Date of Service August 24, 2024 Principal Dx & Hospital Course #1 = Principal Diagnosis (1) Cellulitis of right lower extremity: (2) Wound infection: (3) Myositis of right lower extremity: (4) Venous stasis ulcer of ankle: (5) Anemia, chronic disease: (6) Schizotypal personality disorder: (7) Anemia: Suspect multifactorial, chronic wound, iron deficiency Plan Patient presented to the emergency room with chronic right lower extremity wound that has become more red, swollen and increasing amount of drainage. Patient was admitted to the hospital for cellulitis and wound infection. Started on IV antibiotics. Wound cultures were obtained and grew out Citrobacter and Proteus. Wound care consultation was obtained. They recommended daily dressing changes. Patient steadily improved through his hospitalization. Redness, swelling and drainage from the wound significantly improved. Case management was involved in his care to coordinate a plan for discharge. Ultimately determined that the best plan of care would be for him to continue as skilled care at [facility]. Patient be transition to oral antibiotics, Levaquin based on sensitivities. Will continue daily wound care as recommended by the wound care team. Continue his care and rehabilitation at [facility]. Follow-up with outpatient providers Notes For Next Care Provider Continue daily wound care Complete course of antibiotics Continue therapies Medication Changes From Visit [facility] for wound infection Admission HPI Per Admitting Provider History obtained from patient and records. Medical history significant for schizotypal personality disorder, chronic RLE stasis dermatitis, chronic anemia (baseline hemoglobin of 9), GERD, history of MRSA, medication noncompliance as per records, past tobacco abuse. Patient has had chronic RLE swelling/wounds for about 15 years. Punch biopsy from last year showed stasis dermatitis. Last confinement May 2023 for RLE cellulitis/wound infection status postdebridement. No evidence of osteomyelitis on MRI. Pseudomonas on predebridement wound cultures. MRSA, Citrobacter, Proteus, Kevin telemetry length on postdebridement wound Cx. Patient discharged to [facility] for rehab and wound care. Patient has not had follow-up with PCP since discharge from [facility]. Patient noted progressive RLE swelling and bloody/purulent wound drainage over the last 5 months. No consultations done. Denies fever, chills. Denies chest pain, SOB, headache symptoms. SBP 180s upon arrival at the ER. Vancomycin, cefepime, and clindamycin administered at the ER. Medical History as above Surgical History : Knee surgery Family History : DM Personal/Social history : Past tobacco abuse, no EtOH intake, disabled Admission Exam Per Admitting Provider See H&P Discharge Exam Constitutional: Alert, nontoxic HEENT: Mucous membranes moist. Lungs: Clear to auscultation, decreased, no wheezes rales or rhonchi CV: S1-S2, regular Abdomen: Soft, nontender, nondistended Extremities: Right lower extremity, less swollen, dressing clean and dry, redness significantly decreased Neuro: No focal deficits Psych: Cooperative, normal mood, mental health issues well-controlled at this time Updated Medication List Medication Instructions Recorded Confirmed Type acetaminophen 500 mg tablet 1,000 mg PO Q6 PRN Pain 08/20/24 08/20/24 History (Tylenol Extra Strength) ibuprofen 200 mg tablet 400 - 800 mg PO Q6H PRN Pain 08/20/24 08/20/24 History acetaminophen 325 mg tablet 650 mg (2 x 325 mg) PO Q4H PRN 08/24/24 Rx fever or pain #100 tabs ferrous sulfate 325 mg (65 mg 325 mg PO QAM 30 days #30 tabs 08/24/24 Rx iron) tablet,delayed release levofloxacin 750 mg tablet 750 mg PO DAILY 7 days #7 tabs 08/24/24 Rx lisinopril 2.5 mg tablet 2.5 mg PO HS 30 days #30 tabs 08/24/24 Rx Hospital Stay Data Consultations 08/20/24 21:42 ED Decision to Admit Stat 08/21/24 01:44 Consult Orthopedic Surgery Routine Diagnostic Imagining Performed 08/20/24 22:23 CT foot RT w con Stat CT tib/fib RT w con Stat 08/21/24 01:39 US venous doppler LE RT Stat 08/21/24 01:54 MRI Leg [MR lower leg RT wo/w con] Routine Reviewed imaging, laboratory and diagnostic studies. Pertinent findings as below. MRI of the lower extremity right, no evidence of osteomyelitis, consistent with cellulitis some mild myositis, no abscess Wound culture grew out Citrobacter and Proteus sensitive to Levaquin WBCs 13.5 Hemoglobin 7.9 TSH 1.9 Iron 19 Pending Results Patient Have Any Pending Studies at Discharge: No Discharge Instructions Given to Patient (Per Discharging Provider) Continue with daily wound care as instructed by wound care team: Clean right lower leg with saline daily, cover open areas plus overlap onto intact skin with Aquacel Ag, cover with ABDs and secure with Kerlix. Apply single layer of Tubigrip from base of toes to just below knee. Change dressing daily and as needed. Complete course of oral antibiotics Total Time Total Time Spent Total Time Spent (In Minutes): 32
== END 2024-08-24 15:52 | DRG 603 ==
LOC: ED 19:25 → 3E 08-21 01:42 → OBSVTOIN 08-21 01:42 → INTOOBSV 08-21 01:42 → SUATTDRO 08-21 01:42 → 3E 08-21 02:41

== ENCOUNTER 2025-08-19 10:10 | Inpatient (IN) ==
--- NOTE | 2025-08-19 10:45 | Emergency Department Note ---
Impression & Plan Cellulitis, Leukocytosis, Anemia ED Provider Note NAME: LISA LEGGETT AGE: 59 SEX: M : 1965 ARRIVES VIA: Ambulance INFORMANT: [Patient] ED PROVIDER(S): [Kevin Don MD] CHIEF COMPLAINT: Right leg wound HISTORY OF PRESENT ILLNESS: The patient is a 59-year-old male with a history of cellulitis to the right lower extremity. He presents with increased pain and potentially fever as well as a draining right leg wound. He has not changed the dressing on the right lower extremity and at least 40 days. The patient presents with a very foul smelling wound to the right lower extremity. The wound is wrapped in old rags as well as plastic bags. Masking tape has been used to hold the dressing together. There has been no cough or congestion. No vomiting. He has not fallen or suffered trauma. PMHx/PSHx/Social Hx: See Below PHYSICAL EXAM: GENERAL: Patient is in no acute distress. The entire room is foul-smelling. HEENT: No acute trauma, normocephalic atraumatic, mucous membranes moist, no nasal congestion. NECK: No stridor, no adenopathy, no meningismus, trachea is midline. LUNGS: Clear to auscultation bilaterally, no wheeze, no rhonchi, breath sounds equal. HEART: Subtle systolic murmur with a mild tachycardia, regular rhythm. ABDOMEN: Soft, nontender, no peritonitis. EXTREMITIES: No cyanosis. The patient has a brown discharge draining from a dressing that involves the right foot and right lower extremity. There are washcloths used in the dressing. There are plastic bags used in the dressing. The wound has an extremely foul odor. Once the dressing is removed, the right lower extremity from the knee to the foot is erythematous with some granulation tissue seen. He does have sensation to all toes distally on the right NEUROLOGIC: Oriented x 3, no acute motor or sensory deficits, no focal weakness. SKIN: No jaundice, no diaphoresis. DIFFERENTIAL DIAGNOSIS: Bacteremia or sepsis, neglect, cellulitis, dehydration, among others. EMERGENCY DEPARTMENT PROCEDURES: MEDICAL DECISION MAKING: There is a mild leukocytosis, this would be consistent with infection. There is an anemia present, this appears baseline looking back at previous testing. Platelet count is somewhat high at 500. No bandemia. No coagulopathy. Sodium slightly low but not in need of emergent correction. No renal failure. Lactic acid level is not elevated making severe sepsis less likely. No concerning liver enzyme elevation. ECG showed a sinus rhythm, no ST elevation. Cardiac enzyme testing was slightly elevated, this troponin elevation could be secondary to cardiac injury or mismatch from his infection/tachycardia. A chest x-ray was done, there was no pneumonia or CHF. On exam, the patient had a foul-smelling dressing to the right lower extremity. Underneath, there was a right lower extremity cellulitis. The patient's right lower extremity was cleansed with soap and water. A light drape was placed over the leg. The patient received 1 L of IV saline, he was given IV vancomycin, IV clindamycin and IV cefepime as antibiotic coverage. He was given IV morphine for pain, IV Zofran for nausea. The patient is in need of a hospital stay for this wound. He is not caring for himself well outpatient as he had not changed his dressing in at least 1 month. I did speak with the patient and case management, the on-call hospitalist was consulted. Prior/Outside records/notes reviewed: Today's EMS notes describing his presentation and transport at this hospital. ECG per my interpretation: Indication was tachycardia. The ECG shows a sinus rhythm with a PAC. The rate is 93. There is no ST elevation, no PVCs. There is some nonspecific ST change. The QTc is 430. Continuous Cardiac Monitoring per my interpretation: An order was placed for continuous cardiac monitoring. The monitor shows a rate of 105 with sinus tachycardia. Imaging/x-ray results per my interpretation: Chest x-ray does not show CHF or pneumonia. There is no focal infiltrate. Chronic Medical/Social conditions affecting care: None Care/Management discussed with: Case management, the on-call hospitalist. Level of care consideration(s): After review of the information above and other included data: --I believe the patient requires escalation of care to admission DISPOSITION: Admission Past Med/Surg History Problem List (Updated 08/19/25 @ 14:47 by Kevin Don MD) Anemia (Acute) Leukocytosis (Acute) Cellulitis (Acute) Syncope Myositis of right lower extremity Anemia, chronic disease Cellulitis of right leg (Acute) Anemia (Acute) Wound infection (Acute) Leg wound, right (Acute) Anemia (Acute) ALPHONSO (acute kidney injury) (Acute) Melena Anemia Mood disorder Venous stasis ulcer of ankle Renal insufficiency Wound cellulitis (Acute) Hyperglycemia (Acute) Heart murmur Medical History Cellulitis of right lower extremity chronic cellulitis on right low leg Sepsis Schizotypal personality disorder Surgical History No pertinent past surgical history Family History Other No pertinent family history Social History Smoking Status: Never smoker Second Hand Exposure: No; Do You Dip or Chew Tobacco: No; Hx Alcohol Use: No Hx Substance Use: No Preferred Language: Hong Konger 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 Ability: Effective Milliner Helper Required: No Beliefs That Will Affect Care: None marital status: Single Current Living Situation: Alone Current Living Situation Comment: living in a hotel Feels Safe at Home: Yes Assistive Devices: None Allergies Allergies Allergy/AdvReac Type Severity Reaction Status Date / Time bee venom protein (honey bee) Allergy Severe FACIAL Verified 08/19/25 13:04 SWELLING Penicillins Allergy Severe Anaphylaxis Verified 08/19/25 13:04 Home Meds Home Medications Medication Instructions Recorded Confirmed ibuprofen 200 mg tablet 200 mg PO Q6H PRN Pain 08/19/25 08/19/25 Results & Data (ED) Vital Signs Vital Signs - 24 hr 08/19/25 10:20 08/19/25 10:26 08/19/25 10:42 Temperature 36.7 C Temperature Source Oral Pulse Rate 120 H 105 H 98 H Pulse Rate from SpO2 Sensor 95 H Respiratory Rate 16 23 Respiratory Effort / Characteristics Non-Labored Spontaneous Respiratory Depth Normal Blood Pressure 137/77 131/66 Blood Pressure Mean 97 87 Pulse Oximetry 100 96 Oxygen Delivery Method Room Air Sepsis Recent Fever Within 48 Hours No Sepsis New/Unexplained Change in Mental Status No Sepsis Action Taken by Nursing No Action Required 08/19/25 10:51 08/19/25 10:51 08/19/25 10:51 Temperature Temperature Source Pulse Rate Pulse Rate from SpO2 Sensor Respiratory Rate Respiratory Effort / Characteristics Respiratory Depth Blood Pressure 141/75 H 141/75 H 141/75 H Blood Pressure Mean 79 79 79 Pulse Oximetry Oxygen Delivery Method Sepsis Recent Fever Within 48 Hours Sepsis New/Unexplained Change in Mental Status Sepsis Action Taken by Nursing 08/19/25 10:54 08/19/25 10:57 08/19/25 11:00 Temperature Temperature Source Pulse Rate 88 89 Pulse Rate from SpO2 Sensor 87 89 Respiratory Rate 19 18 Respiratory Effort / Characteristics Respiratory Depth Blood Pressure 141/78 H Blood Pressure Mean 101 Pulse Oximetry 100 100 Oxygen Delivery Method Sepsis Recent Fever Within 48 Hours Sepsis New/Unexplained Change in Mental Status Sepsis Action Taken by Nursing 08/19/25 11:06 08/19/25 11:09 08/19/25 11:15 Temperature Temperature Source Pulse Rate 84 83 Pulse Rate from SpO2 Sensor 85 Respiratory Rate 14 17 Respiratory Effort / Characteristics Respiratory Depth Blood Pressure 130/72 Blood Pressure Mean 95 Pulse Oximetry 100 100 Oxygen Delivery Method Room Air Sepsis Recent Fever Within 48 Hours Sepsis New/Unexplained Change in Mental Status Sepsis Action Taken by Nursing 08/19/25 11:15 08/19/25 11:30 08/19/25 11:30 Temperature Temperature Source Pulse Rate Pulse Rate from SpO2 Sensor Respiratory Rate Respiratory Effort / Characteristics Respiratory Depth Blood Pressure 130/72 96/60 L 96/60 L Blood Pressure Mean 95 63 63 Pulse Oximetry Oxygen Delivery Method Sepsis Recent Fever Within 48 Hours Sepsis New/Unexplained Change in Mental Status Sepsis Action Taken by Nursing 08/19/25 11:33 08/19/25 11:42 08/19/25 11:45 Temperature Temperature Source Pulse Rate 84 87 Pulse Rate from SpO2 Sensor 83 87 Respiratory Rate 16 18 Respiratory Effort / Characteristics Respiratory Depth Blood Pressure 122/63 Blood Pressure Mean 92 Pulse Oximetry 100 100 Oxygen Delivery Method Sepsis Recent Fever Within 48 Hours Sepsis New/Unexplained Change in Mental Status Sepsis Action Taken by Nursing 08/19/25 11:45 08/19/25 11:45 08/19/25 11:51 Temperature Temperature Source Pulse Rate 82 Pulse Rate from SpO2 Sensor 81 Respiratory Rate 24 Respiratory Effort / Characteristics Respiratory Depth Blood Pressure 122/63 122/63 Blood Pressure Mean 92 92 Pulse Oximetry 99 Oxygen Delivery Method Sepsis Recent Fever Within 48 Hours Sepsis New/Unexplained Change in Mental Status Sepsis Action Taken by Nursing 08/19/25 11:54 08/19/25 12:00 08/19/25 12:06 Temperature Temperature Source Pulse Rate 78 93 H Pulse Rate from SpO2 Sensor 81 94 H Respiratory Rate 18 14 Respiratory Effort / Characteristics Respiratory Depth Blood Pressure 116/67 Blood Pressure Mean 95 Pulse Oximetry 96 98 Oxygen Delivery Method Sepsis Recent Fever Within 48 Hours Sepsis New/Unexplained Change in Mental Status Sepsis Action Taken by Nursing 08/19/25 12:16 08/19/25 12:16 08/19/25 12:16 Temperature Temperature Source Pulse Rate Pulse Rate from SpO2 Sensor Respiratory Rate Respiratory Effort / Characteristics Respiratory Depth Blood Pressure 142/69 H 142/69 H 142/69 H Blood Pressure Mean 89 89 89 Pulse Oximetry Oxygen Delivery Method Sepsis Recent Fever Within 48 Hours Sepsis New/Unexplained Change in Mental Status Sepsis Action Taken by Nursing 08/19/25 12:18 08/19/25 12:24 08/19/25 12:40 Temperature Temperature Source Pulse Rate 86 90 Pulse Rate from SpO2 Sensor 86 88 Respiratory Rate 21 18 Respiratory Effort / Characteristics Respiratory Depth Blood Pressure 114/72 Blood Pressure Mean 101 Pulse Oximetry 100 98 Oxygen Delivery Method Sepsis Recent Fever Within 48 Hours Sepsis New/Unexplained Change in Mental Status Sepsis Action Taken by Nursing 08/19/25 12:40 08/19/25 12:45 08/19/25 12:45 Temperature Temperature Source Pulse Rate Pulse Rate from SpO2 Sensor Respiratory Rate Respiratory Effort / Characteristics Respiratory Depth Blood Pressure 114/72 112/62 112/62 Blood Pressure Mean 101 81 81 Pulse Oximetry Oxygen Delivery Method Sepsis Recent Fever Within 48 Hours Sepsis New/Unexplained Change in Mental Status Sepsis Action Taken by Nursing 08/19/25 12:57 08/19/25 13:09 08/19/25 13:15 Temperature Temperature Source Pulse Rate 88 79 Pulse Rate from SpO2 Sensor 87 79 Respiratory Rate 14 15 Respiratory Effort / Characteristics Respiratory Depth Blood Pressure 122/79 Blood Pressure Mean 82 Pulse Oximetry 97 97 Oxygen Delivery Method Sepsis Recent Fever Within 48 Hours Sepsis New/Unexplained Change in Mental Status Sepsis Action Taken by Nursing 08/19/25 13:21 08/19/25 13:45 08/19/25 14:00 Temperature Temperature Source Pulse Rate 77 Pulse Rate from SpO2 Sensor 77 78 Respiratory Rate 16 Respiratory Effort / Characteristics Respiratory Depth Blood Pressure 157/82 H Blood Pressure Mean 103 Pulse Oximetry 97 100 Oxygen Delivery Method Sepsis Recent Fever Within 48 Hours Sepsis New/Unexplained Change in Mental Status Sepsis Action Taken by Nursing 08/19/25 14:00 Temperature Temperature Source Pulse Rate Pulse Rate from SpO2 Sensor Respiratory Rate Respiratory Effort / Characteristics Respiratory Depth Blood Pressure 157/82 H Blood Pressure Mean 103 Pulse Oximetry Oxygen Delivery Method Sepsis Recent Fever Within 48 Hours Sepsis New/Unexplained Change in Mental Status Sepsis Action Taken by Intermediate Medications Current Medication List: was personally reviewed by me Laboratory Data Attestation: I reviewed the patient's lab results. 08/19/25 10:19 08/19/25 10:19 Lab Results 08/19/25 08/19/25 Range/Units 10:19 13:06 WBC 12.61 H (4.8-10.8) K/ul RBC 4.14 L (4.70-6.10) M/uL Hgb 9.6 L (14.0-18.0) g/dl Hct 30.2 L (42.0-52.0) % MCV 72.9 L (80.0-100.0) fL MCH 23.2 L (25.0-34.0) pg MCHC 31.8 L (32.0-36.0) g/dL RDW Std Deviation 46.1 (36.4-46.3) fL RDW Coeff of Stewart 17.5 H (11.5-14.5) % Plt Count 500 H (130-400) K/uL MPV 8.9 L (9.4-12.4) fL Immature Gran % (Auto) 0.3 % Neut % (Auto) 76.9 % Lymph % (Auto) 11.3 % Reynolds % (Auto) 9.3 % Eos % (Auto) 1.8 % Baso % (Auto) 0.4 % Neut # (Auto) 9.69 H (1.40-6.50) K/uL Lymph # (Auto) 1.43 (1.20-3.40) K/uL Reynolds # (Auto) 1.17 H (0.11-0.59) K/uL Eos # (Auto) 0.23 (0.00-0.50) K/uL Baso # (Auto) 0.05 (0.00-0.20) K/uL Immature Gran # (Auto) 0.04 (0.01-0.20) K/uL PT 11.4 (9.0-12.0) Seconds INR 1.1 (0.9-1.1) APTT 26 (21-31) Seconds PTT Ratio 1.0 Sodium 132 L (136-145) mmol/L Potassium 3.8 (3.5-5.1) mmol/L Chloride 101 (98-107) mmol/L Carbon Dioxide 21 (21-32) mmol/L Anion Gap 10 (3-11) BUN 14 (6-23) mg/dl Creatinine 1.13 (0.6-1.4) mg/dl Est Cr Clr Drug Dosing 77.4 ml/min eGFR 74.87 BUN/Creatinine Ratio 12.4 (10-20) Glucose 166 H (70-99(Fasting)) mg/dl Estimat Average Glucose 151 mg/dl Hemoglobin A1c 6.9 H (4.5-5.6) % Lactate 1.9 (0.4-2.0) mmol/L Calcium 8.7 (8.6-10.3) mg/dl Magnesium 1.8 (1.7-2.4) mg/dl Total Bilirubin 0.6 (0.2-1.0) mg/dl Direct Bilirubin 0.2 (0-0.2) mg/dl AST 20 (13-39) U/L ALT 27 (7-52) U/L Alkaline Phosphatase 87 (34-104) U/L Troponin I High Sens 21.6 H 5.7 D (0-20) pg/ml Total Protein 6.8 (6.0-8.3) gm/dl Albumin 3.3 L (3.4-5.0) gm/dl Procalcitonin 0.09 (0-0.5) ng/ml Administered Medications Acetaminophen (Ofirmev) 1,000 mg in 100 mls @ 400 mls/hr IV Q8H FAHAD Stop: 08/22/25 12:59 Last Infusion: 08/19/25 13:59 Dose: Infused Documented By: leonardo Admin: 08/19/25 13:17 Dose: 400 mls/hr Documented By: leonardo Discontinued Medications Sodium Chloride (Nss) 1,000 mls @ 999 mls/hr IV .Q1H1M ONE Stop: 08/19/25 11:30 Last Infusion: 08/19/25 11:52 Dose: Infused Documented By: leonardo Admin: 08/19/25 10:49 Dose: 999 mls/hr Documented By: JOHAN Clindamycin Phosphate (Cleocin/D5w) 900 mg in 50 mls @ 100 mls/hr IV NOW ONE Stop: 08/19/25 11:01 Last Infusion: 08/19/25 11:25 Dose: Infused Documented By: leonardo Admin: 08/19/25 10:54 Dose: 100 mls/hr Documented By: AKASH Cefepime HCl (Maxipime 2000mg) 2,000 mg in 20 mls @ 5 mls/min IV NOW ONE Stop: 08/19/25 11:18 Last Admin: 08/19/25 11:26 Dose: 5 mls/min Documented By: TUCKER Vancomycin HCl 2,000 mg/ (Sodium Chloride) 540 mls @ 200 mls/hr IV NOW ONE Stop: 08/19/25 14:11 Last Admin: 08/19/25 11:48 Dose: 200 mls/hr Documented By: leonardo Morphine Sulfate (Morphine Sulfate 4 Mg/Ml 1 Ml Carp\Vial) 4 mg IV NOW STA Stop: 08/19/25 12:07 Last Admin: 08/19/25 12:38 Dose: 4 mg Documented By: leonardo Ondansetron HCl (Ondansetron Inj 2 Mg/Ml 2 Ml Vial) 4 mg IV NOW STA Stop: 08/19/25 12:07 Last Admin: 08/19/25 12:38 Dose: 4 mg Documented By: leonardo Imaging Data Radiologist's Impression: Chest X-Ray 08/19/25 10:31 XR chest 1V portable CLINICAL HISTORY: Sepsis COMPARISON STUDY: 01/28/2023 FINDINGS: Heart size and pulmonary structure are normal. No consolidation or pleural effusion. No pneumothorax. IMPRESSION: No acute findings. ACT 112: Negative or not required by law. Electronically signed by: Vj Vega M.D. 08/19/2025 10:[address] 08/19/25 13:01 CT SCAN OF THE BRAIN WITHOUT IV CONTRAST CLINICAL HISTORY: Syncope. COMPARISON STUDY: None. TECHNIQUE: Unenhanced axial CT scan of the brain was performed from the vertex to the skull base. A dose lowering technique was utilized adhering to the principles of ALARA. CT DOSE: 625.8 mGy.cm FINDINGS: Brain parenchyma: No acute intracranial hemorrhage, midline shift or mass effect is present. Marquez-white matter differentiation is preserved. There are no extra- axial fluid collections. There are no findings to suggest acute dural sinus thrombosis or acute territorial infarct. Ventricles, sulci, cisterns: There is no hydrocephalus. The basal cisterns are patent. Calvarium: There are no calvarial fractures. Sinuses and mastoids: There are large bilateral mastoid effusions. There is also fluid within the bilateral middle ears. Although suboptimally assessed on this exam, there is erosion of the bilateral ossicles. Abnormal soft tissue within the left external auditory canal is present. Orbits: The bony orbits are grossly intact. IMPRESSION: 1. No acute intracranial findings. 2. No calvarial fractures. 3. Large bilateral mastoid effusions. In addition, fluid within the bilateral middle ears with probable erosion of the bilateral ossicles, suboptimally assessed on this exam. ACT 112: Negative or not required by law. Electronically signed by: Chicho Juárez M.D. 08/19/2025 1:51 PM Discharge Plan Visit Data Chief Complaint: Infection, Wound Stated Complaint: POSSIBLE ARM INFECTION ED Provider: Kevin Don Discharge Problem: Cellulitis, Leukocytosis, Anemia Patient Disposition: Admitted As Inpatient Condition: Fair Forms Stand Alone Forms: [facility] Prescriptions Prescriptions: No Action ibuprofen 200 mg Tablet 200 mg PO Q6H PRN (Reason: Pain) Referrals Referrals: Elkin Navarrete MD [Primary Care Provider] - Discharge Problem: Cellulitis Qualifiers: Site of cellulitis: extremity Site of cellulitis of extremity: lower extremity Laterality: right Qualified Code(s): L03.115 - Cellulitis of right lower limb Leukocytosis Qualifiers: Leukocytosis type: unspecified Qualified Code(s): D72.829 - Elevated white blood cell count, unspecified Anemia Qualifiers: Anemia type: unspecified type Qualified Code(s): D64.9 - Anemia, unspecified
[2025-08-19] MEDS: SODIUM CHLORIDE 0.9% 1,000 ML IV ONE (10:49)
[2025-08-19] MEDS: CLINDAMYCIN/D5W 900 MG/50 ML BAG IV ONE (10:54)
[2025-08-19 10:57] LABS: Hematocrit (blood only) 30.2 % (42.0-52.0); Hemoglobin 9.6 g/dl (14.0-18.0); Immature Granulocytes # (auto) 0.04 K/uL (0.01-0.20); Immature Granulocytes % (auto) 0.3 %; Mean Corpuscular Hemoglobin 23.2 pg (25.0-34.0); Mean Corpuscular Volume 72.9 fL (80.0-100.0); Platelet Count 500 K/uL (130-400); RDW Standard Deviation 46.1 fL (36.4-46.3); Red Blood Count 4.14 M/uL (4.70-6.10); White Blood Count 12.61 K/ul (4.8-10.8)
--- NOTE | 2025-08-19 10:58 | XRay Report ---
XR chest 1V portable CLINICAL HISTORY: Sepsis COMPARISON STUDY: 01/28/2023 FINDINGS: Heart size and pulmonary structure are normal. No consolidation or pleural effusion. No pne umothorax. IMPRESSION: No acute findings. ACT 112: Negative or not required by law. Electronically signed by: Vj Vega M.D. 08/19/2025 10:57 AM
[2025-08-19 11:19] LABS: INR 1.1 (0.9-1.1); Partial Thromboplastin Time 26 Seconds (21-31); Prothrombin Time 11.4 Seconds (9.0-12.0)
[2025-08-19] MEDS: CEFEPIME 2000MG 2,000 MG/20 ML SYR IV ONE (11:26)
[2025-08-19 11:27] LABS: Alanine Aminotransferase 27.0 U/L (7-52); Albumin Level 3.3 gm/dl (3.4-5.0); Alkaline Phosphatase 87.0 U/L (34-104); Anion Gap 10.0 (3-11); Bilirubin,Total 0.6 mg/dl (0.2-1.0); Blood Urea Nitrogen 14.0 mg/dl (6-23); Calcium 8.7 mg/dl (8.6-10.3); Carbon Dioxide 21.0 mmol/L (21-32); Chloride 101.0 mmol/L (98-107); Creatinine Clr Calc Pharmacy 77.4 ml/min; Glucose 166.0 mg/dl (70-99(Fasting)); Magnesium 1.8 mg/dl (1.7-2.4); Potassium 3.8 mmol/L (3.5-5.1); Sodium 132.0 mmol/L (136-145); Total Protein 6.8 gm/dl (6.0-8.3)
[2025-08-19] MEDS: VANCOMYCIN HCL 2,000 MG in SODIUM CHLORIDE 0.9% 500 ML IV ONE (11:48)
--- NOTE | 2025-08-19 12:10 | 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 Note ---
Date of Service: August 19, 2025 Attending Addendum: Case reviewed with the advanced practitioner. I have personally performed a history and physical examination on the patient. I have reviewed the advanced practitioner's documentation on the date of service referenced in note, and I agree with, and take responsibility for the plan of care. please refer to her notes for full details patient seen and examined, records reviewed by myself as well on exam, patient seen resting in bed, not in distress states he feels ok overall has moderate pain to the R lower leg no other symptoms VS noted and reviewed oriented x 2 , not in distress, speaks in sentences with no effort nor accessory muscle use normal rate, regular rhythm, no murmurs clear breath sounds bilaterally non distended, soft, nontender R lower leg: please refer to DARNELL Odonnell's notes no neuro deficits all labs, imaging noted and reviewed ASSESSMENT AND PLAN> INFECTED RIGHT LEG WOUND, CELLULITIS RECURRENT admitted last year for the same presentation MRI lower leg to r/o Abscess, Osteomyelitis ff up cultures Vanco + Cefepime + Clindamycin General Surgery Consult for possible Debridement Wound Care Consult other chronic medical problems: Schizotypal Personality Disorder GERD Hypertension other diagnoses and plan of care as per advanced practitioner's notes I spent a total of 40 minutes coordinating, documenting, and providing care for this patient, excluding time spent in the performance of separately billed services or time spent by another provider/QHP. Gerardo Neville MD
--- NOTE | 2025-08-19 12:15 | History & Physical Report ---
Date of Service August 19, 2025 Assessment & Plan (1) Cellulitis of right leg: Plan: Patient is a 59 year old M with a past medical history of anemia, mood disorder, chronic lower leg wound presenting with foul smelling right lower leg wound. Patient reports multiple hospitalizations for right leg wound, possibly related to a fall, but also states the wound first started in 2013. Reporting severe pain to right lower leg, 8/10 burning and stabbing pain, that has been ongoing and now unable to ambulate. Wound has been dressed for ~40 days with the same dressing- abd gauze, covered in trash bag and towels. States he was unable to change the dressing by himself; dressings changed at [facility] when inpatient. Also reporting he "passed out for 10 days", "woke up about 30 days ago", and has been dizzy. Denies recent antibiotic treatment. Denies ETOH or illicit drug use. Not currently on any regular home meds or with PCP follow-up. Cellulitis Right leg * Admit to [facility] for further management and workup * Chronic RLE since ~2013 w/ multiple hosp and SNF, hx Citrobacter and Proteus mirabilis in wound from 08/2024; Cefepime, Vanco, and Clindamycin given in ED * Blood and wound cultures pending * RLE erythema, swelling, foul odor, purulent drainage, overgrown granulation tissue w/ poss venous stasis--> MRI Rt leg/ankle/foot for suspected osteo vs compartment syn-pending * Ortho consult ordered- Xrays pending * Continue Cefepime/Vanc/Clinda; await culture results * Wound RN consult ordered * No history diabetes, A1C 6.9%-> hold SSI for now, NPO for possible Ortho procedure * Leg pain managed with Acetaminophen sched and Oxy as needed * PT consult when able * Discharge planning: Will need HH vs SNF placement at d/c #Syncope * reported syncope x 10 days at home w/ dizziness, hx murmur * CT Head w/o contrast- no CVA * Echo from 01/2023 showing mild concentric LVH w/ EF 60-65%, mitral valve leaflets and chordae moderately thickened, MV posterior leaflet prolapse. * Repeat Echo ordered with results pending. * EKG sinus rhythm with premature atrial complexes, vent rate 93 bpm, QTc 430 * IV fluids with NSS at 80 ml/hr * Hyponatremic w/o other electrolyte abnorm- trend with AM labs; suspect low sodium d/t draining wound #Mastoiditis, bilateral * CT head showing large bilateral mastoid effusions; fluid within the bilateral middle ears with probable erosion of the bilateral ossicles * Appropriate antibiotic coverage with above plan #Anemia * History anemia chronic disease, w/o CKD or DM history * Hgb 9.6 today; baseline 9.1-9.9 * Trend with AM labs DVT Ppx: Heparin Code status: Full PCP: Dr. Navarrete Dispo: Admit Patient seen in collaboration with Dr. Neville. Please see addendum.I spent a total of 70 minutes coordinating, documenting and providing care for this patient excluding time spent in the performance of separately billed services or time spent by another provider/QHP. (2) Syncope: (3) Anemia, chronic disease: History of Present Illness Primary Care Provider: Elkin Navarrete MD Patient is a 59 year old M with a past medical history of anemia, mood disorder, chronic lower leg wound presenting with foul smelling right lower leg wound. Patient reports multiple hospitalizations for right leg wound, possibly related to a fall, but also states the wound first started in 2013. Reporting severe pain to right lower leg, 8/10 burning and stabbing pain, that has been ongoing and now unable to ambulate. Wound has been dressed for ~40 days with the same dressing- abd gauze, covered in trash bag and towels. Also reporting he "passed out for 10 days", "woke up about 30 days ago", and has been dizzy. Denies recent antibiotic treatment. Denies ETOH or illicit drug use. Not currently on any regular home meds. Denies fever, chills, weight loss, headache, cognitive changes, vision/hearing changes, chest pain, SOB,difficulty breathing, urinary concerns, N/V/D, joint swelling/pain, bleeding, bruising. In the emergency department, patient was hemodynamically stable, afebrile and without signs of sepsis. Leukocytosis noted on lab workup with WBC 12.6K. Lactate normal. Per ED provider and nurses, patient's RLE was covered with foul- smelling, old dressing was difficult to remove. Copious brown drainage from wound once uncovered. No infestation. Cleansed with soap and water. Blood cultures pending. Triple antibiotics initiated for treatment of RLE cellulitis- Cefepime, Vanco, and Clindamycin given in ED. Per ED provider, pharmacy consulted for antibiotic regimen given history of Citrobacter and Proteus mirabilis in wound from 08/2024. EKG showing sinus rhythm with premature atrial complexes, vent rate 93 bpm, QTc 430. Chest Xray showed no acute findings. Given patient report of syncopal event and disorientation to time, a head CT was ordered and showed no CVA but did show a large bilateral mastoid effusions with fluid within the bilateral middle ears with probable erosion of the bilateral ossicles. Echo from 01/2023 showed mild concentric LVH w/ EF 60-65%, mitral valve leaflets and chordae moderately thickened, MV posterior leaflet prolapse. Repeat Echo ordered with results pending. Obtaining history of present illness was challenging given the patient's impaired cognition and altered orientation to time. He was unable to provide an chronological account of present illness, stating he left [facility] in 'June about a year ago", yet was hospitalized at [facility] in August 2024 and then transferred to [facility] for additional wound care and therapy. He says he lives in an apartment in [place], [facility]", without any assistive devices to help ambulate. He was unable to contact anyone for help due to phone issues. He suffers from mental health issues, but does not have regular provider follow-up or any routine pharmacological management. Patient will most likely need home assistance vs SNF at discharge. History obtained primarily from the patient and via hospitalization record. Allergies Allergy/AdvReac Type Severity Reaction Status Date / Time bee venom protein (honey bee) Allergy Severe FACIAL Verified 08/19/25 13:04 SWELLING Penicillins Allergy Severe Anaphylaxis Verified 08/19/25 13:04 Home Medications Medication Instructions Recorded Confirmed Type ibuprofen 200 mg tablet 200 mg PO Q6H PRN Pain 08/19/25 08/19/25 History Past Med/Surg History Problem List (Updated 08/19/25 @ 14:47 by Kevin Don MD) Anemia (Acute) Leukocytosis (Acute) Cellulitis (Acute) Syncope Myositis of right lower extremity Anemia, chronic disease Cellulitis of right leg (Acute) Anemia (Acute) Wound infection (Acute) Leg wound, right (Acute) Anemia (Acute) ALPHONSO (acute kidney injury) (Acute) Melena Anemia Mood disorder Venous stasis ulcer of ankle Renal insufficiency Wound cellulitis (Acute) Hyperglycemia (Acute) Heart murmur Medical History Cellulitis of right lower extremity chronic cellulitis on right low leg Sepsis Schizotypal personality disorder Surgical History No pertinent past surgical history Family History Other No pertinent family history Social History Smoking Status: Never smoker Second Hand Exposure: No; Do You Dip or Chew Tobacco: No; Hx Alcohol Use: No Hx Substance Use: No Preferred Language: Turkish 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 Ability: Effective Nutrition Program Instructor Required: No Beliefs That Will Affect Care: None marital status: Single Current Living Situation: Alone Current Living Situation Comment: living in a hotel Feels Safe at Home: Yes Assistive Devices: None Review of Systems Review of Systems: All systems reviewed & are unremarkable except as noted in HPI & below Physical Exam Physical Exam: VITALS: Reviewed. WEIGHT/BMI reviewed. GEN: Healthy appearing, well-developed, NAD. PSYCH: Good Judgment. AOx3. Normal memory, mood, and affect. HEENT -Head: NC/AT; -Eyes: PERRL, EOMI. No discharge or redn ess; -Ears: External ears are normal. Normal TMs. -Nose: Normal nares. -Mouth and throat: MMM. Normal gums, muc clarissa, palate,. Good dentition. NECK: Supple, with no masses. CV: RRR, no m/r/g. LUNGS: CTAB, no w/r/c. ABD: Soft, NT/ND, NBS, no masses or organomegaly. : N/A SKIN: RLE erythema, foul-smelling, purulent drainage, overgrown granulation tissue, swelling MSK: No deformities, Normal gait. EXT: No clubbing, cyanosis, or edema. NEURO: CN II-XII grossly intact. No focal deficits. Results & Data Results & Data Vital Signs (Past 12 Hours) Vital Signs Temp Pulse Resp BP Pulse Ox O2 Del Method 08/19/25 11:51 82 24 99 08/19/25 11:45 122/63 08/19/25 11:45 122/63 08/19/25 11:45 122/63 08/19/25 11:42 87 18 100 08/19/25 11:33 84 16 100 08/19/25 11:30 96/60 L 08/19/25 11:30 96/60 L 08/19/25 11:15 130/72 08/19/25 11:15 130/72 08/19/25 11:09 83 17 100 Room Air 08/19/25 11:06 84 14 100 08/19/25 11:00 141/78 H 08/19/25 10:57 89 18 100 08/19/25 10:54 88 19 100 08/19/25 10:51 141/75 H 08/19/25 10:51 141/75 H 08/19/25 10:51 141/75 H 08/19/25 10:42 98 H 23 131/66 96 08/19/25 10:26 36.7 C 105 H 16 137/77 100 Room Air 08/19/25 10:20 120 H Laboratory Results Short CBC 08/19/25 Range/Units 10:19 WBC 12.61 H (4.8-10.8) K/ul Hgb 9.6 L (14.0-18.0) g/dl Hct 30.2 L (42.0-52.0) % Plt Count 500 H (130-400) K/uL BMP 08/19/25 10:19 Sodium 132 L Potassium 3.8 Chloride 101 Carbon Dioxide 21 BUN 14 Creatinine 1.13 Glucose 166 H Calcium 8.7 Liver Function 08/19/25 Range/Units 10:19 Total Bilirubin 0.6 (0.2-1.0) mg/dl Direct Bilirubin 0.2 (0-0.2) mg/dl AST 20 (13-39) U/L ALT 27 (7-52) U/L Alkaline Phosphatase 87 (34-104) U/L Albumin 3.3 L (3.4-5.0) gm/dl Diagnostic Findings Chest X-Ray 08/19/25 10:31 XR chest 1V portable CLINICAL HISTORY: Sepsis COMPARISON STUDY: 01/28/2023 FINDINGS: Heart size and pulmonary structure are normal. No consolidation or pleural effusion. No pneumothorax. IMPRESSION: No acute findings. ACT 112: Negative or not required by law. Electronically signed by: Vj Vega M.D. 08/19/2025 10:57 AM
[2025-08-19] MEDS: MoRPHine SULFATE 4 MG/ML 1 ML CARP\\VIAL IV STA (12:38)
[2025-08-19] MEDS: ONDANSETRON INJ 2 MG/ML 2 ML VIAL IV STA (12:38)
[2025-08-19] MEDS: ACETAMINOPHEN 1,000 MG/100 ML VIAL IV SCH (13:17)
--- NOTE | 2025-08-19 13:52 | CT Scan Report ---
CT SCAN OF THE BRAIN WITHOUT IV CONTRAST CLINICAL HISTORY: Syncope. COMPARISON STUDY: None. TECHNIQUE: Unenhanced axial CT scan of the brain was performed from the vertex to the skull base. A dose lowering technique was utilized adhering to the principles of ALARA. CT DOSE: 625.8 mGy.cm FINDINGS: Brain parenchyma: No acute intracranial hemorrhage, midline shift or mass effect is present. Marquez-whi te matter differentiation is preserved. There are no extra-axial fluid collections. There are no find ings to suggest acute dural sinus thrombosis or acute territorial infarct. Ventricles, sulci, cisterns: There is no hydrocephalus. The basal cisterns are patent. Calvarium: There are no calvarial fractures. Sinuses and mastoids: There are large bilateral mastoid effusions. There is also fluid within the crystal ateral middle ears. Although suboptimally assessed on this exam, there is erosion of the bilateral os sicles. Abnormal soft tissue within the left external auditory canal is present. Orbits: The bony orbits are grossly intact. IMPRESSION: 1. No acute intracranial findings. 2. No calvarial fractures. 3. Large bilateral mastoid effusions. In addition, fluid within the bilateral middle ears with probab le erosion of the bilateral ossicles, suboptimally assessed on this exam. ACT 112: Negative or not required by law. Electronically signed by: Chicho Juárez M.D. 08/19/2025 1:51 PM
[2025-08-19 14:14] LABS: Hemoglobin A1C 6.9 % (4.5-5.6)
[2025-08-19] MEDS: SODIUM CHLORIDE 0.9% 1,000 ML IV SCH (14:59)
--- NOTE | 2025-08-19 15:14 | Electrocardiogram Report ---
Test Reason : Blood Pressure : */* mmHG Vent. Rate : 93 BPM Atrial Rate : 93 BPM P-R Int : 134 ms QRS Dur : 72 ms QT Int : 346 ms P-R-T Axes : 23 41 39 degrees QTcB Int : 430 ms Sinus rhythm with Premature atrial complexes with Aberrant conduction Nonspecific T wave abnormality Abnormal ECG When compared with ECG of 28-Jan-2023 14:19, Aberrant conduction is now Present Confirmed by Vernon Malagon ([id number]) on 08/19/2025 3:14:42 PM Referred By: Confirmed By: Vernon Malagon
[2025-08-19] MEDS ORDERED: POLYETHYLENE (MIRALAX) 17 GM PACK PO PRN (15:27)
[2025-08-19] MEDS ORDERED: ALUMINUM/MAGNESIUM SUSP 30 ML UDC PO PRN (15:27)
[2025-08-19] MEDS ORDERED: ONDANSETRON INJ 2 MG/ML 2 ML VIAL IV PRN (15:27)
[2025-08-19] MEDS ORDERED: VANCOMYCIN CONSULT ACTIVE PRN (15:27)
[2025-08-19] MEDS ORDERED: MAGNESIUM HYDROXIDE SUSP 30 ML UDC PO PRN (15:27)
[2025-08-19] MEDS ORDERED: MELATONIN 3 MG TAB PO PRN (15:27)
--- NOTE | 2025-08-19 16:30 | Orthopedic Consultation ---
Date of Consultation August 19, 2025 Assessment & Plan (1) Leg wound, right: Patient seen and evaluated by myself as well as Dr. Gomez today. 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 It has progressed since it was evaluated by Dr. Valentine 1 year ago. Would recommend a dermatology consult and consideration of a biopsy to rule out malignant causes and aid in diagnosis and treatment options/recommendations. Would also recommend a plastic consultation for their recommendations regarding skin coverage or salvage type operations from debridements. If amputation is discussed or recommended would then involve vascular as he most likely would need an above-knee amputation. Will consult wound care for appropriate dressings and dressing changes over the leg. He may weight-bear as tolerated with the assistance of walker. Would recommend PT and OT. X-rays of the right leg currently pending and we will follow-up on those tomorrow. MRI of the right leg also currently pending and we will follow-up once completed. No plans for immediate orthopedic surgical intervention at this time. (2) Cellulitis of right leg: Continue IV antibiotics as per primary service. Will await MRI results to rule out abscess. No need for immediate orthopedic surgical intervention at this time. Elevate right lower extremity to alleviate swelling May do range of motion of the ankle, toes and knee as tolerated. May weight-bear as tolerated with the assistance of a walker. Would recommend some PT and OT. Plan Thank you for this consultation. Patient was seen in conjunction with Dr. Gomez. Supervising Physician Co-Signing Physician Notes I saw and examined the patient, reviewed his imaging studies, formulated the plan and performed the substantive portion of the visit. Patient has an ulcerating wound on his right leg, progressed since 1 year ago. No bone involvement. Needs to see derm and plastics to eval and treat. No orthopaedic intervention indicated. If he wants to consider an above knee amputation, he n eeds to see vascular surgery. Not a candidate for a BKA due to skin involvement. History of Present Illness Reason for Consultation: Right leg wound/chronic cellulits Attending Physician: Gerardo Neville MD History of Present Illness The patient is a 59-year-old male with a history of cellulitis to the right lower extremity. He presented to the ED today with increased pain and potentially fever as well as a draining right leg wound. He has not changed the dressing on the right lower extremity and at least 40 days. The patient presents with a very foul smelling wound to the right lower extremity. The wound is wrapped in old rags as well as plastic bags. Masking tape has been used to hold the dressing together. There has been no cough or congestion. No vomiting. He has not fallen or suffered trauma. He states since his last admission "he was good for approximately 10 months". He then started having "spells again". He states that he feels that his [employer] membership and the strength that he has gained over the last year has been completely lost in last 40 days. He states that he notices the spells when he sitting on the toilet and his body wants to lean 1 way or the other. He feels that he would be better if he had some sort of device that would help him ambulate. He thinks that he needs a walker. He states for last 4 to 5 days he has been crawling around his home and trying to get a hold of someone to bring him to the emergency room. The day that he was going out to renew minutes for his phone is when he fell and ever since then he was laying on his floor. He thinks that he was "out for 10 days". He denies any numbness or tingling in his right lower extremity. He states that his had issues with the skin on his right leg for at least 7 or 8 years. He denies that it is worse now than its ever been. It has been open for a long time. He has not been seeing wound clinic. He keeps a dressing on it to keep it from draining. He does feel that he has "low energy". He has not weighed himself but also feels that he has lost some weight recently. He states he has been trying to take in a lot of liquids but any type of food comes out his "diarrhea".He states since his last admission "he was good for approximately 10 months". He then started having "spells again". He states that he feels that his [employer] membership and the strength that he has gained over the last year has been completely lost in last 40 days. He states that he notices the spells when he sitting on the toilet and his body wants to lean 1 way or the other. He feels that he would be better if he had some sort of device that would help him ambulate. He thinks that he needs a walker. He states for last 4 to 5 days he has been crawling around his home and trying to get a hold of someone to bring him to the emergency room. The day that he was going out to renew minutes for his phone is when he fell and ever since then he was laying on his floor. He thinks that he was "out for 10 days". He denies any numbness or tingling in his right lower extremity. He states that his had issues with the skin on his right leg for at least 7 or 8 years. He denies that it is worse now than its ever been. It has been open for a long time. He has not been seeing wound clinic. He keeps a dressing on it to keep it from draining. He does feel that he has "low energy". He has not weighed himself but also feels that he has lost some weight recently. He states he has been trying to take in a lot of liquids but any type of food comes out his "diarrhea". He was last seen in August [address] Valentine. At that time a dermatology consult was recommended as well as a general surgery consult for biopsy. I am not sure what that biopsy result revealed. Does not really much in the records of what happened after his discharge. He states that he does recall saying that he "could take care of himself". He is now concerned that he may not be able to do that and that he might "need to go somewhere for the next year or so". Allergies Allergy/AdvReac Type Severity Reaction Status Date / Time bee venom protein (honey bee) Allergy Severe FACIAL Verified 08/19/25 13:04 SWELLING Penicillins Allergy Severe Anaphylaxis Verified 08/19/25 13:04 Home Medications Medication Instructions Recorded Confirmed Type ibuprofen 200 mg tablet 200 mg PO Q6H PRN Pain 08/19/25 08/19/25 History Patient History Medical History Cellulitis of right lower extremity chronic cellulitis on right low leg Sepsis Schizotypal personality disorder Surgical History No pertinent past surgical history Family History Other No pertinent family history Social History Smoking Status: Never smoker Second Hand Exposure: No; Do You Dip or Chew Tobacco: No; Hx Alcohol Use: No Hx Substance Use: No Preferred Language: Tajik 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 Ability: Effective 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 The right lower leg is erythematous down to his toes. The foot is swollen. The ankle is stiff. Sensation is grossly intact. Dorsalis pedis pulses trace Throughout the lower leg circumferentially from the ankle to about 5 cm from the knee he has a large area of hypertrophic skin with erythema and serosanguineous drainage. There is some evidence of some dusky skin proximally at the wound edges. There is no bullae present. There are hypertrophic areas are tender to palpation. It has significantly covers more surface area since his last visit a year ago. He is able to flex his right knee; no knee effusion. There are no other areas of skin on his body like this. Fungal toenails are present. No evidence of fluctuance or abscess appreciated. Skin: See MSK exam Results & Data Vital Signs (Past 12 Hours) Vital Signs Temp Pulse Pulse Resp BP BP Pulse Ox 08/19/25 15:28 36.6 C 80 18 128/81 98 08/19/25 15:28 36.6 C 80 18 128/81 98 08/19/25 14:00 157/82 H 08/19/25 14:00 157/82 H 08/19/25 13:45 100 08/19/25 13:21 77 16 97 08/19/25 13:15 122/79 08/19/25 13:09 79 15 97 08/19/25 12:57 88 14 97 08/19/25 12:45 112/62 08/19/25 12:45 112/62 08/19/25 12:40 114/72 08/19/25 12:40 114/72 10/06/25 12:24 90 18 98 08/19/25 12:18 86 21 100 08/19/25 12:16 142/69 H 08/19/25 12:16 142/69 H 08/19/25 12:16 142/69 H 08/19/25 12:06 93 H 14 98 08/19/25 12:00 116/67 08/19/25 11:54 78 18 96 08/19/25 11:51 82 24 99 08/19/25 11:45 122/63 08/19/25 11:45 122/63 08/19/25 11:45 122/63 08/19/25 11:42 87 18 100 08/19/25 11:33 84 16 100 08/19/25 11:30 96/60 L 08/19/25 11:30 96/60 L 08/19/25 11:15 130/72 08/19/25 11:15 130/72 08/19/25 11:09 83 17 100 08/19/25 11:06 84 14 100 08/19/25 11:00 141/78 H 08/19/25 10:57 89 18 100 08/19/25 10:54 88 19 100 08/19/25 10:51 141/75 H 08/19/25 10:51 141/75 H 08/19/25 10:51 141/75 H 08/19/25 10:42 98 H 23 131/66 96 08/19/25 10:26 36.7 C 105 H 16 137/77 100 08/19/25 10:20 120 H O2 Del Method 08/19/25 15:28 Room Air 08/19/25 15:28 Room Air 08/19/25 14:00 08/19/25 14:00 08/19/25 13:45 08/19/25 13:21 08/19/25 13:15 08/19/25 13:09 08/19/25 12:57 08/19/25 12:45 08/19/25 12:45 08/19/25 12:40 08/19/25 12:40 08/19/25 12:24 08/19/25 12:18 08/19/25 12:16 08/19/25 12:16 08/19/25 12:16 08/19/25 12:06 08/19/25 12:00 08/19/25 11:54 08/19/25 11:51 08/19/25 11:45 08/19/25 11:45 08/19/25 11:45 08/19/25 11:42 08/19/25 11:33 08/19/25 11:30 08/19/25 11:30 08/19/25 11:15 08/19/25 11:15 08/19/25 11:09 Room Air 08/19/25 11:06 08/19/25 11:00 08/19/25 10:57 08/19/25 10:54 08/19/25 10:51 08/19/25 10:51 08/19/25 10:51 08/19/25 10:42 08/19/25 10:26 Room Air 08/19/25 10:20 Laboratory Results 08/19/25 10:41 Aerobic Blood Culture - Pending Blood Anaerobic Blood Culture - Pending 08/19/25 10:19 Aerobic Blood Culture - Pending Blood Anaerobic Blood Culture - Pending 08/19/25 08/19/25 13:06 10:19 WBC 12.61 H RBC 4.14 L Hgb 9.6 L Hct 30.2 L MCV 72.9 L MCH 23.2 L MCHC 31.8 L RDW Std Deviation 46.1 RDW Coeff of Stewart 17.5 H Plt Count 500 H MPV 8.9 L Immature Gran % (Auto) 0.3 Neut % (Auto) 76.9 Lymph % (Auto) 11.3 Phelps % (Auto) 9.3 Eos % (Auto) 1.8 Baso % (Auto) 0.4 Neut # (Auto) 9.69 H Lymph # (Auto) 1.43 Phelps # (Auto) 1.17 H Eos # (Auto) 0.23 Baso # (Auto) 0.05 Immature Gran # (Auto) 0.04 PT 11.4 INR 1.1 APTT 26 PTT Ratio 1.0 Sodium 132 L Potassium 3.8 Chloride 101 Carbon Dioxide 21 Anion Gap 10 BUN 14 Creatinine 1.13 Est Cr Clr Drug Dosing 77.4 eGFR 74.87 BUN/Creatinine Ratio 12.4 Glucose 166 H Estimat Average Glucose 151 Hemoglobin A1c 6.9 H Lactate 1.9 Calcium 8.7 Magnesium 1.8 Total Bilirubin 0.6 Direct Bilirubin 0.2 AST 20 ALT 27 Alkaline Phosphatase 87 Troponin I High Sens 5.7 D 21.6 H Total Protein 6.8 Albumin 3.3 L Procalcitonin 0.09 Diagnostic Findings Xrays of right lower extremity and MRI are pending.
--- NOTE | 2025-08-19 16:43 | Pharmacy Report ---
Pharmacy PK ABX Note - Date of Service August 19, 2025 - Assessment and Plan Assessment 59 year old M receiving Vancomycin, Cefepime, and Clindamycin for treatment of right lower extremity cellulitis. * Day #1 of antimicrobial therapy. No significant PMHx. Patient has grown MRSA, Pseudomonas aeruginosa, and Citrobacter from leg wounds before. * Afebrile. Mild leukocytosis of 12.6k. SCr near baseline at 1.13 mg/dL. Lactate and procal normal. * Blood cultures pending. Plan Vancomycin * Loading dose: 2000 mg IV x 1 * Maintenance dose: 1000 mg IV every 12 hours * Regimen is predicted to achieve target AUC/NASRIN of 400-600 mg/L.hr * Random level ordered for: 08/21/25 Cefepime * 2000 mg IV every 8 hours Clindamycin * 900 mg IV every 8 hours Pharmacy will continue to follow and will adjust dose/frequency as necessary. Thank you. Pharmacy has transitioned to AUC monitoring for vancomycin. AUC/NASRIN is the preferred PK/PD target and is associated with decreased risk of nephrotoxicity compared to traditional trough targets.
--- NOTE | 2025-08-19 16:43 | XCELERA ---
[id number]
--- NOTE | 2025-08-19 17:01 | XRay Report ---
4 views of the right ankle are submitted for review. Findings: There is no clear evidence of acute osteomyelitis. No fracture or dislocation is seen. There is chronic appearing periosteal reaction involving the distal tibia and fibula. No significant arthritic changes are noted. There are dorsal and plantar calcaneal spurs. No other osseous abnormality is identified. There are no radiopaque foreign bodies. Impression: 1. No definite acute pathology 2. Calcaneal spurs Electronically signed by Robbie Cordero 08-19-2025 5:00 PM
--- NOTE | 2025-08-19 17:02 | XRay Report ---
3 views of the right lower leg are submitted for review. Findings: There is no clear evidence of acute osteomyelitis. No definite fracture is seen. There is chronic appearing periosteal reaction involving the tibial and fibular shafts that could be due to vascular insufficiency or old injury. No significant arthritic changes are noted. There are dorsal and plantar calcaneal spurs. No other osseous abnormality is identified. There are no radiopaque foreign bodies. Impression: 1. No definite acute pathology 2. Calcaneal spurs Electronically signed by Robbie Cordero 08-19-2025 5:01 PM
[2025-08-19] MEDS: CLINDAMYCIN/D5W 900 MG/50 ML BAG IV SCH (18:09)
[2025-08-19] MEDS: GADOBUTROL 65ML VIAL IV ONE (21:18)
[2025-08-19] MEDS: HEPARIN SOD 5,000 UNIT/0.5 ML VIAL SQ SCH (22:31)
[2025-08-19] MEDS: CEFEPIME 2000MG 2,000 MG/20 ML SYR IV SCH (22:31)
--- NOTE | 2025-08-19 22:43 | Magnetic Resonance Report ---
Exam(s): MRI RIGHT FOOT W/WO Contrast IV Amt: 8.6ml gadavist EXAM: MR Right Lower Extremity Without and With Intravenous Contrast, Foot CLINICAL HISTORY: Reason for exam: osteo. TECHNIQUE: Multiplanar magnetic resonance images of the right foot without and with intravenous contrast. CONTRAST: Patient received 8.6ml gadavist of IV contrast COMPARISON: No relevant prior studies available. FINDINGS: Normal marrow signal. No acute osteomyelitis. No septic arthritis. Soft tissue edema. No abscess. No soft tissue gas. No tenosynovitis. Normal appearance of the Lisfranc ligament. IMPRESSION: No acute osteomyelitis. Electronically signed by: Alex Hansen MD 08/19/25 22:43 PM
--- NOTE | 2025-08-19 22:57 | Magnetic Resonance Report ---
Exam(s): MRI EXTREMITY W/WO Contrast IV Amt: 8.6ml gadavist EXAM: MR Right Lower Extremity Without and With Intravenous Contrast, Tibia and Fibula CLINICAL HISTORY: Reason for exam: r/o osteo and abscess. TECHNIQUE: Multiplanar magnetic resonance images of the right tibia and fibula without and with intravenous contrast. CONTRAST: Patient received 8.6ml gadavist of IV contrast COMPARISON: No relevant prior studies available. FINDINGS: Artifacts: Images are degraded by motion artifact. Bones/joints: Normal marrow signal. No osteomyelitis. No acute fracture. No dislocation. Soft tissues: Circumferential skin thickening and edema from the level of the midcalf extending inferiorly. No abscess. Intramuscular edema and fatty atrophy which can be seen in the setting of neuropathic changes. No myotendinous tearing. IMPRESSION: 1. Circumferential skin thickening and edema from the level of the midcalf extending inferiorly. No abscess. Electronically signed by: Alex Hansen MD 08/19/25 22:56 PM
[2025-08-19] MEDS: VANCOMYCIN HCL / NSS 1,000 MG/270 ML BAG IV SCH (23:26)
--- NOTE | 2025-08-19 23:38 | Magnetic Resonance Report ---
Exam(s): MRI RIGHT ANKLE W/WO Contrast IV Amt: 8.6ml gadavist EXAM: MR Right Lower Extremity Without and With Intravenous Contrast, Ankle CLINICAL HISTORY: Reason for exam: osteo. TECHNIQUE: Multiplanar magnetic resonance images of the right ankle without and with intravenous contrast. CONTRAST: Patient received 8.6ml gadavist of IV contrast COMPARISON: X-ray 08/19/2025 FINDINGS: LIGAMENTS: Anterior talofibular: Unremarkable. Posterior talofibular: Unremarkable. Anterior tibiofibular: Unremarkable. Posterior tibiofibular: Unremarkable. Calcaneofibular: Unremarkable. Deltoid: Unremarkable. Spring: Unremarkable. Lisfranc: Unremarkable. TENDONS: Achilles: Unremarkable. Flexor: Unremarkable. Extensor: Unremarkable. Peroneal: Unremarkable. Tibialis anterior: Unremarkable. Tibialis posterior: Unremarkable. Muscles: Unremarkable. Fluid: No joint effusion. Sinus tarsi: Unremarkable. Tarsal tunnel: Unremarkable. Plantar fascia: Unremarkable. Cartilage: Unremarkable. Bones/joints: Normal marrow signal. No evidence of acute osteomyelitis. No acute fracture. Soft tissues: Circumferential skin thickening and edema. IMPRESSION: 1. No evidence of acute osteomyelitis. 2. Circumferential skin thickening and edema. Electronically signed by: Alex Hansen MD 08/19/25 23:37 PM
[2025-08-20 05:03] LABS: Appearance Urine Clear (Clear); Bacteria Urine Automated None Seen (None Seen); Epithelial Cell Urine Auto 0-2 /hpf (0-2); Glucose Urine UA Negative (Negative); RBC Urine Automated 0-2 /hpf (0-2); WBC Urine Automated 0-5 /hpf (0-5)
[2025-08-20 06:07] LABS: Amphetamines+Metham, Urine Neg (Neg); MDMA (Ecstacy), Urine Neg (Neg); Marijuana, Urine Neg (Neg)
[2025-08-20] MEDS: ADVANCED PROBIOTIC 625 MG CAPSULE PO SCH (07:20)
--- NOTE | 2025-08-20 10:23 | Orthopedic Progress Note ---
Date of Service August 20, 2025 Assessment & Plan (1) Cellulitis of right leg: Plan: Dressings were saturated and changed this AM Pictures added to chart Continue IV antibiotics as per primary service. MRI of his lower leg ankle and foot show no sign of osteomyelitis or abscess. Elevate right lower extremity to alleviate swelling May do range of motion of the ankle, toes and knee as tolerated. May weight-bear as tolerated with the assistance of a walker. Would recommend some PT and OT. Wound care, derm and plastics have been consulted No orthopaedic surgery indicated. Ortho will sign off at this time. Admission and Anticipated Discharge Date Admission Date: August 19, 2025 Supervising Physician Co-Signing Physician Notes I saw and examined the patient, reviewed his imaging studies, formulated the plan and performed the substantive portion of the visit. Patient has an ulcerating wound on his right leg, progressed since 1 year ago. No bone involvement. Needs to see derm and plastics to eval and treat. No orthopaedic intervention indicated. If he wants to consider an above knee amputation, he needs to see vascular surgery. Not a candidate for a BKA due to skin involvement. Ortho will sign off. Subjective This 59-year-old male is seen for follow-up of a left leg wound. He was evaluated about a year ago for similar issues with his left leg but states it is much worse at this time. States that he has swelling throughout his lower leg and into his foot. He states that the redness in his foot appears better than it was yesterday. Currently he denies significant pain. He denies chest pain, shortness of breath, fever, chills, sweats, nausea, vomiting, diarrhea or difficulty voiding. Review of Systems 2 Review of Systems: All systems reviewed & are unremarkable except as noted in Subjective Physical Exam 2 Physical Exam: Right lower extremity: Throughout the lower leg circumferentially from the ankle to about 5 cm from the knee he has a large area of hypertrophic skin with erythema and serosanguineous drainage. There is some evidence of some dusky skin proximally at the wound edges. There is no bullae present. There are hypertrophic areas are tender to palpation. Dorsalis pedis pulses trace It has significantly covers more surface area since his last visit a year ago. Patient does have severe onychomycosis of all of his toenails. No evidence of fluctuance or abscess appreciated. Results & Data Vital Signs (Past 12 Hours) Vital Signs Temp Pulse Resp BP Pulse Ox O2 Del Method 08/20/25 07:34 36.8 C 77 18 106/69 98 Room Air 08/19/25 23:00 36.5 C 73 16 108/65 100 Room Air Laboratory Results Laboratory Results WBC 12.61 K/ul (4.8-10.8) H 08/19/25 10:19 RBC 4.14 M/uL (4.70-6.10) L 08/19/25 10:19 Hgb 9.6 g/dl (14.0-18.0) L 08/19/25 10:19 Hct 30.2 % (42.0-52.0) L 08/19/25 10:19 MCV 72.9 fL (80.0-100.0) L 08/19/25 10:19 MCH 23.2 pg (25.0-34.0) L 08/19/25 10:19 MCHC 31.8 g/dL (32.0-36.0) L 08/19/25 10:19 RDW Std Deviation 46.1 fL (36.4-46.3) 08/19/25 10:19 RDW Coeff of Stewart 17.5 % (11.5-14.5) H 08/19/25 10:19 Plt Count 500 K/uL (130-400) H 08/19/25 10:19 MPV 8.9 fL (9.4-12.4) L 08/19/25 10:19 Immature Gran % (Auto) 0.3 % 08/19/25 10:19 Neut % (Auto) 76.9 % 08/19/25 10:19 Lymph % (Auto) 11.3 % 08/19/25 10:19 [place] % (Auto) 9.3 % 08/19/25 10:19 Eos % (Auto) 1.8 % 08/19/25 10:19 Baso % (Auto) 0.4 % 08/19/25 10:19 Neut # (Auto) 9.69 K/uL (1.40-6.50) H 08/19/25 10:19 Lymph # (Auto) 1.43 K/uL (1.20-3.40) 08/19/25 10:19 [place] # (Auto) 1.17 K/uL (0.11-0.59) H 08/19/25 10:19 Eos # (Auto) 0.23 K/uL (0.00-0.50) 08/19/25 10:19 Baso # (Auto) 0.05 K/uL (0.00-0.20) 08/19/25 10:19 Immature Gran # (Auto) 0.04 K/uL (0.01-0.20) 08/19/25 10:19 PT 11.4 Seconds (9.0-12.0) 08/19/25 10:19 INR 1.1 (0.9-1.1) 08/19/25 10:19 APTT 26 Seconds (21-31) 08/19/25 10:19 PTT Ratio 1.0 08/19/25 10:19 Sodium 132 mmol/L (136-145) L 08/19/25 10:19 Potassium 3.8 mmol/L (3.5-5.1) 08/19/25 10:19 Chloride 101 mmol/L (98-107) 08/19/25 10:19 Carbon Dioxide 21 mmol/L (21-32) 08/19/25 10:19 Anion Gap 10 (3-11) 08/19/25 10:19 BUN 14 mg/dl (6-23) 08/19/25 10:19 Creatinine 1.13 mg/dl (0.6-1.4) 08/19/25 10:19 Est Cr Clr Drug Dosing 77.4 ml/min 08/19/25 10:19 eGFR 74.87 08/19/25 10:19 BUN/Creatinine Ratio 12.4 (10-20) 08/19/25 10:19 Glucose 166 mg/dl (70-99(Fasting)) H 08/19/25 10:19 Estimat Average Glucose 151 mg/dl 08/19/25 13:06 Hemoglobin A1c 6.9 % (4.5-5.6) H 08/19/25 13:06 Lactate 1.9 mmol/L (0.4-2.0) 08/19/25 10:19 Calcium 8.7 mg/dl (8.6-10.3) 08/19/25 10:19 Magnesium 1.8 mg/dl (1.7-2.4) 08/19/25 10:19 Total Bilirubin 0.6 mg/dl (0.2-1.0) 08/19/25 10:19 Direct Bilirubin 0.2 mg/dl (0-0.2) 08/19/25 10:19 AST 20 U/L (13-39) 08/19/25 10:19 ALT 27 U/L (7-52) 08/19/25 10:19 Alkaline Phosphatase 87 U/L (34-104) 08/19/25 10:19 Troponin I High Sens 5.7 pg/ml (0-20) D 08/19/25 13:06 Total Protein 6.8 gm/dl (6.0-8.3) 08/19/25 10:19 Albumin 3.3 gm/dl (3.4-5.0) L 08/19/25 10:19 Procalcitonin 0.09 ng/ml (0-0.5) 08/19/25 10:19 Urine Color Yellow 08/20/25 04:45 Urine Appearance Clear (Clear) 08/20/25 04:45 Urine pH 6.0 (4.5-7.5) 08/20/25 04:45 Ur Specific [place] 1.026 (1.000-1.030) 08/20/25 04:45 Urine Protein 1+ (Negative) H 08/20/25 04:45 Urine Glucose (UA) Negative (Negative) 08/20/25 04:45 Urine Ketones Trace (Negative) H 08/20/25 04:45 Urine Blood Negative (Negative) 08/20/25 04:45 Urine Nitrite Negative (Negative) 08/20/25 04:45 Urine Bilirubin Negative (Negative) 08/20/25 04:45 Urine Urobilinogen Negative (Negative) 08/20/25 04:45 Ur Leukocyte Esterase Negative (Negative) 08/20/25 04:45 Urine WBC (Auto) 0-5 /hpf (0-5) 08/20/25 04:45 Urine RBC (Auto) 0-2 /hpf (0-2) 08/20/25 04:45 U Hyaline Cast (Auto) 3-5 /lpf (0-2) H 08/20/25 04:45 U Epithel Cells (Auto) 0-2 /hpf (0-2) 08/20/25 04:45 Urine Bacteria (Auto) None Seen (None Seen) 08/20/25 04:45 Urine Comment 08/20/25 04:45 Urine Opiates Screen Pos (Neg) H 08/20/25 04:45 Ur Methadone, Qual Neg (Neg) 08/20/25 04:45 Urine Fentanyl Screen Neg (Neg) 08/20/25 04:45 Urine Barbiturates Neg (Neg) 08/20/25 04:45 Ur Phencyclidine (PCP) Neg (Neg) 08/20/25 04:45 U Amphetamin/Meth Scrn Neg (Neg) 08/20/25 04:45 MDMA (Ecstasy) Screen Neg (Neg) 08/20/25 04:45 U Benzodiazepines Scrn Neg (Neg) 08/20/25 04:45 Ur Cocaine Metabolite Neg (Neg) 08/20/25 04:45 U Marijuana (THC) Screen Neg (Neg) 08/20/25 04:45 Impressions Chest X-Ray 08/19/25 10:31 XR chest 1V portable CLINICAL HISTORY: Sepsis COMPARISON STUDY: 01/28/2023 FINDINGS: Heart size and pulmonary structure are normal. No consolidation or pleural effusion. No pneumothorax. IMPRESSION: No acute findings. ACT 112: Negative or not required by law. Electronically signed by: Vj Vega M.D. 08/19/2025 10:57 AM Lower Extremity MRI 08/19/25 12:28 Exam(s): MRI EXTREMITY W/WO Contrast IV Amt: 8.6ml gadavist EXAM: MR Right Lower Extremity Without and With Intravenous Contrast, Tibia and Fibula CLINICAL HISTORY: Reason for exam: r/o osteo and abscess. TECHNIQUE: Multiplanar magnetic resonance images of the right tibia and fibula without and with intravenous contrast. CONTRAST: Patient received 8.6ml gadavist of IV contrast COMPARISON: No relevant prior studies available. FINDINGS: Artifacts: Images are degraded by motion artifact. Bones/joints: Normal marrow signal. No osteomyelitis. No acute fracture. No dislocation. Soft tissues: Circumferential skin thickening and edema from the level of the midcalf extending inferiorly. No abscess. Intramuscular edema and fatty atrophy which can be seen in the setting of neuropathic changes. No myotendinous tearing. IMPRESSION: 1. Circumferential skin thickening and edema from the level of the midcalf extending inferiorly. No abscess. Electronically signed by: Alex Hansen MD 08/19/25 22:[address] 08/19/25 13:01 CT SCAN OF THE BRAIN WITHOUT IV CONTRAST CLINICAL HISTORY: Syncope. COMPARISON STUDY: None. TECHNIQUE: Unenhanced axial CT scan of the brain was performed from the vertex to the skull base. A dose lowering technique was utilized adhering to the principles of ALARA. CT DOSE: 625.8 mGy.cm FINDINGS: Brain parenchyma: No acute intracranial hemorrhage, midline shift or mass effect is present. Marquez-white matter differentiation is preserved. There are no extra- axial fluid collections. There are no findings to suggest acute dural sinus thrombosis or acute territorial infarct. Ventricles, sulci, cisterns: There is no hydrocephalus. The basal cisterns are patent. Calvarium: There are no calvarial fractures. Sinuses and mastoids: There are large bilateral mastoid effusions. There is also fluid within the bilateral middle ears. Although suboptimally assessed on this exam, there is erosion of the bilateral ossicles. Abnormal soft tissue within the left external auditory canal is present. Orbits: The bony orbits are grossly intact. IMPRESSION: 1. No acute intracranial findings. 2. No calvarial fractures. 3. Large bilateral mastoid effusions. In addition, fluid within the bilateral middle ears with probable erosion of the bilateral ossicles, suboptimally assessed on this exam. ACT 112: Negative or not required by law. Electronically signed by: Chicho Juárez M.D. 08/19/2025 1:51 PM Ankle MRI 08/19/25 13:37 Exam(s): MRI RIGHT ANKLE W/WO Contrast IV Amt: 8.6ml gadavist EXAM: MR Right Lower Extremity Without and With Intravenous Contrast, Ankle CLINICAL HISTORY: Reason for exam: osteo. TECHNIQUE: Multiplanar magnetic resonance images of the right ankle without and with intravenous contrast. CONTRAST: Patient received 8.6ml gadavist of IV contrast COMPARISON: X-ray 08/19/2025 FINDINGS: LIGAMENTS: Anterior talofibular: Unremarkable. Posterior talofibular: Unremarkable. Anterior tibiofibular: Unremarkable. Posterior tibiofibular: Unremarkable. Calcaneofibular: Unremarkable. Deltoid: Unremarkable. Spring: Unremarkable. Lisfranc: Unremarkable. TENDONS: Achilles: Unremarkable. Flexor: Unremarkable. Extensor: Unremarkable. Peroneal: Unremarkable. Tibialis anterior: Unremarkable. Tibialis posterior: Unremarkable. Muscles: Unremarkable. Fluid: No joint effusion. Sinus tarsi: Unremarkable. Tarsal tunnel: Unremarkable. Plantar fascia: Unremarkable. Cartilage: Unremarkable. Bones/joints: Normal marrow signal. No evidence of acute osteomyelitis. No acute fracture. Soft tissues: Circumferential skin thickening and edema. IMPRESSION: 1. No evidence of acute osteomyelitis. 2. Circumferential skin thickening and edema. Electronically signed by: Alex Hansen MD 08/19/25 23:37 PM Foot MRI 08/19/25 13:37 Exam(s): MRI RIGHT FOOT W/WO Contrast IV Amt: 8.6ml gadavist EXAM: MR Right Lower Extremity Without and With Intravenous Contrast, Foot CLINICAL HISTORY: Reason for exam: osteo. TECHNIQUE: Multiplanar magnetic resonance images of the right foot without and with intravenous contrast. CONTRAST: Patient received 8.6ml gadavist of IV contrast COMPARISON: No relevant prior studies available. FINDINGS: Normal marrow signal. No acute osteomyelitis. No septic arthritis. Soft tissue edema. No abscess. No soft tissue gas. No tenosynovitis. Normal appearance of the Lisfranc ligament. IMPRESSION: No acute osteomyelitis. Electronically signed by: Alex Hansen MD 08/19/25 22:43 PM Ankle X-Ray 08/19/25 15:42 4 views of the right ankle are submitted for review. Findings: There is no clear evidence of acute osteomyelitis. No fracture or dislocation is seen. There is chronic appearing periosteal reaction involving the distal tibia and fibula. No significant arthritic changes are noted. There are dorsal and plantar calcaneal spurs. No other osseous abnormality is identified. There are no radiopaque foreign bodies. Impression: 1. No definite acute pathology 2. Calcaneal spurs Electronically signed by Robbie Cordero 08-19-2025 5:00 PM Tibia/Fibula X-Ray 08/19/25 15:42 3 views of the right lower leg are submitted for review. Findings: There is no clear evidence of acute osteomyelitis. No definite fracture is seen. There is chronic appearing periosteal reaction involving the tibial and fibular shafts that could be due to vascular insufficiency or old injury. No significant arthritic changes are noted. There are dorsal and plantar calcaneal spurs. No other osseous abnormality is identified. There are no radiopaque foreign bodies. Impression: 1. No definite acute pathology 2. Calcaneal spurs Electronically signed by Robbie Cordero 08-19-2025 5:01 PM Diagnostic Findings
[2025-08-20 10:41] LABS: Hematocrit (blood only) 27.6 % (42.0-52.0); Hemoglobin 8.7 g/dl (14.0-18.0); Mean Corpuscular Hemoglobin 23.4 pg (25.0-34.0); Mean Corpuscular Volume 74.2 fL (80.0-100.0); Platelet Count 398 K/uL (130-400); RDW Standard Deviation 47.9 fL (36.4-46.3); Red Blood Count 3.72 M/uL (4.70-6.10); White Blood Count 6.32 K/ul (4.8-10.8)
[2025-08-20 10:54] LABS: Anion Gap 6.0 (3-11); Blood Urea Nitrogen 17.0 mg/dl (6-23); Calcium 8.2 mg/dl (8.6-10.3); Carbon Dioxide 21.0 mmol/L (21-32); Chloride 105.0 mmol/L (98-107); Creatinine Clr Calc Pharmacy 60.3 ml/min; Glucose 99.0 mg/dl (70-99(Fasting)); Magnesium 1.8 mg/dl (1.7-2.4); Potassium 3.9 mmol/L (3.5-5.1); Sodium 132.0 mmol/L (136-145)
[2025-08-20] MEDS ORDERED: DEXTROSE 50% 50 ML SYRINGE IV PRN (13:25)
[2025-08-20] MEDS ORDERED: CARBOHYDRATES FOR HYPOGLYCEMIA PO PRN (13:25)
[2025-08-20] MEDS ORDERED: GLUCAGON FOR INJ 1 MG VIAL SQ PRN (13:25)
[2025-08-20] MEDS ORDERED: GLUCOSE 40% GEL 15 GM TUBE PO PRN (13:25)
[2025-08-20] MEDS ORDERED: GLUCOSE 10 TAB/TUBE PO PRN (13:25)
[2025-08-20] MEDS ORDERED: PHARMACY GLYCEMIC MGMT CONSULT PRN (13:25)
--- NOTE | 2025-08-20 14:24 | Pharmacy Report ---
Pharmacy Glycemic Short Note 2 - Date of Service August 20, 2025 - Glycemic Short BSG Results (Last 24 hours): 08/20/25 10:16 Glucose 99 OUTPATIENT ANTIDIABETIC REGIMEN: * n/a ASSESSMENT: * 59 year old admitted with cellulitis. PMHx significant for mood disorder, anemia, and chronic lower leg wounds. A1c indicating diabetes on admission, no hx of diabetes per notes. However, patient with hx of anemia - therefore could lead to variable A1c results. Will trend blood sugars. PLAN FOR INPATIENT GLYCEMIC CONTROL: * Hold outpatient oral diabetes medications * Basal insulin * Lantus - hold * Bolus insulin * NovoLog per scale ACHS or Q6hrs while NPO * Goal Range: Low 110 mg/dL - High 160 mg/dL * Correction Factor: 25 mg/dL/unit * Nutritional / Prandial insulin per carb ratio of 1 unit per 9 grams CHO consumed
--- NOTE | 2025-08-20 14:58 | Hospitalist Progress Note ---
Date of Service August 20, 2025 Assessment & Plan (1) Cellulitis of right leg: (2) Syncope: (3) Anemia, chronic disease: (4) DM type 2 (diabetes mellitus, type 2): Plan Patient is a 59-year-old male with past medical history significant for schizotypal personality disorder, chronic RLE venous stasis ulcer/wound (present for >10 years), history of recurrent RLE cellulitis, chronic anemia, GERD and medical noncompliance who presented to the ED on 08/19/2025 due to foul-smelling drainage from his chronic RLE venous stasis ulcer/wound with associated, RLE pain and possible fever. RLE cellulitis Chronic RLE venous stasis ulcer/wound Multiple prior hospitalizations for infected chronic RLE venous stasis ulcer/wound, RLE cellulitis. Previously evaluated by plastic surgery in May 2023, has undergone several debridement procedures. Wound was previously biopsied in January 2023 and revealed stasis dermatitis with hemosiderin deposition. Patient with history of medical noncompliance, poor outpatient follow-up. 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 Also with significant RLE erythema extending from the ankle to just below the inferior aspect of the knee, + RLE swelling. Wound was dressed with old rags as well as plastic bags. Had been using masking tape to hold the dressing together. RLE MRI with circumferential skin thickening and edema from the level of the mid calf extending inferiorly, no abscess or osteomyelitis seen. Orthopedics consulted. Orthopedic PA-C performed dressing change at bedside this morning. No orthopedic intervention indicated. Recommending dermatology and plastic surgery evaluation. Elevate RLE to alleviate swelling. Dermatology and plastic surgery unable to perform inpatient consult; Dr. Lambert out of town on vacation. Initially was started on IV vancomycin, clindamycin and cefepime based off his previous wound culture results. Has previously grown Citrobacter braakii, Proteus mirabilis, Citrobacter freundii, MRSA, Pseudomonas aeruginosa, Group G Beta Strep. Preliminary blood cultures with no growth to date. IV vancomycin discontinued. Continue IV cefepime and clindamycin for now. Appreciate ID consultation for tailoring of antibiotic therapy. Wound culture ordered but not obtained. Continue PRN analgesia, appreciate PT/OT evaluations. Appreciate WOCN consult. 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 Reportedly was on floor for several days s/p syncopal event. Head CT with no acute intracranial findings, no calvarial fractures. Did however note large bilateral mastoid effusions with erosion of the bilateral ossicles. Concern for possible mastoiditis. Will check nasal MRSA swab. For now we will continue to hold off on resuming IV vancomycin. Appreciate ID input in this regard as well. Check orthostatic vitals as able. Updated TTE with LVEF 60 to 65%, prolapse of the posterior mitral leaflets, severe MR, mild TR. Chronic anemia H/H stable compared to prior, will recheck anemia panel in AM. Continue to monitor. Newly diagnosed DMII Hemoglobin A1c 6.9%, appreciate DM educator consult. CC diet. SSI protocol added on, monitor BSG checks ACHS. DVT Prophylaxis: SQ heparin Code Status: FULL CODE PCP: Elkin Navarrete MD Disposition: DC plans uncertain at this time, suspect patient may need SNF or PCH; appreciate PT/OT evaluations Patient seen in collaboration with Dr. Smith. Please see addendum. I spent a total of 54 minutes coordinating, documenting, and providing care for this patient excluding time spent in the performance of separately billed services or time spent by another provider/QHP. This included personally reviewing all current laboratories and imaging studies, medical reconciliation, outpatient chart review and discussion with specialists. This chart was completed in part utilizing Speech Voice Recognition Software. Grammatical errors, random word insertions, pronoun errors, and incomplete sentences are an occasional consequence of this system due to software limitations, ambient noise, and hardware issues. Any formal questions or concerns about the content, text, or information contained within the body of this dictation should be directly addressed to the provider for clarification. Admission and Anticipated Discharge Date Admission Date: August 19, 2025 Supervising Physician Co-Signing Physician Notes Pt was seen and examined at bedside. Agree with above assessment and plan. total time spent independently: 17 min. I have seen and examined the patient and have discussed the case with the provider above. I agree with the assessment and plan as stated. Subjective Patient seen and examined in room 324-1. NAEO. Had RLE wound dressed by orthopedic surgery PATiffanieC this morning. Denies any significant RLE pain. Review of Systems Review of Systems: At least ten systems reviewed and negative, except as noted in the subjective section. Physical Exam Physical Exam: General: M, NAD, sitting up in bed, A&Ox3 HEENT: Normocephalic, atraumatic, oropharynx appears moist Respiratory: Normal respiratory effort, CTAB Cardiovascular: Regular rate/rhythm, + holosystolic murmur. Abdomen/GI: Normal bowel sounds, soft, nontender to palpation in all quadrants Extremities/Musculoskeletal: Extremities motor strength intact, moves all extremities, RLE dressing C/D/I (wound not directly visualized), + superficial erythema tracking just below the R knee Neurologic: No overt focal deficits, CN's II-XI not formally tested but appear grossly intact bilaterally Results & Data Results & Data Vital Signs (Past 12 Hours) Vital Signs Temp Pulse Resp BP Pulse Ox O2 Del Method 08/20/25 14:49 36.6 C 63 16 104/67 98 Room Air 08/20/25 07:34 36.8 C 77 18 106/69 98 Room Air 08/20/25 07:30 Room Air Laboratory Results Short CBC 08/20/25 Range/Units 10:16 WBC 6.32 (4.8-10.8) K/ul Hgb 8.7 L (14.0-18.0) g/dl Hct 27.6 L (42.0-52.0) % Plt Count 398 (130-400) K/uL BMP 08/20/25 10:16 Sodium 132 L Potassium 3.9 Chloride 105 Carbon Dioxide 21 BUN 17 Creatinine 1.45 H D Glucose 99 Calcium 8.2 L Urine 08/20/25 Range/Units 04:45 Urine Color Yellow Urine Appearance Clear (Clear) Urine pH 6.0 (4.5-7.5) Ur Specific [place] 1.026 (1.000-1.030) Urine Protein 1+ H (Negative) Urine Glucose (UA) Negative (Negative)
[2025-08-20] MEDS: INSULIN ASPART PER UNIT CHARGE SC SCH (17:50)
[2025-08-21 09:09] LABS: Hematocrit (blood only) 25.9 % (42.0-52.0); Hemoglobin 8.0 g/dl (14.0-18.0); Immature Granulocytes # (auto) 0.03 K/uL (0.01-0.20); Immature Granulocytes % (auto) 0.4 %; Mean Corpuscular Hemoglobin 22.7 pg (25.0-34.0); Mean Corpuscular Volume 73.4 fL (80.0-100.0); Platelet Count 409 K/uL (130-400); RDW Standard Deviation 47.9 fL (36.4-46.3); Red Blood Count 3.53 M/uL (4.70-6.10); White Blood Count 6.73 K/ul (4.8-10.8)
[2025-08-21 09:28] LABS: Alanine Aminotransferase 18.0 U/L (7-52); Albumin Globulin Ratio 0.9 (0.9-2); Albumin Level 2.7 gm/dl (3.4-5.0); Alkaline Phosphatase 63.0 U/L (34-104); Anion Gap 7.0 (3-11); Bilirubin,Total 0.3 mg/dl (0.2-1.0); Blood Urea Nitrogen 21.0 mg/dl (6-23); Calcium 7.8 mg/dl (8.6-10.3); Carbon Dioxide 22.0 mmol/L (21-32); Chloride 104.0 mmol/L (98-107); Creatinine Clr Calc Pharmacy 51.7 ml/min; Globulin 2.9 gm/dl (2.5-4.0); Glucose 148.0 mg/dl (70-99(Fasting)); Iron 40.0 mcg/dl (35-175); Potassium 3.7 mmol/L (3.5-5.1); Sodium 133.0 mmol/L (136-145); Total Iron Binding Cap Calc 195.0 mcg/dl (250-450); Total Protein 5.6 gm/dl (6.0-8.3); Transferrin 139.0 mg/dl (200-360); Transferrin (FE) Percent Satur 21.0 % (20-50)
[2025-08-21 09:46] LABS: Ferritin 108.7 ng/ml (8-388)
[2025-08-21 09:53] LABS: Folate (Folic Acid),Ser orPlas 12.55 ng/ml (>5.38)
[2025-08-21 09:54] LABS: Vitamin B12 808.0 pg/ml (180-914)
[2025-08-21] MEDS ORDERED: VANCOMYCIN LEVEL ONE (10:00)
[2025-08-21] MEDS: INFLUENZA VACC TS2025-26(6m+)/PF (IIV3) 0.5mL Syr IM ONE (11:03)
--- NOTE | 2025-08-21 12:09 | Hospitalist Progress Note ---
Date of Service August 21, 2025 Assessment & Plan (1) Cellulitis of right leg: (2) Chronic wound: (3) Syncope: (4) Anemia, chronic disease: (5) DM type 2 (diabetes mellitus, type 2): Plan Patient is a 59-year-old male with past medical history significant for schizotypal personality disorder, chronic RLE venous stasis ulcer/wound (present for >10 years), history of recurrent RLE cellulitis, chronic anemia, GERD and medical noncompliance who presented to the ED on 08/19/2025 due to foul-smelling drainage from his chronic RLE venous stasis ulcer/wound with associated, RLE pain and possible fever. RLE cellulitis Chronic RLE venous stasis ulcer/wound Multiple prior hospitalizations for infected chronic RLE venous stasis ulcer/wound, RLE cellulitis. Previously evaluated by plastic surgery in May 2023, has undergone several debridement procedures. Wound was previously biopsied in January 2023 and revealed stasis dermatitis with hemosiderin deposition. Patient with history of medical noncompliance, poor outpatient follow-up. Wound has exuded foul-smelling drainage for several weeks, previously did not change dressing for 40 days OVEN DAUBER. Also with significant RLE erythema extending from the ankle to just below the inferior aspect of the knee, + RLE swelling. Wound was dressed with old dirty rags as well as plastic bags. Had been using masking tape to hold the dressing together. RLE MRI with circumferential skin thickening and edema from the level of the mid calf extending inferiorly, no abscess or osteomyelitis seen. Orthopedics consulted. No orthopedic intervention indicated. -Recommending dermatology and plastic surgery evaluation. Elevate RLE to alleviate swelling. -Dermatology and plastic surgery unable to perform inpatient consult; Dr. Lambert out of town on vacation. Initially was started on IV vancomycin, clindamycin and cefepime based off his previous wound culture results. Has previously grown Citrobacter braakii, Proteus mirabilis, Citrobacter freundii, MRSA, Pseudomonas aeruginosa, Group G Beta Strep. Preliminary blood cultures with no growth to date. IV vancomycin discontinued. Continue IV cefepime and clindamycin for now. Appreciate ID consultation for tailoring of antibiotic therapy - pending. Wound culture ordered but not obtained - unclear if this would provide benefit. Continue PRN analgesia, appreciate PT/OT evaluations. Appreciate WOCN consult. Syncope and dizziness suspect 2/2 bilateral mastoid effusions, possible mastoiditis History of cardiac murmur Patient reports syncopal event several days OVEN DAUBER, recent dizziness. Reportedly was on floor for several days s/p syncopal event. Head CT with no acute intracranial findings, no calvarial fractures. Did however note large bilateral mastoid effusions with erosion of the bilateral ossicles. Concern for possible mastoiditis. Nasal MRSA swab negative. For now will continue to hold off on resuming IV vancomycin. Appreciate ID input in this regard as well. Orthostatics negative. Updated TTE with LVEF 60 to 65%, prolapse of the posterior mitral leaflets, severe MR, mild TR. Doubt cardiac etiology at this time. Chronic anemia H/H stable compared to prior Anemia panel with iron 40, TIBC 195, transferrin 139, ferritin 108.7; vit B12/folate WNL. Trial iron supplementation with addition of vit C, monitor H/H. Hypocalcemia Serum calcium 7.8, check ionized calcium. If ionized calcium low, would then check 25-OH vit D level. Newly diagnosed DMII Hemoglobin A1c 6.9%, appreciate DM educator consult. CC diet. SSI protocol added on, monitor BSG checks ACHS. Acute kidney injury Creatinine uptrending to 1.69 today, has had IVF on board. BUN WNL. Will check renal US for further investigation. S/p 4L NSS, additional 1L currently running. ? acute interstitial nephritis 2/2 cefepime use. Will change dosing from Q8H to Q12H per pharmacy recommendations. Monitor repeat BMP in the morning. If not improving, could consider switching IV cefepime. Schizotypal personality disorder Not currently on any medications for this per chart review. Patient A&Ox3 with direct questioning. Tangential speech, prosodic features. Patient reportedly lives alone in an apartment in [place]. No significant family support. Significant difficulty caring for himself at home. Do feel patient would benefit from or [facility] support in the long-term. Therapy recommending SNF at this time. Referral pending to [facility]. DVT Prophylaxis: SQ heparin Code Status: FULL CODE PCP: Elkin Navarrete MD Disposition: DC plans uncertain at this time, referral pending as per above Patient seen in collaboration with Dr. Emmanuel. Please see addendum. I spent a total of 38 minutes coordinating, documenting, and providing care for this patient excluding time spent in the performance of separately billed services or time spent by another provider/QHP. This included personally reviewing all current laboratories and imaging studies, medical reconciliation, outpatient chart review and discussion with specialists. This chart was completed in part utilizing Speech Voice Recognition Software. Grammatical errors, random word insertions, pronoun errors, and incomplete sentences are an occasional consequence of this system due to software limitations, ambient noise, and hardware issues. Any formal questions or concerns about the content, text, or information contained within the body of this dictation should be directly addressed to the provider for clarification. Admission and Anticipated Discharge Date Admission Date: August 19, 2025 Supervising Physician Co-Signing Physician Notes Attending addendum: The patient was seen and examined in medical floor He has been feeling better with improvement of his right leg swelling and pain Still has significant drainage from the wound Denies any fever and/or chills and denies any other significant symptoms On examination Afebrile and hemodynamically stable Chest was clear to auscultate bilaterally HeartS1-S2, regular Abdomenbenign Extremitiesleft lower extremity is normal and right lower extremity is bandaged below the knee with some oozing coming up from the heel area Please look at the wound image to have an assessment of the right leg cellulitis and wound His labs, medications and imaging studies reviewed Significant, complicated and chronic right leg wound with abdominal cellulitis Appreciate ID input and recommendation Likely will need outpatient wound care and also referral to plastic surgery Agree with assessment and plan as outlined above by Lucy Kim PA-C and take the full responsibility of care in the hospital DR Hoda Emmanuel Subjective Patient seen and examined in room 324-1. NAEO. Denies any RLE pain this morning. Review of Systems Review of Systems: At least ten systems reviewed and negative, except as noted in the subjective section. Physical Exam Physical Exam: General: M, NAD, sitting up in bed, A&Ox3 with directed questioning, tangential speech, prosodic features HEENT: Normocephalic, atraumatic, oropharynx appears moist Respiratory: Normal respiratory effort, CTAB Cardiovascular: Regular rate/rhythm, + holosystolic murmur Abdomen/GI: Normal bowel sounds, soft, nontender to palpation in all quadrants Extremities/Musculoskeletal: Extremities motor strength intact, moves all extremities, RLE dressing C/D/I (wound not directly visualized), + superficial erythema tracking just below the R knee Neurologic: No overt focal deficits, CN's II-XI not formally tested but appear grossly intact bilaterally Results & Data Results & Data Vital Signs (Past 12 Hours) Vital Signs Temp Pulse Resp BP Pulse Ox O2 Del Method 08/21/25 07:54 36.8 C 79 16 123/69 97 Room Air Laboratory Results Short CBC 08/21/25 Range/Units 08:50 WBC 6.73 (4.8-10.8) K/ul Hgb 8.0 L (14.0-18.0) g/dl Hct 25.9 L (42.0-52.0) % Plt Count 409 H (130-400) K/uL BMP 08/21/25 08:50 Sodium 133 L Potassium 3.7 Chloride 104 Carbon Dioxide 22 BUN 21 Creatinine 1.69 H Glucose 148 H Calcium 7.8 L Liver Function 08/21/25 Range/Units 08:50 Total Bilirubin 0.3 (0.2-1.0) mg/dl AST 15 (13-39) U/L ALT 18 (7-52) U/L Alkaline Phosphatase 63 (34-104) U/L Albumin 2.7 L (3.4-5.0) gm/dl
--- NOTE | 2025-08-21 13:17 | Infectious Disease Consult ---
Date of Service August 21, 2025 Telehealth Information I performed this visit using a real-time telehealth connection between my location and the patients location ([facility]). After connecting through interactive tele-video, patient was identified by name and date of and/or wristband check.Patient (or authorized healthcare customer assistance representative) was informed that this was a telemedicine visit and it was being conducted confidentially over secure lines. My office door was closed and no o ne else was present in the room with me.Patient (or authorized healthcare customer assistance representative) provided consent to proceed with the visit, expressed an understanding of privacy and security of the telemedicine visit, and gave permission to have a hospital customer assistance representative in the room in order to assist with the visit and to conduct portions of the visit, as needed. I informed the patient (or authorized healthcare customer assistance representative) that I reviewed their record and presented the opportunity for them to ask any questions regarding the visit today. The patient agreed to participate. Assessment & Plan (1) Chronic wound: (2) DM type 2 (diabetes mellitus, type 2): (3) Leukocytosis: (4) Cellulitis: (5) Cellulitis of right leg: (6) Anemia, chronic disease: Plan Assessment: Patient is a 59 year old M with PMHx of anemia, mood disorder, chronic lower leg wound who presented to [facility] on 08/19/2025 with foul smelling right lower leg wound. Pt is currently being treated for RLE wound infection. Plan: - Pt is currently on Cefepime and Clindamycin IV, would recommend switching to Cipro 500 mg PO BID and Linezolid 600 mg PO BID to complete 2 weeks of total antibiotic treatment. - Recommend aggressive wound care, pt's wound is not well taken care of which explains the recurrent cellulitis. Pt says he can not change is dressings himself, nor does he know what to do and says he does not f/u closely with wound care. This needs to be managed and monitoring closely or patient will continue to have these presentations. - we will sign off, no need for ID clinic appointment, and please contact ID physician evaluation manager for teledoc services for any additional questions or concerns. History of Present Illness History of Present Illness Reason for consult: RLE wound, recurrent cellulitis Patient is a 59 year old M with PMHx of anemia, mood disorder, chronic lower leg wound who presented to [facility] on 08/19/2025 with foul smelling right lower leg wound. Per notes and chart review, pt reports multiple hospitalizations for right leg wound, possibly related to a fall, but also states the wound first started in 2013. Reporting severe pain to right lower leg, 8/10 burning and stabbing pain, that has been ongoing and now unable to ambulate. Wound has been dressed for ~40 days with the same dressing- abd gauze, covered in trash bag and towels. States he was unable to change the dressing by himself; dressings changed at [facility] when inpatient. Also reporting he "passed out for 10 days", "woke up about 30 days ago", and has been dizzy. ID consulted for evaluation and management. Allergies Allergy/AdvReac Type Severity Reaction Status Date / Time bee venom protein (honey bee) Allergy Severe FACIAL Verified 08/19/25 13:04 SWELLING Penicillins Allergy Severe Anaphylaxis Verified 08/19/25 13:04 Home Medications Medication Instructions Recorded Confirmed Type ibuprofen 200 mg tablet 200 mg PO Q6H PRN Pain 08/19/25 08/19/25 History Patient History Medical History Cellulitis of right lower extremity chronic cellulitis on right low leg Sepsis Schizotypal personality disorder Surgical History No pertinent past surgical history Family History Other No pertinent family history Social History Smoking Status: Never smoker Second Hand Exposure: No; Do You Dip or Chew Tobacco: No; Hx Alcohol Use: No Hx Substance Use: No Preferred Language: Zimbabwean 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 Ability: Effective Computer Analyst Required: No Beliefs That Will Affect Care: None marital status: Single Current Living Situation: Alone Current Living Situation Comment: living in a hotel Feels Safe at Home: Yes Assistive Devices: None Review of Systems reviewed all ROS and were negative. Physical Exam NA Results & Data Vital Signs (Past 12 Hours) Vital Signs Temp Pulse Resp BP Pulse Ox O2 Del Method 08/21/25 07:54 36.8 C 79 16 123/69 97 Room Air Laboratory Results Right Leg culture on 08/20/2024 Gram Stain Final 08/21/24 Gram Stain Result Few WBCs Seen Many Gram Positive Cocci Many Gram Negative Bacilli Aero/[place]ica Cult Final 08/25/24 Organism 1 Citrobacter braakii Quantity Many Sens Sensitivities to Follow Organism 2 Proteus mirabilis Quantity Moderate Sens Sensitivities to Follow PLUS HEAVY AMOUNT OF MIXED ANAEROBIC MICROBIOTA. C braakii P mirabili RX M.I.C. RX M.I.C. --- --------- --- --------- Amox/Clav S <=8/4 Ampicillin S <=8 Amp/Sul S <=8/4 Cefazolin S <=2 Cefepime S <=2 S <=2 Ceftriaxone S <=1 S <=1 Ciprofloxacin S <=0.25 S <=0.25 Ertapenem S <=0.5 S <=0.5 Gentamicin S <=4 S <=4 Levofloxacin S <=0.5 S <=0.5 Meropenem S <=1 S <=1 Tobramycin S <=4 S <=4 Trimeth/Sulfa S <=2/38 S <=2/38 Pip/Tazo S <=16 S <=16 S = SENSITIVE I = INTERMEDIATE R = RESISTANT Right Leg culture on 05/16/2025 Gram Stain Final 05/17/23 Gram Stain Result Rare Epithelial Cells No WBCs Seen Few Gram Positive Cocci Aero/[place]ica Cult Final 05/21/23 Organism 1 Citrobacter freundii Quantity Moderate Sens Sensitivities to Follow +MixWound Plus Low Counts of Probable Skin Wanda Organism 2 Proteus mirabilis Quantity Moderate Sens Sensitivities to Follow Organism 3 Staph aureus MRSA Quantity Rare Sens Sensitivities to Follow Organism 4 Eggerthella lenta Quantity Many Sens No Sensitivities to Follow C freundii P mirabili MRSA RX M.I.C. RX M.I.C. RX M.I.C. --- --------- --- --------- --- --------- Amox/Clav S <=8/4 Ampicillin S <=8 Amp/Sul S <=8/4 Cefazolin I 4 Cefepime S <=2 S <=2 Ceftriaxone S <=1 S <=1 Ciprofloxacin S <=0.25 S <=0.25 Clindamycin R <=0.5 Daptomycin S <=0.5 Ertapenem S <=0.5 S <=0.5 Erythromycin R >4 Gentamicin S <=4 S <=4 Levofloxacin S <=0.5 S <=0.5 Meropenem S <=1 S <=1 Oxacillin R >2 Rifampin S <=1 Tetracycline S <=4 Tobramycin S <=4 I 8 Trimeth/Sulfa S <=2/38 S <=2/38 S <=0.5/9.5 Pip/Tazo S <=16 S <=16 Vancomycin S 1 S = SENSITIVE I = INTERMEDIATE R = RESISTANT 08/19/25 10:41 Aerobic Blood Culture - Preliminary Blood No growth in Aerobic bottle after 48 hours. Anaerobic Blood Culture - Preliminary No growth in Anaerobic bottle after 48 hours. 08/19/25 10:19 Aerobic Blood Culture - Preliminary Blood No growth in Aerobic bottle after 48 hours. Anaerobic Blood Culture - Preliminary No growth in Anaerobic bottle after 48 hours. 08/21/25 08/21/25 08/21/25 11:48 08:50 07:52 WBC 6.73 RBC 3.53 L Hgb 8.0 L Hct 25.9 L MCV 73.4 L MCH 22.7 L MCHC 30.9 L RDW Std Deviation 47.9 H RDW Coeff of Stewart 18.2 H Plt Count 409 H MPV 8.7 L Immature Gran % (Auto) 0.4 Neut % (Auto) 66.1 Lymph % (Auto) 20.5 Emery % (Auto) 5.9 Eos % (Auto) 6.2 Baso % (Auto) 0.9 Neut # (Auto) 4.44 Lymph # (Auto) 1.38 Emery # (Auto) 0.40 Eos # (Auto) 0.42 Baso # (Auto) 0.06 Immature Gran # (Auto) 0.03 Sodium 133 L Potassium 3.7 Chloride 104 Carbon Dioxide 22 Anion Gap 7 BUN 21 Creatinine 1.69 H Est Cr Clr Drug Dosing 51.7 eGFR 46.19 BUN/Creatinine Ratio 12.4 Glucose 148 H POC Glucose 111 H 112 H Calcium 7.8 L Iron 40 TIBC 195 L Transferrin 139 L Transferrin % Sat 21 Ferritin 108.7 Total Bilirubin 0.3 AST 15 ALT 18 Alkaline Phosphatase 63 Total Protein 5.6 L Albumin 2.7 L Globulin 2.9 Albumin/Globulin Ratio 0.9 Vitamin B12 808 Folate 12.55 Nasal Screen MRSA (PCR) 08/20/25 08/20/25 08/20/25 Unknown 20:31 16:47 WBC RBC Hgb Hct MCV MCH MCHC RDW Std Deviation RDW Coeff of Stewart Plt Count MPV Immature Gran % (Auto) Neut % (Auto) Lymph % (Auto) Emery % (Auto) Eos % (Auto) Baso % (Auto) Neut # (Auto) Lymph # (Auto) Emery # (Auto) Eos # (Auto) Baso # (Auto) Immature Gran # (Auto) Sodium Potassium Chloride Carbon Dioxide Anion Gap BUN Creatinine Est Cr Clr Drug Dosing eGFR BUN/Creatinine Ratio Glucose POC Glucose 93 121 H Calcium Iron TIBC Transferrin Transferrin % Sat Ferritin Total Bilirubin AST ALT Alkaline Phosphatase Total Protein Albumin Globulin Albumin/Globulin Ratio Vitamin B12 Folate Nasal Screen MRSA (PCR) Negative Diagnostic Findings Right Foot MRI on 08/19/2025 Exam(s): MRI RIGHT FOOT W/WO Contrast IV Amt: 8.6ml gadavist EXAM: MR Right Lower Extremity Without and With Intravenous Contrast, Foot CLINICAL HISTORY: Reason for exam: osteo. TECHNIQUE: Multiplanar magnetic resonance images of the right foot without and with intravenous contrast. CONTRAST: Patient received 8.6ml gadavist of IV contrast COMPARISON: No relevant prior studies available. FINDINGS: Normal marrow signal. No acute osteomyelitis. No septic arthritis. Soft tissue edema. No abscess. No soft tissue gas. No tenosynovitis. Normal appearance of the Lisfranc ligament. IMPRESSION: No acute osteomyelitis. EKG on 08/19/2025 Vent. Rate : 93 BPM Atrial Rate : 93 BPM P-R Int : 134 ms QRS Dur : 72 ms QT Int : 346 ms P-R-T Axes : 23 41 39 degrees QTcB Int : 430 ms Medications Administered Home Medications Medication Instructions Recorded Confirmed Last Taken ibuprofen 200 mg tablet 200 mg PO Q6H PRN Pain 08/19/25 08/19/25 Unknown Active Medications Generic Name Dose Route Start Last Admin Trade Name Freq PRN Reason Stop Dose Admin Heparin Sodium (Porcine) 5,000 units 08/19/25 21:00 08/21/25 08:00 Heparin Sod 5,000 Unit/0.5 Ml Vial SQ 09/18/25 20:59 Not Given Q12 FAHAD Sodium Chloride 1,000 mls @ 125 mls/hr 08/19/25 12:45 08/21/25 13:10 Nss IV 08/21/25 23:59 Not Given .Q8H FAHAD Acetaminophen 1,000 mg in 100 mls @ 400 mls/hr 08/19/25 13:00 08/21/25 13:09 Ofirmev IV 08/22/25 12:59 400 mls/hr Q8H FAHAD Administration Clindamycin Phosphate 900 mg in 50 mls @ 100 mls/hr 08/19/25 19:00 08/21/25 11:55 Cleocin/D5w IV 08/26/25 18:59 Infused Q8H FAHAD Infusion Insulin Aspart 0 units 08/20/25 16:30 08/21/25 12:59 Insulin Aspart Per Unit Charge SC 09/19/25 16:29 Not Given ACHS FAHAD Lactobacillus Acidophilus 1,250 mg 08/20/25 09:00 08/21/25 07:59 Advanced Probiotic 625 Mg Capsule PO 09/19/25 08:59 1,250 mg DAILY FAHAD Administration Oxycodone HCl 5 mg 08/19/25 12:46 08/21/25 11:02 Oxycodone Hcl Ir 5 Mg Tab (Immediate Release) PO 09/02/25 12:45 5 mg Q4H PRN Administration Moderate Pain (Scale 4, 5, 6) (3) Leukocytosis Leukocytosis type: unspecified Qualified Code(s): D72.829 - Elevated white blood cell count, unspecified (4) Cellulitis Laterality: right Site of cellulitis: extremity Site of cellulitis of extremity: lower extremity Qualified Code(s): L03.115 - Cellulitis of right lower limb
--- NOTE | 2025-08-21 16:19 | Ultrasound Report ---
RENAL ULTRASOUND CLINICAL HISTORY: Acute kidney injury. COMPARISON STUDY: None TECHNIQUE: Sonography of the kidneys and the urinary bladder was performed. FINDINGS: The right kidney measures 9.9 x 5.8 x 5.2 cm and the left kidney measures 10.2 x 5 x 5.6 cm . There is no hydronephrosis. Renal echogenicity is mildly increased. A 0.8 cm right lower pole renal cyst is noted. Several left renal cysts measure up to 2.8 cm. This contains a thin septation. Both u reteral jets were identified. IMPRESSION: 1. No hydronephrosis. 2. Several renal cysts. ACT 112: Negative or not required by law. Electronically signed by: Chicho Juárez M.D. 08/21/2025 4:18 PM
[2025-08-21] MEDS: CEFEPIME 2000MG 2,000 MG/20 ML SYR IV SCH (17:35)
[2025-08-22 04:41] LABS: Hematocrit (blood only) 23.5 % (42.0-52.0); Hemoglobin 7.2 g/dl (14.0-18.0); Mean Corpuscular Hemoglobin 22.2 pg (25.0-34.0); Mean Corpuscular Volume 72.5 fL (80.0-100.0); Platelet Count 399 K/uL (130-400); RDW Standard Deviation 47.6 fL (36.4-46.3); Red Blood Count 3.24 M/uL (4.70-6.10); White Blood Count 8.21 K/ul (4.8-10.8)
[2025-08-22 04:53] LABS: Anion Gap 5.0 (3-11); Blood Urea Nitrogen 20.0 mg/dl (6-23); Calcium 7.7 mg/dl (8.6-10.3); Carbon Dioxide 20.0 mmol/L (21-32); Chloride 107.0 mmol/L (98-107); Creatinine Clr Calc Pharmacy 55.0 ml/min; Glucose 114.0 mg/dl (70-99(Fasting)); Potassium 3.8 mmol/L (3.5-5.1); Sodium 132.0 mmol/L (136-145)
[2025-08-22] MEDS: ASCORBIC ACID 500 MG TAB PO SCH (08:37)
[2025-08-22] MEDS: FERROUS SULFATE 325 MG TAB PO SCH (08:37)
[2025-08-22] MEDS: CIPROFLOXACIN 500 MG TAB PO SCH (09:23)
[2025-08-22] MEDS: LINEZOLID 600 MG TAB PO SCH (09:23)
--- NOTE | 2025-08-22 11:10 | Hospitalist Progress Note ---
Date of Service August 22, 2025 Assessment & Plan (1) Cellulitis of right leg: (2) Chronic wound: (3) Syncope: (4) Anemia, chronic disease: (5) DM type 2 (diabetes mellitus, type 2): Plan Patient is a 59-year-old male with past medical history significant for schizotypal personality disorder, chronic RLE venous stasis ulcer/wound (present for >10 years), history of recurrent RLE cellulitis, chronic anemia, GERD and medical noncompliance who presented to the ED on 08/19/2025 due to foul-smelling drainage from his chronic RLE venous stasis ulcer/wound with associated, RLE pain and possible fever. Multiple prior hospitalizations for infected chronic RLE venous stasis u lcer/wound and cellulitis. Previous biopsy in January 2023 revealed stasis dermatitis with hemosiderin deposition. Previous evaluation by Plastic Surgery in May 2023 with multiple debridement procedures. Patient with history of poor outpatient follow up. On admission, wound was being dressed with old dirty rags and plastic bags with masking tape holding dressing together. RLE cellulitis Chronic RLE venous stasis ulcer/wound RLE MRI with circumferential skin thickening and edema from the level of the mid calf extending inferiorly, no abscess or osteomyelitis seen Preliminary blood cultures with no growth to date Orthopedics consulted and no intervention indicated Dermatology and Plastics unable to perform inpatient consult WOCN consulted and provided wound care recommendations Infectious disease consulted and recommending cipro 500mg bid and linezolid 600mg bid for 2 weeks of total antibiotic treatment PT/OT recommended SNF rehab at discharge for assistance with caring for self and wound Medically cleared for discharge to SNF with need for close follow up with [facility] Creat 1.45-> 1.69-> 1.59 Renal ultrasound revealed no hydronephrosis, several renal cysts Cefepime discontinued today as per ID recs Avoid nephrotoxic agents as able Monitor BMP Possible DM II Hemoglobin A1C 6.9% although fasting glucose <126 BSG ACHS and SSI while inpatient DM educator recommends discharging on low dose metformin (500mg daily or bid) and BSG bid (fasting and pre dinner) x3 days per week (MWF) at [facility] Dizziness Mitral valve prolapse, mitral regurgitation Reportedly "passed out for 10 days" on admission and dizziness, but patient is unreliable historian given psych disorder and impaired cognition Head CT with no acute intracranial findings, no calvarial fractures Orthostatics negative Updated TTE with LVEF 60-65%, prolapse of the posterior mitral leaflets, severe MR (progressed compared to prior echo in 2022), mild TR Recommend outpatient surveillance CORY Hgb 7.2 today Anemia panel consistent with CORY Continue iron supplementation Monitor CBC Hypocalcemia Serum calcium 7.7 today, ionized ca normal Corrects to normal when consider albumin level Incidental CT finding Head CT revealed large bilateral mastoid effusions, fluid within bilateral middle ears, suboptimal assessed erosion of bilateral ossicles Continue antibiotics as above for RLE wound/cellulitis Schizotypal personality disorder Possible cognitive impairment Previous evaluation by Psych in January 2023 Was on Abilify at that time but not currently on any psych medications Displays eccentric behavior, odd thought and speech patterns, vague and abstract thoughts Patient lives alone and has significant difficulty caring for self PT/OT recommending SNF rehab CM following DVT Prophylaxis: SQ Heparin Code Status: FULL CODE PCP: Elkin Navarrete Disposition: dc to [facility] when bed available Patient seen in collaboration with Dr. Emmanuel. Please see addendum. I spent a total of 60 minutes coordinating, documenting and providing care for this patient excluding time spent in the performance of separately billed s ervices or time spent by another provider/QHP. Admission and Anticipated Discharge Date Admission Date: August 19, 2025 Supervising Physician Co-Signing Physician Notes Attending addendum: The patient was seen and examined in medical floor He has been feeling better with improvement of his right leg swelling and pain Still has significant drainage from the wound Denies any fever and/or chills and denies any other significant symptoms On examination Afebrile and hemodynamically stable Chest was clear to auscultate bilaterally HeartS1-S2, regular Abdomenbenign Extremitiesleft lower extremity is normal and right lower extremity is bandaged below the knee with some oozing coming up from the heel area Please look at the wound image to have an assessment of the right leg cellulitis and wound His labs, medications and imaging studies reviewed Significant, complicated and chronic right leg wound with abdominal cellulitis Appreciate ID input and recommendation Likely will need outpatient wound care and also referral to plastic surgery Agree with assessment and plan as outlined above by Lucy Kim PA-C and take the full responsibility of care in the hospital DR Hoda Emmanuel 08/22/2025 The patient was seen and examined in medical floor He has been stable without significant symptoms He has been ambulating without much difficulties He wants to be discharged but likely going to need placement On examination Afebrile and remains hemodynamically stable System examination remain unremarkable Right lower extremity is bandaged with chronic nonhealing ulcers involving the lower leg and foot His labs and medications reviewed Chronic right leg cellulitis with woundappreciate ID recommendation Will continue dressing as advised by the wound care nurse and also will need regular wound care follow-up as an outpatient on discharge Awaiting placement for safe discharge Agree with assessment and plan as outlined above by DARNELL Shelton and take the full responsibility here in the hospital DR Hoda Emmanuel Subjective Patient seen sitting in chair Requesting lotion for dry skin above RLE wound Denies chest pain, SOB, abdominal pain Review of Systems Review of Systems: All systems reviewed & are unremarkable except as noted in HPI & below Physical Exam Physical Exam: General/Psych: unkempt, sitting up in chair, NAD Head: normocephalic, atraumatic Eyes: normal inspection, PERRL, conjunctivae pink ENT: external ear and nose normal, oropharynx normal Neck: normal visual inspection, trachea midline Respiratory: normal respiratory effort, lungs clear to auscultation, no wheeze/rales/rhonchi, no accessory muscle use Cardiovascular: regular rate and rhythm, +murmur Extremities: no cyanosis or clubbing, normal peripheral pulses Abdomen/GI: normal bowel sounds, soft, nontender Neurologic/MSK: A+Ox3, motor strength 5/5, moves all extremities Skin: no rashes, normal color, warm and dry, RLE wound dressing c/d/i Results & Data Results & Data Vital Signs (Past 12 Hours) Vital Signs Temp Pulse Pulse Resp BP BP Pulse Ox 08/22/25 08:23 36.5 C 72 16 107/53 L 98 08/21/25 23:19 36.8 C 70 18 144/74 H 100 O2 Del Method 08/22/25 08:23 Room Air 08/21/25 23:19 Room Air Laboratory Results Short CBC 08/22/25 Range/Units 03:55 WBC 8.21 (4.8-10.8) K/ul Hgb 7.2 L (14.0-18.0) g/dl Hct 23.5 L (42.0-52.0) % Plt Count 399 (130-400) K/uL BMP 08/22/25 03:55 Sodium 132 L Potassium 3.8 Chloride 107 Carbon Dioxide 20 L BUN 20 Creatinine 1.59 H Glucose 114 H Calcium 7.7 L I have independently reviewed and interpreted patient's labs including CBC and BMP Medications Administered Current Inpatient Medications Al Hydrox/Mg Hydrox/Simethicone (Aluminum/Magnesium Susp 30 Ml Udc) 30 ml PO Q6H PRN PRN Reason: Dyspepsia Stop: 09/18/25 15:26 Ascorbic Acid (Ascorbic Acid 500 Mg Tab) 500 mg PO QAM [facility] Stop: 09/21/25 08:59 Last Admin: 08/22/25 08:37 Dose: 500 mg Ciprofloxacin (Ciprofloxacin 500 Mg Tab) 500 mg PO BID [facility]; Protocol Stop: 08/29/25 08:59 Last Admin: 08/22/25 09:23 Dose: 500 mg Dextrose (Dextrose 50% 50 Ml Syringe) 25 - 50 ml IV UD PRN; Protocol PRN Reason: Hypoglycemia Protocol Stop: 09/19/25 13:24 Ferrous Sulfate (Ferrous Sulfate 325 Mg Tab) 325 mg PO QAM [facility] Stop: 09/21/25 08:59 Last Admin: 08/22/25 08:37 Dose: 325 mg Glucagon (Glucagon For Inj 1 Mg Vial) 1 mg SQ UD PRN; Protocol PRN Reason: Hypoglycemia Protocol Stop: 09/19/25 13:24 Glucose (Glucose 40% Gel 15 Gm Tube) 15 - 30 gm PO UD PRN; Protocol PRN Reason: Hypoglycemia Protocol Stop: 09/19/25 13:24 Glucose (Glucose 10 Tab/Tube) 4 - 8 tab PO UD PRN; Protocol PRN Reason: Hypoglycemia Protocol Stop: 09/19/25 13:24 Heparin Sodium (Porcine) (Heparin Sod 5,000 Unit/0.5 Ml Vial) 5,000 units SQ Q12 [facility] Stop: 09/18/25 20:59 Last Admin: 08/22/25 08:51 Dose: Not Given Acetaminophen (Ofirmev) 1,000 mg in 100 mls @ 400 mls/hr IV Q8H [facility] Stop: 08/22/25 12:59 Last Infusion: 08/22/25 06:08 Dose: Infused Insulin Aspart (Insulin Aspart Per Unit Charge) 0 units SC ACHS [facility] Stop: 09/19/25 16:29 Last Admin: 08/22/25 08:39 Dose: 3 units Lactobacillus Acidophilus (Advanced Probiotic 625 Mg Capsule) 1,250 mg PO DAILY [facility] Stop: 09/19/25 08:59 Last Admin: 08/22/25 08:38 Dose: 1,250 mg Linezolid (Linezolid 600 Mg Tab) 600 mg PO BID [facility] Stop: 08/29/25 08:59 Last Admin: 08/22/25 09:23 Dose: 600 mg Magnesium Hydroxide (Magnesium Hydroxide Susp 30 Ml Udc) 30 ml PO Q6H PRN PRN Reason: Constipation Stop: 09/18/25 15:26 Melatonin (Melatonin 3 Mg Tab) 3 mg PO HS PRN PRN Reason: Insomnia Stop: 09/18/25 15:26 Miscellaneous (Carbohydrates For Hypoglycemia ) 15 - 30 gm PO UD PRN PRN Reason: Hypoglycemia Protocol Stop: 09/19/25 13:24 Miscellaneous Information (Pharmacy Glycemic Mgmt Consult) 1 each N/A UD PRN PRN Reason: Consult Stop: 09/19/25 13:24 Ondansetron HCl (Ondansetron Inj 2 Mg/Ml 2 Ml Vial) 4 mg IV Q6H PRN PRN Reason: Nausea Stop: 09/18/25 15:26 Oxycodone HCl (Oxycodone Hcl Ir 5 Mg Tab (Immediate Release)) 5 mg PO Q4H PRN PRN Reason: Moderate Pain (Scale 4, 5, 6) Stop: 09/02/25 12:45 Last Admin: 08/21/25 11:02 Dose: 5 mg Polyethylene Glycol (Polyethylene (Miralax) 17 Gm Pack) 17 gm PO DAILY PRN PRN Reason: Constipation Stop: 09/18/25 15:26
[2025-08-23 12:38] LABS: Hydrocodone Urine NEGATIVE ng/mL (<50); Hydromor Urine NEGATIVE ng/mL (<50); Noroxycodone Urine 541 ng/mL (<50); Oxymorph Urine 95 ng/mL (<50)
--- NOTE | 2025-08-23 14:03 | Pharmacy Report ---
Pharmacy Glycemic Sign Off Nt - Date of Service August 23, 2025 - Assessment & Plan ASSESSMENT: * Pharmacy was consulted by Lucy Irvin on 08/20/2025 for glycemic control and to write orders per [facility] inpatient glycemic control protocol. * Major changes made by pharmacy to antidiabetic regimen include: * Addition of loose novolog coverage * Patient has been receiving/requiring 5-12 units of insulin per day for adequate glycemic control * BSGs ranging 93 126 mg/dl * Regimen has only required minor adjustments over the past 48hrs to achieve this level of control * Do not anticipate further changes in patient status that would quickly deteriorate glycemic control (i.e. patient to be NPO for upcoming procedure, steroids tapering, starting tube feedings, etc). PLAN FOR INPATIENT GLYCEMIC CONTROL: No changes needed to current regimen. * Continue to hold Basal * Continue NovoLog per scale ACHS/Q6hrs while NPO * Goal range = 110 160 mg/dl * CF = 30 mg/dl/unit * CR = 1 unit for ever 15 g CHO consumed * Pharmacy is signing off of glycemic consult and will no longer be making adjustments to inpatient regimen. Please feel free to re-consult if needed. Thank you.
--- NOTE | 2025-08-23 14:37 | Hospitalist Progress Note ---
Date of Service August 23, 2025 Assessment & Plan (1) Cellulitis of right leg: (2) Chronic wound: (3) Syncope: (4) Anemia, chronic disease: (5) DM type 2 (diabetes mellitus, type 2): Plan Patient is a 59-year-old male with past medical history significant for schizotypal personality disorder, chronic RLE venous stasis ulcer/wound (present for >10 years), history of recurrent RLE cellulitis, chronic anemia, GERD and medical noncompliance who presented to the ED on 08/19/2025 due to foul-smelling drainage from his chronic RLE venous stasis ulcer/wound with associated, RLE pain and possible fever. Multiple prior hospitalizations for infected chronic RLE venous stasis ulcer/wound and cellulitis. Previous biopsy in January 2023 revealed stasis dermatitis with hemosiderin deposition. Previous evaluation by Plastic Surgery in May 2023 with multiple debridement procedures. Patient with history of poor outpatient follow up. On admission, wound was being dressed with old dirty rags and plastic bags with masking tape holding dressing together. RLE cellulitis Chronic RLE venous stasis ulcer/wound RLE MRI with circumferential skin thickening and edema from the level of the mid calf extending inferiorly, no abscess or osteomyelitis seen Preliminary blood cultures with no growth to date Orthopedics consulted and no intervention indicated Dermatology and Plastics unable to perform inpatient consult WOCN consulted and provided wound care recommendations Infectious disease consulted and recommending cipro 500mg bid and linezolid 600mg bid for 2 weeks of total antibiotic treatment PT/OT recommended SNF rehab at discharge for assistance with caring for self and wound Medically cleared for discharge to SNF with need for close follow up with [facility] Creat 1.45-> 1.69-> 1.59-> ? (labs ordered today and not collected) Renal ultrasound revealed no hydronephrosis, several renal cysts Cefepime discontinued as per ID recs Avoid nephrotoxic agents as able Monitor BMP Possible DM II Hemoglobin A1C 6.9% although fasting glucose <126 BSG ACHS and SSI while inpatient DM educator recommends discharging on low dose metformin (500mg daily or bid) and BSG bid (fasting and pre dinner) x3 days per week (MWF) at SNF Dizziness Mitral valve prolapse, mitral regurgitation Reportedly "passed out for 10 days" on admission and dizziness, but patient is unreliable historian given psych disorder and impaired cognition Head CT with no acute intracranial findings, no calvarial fractures Orthostatics negative Updated TTE with LVEF 60-65%, prolapse of the posterior mitral leaflets, severe MR (progressed compared to prior echo in 2022), mild TR Recommend outpatient surveillance CORY Hgb 7.2 yesterday (labs ordered today and not collected) Anemia panel consistent with CORY Continue iron supplementation Monitor CBC Hypocalcemia Serum calcium 7.7 today, ionized ca normal Corrects to normal when consider albumin level Incidental CT finding Head CT revealed large bilateral mastoid effusions, fluid within bilateral middle ears, suboptimal assessed erosion of bilateral ossicles Continue antibiotics as above for RLE wound/cellulitis Schizotypal personality disorder Possible cognitive impairment Previous evaluation by Psych in January 2023 Was on Abilify at that time but not currently on any psych medications Displays eccentric behavior, odd thought and speech patterns, vague and abstract thoughts Patient lives alone and has significant difficulty caring for self PT/OT recommending SNF rehab CM following DVT Prophylaxis: SQ Heparin Code Status: FULL CODE PCP: Elkin Navarrete Disposition: dc to SNF when bed available Patient seen in collaboration with Dr. Emmanuel. Please see addendum. I spent a total of 40 minutes coordinating, documenting and providing care for t his patient excluding time spent in the performance of separately billed services or time spent by another provider/QHP. Admission and Anticipated Discharge Date Admission Date: August 19, 2025 Supervising Physician Co-Signing Physician Notes Attending addendum: The patient was seen and examined in medical floor He has been feeling better with improvement of his right leg swelling and pain Still has significant drainage from the wound Denies any fever and/or chills and denies any other significant symptoms On examination Afebrile and hemodynamically stable Chest was clear to auscultate bilaterally HeartS1-S2, regular Abdomenbenign Extremitiesleft lower extremity is normal and right lower extremity is bandaged below the knee with some oozing coming up from the heel area Please look at the wound image to have an assessment of the right leg cellulitis and wound His labs, medications and imaging studies reviewed Significant, complicated and chronic right leg wound with abdominal cellulitis Appreciate ID input and recommendation Likely will need outpatient wound care and also referral to plastic surgery Agree with assessment and plan as outlined above by Lucy Kim PA-C and take the full responsibility of care in the hospital DR Hoda Emmanuel 08/22/2025 The patient was seen and examined in medical floor He has been stable without significant symptoms He has been ambulating without much difficulties He wants to be discharged but likely going to need placement On examination Afebrile and remains hemodynamically stable System examination remain unremarkable Right lower extremity is bandaged with chronic nonhealing ulcers involving the lower leg and foot His labs and medications reviewed Chronic right leg cellulitis with woundappreciate ID recommendation Will continue dressing as advised by the wound care nurse and also will need regular wound care follow-up as an outpatient on discharge Awaiting placement for safe discharge Agree with assessment and plan as outlined above by DARNELL Shelton and take the full responsibility here in the hospital DR Hoda Emmanuel 08/23/2025 The patient was seen and examined in medical floor He has been stable and the right leg has been improving Denies any significant symptoms and awaiting placement On examination Remains hemodynamically stable and is afebrile Other system examination remained unremarkable His medications reviewed Has significant chronic right leg cellulitis on oral antibiotic as per infectious disease Will need regular dressing to keep the wound clean and dry for a good recovery Agree with assessment plan as outlined above by DARNELL Shelton and take the full responsibility of care in the hospital Dr Hoda Emmanuel Subjective Patient seen sitting in bed Reports he is doing well today No acute complaints Review of Systems Review of Systems: All systems reviewed & are unremarkable except as noted in HPI & below Physical Exam Physical Exam: General/Psych: WD/WN, sitting up in bed, NAD Head: normocephalic, atraumatic Eyes: normal inspection, PERRL, conjunctivae pink ENT: external ear and nose normal, oropharynx normal Neck: normal visual inspection, trachea midline Respiratory: normal respiratory effort, lungs clear to auscultation, no wheeze/rales/rhonchi, no accessory muscle use Cardiovascular: regular rate and rhythm, +murmur Extremities: no cyanosis or clubbing, normal peripheral pulses Abdomen/GI: normal bowel sounds, soft, nontender Neurologic/MSK: A+Ox3, motor strength 5/5, moves all extremities Skin: no rashes, normal color, warm and dry, RLE wound dressing c/d/i Results & Data Results & Data Vital Signs (Past 12 Hours) Vital Signs Temp Pulse Resp BP Pulse Ox O2 Del Method 08/23/25 07:47 36.3 C L 81 18 117/70 98 Room Air Medications Administered Current Inpatient Medications Al Hydrox/Mg Hydrox/Simethicone (Aluminum/Magnesium Susp 30 Ml Udc) 30 ml PO Q6H PRN PRN Reason: Dyspepsia Stop: 09/18/25 15:26 Ascorbic Acid (Ascorbic Acid 500 Mg Tab) 500 mg PO QAM [facility] Stop: 09/21/25 08:59 Last Admin: 08/23/25 08:10 Dose: 500 mg Ciprofloxacin (Ciprofloxacin 500 Mg Tab) 500 mg PO BID [facility]; Protocol Stop: 08/29/25 08:59 Last Admin: 08/23/25 08:09 Dose: 500 mg Dextrose (Dextrose 50% 50 Ml Syringe) 25 - 50 ml IV UD PRN; Protocol PRN Reason: Hypoglycemia Protocol Stop: 09/19/25 13:24 Ferrous Sulfate (Ferrous Sulfate 325 Mg Tab) 325 mg PO QAM [facility] Stop: 09/21/25 08:59 Last Admin: 08/23/25 08:10 Dose: 325 mg Glucagon (Glucagon For Inj 1 Mg Vial) 1 mg SQ UD PRN; Protocol PRN Reason: Hypoglycemia Protocol Stop: 09/19/25 13:24 Glucose (Glucose 40% Gel 15 Gm Tube) 15 - 30 gm PO UD PRN; Protocol PRN Reason: Hypoglycemia Protocol Stop: 09/19/25 13:24 Glucose (Glucose 10 Tab/Tube) 4 - 8 tab PO UD PRN; Protocol PRN Reason: Hypoglycemia Protocol Stop: 09/19/25 13:24 Heparin Sodium (Porcine) (Heparin Sod 5,000 Unit/0.5 Ml Vial) 5,000 units SQ Q12 [facility] Stop: 09/18/25 20:59 Last Admin: 08/23/25 08:06 Dose: Not Given Insulin Aspart (Insulin Aspart Per Unit Charge) 0 units SC ACHS [facility] Stop: 09/19/25 16:29 Last Admin: 08/23/25 12:37 Dose: 5 units Lactobacillus Acidophilus (Advanced Probiotic 625 Mg Capsule) 1,250 mg PO DAILY [facility] Stop: 09/19/25 08:59 Last Admin: 08/23/25 08:10 Dose: 1,250 mg Linezolid (Linezolid 600 Mg Tab) 600 mg PO BID [facility] Stop: 08/29/25 08:59 Last Admin: 08/23/25 08:09 Dose: 600 mg Magnesium Hydroxide (Magnesium Hydroxide Susp 30 Ml Udc) 30 ml PO Q6H PRN PRN Reason: Constipation Stop: 09/18/25 15:26 Melatonin (Melatonin 3 Mg Tab) 3 mg PO HS PRN PRN Reason: Insomnia Stop: 09/18/25 15:26 Miscellaneous (Carbohydrates For Hypoglycemia ) 15 - 30 gm PO UD PRN PRN Reason: Hypoglycemia Protocol Stop: 09/19/25 13:24 Ondansetron HCl (Ondansetron Inj 2 Mg/Ml 2 Ml Vial) 4 mg IV Q6H PRN PRN Reason: Nausea Stop: 09/18/25 15:26 Oxycodone HCl (Oxycodone Hcl Ir 5 Mg Tab (Immediate Release)) 5 mg PO Q4H PRN PRN Reason: Moderate Pain (Scale 4, 5, 6) Stop: 09/02/25 12:45 Last Admin: 08/23/25 08:19 Dose: 5 mg Polyethylene Glycol (Polyethylene (Miralax) 17 Gm Pack) 17 gm PO DAILY PRN PRN Reason: Constipation Stop: 09/18/25 15:26
--- NOTE | 2025-08-24 10:49 | Hospitalist Progress Note ---
Date of Service August 24, 2025 Assessment & Plan (1) Cellulitis of right leg: (2) Chronic wound: (3) Syncope: (4) Anemia, chronic disease: (5) DM type 2 (diabetes mellitus, type 2): Plan Patient is a 59-year-old male with past medical history significant for schizotypal personality disorder, chronic RLE venous stasis ulcer/wound (present for >10 years), history of recurrent RLE cellulitis, chronic anemia, GERD and medical noncompliance who presented to the ED on 08/19/2025 due to foul-smelling drainage from his chronic RLE venous stasis ulcer/wound with associated, RLE pain and possible fever. Multiple prior hospitalizations for infected chronic RLE venous stasis ulcer/wound and cellulitis. Previous biopsy in January 2023 revealed stasis dermatitis with hemosiderin deposition. Previous evaluation by Plastic Surgery in May 2023 with multiple debridement procedures. Patient with history of poor outpatient follow up. On admission, wound was being dressed with old dirty rags and plastic bags with masking tape holding dressing together. RLE cellulitis Chronic RLE venous stasis ulcer/wound RLE MRI with circumferential skin thickening and edema from the level of the mid calf extending inferiorly, no abscess or osteomyelitis seen Blood cultures without growth in 5 days Orthopedics consulted - no intervention indicated Dermatology and Plastics unable to perform inpatient consult WOCN consulted and provided wound care recommendations Infectious disease consulted and recommending cipro 500mg bid and linezolid 600mg bid for 2 weeks of total antibiotic treatment PT/OT recommended SNF rehab at discharge for assistance with caring for self and wound Medically cleared for discharge to SNF with need for close follow up with [facility] AL[facility]ONSO Creat 1.45-> 1.69-> 1.59-> ? - patient refusing lab draws yesterday and today Renal ultrasound revealed no hydronephrosis, several renal cysts Cefepime discontinued as per ID recs Avoid nephrotoxic agents as able Monitor BMP Possible DM II Hemoglobin A1C 6.9% although fasting glucose <126 BSG ACHS and SSI while inpatient DM educator recommends discharging on low dose metformin (500mg daily or bid) and BSG bid (fasting and pre dinner) x3 days per week (MWF) at [facility] Dizziness Mitral valve prolapse, mitral regurgitation Reportedly "passed out for 10 days" on admission and dizziness, but patient is unreliable historian given psych disorder and impaired cognition Head CT with no acute intracranial findings, no calvarial fractures Orthostatics negative, symptoms improved Updated TTE with LVEF 60-65%, prolapse of the posterior mitral leaflets, severe MR (progressed compared to prior echo in 2022), mild TR Recommend outpatient surveillance CORY Hgb 7.2 yesterday (labs ordered past 2 days, patient refused) Anemia panel consistent with CORY Continue iron supplementation Monitor CBC Hypocalcemia Serum calcium 7.7 today, ionized Ca normal Corrects to normal when consider albumin level Incidental CT finding Head CT revealed large bilateral mastoid effusions, fluid within bilateral middle ears, suboptimal assessed erosion of bilateral ossicles Continue antibiotics as above for RLE wound/cellulitis Schizotypal personality disorder Possible cognitive impairment Previous evaluation by Psych in January 2023 Was on Abilify at that time but not currently on any psych medications Displays eccentric behavior, odd thought and speech patterns, vague and abstract thoughts Patient lives alone and has significant difficulty caring for self PT/OT recommending SNF rehab CM following DVT Prophylaxis: SQ Heparin Code Status: FULL CODE PCP: Elkin Navarrete Disposition: dc to SNF when bed available Patient seen in collaboration with Dr. Emmanuel. I spent a total of 50 minutes coordinating, documenting and providing care for this patient excluding time spent in the performance of separately billed services or time spent by another provider/QHP. Admission and Anticipated Discharge Date Admission Date: August 19, 2025 Supervising Physician Co-Signing Physician Notes Attending addendum: The patient was seen and examined in medical floor He has been feeling better with improvement of his right leg swelling and pain Still has significant drainage from the wound Denies any fever and/or chills and denies any other significant symptoms On examination Afebrile and hemodynamically stable Chest was clear to auscultate bilaterally HeartS1-S2, regular Abdomenbenign Extremitiesleft lower extremity is normal and right lower extremity is bandaged below the knee with some oozing coming up from the heel area Please look at the wound image to have an assessment of the right leg cellulitis and wound His labs, medications and imaging studies reviewed Significant, complicated and chronic right leg wound with abdominal cellulitis Appreciate ID input and recommendation Likely will need outpatient wound care and also referral to plastic surgery Agree with assessment and plan as outlined above by Lucy Kim PA-C and take the full responsibility of care in the hospital DR Hoda Emmanuel 08/22/2025 The patient was seen and examined in medical floor He has been stable without significant symptoms He has been ambulating without much difficulties He wants to be discharged but likely going to need placement On examination Afebrile and remains hemodynamically stable System examination remain unremarkable Right lower extremity is bandaged with chronic nonhealing ulcers involving the lower leg and foot His labs and medications reviewed Chronic right leg cellulitis with woundappreciate ID recommendation Will continue dressing as advised by the wound care nurse and also will need regular wound care follow-up as an outpatient on discharge Awaiting placement for safe discharge Agree with assessment and plan as outlined above by DARNELL Shelton and take the full responsibility here in the hospital DR Hoda Emmanuel 08/23/2025 The patient was seen and examined in medical floor He has been stable and the right leg has been improving Denies any significant symptoms and awaiting placement On examination Remains hemodynamically stable and is afebrile Other system examination remained unremarkable His medications reviewed Has significant chronic right leg cellulitis on oral antibiotic as per infectious disease Will need regular dressing to keep the wound clean and dry for a good recovery Agree with assessment plan as outlined above by DARNELL Shelton and take the full responsibility of care in the hospital Dr Hoda Emmanuel 08/24/2025 The patient was seen and examined in medical floor He has been stable and denies any significant symptoms Advised to have blood work tomorrow and he was agreeable On examination Lying in bed without any acute distress Remains hemodynamically stable and is afebrile Chest was clear to auscultate bilaterally HeartS1-S2, regular Abdomenbenign CNSalert, awake and oriented x 3 Right lower extremity is bandaged in the picture will show the involvement of cellulitis His labs were as noted and the medications and chart reviewed Hemoglobin noted to be low at 7.2will get repeat CBC and iron and B12 folate level Continue current antibiotic as advised by the infectious disease doctor Awaiting placement Agree with assessment and plan as outlined above by Tanya Hodgson PA-C and take the full responsibility of care in the hospital Total time taken to document all of the above was [address] Hoda Emmanuel Subjective Seen and examined in 324. No acute events overnight. Denies any pain to lower leg. Dressing changed this AM. No chest pain, shortness of breath or abdominal pain. Awaiting placement. Review of Systems Review of Systems: At least ten systems reviewed and negative except as noted in the HPI. Physical Exam Physical Exam: General Appearance: WD/WN, vitals as above, NAD, sitting up in bed, pleasant Head: normocephalic, atraumatic Eyes: normal inspection ENT: oropharynx normal Neck: normal visual inspection Respiratory: normal respiratory effort, lungs clear to auscultation Cardiovascular: regular rate, rhythm Abdomen/GI: normal bowel sounds, soft, nontender, no hepatosplenomegaly Extremities/Musculoskeletal: no cyanosis or clubbing, extremities motor strength 5/5, + RLE erythema noted, dressing in place, c/d/i. 1+ edema Neurologic: PERRL, EOMI, accommodation nl, no face palsy, no dysarthria, CN's II-XI intact bilaterally and moves all extremities Psychiatric: A+Ox3 Skin: no rashes, normal color, warm/dry Results & Data Results & Data Vital Signs (Past 12 Hours) Vital Signs Temp Pulse Resp BP Pulse Ox O2 Del Method 08/24/25 07:16 36.6 C 68 16 100/54 L 97 Room Air 08/23/25 23:12 36.5 C 71 16 124/67 96 Room Air Diagnostic Findings Chest X-Ray 08/19/25 10:31 XR chest 1V portable CLINICAL HISTORY: Sepsis COMPARISON STUDY: 01/28/2023 FINDINGS: Heart size and pulmonary structure are normal. No consolidation or pleural effusion. No pneumothorax. IMPRESSION: No acute findings. ACT 112: Negative or not required by law. Electronically signed by: Vj Vega M.D. 08/19/2025 10:57 AM Lower Extremity MRI 08/19/25 12:28 Exam(s): MRI EXTREMITY W/WO Contrast IV Amt: 8.6ml gadavist EXAM: MR Right Lower Extremity Without and With Intravenous Contrast, Tibia and Fibula CLINICAL HISTORY: Reason for exam: r/o osteo and abscess. TECHNIQUE: Multiplanar magnetic resonance images of the right tibia and fibula without and with intravenous contrast. CONTRAST: Patient received 8.6ml gadavist of IV contrast COMPARISON: No relevant prior studies available. FINDINGS: Artifacts: Images are degraded by motion artifact. Bones/joints: Normal marrow signal. No osteomyelitis. No acute fracture. No dislocation. Soft tissues: Circumferential skin thickening and edema from the level of the midcalf extending inferiorly. No abscess. Intramuscular edema and fatty atrophy which can be seen in the setting of neuropathic changes. No myotendinous tearing. IMPRESSION: 1. Circumferential skin thickening and edema from the level of the midcalf extending inferiorly. No abscess. Electronically signed by: Alex Hansen MD 08/19/25 22:[address] 08/19/25 13:01 CT SCAN OF THE BRAIN WITHOUT IV CONTRAST CLINICAL HISTORY: Syncope. COMPARISON STUDY: None. TECHNIQUE: Unenhanced axial CT scan of the brain was performed from the vertex to the skull base. A dose lowering technique was utilized adhering to the principles of ALARA. CT DOSE: 625.8 mGy.cm FINDINGS: Brain parenchyma: No acute intracranial hemorrhage, midline shift or mass effect is present. Marquez-white matter differentiation is preserved. There are no extra- axial fluid collections. There are no findings to suggest acute dural sinus thrombosis or acute territorial infarct. Ventricles, sulci, cisterns: There is no hydrocephalus. The basal cisterns are patent. Calvarium: There are no calvarial fractures. Sinuses and mastoids: There are large bilateral mastoid effusions. There is also fluid within the bilateral middle ears. Although suboptimally assessed on this exam, there is erosion of the bilateral ossicles. Abnormal soft tissue within the left external auditory canal is present. Orbits: The bony orbits are grossly intact. IMPRESSION: 1. No acute intracranial findings. 2. No calvarial fractures. 3. Large bilateral mastoid effusions. In addition, fluid within the bilateral middle ears with probable erosion of the bilateral ossicles, suboptimally assessed on this exam. ACT 112: Negative or not required by law. Electronically signed by: Chicho Juárez M.D. 08/19/2025 1:51 PM Ankle MRI 08/19/25 13:37 Exam(s): MRI RIGHT ANKLE W/WO Contrast IV Amt: 8.6ml gadavist EXAM: MR Right Lower Extremity Without and With Intravenous Contrast, Ankle CLINICAL HISTORY: Reason for exam: osteo. TECHNIQUE: Multiplanar magnetic resonance images of the right ankle without and with intravenous contrast. CONTRAST: Patient received 8.6ml gadavist of IV contrast COMPARISON: X-ray 08/19/2025 FINDINGS: LIGAMENTS: Anterior talofibular: Unremarkable. Posterior talofibular: Unremarkable. Anterior tibiofibular: Unremarkable. Posterior tibiofibular: Unremarkable. Calcaneofibular: Unremarkable. Deltoid: Unremarkable. Spring: Unremarkable. Lisfranc: Unremarkable. TENDONS: Achilles: Unremarkable. Flexor: Unremarkable. Extensor: Unremarkable. Peroneal: Unremarkable. Tibialis anterior: Unremarkable. Tibialis posterior: Unremarkable. Muscles: Unremarkable. Fluid: No joint effusion. Sinus tarsi: Unremarkable. Tarsal tunnel: Unremarkable. Plantar fascia: Unremarkable. Cartilage: Unremarkable. Bones/joints: Normal marrow signal. No evidence of acute osteomyelitis. No acute fracture. Soft tissues: Circumferential skin thickening and edema. IMPRESSION: 1. No evidence of acute osteomyelitis. 2. Circumferential skin thickening and edema. Electronically signed by: Alex Hansen MD 08/19/25 23:37 PM Foot MRI 08/19/25 13:37 Exam(s): MRI RIGHT FOOT W/WO Contrast IV Amt: 8.6ml gadavist EXAM: MR Right Lower Extremity Without and With Intravenous Contrast, Foot CLINICAL HISTORY: Reason for exam: osteo. TECHNIQUE: Multiplanar magnetic resonance images of the right foot without and with intravenous contrast. CONTRAST: Patient received 8.6ml gadavist of IV contrast COMPARISON: No relevant prior studies available. FINDINGS: Normal marrow signal. No acute osteomyelitis. No septic arthritis. Soft tissue edema. No abscess. No soft tissue gas. No tenosynovitis. Normal appearance of the Lisfranc ligament. IMPRESSION: No acute osteomyelitis. Electronically signed by: Alex Hansen MD 08/19/25 22:43 PM Ankle X-Ray 08/19/25 15:42 4 views of the right ankle are submitted for review. Findings: There is no clear evidence of acute osteomyelitis. No fracture or dislocation is seen. There is chronic appearing periosteal reaction involving the distal tibia and fibula. No significant arthritic changes are noted. There are dorsal and plantar calcaneal spurs. No other osseous abnormality is identified. There are no radiopaque foreign bodies. Impression: 1. No definite acute pathology 2. Calcaneal spurs Electronically signed by Robbie Cordero 08-19-2025 5:00 PM Tibia/Fibula X-Ray 08/19/25 15:42 3 views of the right lower leg are submitted for review. Findings: There is no clear evidence of acute osteomyelitis. No definite fracture is seen. There is chronic appearing periosteal reaction involving the tibial and fibular shafts that could be due to vascular insufficiency or old injury. No significant arthritic changes are noted. There are dorsal and plantar calcaneal spurs. No other osseous abnormality is identified. There are no radiopaque foreign bodies. Impression: 1. No definite acute pathology 2. Calcaneal spurs Electronically signed by Robbie Cordero 08-19-2025 5:01 PM Renal Ultrasound 08/21/25 12:13 RENAL ULTRASOUND CLINICAL HISTORY: Acute kidney injury. COMPARISON STUDY: None TECHNIQUE: Sonography of the kidneys and the urinary bladder was performed. FINDINGS: The right kidney measures 9.9 x 5.8 x 5.2 cm and the left kidney measures 10.2 x 5 x 5.6 cm. There is no hydronephrosis. Renal echogenicity is mildly increased. A 0.8 cm right lower pole renal cyst is noted. Several left renal cysts measure up to 2.8 cm. This contains a thin septation. Both ureteral jets were identified. IMPRESSION: 1. No hydronephrosis. 2. Several renal cysts. ACT 112: Negative or not required by law. Electronically signed by: Chicho Juárez M.D. 08/21/2025 4:18 PM
[2025-08-25 06:08] LABS: Hematocrit (blood only) 24.4 % (42.0-52.0); Hemoglobin 7.4 g/dl (14.0-18.0); Mean Corpuscular Hemoglobin 22.7 pg (25.0-34.0); Mean Corpuscular Volume 74.8 fL (80.0-100.0); Platelet Count 410 K/uL (130-400); RDW Standard Deviation 48.6 fL (36.4-46.3); Red Blood Count 3.26 M/uL (4.70-6.10); White Blood Count 6.48 K/ul (4.8-10.8)
[2025-08-25 06:26] LABS: Anion Gap 7.0 (3-11); Blood Urea Nitrogen 19.0 mg/dl (6-23); Calcium 8.4 mg/dl (8.6-10.3); Carbon Dioxide 24.0 mmol/L (21-32); Chloride 105.0 mmol/L (98-107); Creatinine Clr Calc Pharmacy 62.9 ml/min; Glucose 92.0 mg/dl (70-99(Fasting)); Iron 35.0 mcg/dl (35-175); Potassium 3.7 mmol/L (3.5-5.1); Sodium 136.0 mmol/L (136-145); Total Iron Binding Cap Calc 270.0 mcg/dl (250-450); Transferrin 193.0 mg/dl (200-360); Transferrin (FE) Percent Satur 13.0 % (20-50)
[2025-08-25] MEDS: IRON SUCROSE 300 MG in SODIUM CHLORIDE 0.9% 250 ML IV ONE (11:09)
--- NOTE | 2025-08-25 12:51 | Hospitalist Progress Note ---
Date of Service August 25, 2025 Assessment & Plan (1) Cellulitis of right leg: (2) Chronic wound: (3) Syncope: (4) Anemia, chronic disease: (5) DM type 2 (diabetes mellitus, type 2): Plan Patient is a 59-year-old male with past medical history significant for schizotypal personality disorder, chronic RLE venous stasis ulcer/wound (present for >10 years), history of recurrent RLE cellulitis, chronic anemia, GERD and medical noncompliance who presented to the ED on 08/19/2025 due to foul-smelling drainage from his chronic RLE venous stasis ulcer/wound with associated, RLE pain and possible fever. Multiple prior hospitalizations for infected chronic RLE venous stasis ulcer/wound and cellulitis. Previous biopsy in January 2023 revealed stasis dermatitis with hemosiderin deposition. Previous evaluation by Plastic Surgery in May 2023 with multiple debridement procedures. Patient with history of poor outpatient follow up. On admission, wound was being dressed with old dirty rags and plastic bags with masking tape holding dressing together. RLE cellulitis Chronic RLE venous stasis ulcer/wound RLE MRI with circumferential skin thickening and edema from the level of the mid calf extending inferiorly, no abscess or osteomyelitis seen Blood cultures without growth in 5 days Orthopedics consulted - no intervention indicated Dermatology and Plastics unable to perform inpatient consult WOCN consulted and provided wound care recommendations Infectious disease consulted and recommending Cipro 500mg bid and linezolid 600mg bid for 2 weeks of total antibiotic treatment PT/OT recommended SNF rehab at discharge for assistance with caring for self and wound Medically cleared for discharge to SNF with need for close follow up with [facility] -> resolved Creat 1.45-> 1.69-> 1.59-> 1.39 Renal ultrasound revealed no hydronephrosis, several renal cysts Cefepime discontinued as per ID recs Avoid nephrotoxic agents as able Monitor BMP Possible DM II Hemoglobin A1C 6.9% although fasting glucose <126 BSG ACHS and SSI while inpatient DM educator recommends discharging on low dose metformin (500mg daily or bid) and BSG bid (fasting and pre dinner) x3 days per week (MWF) at [facility] Dizziness Mitral valve prolapse, mitral regurgitation Reportedly "passed out for 10 days" on admission and dizziness, but patient is unreliable historian given psych disorder and impaired cognition Head CT with no acute intracranial findings, no calvarial fractures Orthostatics negative, symptoms improved Updated TTE with LVEF 60-65%, prolapse of the posterior mitral leaflets, severe MR (progressed compared to prior echo in 2022), mild TR Recommend outpatient surveillance CORY Hgb 7.2 yesterday -> 7.4, asymptomatic Anemia panel consistent with CORY Given IV Venofer due to concern for poor absorption, received 150mg before line infiltrated, refused new line placement Continue oral iron supplementation Hypocalcemia Serum calcium 8.4 today, ionized Ca normal Corrects to normal when consider albumin level Incidental CT finding Head CT revealed large bilateral mastoid effusions, fluid within bilateral middle ears, suboptimal assessed erosion of bilateral ossicles Continue antibiotics as above for RLE wound/cellulitis Schizotypal personality disorder Possible cognitive impairment Previous evaluation by Psych in January 2023 Was on Abilify at that time but not currently on any psych medications Displays eccentric behavior, odd thought and speech patterns, vague and abstract thoughts Patient lives alone and has significant difficulty caring for self PT/OT recommending SNF rehab CM following DVT Prophylaxis: SQ Heparin Code Status: FULL CODE PCP: Elkin Navarrete Disposition: dc to SNF when bed available Patient seen in collaboration with Dr. Emmanuel. I spent a total of 40 minutes coordinating, documenting and providing care for this patient excluding time spent in the performance of separately billed services or time spent by another provider/QHP. Admission and Anticipated Discharge Date Admission Date: August 19, 2025 Supervising Physician Co-Signing Physician Notes Attending addendum: The patient was seen and examined in medical floor He has been feeling better with improvement of his right leg swelling and pain Still has significant drainage from the wound Denies any fever and/or chills and denies any other significant symptoms On examination Afebrile and hemodynamically stable Chest was clear to auscultate bilaterally HeartS1-S2, regular Abdomenbenign Extremitiesleft lower extremity is normal and right lower extremity is bandaged below the knee with some oozing coming up from the heel area Please look at the wound image to have an assessment of the right leg cellulitis and wound His labs, medications and imaging studies reviewed Significant, complicated and chronic right leg wound with abdominal cellulitis Appreciate ID input and recommendation Likely will need outpatient wound care and also referral to plastic surgery Agree with assessment and plan as outlined above by Lucy Kim PA-C and take the full responsibility of care in the hospital DR Hoda Emmanuel 08/22/2025 The patient was seen and examined in medical floor He has been stable without significant symptoms He has been ambulating without much difficulties He wants to be discharged but likely going to need placement On examination Afebrile and remains hemodynamically stable System examination remain unremarkable Right lower extremity is bandaged with chronic nonhealing ulcers involving the lower leg and foot His labs and medications reviewed Chronic right leg cellulitis with woundappreciate ID recommendation Will continue dressing as advised by the wound care nurse and also will need regular wound care follow-up as an outpatient on discharge Awaiting placement for safe discharge Agree with assessment and plan as outlined above by DARNELL Shelton and take the full responsibility here in the hospital DR Hoda Emmanuel 08/23/2025 The patient was seen and examined in medical floor He has been stable and the right leg has been improving Denies any significant symptoms and awaiting placement On examination Remains hemodynamically stable and is afebrile Other system examination remained unremarkable His medications reviewed Has significant chronic right leg cellulitis on oral antibiotic as per infectious disease Will need regular dressing to keep the wound clean and dry for a good recovery Agree with assessment plan as outlined above by DARNELL Shelton and take the full responsibility of care in the hospital Dr Hoda Emmanuel 08/24/2025 The patient was seen and examined in medical floor He has been stable and denies any significant symptoms Advised to have blood work tomorrow and he was agreeable On examination Lying in bed without any acute distress Remains hemodynamically stable and is afebrile Chest was clear to auscultate bilaterally HeartS1-S2, regular Abdomenbenign CNSalert, awake and oriented x 3 Right lower extremity is bandaged in the picture will show the involvement of cellulitis His labs were as noted and the medications and chart reviewed Hemoglobin noted to be low at 7.2will get repeat CBC and iron and B12 folate level Continue current antibiotic as advised by the infectious disease doctor Awaiting placement Agree with assessment and plan as outlined above by Tanya Hodgson PA-C and take the full responsibility of care in the hospital Total time taken to document all of the above was [address] Hoda Emmanuel 08/25/2025 The chart, labs and medications reviewed. The patient was not seen or examined Discussed with LINSDEY Joya about the administration of IV Iron and continue with current management. Agree with assessment and plan as outlined above by Tanya Hodgson PA-C and take the full responsibility care in the hospital Total time taken to document all the source [address] Hoda Emmanuel Subjective Seen and examined in 324. No acute events overnight. Sitting at side of bed drinking coffee, feeling well and awaiting placement. Denies any pain to lower leg. Lightheadedness improved from previous. No chest pain, shortness of breath or abdominal pain. Awaiting placement. Review of Systems Review of Systems: At least ten systems reviewed and negative except as noted in the HPI. Physical Exam Physical Exam: General Appearance: WD/WN, vitals as above, NAD, sitting up in bed, pleasant Head: normocephalic, atraumatic Eyes: normal inspection ENT: oropharynx normal Neck: normal visual inspection Respiratory: normal respiratory effort, lungs clear to auscultation Cardiovascular: regular rate, rhythm Abdomen/GI: normal bowel sounds, soft, nontender, no hepatosplenomegaly Extremities/Musculoskeletal: no cyanosis or clubbing, extremities motor strength 5/5, + RLE erythema noted, dressing in place, c/d/i. RLE trace edema Neurologic: PERRL, EOMI, accommodation nl, no face palsy, no dysarthria, CN's II-XI intact bilaterally and moves all extremities Psychiatric: A+Ox3 Skin: no rashes, normal color, warm/dry Results & Data Results & Data Vital Signs (Past 12 Hours) Vital Signs Temp Pulse Resp BP Pulse Ox O2 Del Method 08/25/25 07:31 36.3 C L 81 16 117/71 94 Room Air Laboratory Results Short CBC 08/25/25 Range/Units 05:52 WBC 6.48 (4.8-10.8) K/ul Hgb 7.4 L (14.0-18.0) g/dl Hct 24.4 L (42.0-52.0) % Plt Count 410 H (130-400) K/uL BMP 08/25/25 05:52 Sodium 136 Potassium 3.7 Chloride 105 Carbon Dioxide 24 BUN 19 Creatinine 1.39 Glucose 92 Calcium 8.4 L Diagnostic Findings Chest X-Ray 08/19/25 10:31 XR chest 1V portable CLINICAL HISTORY: Sepsis COMPARISON STUDY: 01/28/2023 FINDINGS: Heart size and pulmonary structure are normal. No consolidation or pleural effusion. No pneumothorax. IMPRESSION: No acute findings. ACT 112: Negative or not required by law. Electronically signed by: Vj Vega M.D. 08/19/2025 10:57 AM Lower Extremity MRI 08/19/25 12:28 Exam(s): MRI EXTREMITY W/WO Contrast IV Amt: 8.6ml gadavist EXAM: MR Right Lower Extremity Without and With Intravenous Contrast, Tibia and Fibula CLINICAL HISTORY: Reason for exam: r/o osteo and abscess. TECHNIQUE: Multiplanar magnetic resonance images of the right tibia and fibula without and with intravenous contrast. CONTRAST: Patient received 8.6ml gadavist of IV contrast COMPARISON: No relevant prior studies available. FINDINGS: Artifacts: Images are degraded by motion artifact. Bones/joints: Normal marrow signal. No osteomyelitis. No acute fracture. No dislocation. Soft tissues: Circumferential skin thickening and edema from the level of the midcalf extending inferiorly. No abscess. Intramuscular edema and fatty atrophy which can be seen in the setting of neuropathic changes. No myotendinous tearing. IMPRESSION: 1. Circumferential skin thickening and edema from the level of the midcalf extending inferiorly. No abscess. Electronically signed by: Alex Hansen MD 08/19/25 22:[address] 08/19/25 13:01 CT SCAN OF THE BRAIN WITHOUT IV CONTRAST CLINICAL HISTORY: Syncope. COMPARISON STUDY: None. TECHNIQUE: Unenhanced axial CT scan of the brain was performed from the vertex to the skull base. A dose lowering technique was utilized adhering to the principles of ALARA. CT DOSE: 625.8 mGy.cm FINDINGS: Brain parenchyma: No acute intracranial hemorrhage, midline shift or mass effect is present. Marquez-white matter differentiation is preserved. There are no extra- axial fluid collections. There are no findings to suggest acute dural sinus thrombosis or acute territorial infarct. Ventricles, sulci, cisterns: There is no hydrocephalus. The basal cisterns are patent. Calvarium: There are no calvarial fractures. Sinuses and mastoids: There are large bilateral mastoid effusions. There is also fluid within the bilateral middle ears. Although suboptimally assessed on this exam, there is erosion of the bilateral ossicles. Abnormal soft tissue within the left external auditory canal is present. Orbits: The bony orbits are grossly intact. IMPRESSION: 1. No acute intracranial findings. 2. No calvarial fractures. 3. Large bilateral mastoid effusions. In addition, fluid within the bilateral middle ears with probable erosion of the bilateral ossicles, suboptimally assessed on this exam. ACT 112: Negative or not required by law. Electronically signed by: Chicho Juárez M.D. 08/19/2025 1:51 PM Ankle MRI 08/19/25 13:37 Exam(s): MRI RIGHT ANKLE W/WO Contrast IV Amt: 8.6ml gadavist EXAM: MR Right Lower Extremity Without and With Intravenous Contrast, Ankle CLINICAL HISTORY: Reason for exam: osteo. TECHNIQUE: Multiplanar magnetic resonance images of the right ankle without and with intravenous contrast. CONTRAST: Patient received 8.6ml gadavist of IV contrast COMPARISON: X-ray 08/19/2025 FINDINGS: LIGAMENTS: Anterior talofibular: Unremarkable. Posterior talofibular: Unremarkable. Anterior tibiofibular: Unremarkable. Posterior tibiofibular: Unremarkable. Calcaneofibular: Unremarkable. Deltoid: Unremarkable. Spring: Unremarkable. Lisfranc: Unremarkable. TENDONS: Achilles: Unremarkable. Flexor: Unremarkable. Extensor: Unremarkable. Peroneal: Unremarkable. Tibialis anterior: Unremarkable. Tibialis posterior: Unremarkable. Muscles: Unremarkable. Fluid: No joint effusion. Sinus tarsi: Unremarkable. Tarsal tunnel: Unremarkable. Plantar fascia: Unremarkable. Cartilage: Unremarkable. Bones/joints: Normal marrow signal. No evidence of acute osteomyelitis. No acute fracture. Soft tissues: Circumferential skin thickening and edema. IMPRESSION: 1. No evidence of acute osteomyelitis. 2. Circumferential skin thickening and edema. Electronically signed by: Alex Hansen MD 08/19/25 23:37 PM Foot MRI 08/19/25 13:37 Exam(s): MRI RIGHT FOOT W/WO Contrast IV Amt: 8.6ml gadavist EXAM: MR Right Lower Extremity Without and With Intravenous Contrast, Foot CLINICAL HISTORY: Reason for exam: osteo. TECHNIQUE: Multiplanar magnetic resonance images of the right foot without and with intravenous contrast. CONTRAST: Patient received 8.6ml gadavist of IV contrast COMPARISON: No relevant prior studies available. FINDINGS: Normal marrow signal. No acute osteomyelitis. No septic arthritis. Soft tissue edema. No abscess. No soft tissue gas. No tenosynovitis. Normal appearance of the Lisfranc ligament. IMPRESSION: No acute osteomyelitis. Electronically signed by: Alex Hansen MD 08/19/25 22:43 PM Ankle X-Ray 08/19/25 15:42 4 views of the right ankle are submitted for review. Findings: There is no clear evidence of acute osteomyelitis. No fracture or dislocation is seen. There is chronic appearing periosteal reaction involving the distal tibia and fibula. No significant arthritic changes are noted. There are dorsal and plantar calcaneal spurs. No other osseous abnormality is identified. There are no radiopaque foreign bodies. Impression: 1. No definite acute pathology 2. Calcaneal spurs Electronically signed by Robbie Cordero 08-19-2025 5:00 PM Tibia/Fibula X-Ray 08/19/25 15:42 3 views of the right lower leg are submitted for review. Findings: There is no clear evidence of acute osteomyelitis. No definite fracture is seen. There is chronic appearing periosteal reaction involving the tibial and fibular shafts that could be due to vascular insufficiency or old injury. No significant arthritic changes are noted. There are dorsal and plantar calcaneal spurs. No other osseous abnormality is identified. There are no radiopaque foreign bodies. Impression: 1. No definite acute pathology 2. Calcaneal spurs Electronically signed by Robbie Cordero 08-19-2025 5:01 PM Renal Ultrasound 08/21/25 12:13 RENAL ULTRASOUND CLINICAL HISTORY: Acute kidney injury. COMPARISON STUDY: None TECHNIQUE: Sonography of the kidneys and the urinary bladder was performed. FINDINGS: The right kidney measures 9.9 x 5.8 x 5.2 cm and the left kidney measures 10.2 x 5 x 5.6 cm. There is no hydronephrosis. Renal echogenicity is mildly increased. A 0.8 cm right lower pole renal cyst is noted. Several left renal cysts measure up to 2.8 cm. This contains a thin septation. Both ureteral jets were identified. IMPRESSION: 1. No hydronephrosis. 2. Several renal cysts. ACT 112: Negative or not required by law. Electronically signed by: Chicho Juárez M.D. 08/21/2025 4:18 PM
[2025-08-25] MEDS: ACETAMINOPHEN 500 MG TAB PO PRN (21:30)
--- NOTE | 2025-08-26 08:23 | Hospitalist Progress Note ---
Date of Service August 26, 2025 Assessment & Plan (1) Cellulitis of right leg: (2) Chronic wound: (3) Syncope: (4) Anemia, chronic disease: (5) DM type 2 (diabetes mellitus, type 2): Plan Patient is a 59-year-old male with past medical history significant for schizotypal personality disorder, chronic RLE venous stasis ulcer/wound (present for >10 years), history of recurrent RLE cellulitis, chronic anemia, GERD and medical noncompliance who presented to the ED on 08/19/2025 due to foul-smelling drainage from his chronic RLE venous stasis ulcer/wound with associated, RLE pain and possible fever. Multiple prior hospitalizations for infected chronic RLE venous stasis ulcer/wound and cellulitis. Previous biopsy in January 2023 revealed stasis dermatitis with hemosiderin deposition. Previous evaluation by Plastic Surgery in May 2023 with multiple debridement procedures. Patient with history of poor outpatient follow up. On admission, wound was being dressed with old dirty rags and plastic bags with masking tape holding dressing together. RLE cellulitis Chronic RLE venous stasis ulcer/wound RLE MRI with circumferential skin thickening and edema from the level of the mid calf extending inferiorly, no abscess or osteomyelitis seen Blood cultures without growth in 5 days Orthopedics consulted - no intervention indicated WOCN consulted and provided wound care recommendations Plastic surgery consulted and recommend wound care and compression therapy; not candidate for operative debridement due to anemia or skin grafting given severity of venous stasis disease Infectious disease consulted and recommending Cipro 500mg bid and linezolid 600mg bid for 2 weeks of total antibiotic treatment PT/OT recommended SNF rehab at discharge for assistance with caring for self and wound Medically cleared for discharge to SNF with need for close follow up with [facility] -> resolved Creat 1.45-> 1.69-> 1.59-> 1.39 Renal ultrasound revealed no hydronephrosis, several renal cysts Cefepime discontinued as per ID recs Avoid nephrotoxic agents as able Monitor BMP Possible DM II Hemoglobin A1C 6.9% although fasting glucose <126 BSG ACHS and SSI while inpatient DM educator recommends discharging on low dose metformin (500mg daily or bid) and BSG bid (fasting and pre dinner) x3 days per week (MWF) at [facility] Dizziness Mitral valve prolapse, mitral regurgitation Reportedly "passed out for 10 days" on admission and dizziness, but patient is unreliable historian given psych disorder and impaired cognition Head CT with no acute intracranial findings, no calvarial fractures Orthostatics negative, symptoms improved Updated TTE with LVEF 60-65%, prolapse of the posterior mitral leaflets, severe MR (progressed compared to prior echo in 2022), mild TR Recommend outpatient surveillance CORY Hgb 7.4, asymptomatic Anemia panel consistent with CORY Given IV Venofer x1 on 08/25 Continue oral iron supplementation Incidental CT finding Head CT revealed large bilateral mastoid effusions, fluid within bilateral middle ears, suboptimal assessed erosion of bilateral ossicles Continue antibiotics as above for RLE wound/cellulitis Schizotypal personality disorder Possible cognitive impairment Previous evaluation by Psych in January 2023 Was on Abilify at that time but not currently on any psych medications Displays eccentric behavior, odd thought and speech patterns, vague and abstract thoughts Patient lives alone and has significant difficulty caring for self PT/OT recommending SNF rehab CM following DVT Prophylaxis: SQ Heparin Code Status: FULL CODE PCP: Elkin Navarrete Disposition: dc to SNF when bed available Patient seen in collaboration with Dr. Emmanuel. Please see addendum. I spent a total of 40 minutes coordinating, documenting and providing care for this patient excluding time spent in the performance of separately billed services or time spent by another provider/QHP. Admission and Anticipated Discharge Date Admission Date: August 19, 2025 Supervising Physician Co-Signing Physician Notes Attending addendum: The patient was seen and examined in medical floor He has been feeling better with improvement of his right leg swelling and pain Still has significant drainage from the wound Denies any fever and/or chills and denies any other significant symptoms On examination Afebrile and hemodynamically stable Chest was clear to auscultate bilaterally HeartS1-S2, regular Abdomenbenign Extremitiesleft lower extremity is normal and right lower extremity is bandaged below the knee with some oozing coming up from the heel area Please look at the wound image to have an assessment of the right leg cellulitis and wound His labs, medications and imaging studies reviewed Significant, complicated and chronic right leg wound with abdominal cellulitis Appreciate ID input and recommendation Likely will need outpatient wound care and also referral to plastic surgery Agree with assessment and plan as outlined above by Lucy Kim PA-C and take the full responsibility of care in the hospital DR Hoda Emmanuel 08/22/2025 The patient was seen and examined in medical floor He has been stable without significant symptoms He has been ambulating without much difficulties He wants to be discharged but likely going to need placement On examination Afebrile and remains hemodynamically stable System examination remain unremarkable Right lower extremity is bandaged with chronic nonhealing ulcers involving the lower leg and foot His labs and medications reviewed Chronic right leg cellulitis with woundappreciate ID recommendation Will continue dressing as advised by the wound care nurse and also will need regular wound care follow-up as an outpatient on discharge Awaiting placement for safe discharge Agree with assessment and plan as outlined above by DARNELL Shelton and take the full responsibility here in the hospital DR Hoda Emmanuel 08/23/2025 The patient was seen and examined in medical floor He has been stable and the right leg has been improving Denies any significant symptoms and awaiting placement On examination Remains hemodynamically stable and is afebrile Other system examination remained unremarkable His medications reviewed Has significant chronic right leg cellulitis on oral antibiotic as per infectious disease Will need regular dressing to keep the wound clean and dry for a good recovery Agree with assessment plan as outlined above by DARNELL Shelton and take the full responsibility of care in the hospital Dr Hoda Emmanuel 08/24/2025 The patient was seen and examined in medical floor He has been stable and denies any significant symptoms Advised to have blood work tomorrow and he was agreeable On examination Lying in bed without any acute distress Remains hemodynamically stable and is afebrile Chest was clear to auscultate bilaterally HeartS1-S2, regular Abdomenbenign CNSalert, awake and oriented x 3 Right lower extremity is bandaged in the picture will show the involvement of cellulitis His labs were as noted and the medications and chart reviewed Hemoglobin noted to be low at 7.2will get repeat CBC and iron and B12 folate level Continue current antibiotic as advised by the infectious disease doctor Awaiting placement Agree with assessment and plan as outlined above by Tanya Hodgson PA-C and take the full responsibility of care in the hospital Total time taken to document all of the above was [address] Hoda Emmanuel 08/25/2025 The chart, labs and medications reviewed. The patient was not seen or examined Discussed with LINDSEY Joya about the administration of IV Iron and continue with current management. Agree with assessment and plan as outlined above by Tanya Hodgson PA-C and take the full responsibility care in the hospital Total time taken to document all the source [address] Hoda Emmanuel 08/26/2025 The patient was seen and examined in medical floor He has been stable without any significant symptoms Remains afebrile and hemodynamically stable Systemic examination remained unremarkable Right leg is bandaged His labs and medications reviewed Significant chronic right leg woundWill continue the current antibiotic and also ask for plastic surgery evaluation Agree with assessment and plan as outlined above by DARNELL Shelton and juventino ke the full responsibility of care in the hospital Total time taken in discussion with the patient, examining him, reviewing chart and medications was [address] Hoda Emmanuel Subjective Patient seen sitting on edge of bed Notes some discomfort with dressing change this morning Denies other acute complaints Requesting update on placement Review of Systems Review of Systems: All systems reviewed & are unremarkable except as noted in HPI & below Physical Exam Physical Exam: General/Psych: WD/WN, sitting up in bed, NAD Head: normocephalic, atraumatic Eyes: normal inspection, PERRL, conjunctivae pink ENT: external ear and nose normal, oropharynx normal Neck: normal visual inspection, trachea midline Respiratory: normal respiratory effort, lungs clear to auscultation, no wheez e/rales/rhonchi, no accessory muscle use Cardiovascular: regular rate and rhythm, +murmur Extremities: no cyanosis or clubbing, normal peripheral pulses Abdomen/GI: normal bowel sounds, soft, nontender Neurologic/MSK: A+Ox3, motor strength 5/5, moves all extremities Skin: no rashes, normal color, warm and dry, RLE wound dressing c/d/i Results & Data Results & Data Vital Signs (Past 12 Hours) Vital Signs Temp Pulse Resp BP BP Pulse Ox O2 Del Method 08/26/25 07:30 36.6 C 73 18 118/66 96 Room Air 08/25/25 23:50 36.4 C L 70 16 102/52 L 96 Room Air Medications Administered Current Inpatient Medications Acetaminophen (Acetaminophen 500 Mg Tab) 1,000 mg PO Q8H PRN PRN Reason: Pain or Fever Stop: 09/24/25 12:58 Last Admin: 08/26/25 07:35 Dose: 1,000 mg Al Hydrox/Mg Hydrox/Simethicone (Aluminum/Magnesium Susp 30 Ml Udc) 30 ml PO Q6H PRN PRN Reason: Dyspepsia Stop: 09/18/25 15:26 Ascorbic Acid (Ascorbic Acid 500 Mg Tab) 500 mg PO QAM FAHAD Stop: 09/21/25 08:59 Last Admin: 08/26/25 08:09 Dose: 500 mg Ciprofloxacin (Ciprofloxacin 500 Mg Tab) 500 mg PO BID FAHAD; Protocol Stop: 08/29/25 08:59 Last Admin: 08/26/25 08:09 Dose: 500 mg Dextrose (Dextrose 50% 50 Ml Syringe) 25 - 50 ml IV UD PRN; Protocol PRN Reason: Hypoglycemia Protocol Stop: 09/19/25 13:24 Ferrous Sulfate (Ferrous Sulfate 325 Mg Tab) 325 mg PO QAM FAHAD Stop: 09/21/25 08:59 Last Admin: 08/26/25 08:09 Dose: 325 mg Glucagon (Glucagon For Inj 1 Mg Vial) 1 mg SQ UD PRN; Protocol PRN Reason: Hypoglycemia Protocol Stop: 09/19/25 13:24 Glucose (Glucose 40% Gel 15 Gm Tube) 15 - 30 gm PO UD PRN; Protocol PRN Reason: Hypoglycemia Protocol Stop: 09/19/25 13:24 Glucose (Glucose 10 Tab/Tube) 4 - 8 tab PO UD PRN; Protocol PRN Reason: Hypoglycemia Protocol Stop: 09/19/25 13:24 Heparin Sodium (Porcine) (Heparin Sod 5,000 Unit/0.5 Ml Vial) 5,000 units SQ Q12 FAHAD Stop: 09/18/25 20:59 Last Admin: 08/26/25 08:10 Dose: Not Given Insulin Aspart (Insulin Aspart Per Unit Charge) 0 units SC ACHS [facility] Stop: 09/19/25 16:29 Last Admin: 08/26/25 08:15 Dose: 4 units Lactobacillus Acidophilus (Advanced Probiotic 625 Mg Capsule) 1,250 mg PO DAILY FAHAD Stop: 09/19/25 08:59 Last Admin: 08/26/25 08:09 Dose: 1,250 mg Linezolid (Linezolid 600 Mg Tab) 600 mg PO BID [facility] Stop: 08/29/25 08:59 Last Admin: 08/26/25 08:09 Dose: 600 mg Magnesium Hydroxide (Magnesium Hydroxide Susp 30 Ml Udc) 30 ml PO Q6H PRN PRN Reason: Constipation Stop: 09/18/25 15:26 Melatonin (Melatonin 3 Mg Tab) 3 mg PO HS PRN PRN Reason: Insomnia Stop: 09/18/25 15:26 Miscellaneous (Carbohydrates For Hypoglycemia ) 15 - 30 gm PO UD PRN PRN Reason: Hypoglycemia Protocol Stop: 09/19/25 13:24 Ondansetron HCl (Ondansetron Inj 2 Mg/Ml 2 Ml Vial) 4 mg IV Q6H PRN PRN Reason: Nausea Stop: 09/18/25 15:26 Oxycodone HCl (Oxycodone Hcl Ir 5 Mg Tab (Immediate Release)) 5 mg PO Q8H PRN PRN Reason: Mod-Sev Pain (Scale 4-10) Stop: 09/02/25 12:45 Polyethylene Glycol (Polyethylene (Miralax) 17 Gm Pack) 17 gm PO DAILY PRN PRN Reason: Constipation Stop: 09/18/25 15:26
--- NOTE | 2025-08-26 12:29 | Surgery Consultation ---
Date of Consultation August 26, 2025 Assessment & Plan (1) Chronic wound: Plan Chronic venous stasis ulcer of right lower extremity. Would advise wound culture, continue with local wound care. Patient is not a surgical candidate for skin grafting. Supervising Physician Co-Signing Physician Notes I personally saw and examined this patient and agree with the assessment and plan. This wound is a result of likely untreated venous stasis disease. Prior biopsy was consistent with venous stasis disease. Fungal and bacterial cultures were ordered. Would continue with recommendations for Aquacel Ag as provided by the wound care team. Patient would likely benefit from compression therapy as well but needs ABIs or arterial doppler prior to placement. Could also consider Aquacel Urgo Ag as outpatient (not available at hospital) to aid in mechanical debridement. It does not appear a venous reflux study has been performed. He is not a candidate for operative debridement at this time given chronic anemia. Given severity of venous stasis disease and wet wound environment would recommend against split-thickness skin grafting at this time as the graft will not take. He can be evaluated as an outpatient at the wound care center for skin substitutes. He is set for discharge to [facility] today. He should have outpatient follow-up scheduled at the wound care center. A call has been placed to the wound center to facilitate recommendations and followup. History of Present Illness Attending Physician: Apurva Emmanuel MD History of Present Illness Miguel is being see today in consultation regarding RLE leg wound. He presented to the E on 08/19 for concerns regarding his chronic venous stasis leg wound. At presentation, he had not changed his dressings for at least 40 days. He was last seen by our service in 2022 for debridement and wound care of this wound. Cul ture at that time was positive for pseudomonas and wound was being treated with Dakin's solution. Biopsies were completed in 2022 with following: Skin, right lower leg, "chronic wound" (Punch biopsy): - Stasis dermatitis with hemosiderin deposition There has been no culture of wound this admission. Allergies Allergy/AdvReac Type Severity Reaction Status Date / Time bee venom protein (honey bee) Allergy Severe FACIAL Verified 08/19/25 13:04 SWELLING Penicillins Allergy Severe Anaphylaxis Verified 08/19/25 13:04 Home Medications Medication Instructions Recorded Confirmed Type ibuprofen 200 mg tablet 200 mg PO Q6H PRN Pain 08/19/25 08/19/25 History Patient History Medical History Cellulitis of right lower extremity chronic cellulitis on right low leg Sepsis Schizotypal personality disorder Surgical History No pertinent past surgical history Family History Other No pertinent family history Social History Smoking Status: Never smoker Second Hand Exposure: No; Do You Dip or Chew Tobacco: No; Hx Alcohol Use: No Hx Substance Use: No Preferred Language: Occitan 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 Ability: Effective Package Checker Required: No Beliefs That Will Affect Care: None marital status: Single Current Living Situation: Alone Current Living Situation Comment: living in a hotel Feels Safe at Home: Yes Assistive Devices: None Physical Exam Physical Exam: RLE dressings removed- last dressing changed this AM with aquacel ag and kerlix. dressings were saturated. wound is circumferential, severely hypertrophic and wet in appearance Results & Data Vital Signs (Past 12 Hours) Vital Signs Temp Pulse Resp BP Pulse Ox O2 Del Method 08/26/25 07:30 36.6 C 73 18 118/66 96 Room Air PG Care Time/CCT Total # of Minutes Spent Total Time Spent with Patient: Total time spent is greater than 50% in coordination of care (as documented) at patient's floor/unit and/or counseling patient: Coding Level of Care Code INT OBSERVATION CARE 50M LVL 2 Diagnoses Chronic wound T14.8XXA
--- NOTE | 2025-08-27 10:13 | Hospitalist Progress Note ---
Date of Service August 27, 2025 Assessment & Plan (1) Cellulitis of right leg: (2) Chronic wound: (3) Syncope: (4) Anemia, chronic disease: (5) DM type 2 (diabetes mellitus, type 2): Plan Patient is a 59-year-old male with past medical history significant for schizotypal personality disorder, chronic RLE venous stasis ulcer/wound (present for >10 years), history of recurrent RLE cellulitis, chronic anemia, GERD and medical noncompliance who presented to the ED on 08/19/2025 due to foul-smelling drainage from his chronic RLE venous stasis ulcer/wound with associated, RLE pain and possible fever. Multiple prior hospitalizations for infected chronic RLE venous stasis ulcer/wound and cellulitis. Previous biopsy in January 2023 revealed stasis dermatitis with hemosiderin deposition. Previous evaluation by Plastic Surgery in May 2023 with multiple debridement procedures. Patient with history of poor outpatient follow up. On admission, wound was being dressed with old dirty rags and plastic bags with masking tape holding dressing together. RLE cellulitis Chronic RLE venous stasis ulcer/wound RLE MRI with circumferential skin thickening and edema from the level of the mid calf extending inferiorly, no abscess or osteomyelitis seen Blood cultures without growth in 5 days Orthopedics consulted - no intervention indicated WOCN consulted and provided wound care recommendations Plastic surgery consulted and recommend wound care and compression therapy; not candidate for operative debridement due to anemia or skin grafting given severity of venous stasis disease Infectious disease consulted and recommending Cipro 500mg bid and linezolid 600mg bid for 2 weeks of total antibiotic treatment PT/OT recommended SNF rehab at discharge for assistance with caring for self and wound Medically cleared for discharge to SNF with need for close follow up with [facility] -> resolved Creat 1.45-> 1.69-> 1.59-> 1.39 Renal ultrasound revealed no hydronephrosis, several renal cysts Cefepime discontinued as per ID recs Avoid nephrotoxic agents as able Monitor BMP Possible DM II Hemoglobin A1C 6.9% although fasting glucose <126 BSG ACHS and SSI while inpatient DM educator recommends discharging on low dose metformin (500mg daily or bid) and BSG bid (fasting and pre dinner) x3 days per week (MWF) at [facility] Dizziness Mitral valve prolapse, mitral regurgitation Reportedly "passed out for 10 days" on admission and dizziness, but patient is unreliable historian given psych disorder and impaired cognition Head CT with no acute intracranial findings, no calvarial fractures Orthostatics negative, symptoms improved Updated TTE with LVEF 60-65%, prolapse of the posterior mitral leaflets, severe MR (progressed compared to prior echo in 2022), mild TR Recommend outpatient surveillance CORY Hgb 7.4, asymptomatic Anemia panel consistent with CORY Given IV Venofer x1 on 08/25 Continue oral iron supplementation Incidental CT finding Head CT revealed large bilateral mastoid effusions, fluid within bilateral middle ears, suboptimal assessed erosion of bilateral ossicles Continue antibiotics as above for RLE wound/cellulitis Schizotypal personality disorder Possible cognitive impairment Previous evaluation by Psych in January 2023 Was on Abilify at that time but not currently on any psych medications Displays eccentric behavior, odd thought and speech patterns, vague and abstract thoughts Patient lives alone and has significant difficulty caring for self PT/OT recommending SNF rehab CM following DVT Prophylaxis: SQ Heparin Code Status: FULL CODE PCP: Elkin Navarrete Disposition: dc to SNF when bed available - likely Patient seen in collaboration with Dr. Emmanuel. Please see addendum. I spent a total of 40 minutes coordinating, documenting and providing care for this patient excluding time spent in the performance of separately billed services or time spent by another provider/QHP. Admission and Anticipated Discharge Date Admission Date: August 19, 2025 Supervising Physician Co-Signing Physician Notes Attending addendum: The patient was seen and examined in medical floor He has been feeling better with improvement of his right leg swelling and pain Still has significant drainage from the wound Denies any fever and/or chills and denies any other significant symptoms On examination Afebrile and hemodynamically stable Chest was clear to auscultate bilaterally HeartS1-S2, regular Abdomenbenign Extremitiesleft lower extremity is normal and right lower extremity is bandaged below the knee with some oozing coming up from the heel area Please look at the wound image to have an assessment of the right leg cellulitis and wound His labs, medications and imaging studies reviewed Significant, complicated and chronic right leg wound with abdominal cellulitis Appreciate ID input and recommendation Likely will need outpatient wound care and also referral to plastic surgery Agree with assessment and plan as outlined above by Lucy Kim PA-C and take the full responsibility of care in the hospital DR Hoda Emmanuel 08/22/2025 The patient was seen and examined in medical floor He has been stable without significant symptoms He has been ambulating without much difficulties He wants to be discharged but likely going to need placement On examination Afebrile and remains hemodynamically stable System examination remain unremarkable Right lower extremity is bandaged with chronic nonhealing ulcers involving the lower leg and foot His labs and medications reviewed Chronic right leg cellulitis with woundappreciate ID recommendation Will continue dressing as advised by the wound care nurse and also will need regular wound care follow-up as an outpatient on discharge Awaiting placement for safe discharge Agree with assessment and plan as outlined above by DARNELL Shelton and take the full responsibility here in the hospital DR Hoda Emmanuel 08/23/2025 The patient was seen and examined in medical floor He has been stable and the right leg has been improving Denies any significant symptoms and awaiting placement On examination Remains hemodynamically stable and is afebrile Other system examination remained unremarkable His medications reviewed Has significant chronic right leg cellulitis on oral antibiotic as per infectious disease Will need regular dressing to keep the wound clean and dry for a good recovery Agree with assessment plan as outlined above by DARNELL Shelton and take the full responsibility of care in the hospital Dr Hoda Emmanuel 08/24/2025 The patient was seen and examined in medical floor He has been stable and denies any significant symptoms Advised to have blood work tomorrow and he was agreeable On examination Lying in bed without any acute distress Remains hemodynamically stable and is afebrile Chest was clear to auscultate bilaterally HeartS1-S2, regular Abdomenbenign CNSalert, awake and oriented x 3 Right lower extremity is bandaged in the picture will show the involvement of cellulitis His labs were as noted and the medications and chart reviewed Hemoglobin noted to be low at 7.2will get repeat CBC and iron and B12 folate level Continue current antibiotic as advised by the infectious disease doctor Awaiting placement Agree with assessment and plan as outlined above by Tanya Hodgson PA-C and take the full responsibility of care in the hospital Total time taken to document all of the above was [address] Hoda Emmanuel 08/25/2025 The chart, labs and medications reviewed. The patient was not seen or examined Discussed with LINDSEY Joya about the administration of IV Iron and continue with current management. Agree with assessment and plan as outlined above by Tanya Hodgson PA-C and take the full responsibility care in the hospital Total time taken to document all the source [address] Hoda Emmanuel 08/26/2025 The patient was seen and examined in medical floor He has been stable without any significant symptoms Remains afebrile and hemodynamically stable Systemic examination remained unremarkable Right leg is bandaged His labs and medications reviewed Significant chronic right leg woundWill continue the current antibiotic and also ask for plastic surgery evaluation Agree with assessment and plan as outlined above by DARNELL Shelton and take the full responsibility of care in the hospital Total time taken in discussion with the patient, examining him, reviewing chart and medications was [address] Hoda Emmanuel 08/27/2025 The patient was seen and examined in medical floor He has been stable and awaiting placement On examination Sitting at the edge of the bed without any acute distress Afebrile and hemodynamically stable Examination of the right leg- decreased swelling and the wound is in bandage His medications Subjective Patient seen sitting on edge of bed Denies acute complaints Requesting update from case management on placement Review of Systems Review of Systems: All systems reviewed & are unremarkable except as noted in HPI & below Physical Exam Physical Exam: General/Psych: WD/WN, sitting up in bed, NAD Head: normocephalic, atraumatic Eyes: normal inspection, PERRL, conjunctivae pink ENT: external ear and nose normal, oropharynx normal Neck: normal visual inspection, trachea midline Respiratory: normal respiratory effort, lungs clear to auscultation, no wheeze/rales/rhonchi, no accessory muscle use Cardiovascular: regular rate and rhythm, +murmur Extremities: no cyanosis or clubbing, normal peripheral pulses Abdomen/GI: normal bowel sounds, soft, nontender Neurologic/MSK: A+Ox3, motor strength 5/5, moves all extremities Skin: no rashes, normal color, warm and dry, RLE wound dressing c/d/i Results & Data Results & Data Vital Signs (Past 12 Hours) Vital Signs Temp Pulse Resp BP Pulse Ox O2 Del Method 08/27/25 08:00 36.4 C L 72 16 110/55 L 96 Room Air Medications Administered Current Inpatient Medications Acetaminophen (Acetaminophen 500 Mg Tab) 1,000 mg PO Q8H PRN PRN Reason: Pain or Fever Stop: 09/24/25 12:58 Last Admin: 08/27/25 12:26 Dose: 1,000 mg Al Hydrox/Mg Hydrox/Simethicone (Aluminum/Magnesium Susp 30 Ml Udc) 30 ml PO Q6H PRN PRN Reason: Dyspepsia Stop: 09/18/25 15:26 Ascorbic Acid (Ascorbic Acid 500 Mg Tab) 500 mg PO QAM [facility] Stop: 09/21/25 08:59 Last Admin: 08/27/25 08:53 Dose: 500 mg Ciprofloxacin (Ciprofloxacin 500 Mg Tab) 500 mg PO BID [facility]; Protocol Stop: 08/29/25 08:59 Last Admin: 08/27/25 08:53 Dose: 500 mg Dextrose (Dextrose 50% 50 Ml Syringe) 25 - 50 ml IV UD PRN; Protocol PRN Reason: Hypoglycemia Protocol Stop: 09/19/25 13:24 Ferrous Sulfate (Ferrous Sulfate 325 Mg Tab) 325 mg PO QAM [facility] Stop: 09/21/25 08:59 Last Admin: 08/27/25 08:53 Dose: 325 mg Glucagon (Glucagon For Inj 1 Mg Vial) 1 mg SQ UD PRN; Protocol PRN Reason: Hypoglycemia Protocol Stop: 09/19/25 13:24 Glucose (Glucose 40% Gel 15 Gm Tube) 15 - 30 gm PO UD PRN; Protocol PRN Reason: Hypoglycemia Protocol Stop: 09/19/25 13:24 Glucose (Glucose 10 Tab/Tube) 4 - 8 tab PO UD PRN; Protocol PRN Reason: Hypoglycemia Protocol Stop: 09/19/25 13:24 Heparin Sodium (Porcine) (Heparin Sod 5,000 Unit/0.5 Ml Vial) 5,000 units SQ Q12 [facility] Stop: 09/18/25 20:59 Last Admin: 08/27/25 08:53 Dose: Not Given Insulin Aspart (Insulin Aspart Per Unit Charge) 0 units SC ACHS [facility] Stop: 09/19/25 16:29 Last Admin: 08/27/25 12:06 Dose: 3 units Lactobacillus Acidophilus (Advanced Probiotic 625 Mg Capsule) 1,250 mg PO DAILY [facility] Stop: 09/19/25 08:59 Last Admin: 08/27/25 08:53 Dose: 1,250 mg Linezolid (Linezolid 600 Mg Tab) 600 mg PO BID [facility] Stop: 08/29/25 08:59 Last Admin: 08/27/25 08:54 Dose: 600 mg Magnesium Hydroxide (Magnesium Hydroxide Susp 30 Ml Udc) 30 ml PO Q6H PRN PRN Reason: Constipation Stop: 09/18/25 15:26 Melatonin (Melatonin 3 Mg Tab) 3 mg PO HS PRN PRN Reason: Insomnia Stop: 09/18/25 15:26 Miscellaneous (Carbohydrates For Hypoglycemia ) 15 - 30 gm PO UD PRN PRN Reason: Hypoglycemia Protocol Stop: 09/19/25 13:24 Ondansetron HCl (Ondansetron Inj 2 Mg/Ml 2 Ml Vial) 4 mg IV Q6H PRN PRN Reason: Nausea Stop: 09/18/25 15:26 Oxycodone HCl (Oxycodone Hcl Ir 5 Mg Tab (Immediate Release)) 5 mg PO Q8H PRN PRN Reason: Mod-Sev Pain (Scale 4-10) Stop: 09/02/25 12:45 Polyethylene Glycol (Polyethylene (Miralax) 17 Gm Pack) 17 gm PO DAILY PRN PRN Reason: Constipation Stop: 09/18/25 15:26
--- NOTE | 2025-08-28 08:56 | Hospitalist Progress Note ---
Date of Service August 28, 2025 Assessment & Plan (1) Cellulitis of right leg: (2) Chronic wound: (3) Syncope: (4) Anemia, chronic disease: (5) DM type 2 (diabetes mellitus, type 2): Plan Patient is a 59-year-old male with past medical history significant for schizotypal personality disorder, chronic RLE venous stasis ulcer/wound (present for >10 years), history of recurrent RLE cellulitis, chronic anemia, GERD and medical noncompliance who presented to the ED on 08/19/2025 due to foul-smelling drainage from his chronic RLE venous stasis ulcer/wound with associated, RLE pain and possible fever. Multiple prior hospitalizations for infected chronic RLE venous stasis ulcer/wound and cellulitis. Previous biopsy in January 2023 revealed stasis dermatitis with hemosiderin deposition. Previous evaluation by Plastic Surgery in May 2023 with multiple debridement procedures. Patient with history of poor outpatient follow up. On admission, wound was being dressed with old dirty rags and plastic bags with masking tape holding dressing together. RLE cellulitis Chronic RLE venous stasis ulcer/wound RLE MRI with circumferential skin thickening and edema from the level of the mid calf extending inferiorly, no abscess or osteomyelitis seen Blood cultures negative WOCN consulted and provided wound care recommendations Orthopedics consulted - no intervention indicated Plastic surgery consulted and recommend wound care and compression therapy; not candidate for operative debridement due to anemia or skin grafting given severity of venous stasis disease Infectious disease consulted and recommending Cipro 500mg bid and linezolid 600mg bid for 2 weeks of total antibiotic treatment-> end date 09/02/2025 PT/OT recommended SNF rehab at discharge for assistance with caring for self and wound Medically cleared for discharge to SNF, CM following Appointment with Wound Care Clinic on 09/05/2025 at 1000 [place] -> resolved Creat 1.45-> 1.69-> 1.59-> 1.39 Renal ultrasound revealed no hydronephrosis, several renal cysts Avoid nephrotoxic agents as able Monitor BMP Possible DM II Hemoglobin A1C 6.9% although fasting glucose <126 BSG ACHS and SSI while inpatient DM educator recommends discharging on low dose metformin (500mg daily or bid) and BSG bid (fasting and pre dinner) x3 days per week (MWF) at SNF Repeat A1C pending for the morning Dizziness Mitral valve prolapse, mitral regurgitation Reportedly "passed out for 10 days" on admission and dizziness, but patient is unreliable historian given psych disorder and impaired cognition Head CT with no acute intracranial findings, no calvarial fractures Orthostatics negative, symptoms improved Updated TTE with LVEF 60-65%, prolapse of the posterior mitral leaflets, severe MR (progressed compared to prior echo in 2022), mild TR Recommend outpatient surveillance CORY Hgb 7.4, asymptomatic Anemia panel consistent with CORY Given IV Venofer x1 on 08/25 Continue oral iron supplementation Incidental CT finding Head CT revealed large bilateral mastoid effusions, fluid within bilateral middle ears, suboptimal assessed erosion of bilateral ossicles Continue antibiotics as above for RLE wound/cellulitis Schizotypal personality disorder Possible cognitive impairment Previous evaluation by Psych in January 2023 Was on Abilify at that time but not currently on any psych medications Displays eccentric behavior, odd thought and speech patterns, vague and abstract thoughts Patient lives alone and has significant difficulty caring for self DVT Prophylaxis: SQ Heparin Code Status: FULL CODE PCP: Elkin Navarrete Disposition: dc to SNF when bed available Patient seen in collaboration with Dr. Lyman. Please see addendum. I spent a total of 40 minutes coordinating, documenting and providing care for this patient excluding time spent in the performance of separately billed services or time spent by another provider/QHP. Admission and Anticipated Discharge Date Admission Date: August 19, 2025 Supervising Physician Co-Signing Physician Notes Patient is seen and examined at bedside. Was ambulating in hallway with OT during my evaluation. Denies any right leg pain. No other complaints. Waiting for placement. On exam patient is well-built and nourished, no apparent distress, normocephalic atraumatic, EOMI, normal breath sounds, clear to auscultation, S1-S2,+ murmur, abdomen soft, nontender, normal bowel sounds, alert, awake monitor, grossly no focal deficits, right leg wound in dressing. Patient is currently being managed for right leg cellulitis, venous stasis ulcer. Continue ciprofloxacin, linezolid as recommended by infectious disease. Continue wound care. Waiting for placement. ALPHONSO resolved. Will recheck HbA1c to rule out diabetes mellitus. I personally interviewed and examined the patient at bedside. I have reviewed the advanced practitioner's documentation on the date of service referred in note and agree with plan. Patient's care is coordinated with Torie PATRICK. Please refer to the documentation above for details of patient's presentation and for discussion of other issues. I spent a total [id number] coordinating, documenting, and providing care for this patient excluding time spent in the performance of separately billed services or time spent by another provider/QHP. Subjective Patient seen sitting on edge of bed Denies acute complaints Requesting update from case management on placement Review of Systems Review of Systems: All systems reviewed & are unremarkable except as noted in HPI & below Physical Exam Physical Exam: General/Psych: WD/WN, sitting up in bed, NAD Head: normocephalic, atraumatic Eyes: normal inspection, PERRL, conjunctivae pink ENT: external ear and nose normal, oropharynx normal Neck: normal visual inspection, trachea midline Respiratory: normal respiratory effort, lungs clear to auscultation, no wheeze/rales/rhonchi, no accessory muscle use Cardiovascular: tachycardic rate and rhythm, +murmur Extremities: no cyanosis or clubbing, normal peripheral pulses Abdomen/GI: normal bowel sounds, soft, nontender Neurologic/MSK: A+Ox3, motor strength 5/5, moves all extremities Skin: no rashes, normal color, warm and dry, RLE wound dressing with serous drainage Results & Data Results & Data Vital Signs (Past 12 Hours) Vital Signs Temp Pulse Resp BP Pulse Ox O2 Del Method 08/28/25 07:37 36.7 C 70 16 110/58 L 95 Room Air 08/28/25 00:11 36.4 C L 80 14 107/53 L 97 Room Air Medications Administered Current Inpatient Medications Acetaminophen (Acetaminophen 500 Mg Tab) 1,000 mg PO Q8H PRN PRN Reason: Pain or Fever Stop: 09/24/25 12:58 Last Admin: 08/28/25 07:42 Dose: 1,000 mg Al Hydrox/Mg Hydrox/Simethicone (Aluminum/Magnesium Susp 30 Ml Udc) 30 ml PO Q6H PRN PRN Reason: Dyspepsia Stop: 09/18/25 15:26 Ascorbic Acid (Ascorbic Acid 500 Mg Tab) 500 mg PO QAM [facility] Stop: 09/21/25 08:59 Last Admin: 08/28/25 07:44 Dose: 500 mg Ciprofloxacin (Ciprofloxacin 500 Mg Tab) 500 mg PO BID [facility]; Protocol Stop: 08/29/25 08:59 Last Admin: 08/28/25 07:44 Dose: 500 mg Dextrose (Dextrose 50% 50 Ml Syringe) 25 - 50 ml IV UD PRN; Protocol PRN Reason: Hypoglycemia Protocol Stop: 09/19/25 13:24 Ferrous Sulfate (Ferrous Sulfate 325 Mg Tab) 325 mg PO QAM [facility] Stop: 09/21/25 08:59 Last Admin: 08/28/25 07:44 Dose: 325 mg Glucagon (Glucagon For Inj 1 Mg Vial) 1 mg SQ UD PRN; Protocol PRN Reason: Hypoglycemia Protocol Stop: 09/19/25 13:24 Glucose (Glucose 40% Gel 15 Gm Tube) 15 - 30 gm PO UD PRN; Protocol PRN Reason: Hypoglycemia Protocol Stop: 09/19/25 13:24 Glucose (Glucose 10 Tab/Tube) 4 - 8 tab PO UD PRN; Protocol PRN Reason: Hypoglycemia Protocol Stop: 09/19/25 13:24 Heparin Sodium (Porcine) (Heparin Sod 5,000 Unit/0.5 Ml Vial) 5,000 units SQ Q12 [facility] Stop: 09/18/25 20:59 Last Admin: 08/28/25 07:44 Dose: Not Given Insulin Aspart (Insulin Aspart Per Unit Charge) 0 units SC ACHS [facility] Stop: 09/19/25 16:29 Last Admin: 08/28/25 09:16 Dose: 4 units Lactobacillus Acidophilus (Advanced Probiotic 625 Mg Capsule) 1,250 mg PO DAILY [facility] Stop: 09/19/25 08:59 Last Admin: 08/28/25 07:43 Dose: 1,250 mg Linezolid (Linezolid 600 Mg Tab) 600 mg PO BID [facility] Stop: 08/29/25 08:59 Last Admin: 08/28/25 07:44 Dose: 600 mg Magnesium Hydroxide (Magnesium Hydroxide Susp 30 Ml Udc) 30 ml PO Q6H PRN PRN Reason: Constipation Stop: 09/18/25 15:26 Melatonin (Melatonin 3 Mg Tab) 3 mg PO HS PRN PRN Reason: Insomnia Stop: 09/18/25 15:26 Miscellaneous (Carbohydrates For Hypoglycemia ) 15 - 30 gm PO UD PRN PRN Reason: Hypoglycemia Protocol Stop: 09/19/25 13:24 Ondansetron HCl (Ondansetron Inj 2 Mg/Ml 2 Ml Vial) 4 mg IV Q6H PRN PRN Reason: Nausea Stop: 09/18/25 15:26 Oxycodone HCl (Oxycodone Hcl Ir 5 Mg Tab (Immediate Release)) 5 mg PO Q8H PRN PRN Reason: Mod-Sev Pain (Scale 4-10) Stop: 09/02/25 12:45 Polyethylene Glycol (Polyethylene (Miralax) 17 Gm Pack) 17 gm PO DAILY PRN PRN Reason: Constipation Stop: 09/18/25 15:26
[2025-08-29 11:04] LABS: Hemoglobin A1C 6.5 % (4.5-5.6)
--- NOTE | 2025-08-29 11:20 | Hospitalist Progress Note ---
Date of Service August 29, 2025 Assessment & Plan (1) Cellulitis of right leg: (2) Syncope: (3) Anemia, chronic disease: (4) DM type 2 (diabetes mellitus, type 2): Plan Patient is a 59-year-old male with past medical history significant for schizotypal personality disorder, chronic RLE venous stasis ulcer/wound (present for >10 years), history of recurrent RLE cellulitis, chronic anemia, GERD and medical noncompliance who presented to the ED on 08/19/2025 due to foul-smelling drainage from his chronic RLE venous stasis ulcer/wound with associated, RLE pain and possible fever. Multiple prior hospitalizations for infected chronic RLE venous stasis ulcer/wound and cellulitis. Previous biopsy in January 2023 revealed stasis dermatitis with hemosiderin deposition. Previous evaluation by Plastic Surgery in May 2023 with multiple debridement procedures. Patient with history of poor outpatient follow up. On admission, wound was being dressed with old dirty rags and plastic bags with masking tape holding dressing together. RLE cellulitis Chronic RLE venous stasis ulcer/wound RLE MRI with circumferential skin thickening and edema from the level of the mid calf extending inferiorly, no abscess or osteomyelitis seen Blood cultures negative WOCN consulted and provided wound care recommendations Orthopedics consulted - no intervention indicated Plastic surgery consulted and recommend wound care and compression therapy; not candidate for operative debridement due to anemia or skin grafting given severity of venous stasis disease Infectious disease consulted and recommending Cipro 500mg bid and linezolid 600mg bid for 2 weeks of total antibiotic treatment-> end date 09/02/2025 PT/OT recommended SNF rehab at discharge for assistance with caring for self and wound Medically cleared for discharge to SNF, CM following Appointment with [facility] on 09/05/2025 at [address] -> resolved Creat 1.45-> 1.69-> 1.59-> 1.39 Renal ultrasound revealed no hydronephrosis, several renal cysts Avoid nephrotoxic agents as able Monitor BMP DM II Hemoglobin A1C 6.9% although fasting glucose <126 BSG ACHS and SSI while inpatient DM educator recommends discharging on low dose metformin (500mg daily or bid) and BSG bid (fasting and pre dinner) x3 days per week (MWF) at SNF Repeat A1C 6.5% Dizziness Mitral valve prolapse, mitral regurgitation Reportedly "passed out for 10 days" on admission and dizziness, but patient is unreliable historian given psych disorder and impaired cognition Head CT with no acute intracranial findings, no calvarial fractures Orthostatics negative, symptoms improved Updated TTE with LVEF 60-65%, prolapse of the posterior mitral leaflets, severe MR (progressed compared to prior echo in 2022), mild TR Recommend outpatient surveillance CORY Hgb 7.4, asymptomatic Anemia panel consistent with CORY Given IV Venofer x1 on 08/25 Continue oral iron supplementation Incidental CT finding Head CT revealed large bilateral mastoid effusions, fluid within bilateral middle ears, suboptimal assessed erosion of bilateral ossicles Continue antibiotics as above for RLE wound/cellulitis Schizotypal personality disorder Possible cognitive impairment Previous evaluation by Psych in January 2023 Was on Abilify at that time but not currently on any psych medications Displays eccentric behavior, odd thought and speech patterns, vague and abstract thoughts Patient lives alone and has significant difficulty caring for self DVT Prophylaxis: SQ Heparin Code Status: FULL CODE PCP: Elkin Navarrete Disposition: dc to SNF when bed available Care coordinated with Dr. Lyman. Please see addendum. I spent a total of 40 minutes coordinating, documenting, and providing care for this patient excluding time spent in the performance of separately billed servic es or time spent by another provider/QHP. Admission and Anticipated Discharge Date Admission Date: August 19, 2025 Supervising Physician Co-Signing Physician Notes Patient is not personally seen or examined today by myself. Chart reviewed. Care coordinated with advanced practice provider. Patient is currently being managed for right leg cellulitis, venous stasis ulcer. Continue ciprofloxacin, linezolid as recommended by infectious disease. Continue wound care. Has 4 more days of antibiotics. Waiting for placement. ALPHONSO resolved. Given repeat HbA1c diagnostic of diabetes mellitus. Will consider patient to have new diagnosis of diabetes mellitus. Continue insulin per protocol while hospitalized and plan to transition to metformin on discharge. Waiting for rehab placement. I have reviewed the advanced practitioner's documentation on the date of service referred in note and agree with plan. Patient's care is coordinated with Torie PATRICK. Please refer to the documentation above for details of patient's presentation and for discussion of other issues. I spent a total [id number] coordinating, documenting, and providing care for this patient excluding time spent in the performance of separately billed services or time spent by another provider/QHP. Subjective Patient seen sitting on edge of bed. Denies acute complaints or changes overnight. Requesting update from case management on placement. Dressings changed on LLE today. No F/C, CP, SOB. Review of Systems Review of Systems: At least ten systems reviewed and negative except as noted in the HPI. Physical Exam Physical Exam: General Appearance: WD/WN, vitals as above, NAD, sitting up in bed, pleasant Head: normocephalic, atraumatic Eyes: normal inspection ENT: oropharynx normal Neck: normal visual inspection Respiratory: normal respiratory effort, lungs clear to auscultation Cardiovascular: regular rate, rhythm Abdomen/GI: normal bowel sounds, soft, nontender, no hepatosplenomegaly Extremities/Musculoskeletal: no cyanosis or clubbing, extremities motor strength 5/5, + RLE dressing in place, c/d/i. RLE trace edema Neurologic: PERRL, EOMI, accommodation nl, no face palsy, no dysarthria, CN's II-XI intact bilaterally and moves all extremities Psychiatric: A+Ox3 Skin: no rashes, normal color, warm/dry Results & Data Results & Data Vital Signs (Past 12 Hours) Vital Signs Temp Pulse Resp BP Pulse Ox O2 Del Method 08/29/25 07:59 36.5 C 81 18 117/67 97 Room Air 08/28/25 23:35 36.7 C 72 18 107/59 L 97 Room Air
[2025-08-29] MEDS ORDERED: Nursing to Pharmacy 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 SCH (20:00)
[2025-08-29] MEDS: LINEZOLID 600 MG TAB PO SCH (20:32)
[2025-08-29] MEDS: CIPROFLOXACIN 500 MG TAB PO SCH (20:32)
--- NOTE | 2025-08-30 10:24 | Hospitalist Progress Note ---
Date of Service August 30, 2025 Assessment & Plan (1) Cellulitis of right leg: (2) Syncope: (3) Anemia, chronic disease: (4) DM type 2 (diabetes mellitus, type 2): Plan Patient is a 59-year-old male with past medical history significant for schizotypal personality disorder, chronic RLE venous stasis ulcer/wound (present for >10 years), history of recurrent RLE cellulitis, chronic anemia, GERD and medical noncompliance who presented to the ED on 08/19/2025 due to foul-smelling drainage from his chronic RLE venous stasis ulcer/wound with associated, RLE pain and possible fever. Multiple prior hospitalizations for infected chronic RLE venous stasis ulcer/wound and cellulitis. Previous biopsy in January 2023 revealed stasis dermatitis with hemosiderin deposition. Previous evaluation by Plastic Surgery in May 2023 with multiple debridement procedures. Patient with history of poor outpatient follow up. On admission, wound was being dressed with old dirty rags and plastic bags with masking tape holding dressing together. RLE cellulitis Chronic RLE venous stasis ulcer/wound RLE MRI with circumferential skin thickening and edema from the level of the mid calf extending inferiorly, no abscess or osteomyelitis seen Blood cultures negative WOCN consulted and provided wound care recommendations Orthopedics consulted - no intervention indicated Plastic surgery consulted and recommend wound care and compression therapy; not candidate for operative debridement due to anemia or skin grafting given severity of venous stasis disease Infectious disease consulted and recommending Cipro 500mg bid and linezolid 600mg bid for 2 weeks of total antibiotic treatment-> end date 09/02/2025 PT/OT recommended SNF rehab at discharge for assistance with caring for self and wound Medically cleared for discharge to SNF, CM following Appointment with Wound Care Clinic on 09/05/2025 at [address] -> resolved Creat 1.45-> 1.69-> 1.59-> 1.39 Renal ultrasound revealed no hydronephrosis, several renal cysts Avoid nephrotoxic agents as able Monitor BMP DM II Hemoglobin A1C 6.9% although fasting glucose <126 BSG ACHS and SSI while inpatient DM educator recommends discharging on low dose metformin (500mg daily) and BSG bid (fasting and pre dinner) x3 days per week (MWF) at [facility] Repeat A1C 6.5% Trial metforim, repeat a1c with PCP in 3 months Dizziness Mitral valve prolapse, mitral regurgitation Reportedly "passed out for 10 days" on admission and dizziness, but patient is unreliable historian given psych disorder and impaired cognition Head CT with no acute intracranial findings, no calvarial fractures Orthostatics negative, symptoms improved Updated TTE with LVEF 60-65%, prolapse of the posterior mitral leaflets, severe MR (progressed compared to prior echo in 2022), mild TR Recommend outpatient surveillance CORY Hgb 7.4, asymptomatic Anemia panel consistent with CORY Given IV Venofer x1 on 08/25 Continue oral iron supplementation Incidental CT finding Head CT revealed large bilateral mastoid effusions, fluid within bilateral middle ears, suboptimal assessed erosion of bilateral ossicles Continue antibiotics as above for RLE wound/cellulitis Schizotypal personality disorder Possible cognitive impairment Previous evaluation by Psych in January 2023 Was on Abilify at that time but not currently on any psych medications Displays eccentric behavior, odd thought and speech patterns, vague and abstract thoughts Patient lives alone and has significant difficulty caring for self DVT Prophylaxis: SQ Heparin Code Status: FULL CODE PCP: Elkin Navarrete Disposition: dc to SNF when bed available Care coordinated with Dr. Lyman. Please see addendum. I spent a total of 35 minutes coordinating, documenting, and providing care for this patient excluding time spent in the performance of separately billed services or time spent by another provider/QHP. Admission and Anticipated Discharge Date Admission Date: August 19, 2025 Supervising Physician Co-Signing Physician Notes Patient is not personally seen or examined today by myself. Chart reviewed. Care coordinated with advanced practice provider. Patient is currently being managed for right leg cellulitis, venous stasis ulcer. Continue ciprofloxacin, linezolid as recommended by infectious disease. Continue wound care. Has 4 more days of antibiotics. Waiting for placement. ALPHONSO resolved. Given repeat HbA1c diagnostic of diabetes mellitus. Will consider patient to have new diagnosis of diabetes mellitus. Continue insulin per protocol while hospitalized and plan to transition to metformin on discharge. Waiting for rehab placement. Awaiting insurance approval to go to rehab placement. Patient prefers to be discharged home with home health if unable to be placed. Plan to monitor him over weekend and placement to be due to mind early next week. I have reviewed the advanced practitioner's documentation on the date of service referred in note and agree with plan. Patient's care is coordinated with Tanya Gokul, PA-C. Please refer to the documentation above for details of patient's presentation and for discussion of other issues. I spent a total [id number] coordinating, documenting, and providing care for this patient excluding time sp ent in the performance of separately billed services or time spent by another provider/QHP. Subjective Patient seen sitting on edge of bed. Denies acute complaints or changes overnight. Requesting update from case management on placement. Dressings changed on LLE 08/29. No F/C, CP, SOB. Review of Systems Review of Systems: At least ten systems reviewed and negative except as noted in the HPI. Physical Exam Physical Exam: General Appearance: WD/WN, vitals as above, NAD, sitting up in bed, pleasant Head: normocephalic, atraumatic Eyes: normal inspection ENT: oropharynx normal Neck: normal visual inspection Respiratory: normal respiratory effort, lungs clear to auscultation Cardiovascular: regular rate, rhythm Abdomen/GI: normal bowel sounds, soft, nontender, no hepatosplenomegaly Extremities/Musculoskeletal: no cyanosis or clubbing, extremities motor strength 5/5, + RLE dressing in place, c/d/i. RLE trace edema Neurologic: PERRL, EOMI, accommodation nl, no face palsy, no dysarthria, CN's II-XI intact bilaterally and moves all extremities Psychiatric: A+Ox3 Skin: no rashes, normal color, warm/dry Results & Data Results & Data Vital Signs (Past 12 Hours) Vital Signs Temp Pulse Resp BP BP Pulse Ox O2 Del Method 08/30/25 07:55 36.8 C 76 18 115/72 97 Room Air 08/29/25 22:59 36.7 C 81 18 109/53 L 97 Room Air Diagnostic Findings Chest X-Ray 08/19/25 10:31 XR chest 1V portable CLINICAL HISTORY: Sepsis COMPARISON STUDY: 01/28/2023 FINDINGS: Heart size and pulmonary structure are normal. No consolidation or pleural effusion. No pneumothorax. IMPRESSION: No acute findings. ACT 112: Negative or not required by law. Electronically signed by: Vj Vega M.D. 08/19/2025 10:57 AM Lower Extremity MRI 08/19/25 12:28 Exam(s): MRI EXTREMITY W/WO Contrast IV Amt: 8.6ml gadavist EXAM: MR Right Lower Extremity Without and With Intravenous Contrast, Tibia and Fibula CLINICAL HISTORY: Reason for exam: r/o osteo and abscess. TECHNIQUE: Multiplanar magnetic resonance images of the right tibia and fibula without and with intravenous contrast. CONTRAST: Patient received 8.6ml gadavist of IV contrast COMPARISON: No relevant prior studies available. FINDINGS: Artifacts: Images are degraded by motion artifact. Bones/joints: Normal marrow signal. No osteomyelitis. No acute fracture. No dislocation. Soft tissues: Circumferential skin thickening and edema from the level of the midcalf extending inferiorly. No abscess. Intramuscular edema and fatty atrophy which can be seen in the setting of neuropathic changes. No myotendinous tearing. IMPRESSION: 1. Circumferential skin thickening and edema from the level of the midcalf extending inferiorly. No abscess. Electronically signed by: Alex Hansen MD 08/19/25 22:[address] 08/19/25 13:01 CT SCAN OF THE BRAIN WITHOUT IV CONTRAST CLINICAL HISTORY: Syncope. COMPARISON STUDY: None. TECHNIQUE: Unenhanced axial CT scan of the brain was performed from the vertex to the skull base. A dose lowering technique was utilized adhering to the principles of ALARA. CT DOSE: 625.8 mGy.cm FINDINGS: Brain parenchyma: No acute intracranial hemorrhage, midline shift or mass effect is present. Marquez-white matter differentiation is preserved. There are no extra- axial fluid collections. There are no findings to suggest acute dural sinus thrombosis or acute territorial infarct. Ventricles, sulci, cisterns: There is no hydrocephalus. The basal cisterns are patent. Calvarium: There are no calvarial fractures. Sinuses and mastoids: There are large bilateral mastoid effusions. There is also fluid within the bilateral middle ears. Although suboptimally assessed on this exam, there is erosion of the bilateral ossicles. Abnormal soft tissue within the left external auditory canal is present. Orbits: The bony orbits are grossly intact. IMPRESSION: 1. No acute intracranial findings. 2. No calvarial fractures. 3. Large bilateral mastoid effusions. In addition, fluid within the bilateral middle ears with probable erosion of the bilateral ossicles, suboptimally assessed on this exam. ACT 112: Negative or not required by law. Electronically signed by: Chicho Juárez M.D. 08/19/2025 1:51 PM Ankle MRI 08/19/25 13:37 Exam(s): MRI RIGHT ANKLE W/WO Contrast IV Amt: 8.6ml gadavist EXAM: MR Right Lower Extremity Without and With Intravenous Contrast, Ankle CLINICAL HISTORY: Reason for exam: osteo. TECHNIQUE: Multiplanar magnetic resonance images of the right ankle without and with intravenous contrast. CONTRAST: Patient received 8.6ml gadavist of IV contrast COMPARISON: X-ray 08/19/2025 FINDINGS: LIGAMENTS: Anterior talofibular: Unremarkable. Posterior talofibular: Unremarkable. Anterior tibiofibular: Unremarkable. Posterior tibiofibular: Unremarkable. Calcaneofibular: Unremarkable. Deltoid: Unremarkable. Spring: Unremarkable. Lisfranc: Unremarkable. TENDONS: Achilles: Unremarkable. Flexor: Unremarkable. Extensor: Unremarkable. Peroneal: Unremarkable. Tibialis anterior: Unremarkable. Tibialis posterior: Unremarkable. Muscles: Unremarkable. Fluid: No joint effusion. Sinus tarsi: Unremarkable. Tarsal tunnel: Unremarkable. Plantar fascia: Unremarkable. Cartilage: Unremarkable. Bones/joints: Normal marrow signal. No evidence of acute osteomyelitis. No acute fracture. Soft tissues: Circumferential skin thickening and edema. IMPRESSION: 1. No evidence of acute osteomyelitis. 2. Circumferential skin thickening and edema. Electronically signed by: Alex Hansen MD 08/19/25 23:37 PM Foot MRI 08/19/25 13:37 Exam(s): MRI RIGHT FOOT W/WO Contrast IV Amt: 8.6ml gadavist EXAM: MR Right Lower Extremity Without and With Intravenous Contrast, Foot CLINICAL HISTORY: Reason for exam: osteo. TECHNIQUE: Multiplanar magnetic resonance images of the right foot without and with intravenous contrast. CONTRAST: Patient received 8.6ml gadavist of IV contrast COMPARISON: No relevant prior studies available. FINDINGS: Normal marrow signal. No acute osteomyelitis. No septic arthritis. Soft tissue edema. No abscess. No soft tissue gas. No tenosynovitis. Normal appearance of the Lisfranc ligament. IMPRESSION: No acute osteomyelitis. Electronically signed by: Alex Hansen MD 08/19/25 22:43 PM Ankle X-Ray 08/19/25 15:42 4 views of the right ankle are submitted for review. Findings: There is no clear evidence of acute osteomyelitis. No fracture or dislocation is seen. There is chronic appearing periosteal reaction involving the distal tibia and fibula. No significant arthritic changes are noted. There are dorsal and plantar calcaneal spurs. No other osseous abnormality is identified. There are no radiopaque foreign bodies. Impression: 1. No definite acute pathology 2. Calcaneal spurs Electronically signed by Robbie Cordero 08-19-2025 5:00 PM Tibia/Fibula X-Ray 08/19/25 15:42 3 views of the right lower leg are submitted for review. Findings: There is no clear evidence of acute osteomyelitis. No definite fracture is seen. There is chronic appearing periosteal reaction involving the tibial and fibular shafts that could be due to vascular insufficiency or old injury. No significant arthritic changes are noted. There are dorsal and plantar calcaneal spurs. No other osseous abnormality is identified. There are no radiopaque foreign bodies. Impression: 1. No definite acute pathology 2. Calcaneal spurs Electronically signed by Robbie Cordero 08-19-2025 5:01 PM Renal Ultrasound 08/21/25 12:13 RENAL ULTRASOUND CLINICAL HISTORY: Acute kidney injury. COMPARISON STUDY: None TECHNIQUE: Sonography of the kidneys and the urinary bladder was performed. FINDINGS: The right kidney measures 9.9 x 5.8 x 5.2 cm and the left kidney measures 10.2 x 5 x 5.6 cm. There is no hydronephrosis. Renal echogenicity is mildly increased. A 0.8 cm right lower pole renal cyst is noted. Several left renal cysts measure up to 2.8 cm. This contains a thin septation. Both ureteral jets were identified. IMPRESSION: 1. No hydronephrosis. 2. Several renal cysts. ACT 112: Negative or not required by law. Electronically signed by: Chicho Juárez M.D. 08/21/2025 4:18 PM
--- NOTE | 2025-08-31 16:50 | Hospitalist Progress Note ---
Date of Service August 31, 2025 Assessment & Plan (1) Cellulitis of right leg: (2) Syncope: (3) Anemia, chronic disease: (4) DM type 2 (diabetes mellitus, type 2): Plan Patient is a 59-year-old male with past medical history significant for schizotypal personality disorder, chronic RLE venous stasis ulcer/wound (present for >10 years), history of recurrent RLE cellulitis, chronic anemia, GERD and medical noncompliance who presented to the ED on 08/19/2025 due to foul-smelling drainage from his chronic RLE venous stasis ulcer/wound with associated, RLE pain and possible fever. Multiple prior hospitalizations for infected chronic RLE venous stasis ulcer/wound and cellulitis. Previous biopsy in January 2023 revealed stasis dermatitis with hemosiderin deposition. Previous evaluation by Plastic Surgery in May 2023 with multiple debridement procedures. Patient with history of poor outpatient follow up. On admission, wound was being dressed with old dirty rags and plastic bags with masking tape holding dressing together. RLE cellulitis Chronic RLE venous stasis ulcer/wound RLE MRI with circumferential skin thickening and edema from the level of the mid calf extending inferiorly, no abscess or osteomyelitis seen Blood cultures negative Wound cultures negative WOCN consulted and provided wound care recommendations Orthopedics consulted - no intervention indicated Plastic surgery consulted and recommend wound care and compression therapy; not candidate for operative debridement due to anemia or skin grafting given severity of venous stasis disease Infectious disease consulted and recommending Cipro 500mg bid and linezolid 600mg bid for 2 weeks of total antibiotic treatment-> end date 09/02/2025 PT/OT recommended SNF rehab at discharge for assistance with caring for self and wound Medically cleared for discharge to SNF, CM following Appointment with [facility] on 09/05/2025 at 1000 Continue current antibiotics to complete the course Case management to help with discharge planning ALPHONSO -> resolved Creat 1.45-> 1.69-> 1.59-> 1.39 Renal ultrasound revealed no hydronephrosis, several renal cysts Avoid nephrotoxic agents as able Monitor renal function DM II--new diagnosis Hemoglobin A1C 6.9% although fasting glucose <126 DM educator recommends discharging on low dose metformin (500mg daily) and BSG bid (fasting and pre dinner) x3 days per week (MWF) at [facility] Repeat A1C 6.5% Trial metformin, repeat a1c with PCP in 3 months Continue insulin while hospitalized, monitor blood glucose levels Dizziness--resolved Mitral valve prolapse, mitral regurgitation Reportedly "passed out for 10 days" on admission and dizziness, but patient is unreliable historian given psych disorder and impaired cognition Head CT with no acute intracranial findings, no calvarial fractures Orthostatics negative, symptoms improved Updated TTE with LVEF 60-65%, prolapse of the posterior mitral leaflets, severe MR (progressed compared to prior echo in 2022), mild TR Recommend outpatient surveillance CORY Hgb 7.4, asymptomatic Anemia panel consistent with CORY Given IV Venofer x1 on 08/25 Continue oral iron supplementation Incidental CT finding Head CT revealed large bilateral mastoid effusions, fluid within bilateral middle ears, suboptimal assessed erosion of bilateral ossicles Continue antibiotics as above for RLE wound/cellulitis Schizotypal personality disorder Possible cognitive impairment Previous evaluation by Psych in January 2023 Was on Abilify at that time but not currently on any psych medications Displays eccentric behavior, odd thought and speech patterns, vague and abstract thoughts Patient lives alone and has significant difficulty caring for self DVT Px: SQ Heparin Code Status: FULL CODE Disposition: Rehab facility Vs home with home health as able Admission and Anticipated Discharge Date Admission Date: August 19, 2025 Subjective Patient is seen and examined at bedside Waiting for placement Denies any leg pain Admits to have some serous drainage from right leg wound Denies any chest pain, dyspnea, nausea, vomiting, abdominal pain Review of Systems Review of Systems: All systems reviewed & are unremarkable except as noted in Subjective Physical Exam Physical Exam: Physical Exam: Vitals signs as noted above General Appearance:Well built and nourished, no apparent distress Head: normocephalic, Atraumatic Eyes: normal inspection, EOMI Neck: supple, Trachea midline Respiratory/Chest: Normal breath sounds, CTA, No accessory muscle use Cardiovascular: S1, S2, +murmur Abdomen/GI:Soft, Non tender, Bowel sounds present Extremities/Musculoskeletal:normal inspection, no edema, R leg wound in dressing Neurologic/Psych:AAOX3, grossly no focal neurological deficits Skin: normal color, warm Results & Data Results & Data Vital Signs (Past 12 Hours) Vital Signs Temp Pulse Pulse Resp BP BP Pulse Ox 08/31/25 14:54 36.3 C L 90 16 114/59 L 97 08/31/25 11:00 08/31/25 07:30 36.8 C 85 16 108/68 96 Pulse Ox O2 Del Method O2 Del Method 08/31/25 14:54 Room Air 08/31/25 11:00 96 Room Air 08/31/25 07:30 Room Air
--- NOTE | 2025-09-01 12:16 | Hospitalist Progress Note ---
Date of Service September 01, 2025 Assessment & Plan (1) Cellulitis of right leg: Plan: Patient is a 59-year-old male with past medical history significant for schizotypal personality disorder, chronic RLE venous stasis ulcer/wound (present for >10 years), history of recurrent RLE cellulitis, chronic anemia, GERD and medical noncompliance who presented to the ED on 08/19/2025 due to foul-smelling drainage from his chronic RLE venous stasis ulcer/wound with associated, RLE pain and possible fever. Multiple prior hospitalizations for infected chronic RLE venous stasis ulcer/wound and cellulitis. Previous biopsy in January 2023 revealed stasis dermatitis with hemosiderin deposition. Previous evaluation by Plastic Surgery in May 2023 with multiple debridement procedures. Patient with history of poor outpatient follow up. On admission, wound was being dressed with old dirty rags and plastic bags with masking tape holding dressing together. RLE cellulitis Chronic RLE venous stasis ulcer/wound RLE MRI with circumferential skin thickening and edema from the level of the mid calf extending inferiorly, no abscess or osteomyelitis seen Blood cultures negative Wound cultures negative WOCN consulted and provided wound care recommendations Orthopedics consulted - no intervention indicated Plastic surgery consulted and recommend wound care and compression therapy; not candidate for operative debridement due to anemia or skin grafting given severity of venous stasis disease Infectious disease consulted and recommending Cipro 500mg bid and linezolid 600mg bid for 2 weeks of total antibiotic treatment-> end date 09/02/2025 PT/OT recommended SNF rehab at discharge for assistance with caring for self and wound Medically cleared for discharge to SNF, CM following Appointment with Wound Care Clinic on 09/05/2025 at 1000 Continue current antibiotics to complete the course Case management to help with discharge planning ALPHONSO -> resolved Creat 1.45-> 1.69-> 1.59-> 1.39 Renal ultrasound revealed no hydronephrosis, several renal cysts Avoid nephrotoxic agents as able Monitor renal function DM II--new diagnosis Hemoglobin A1C 6.9% although fasting glucose <126 DM educator recommends discharging on low dose metformin (500mg daily) and BSG bid (fasting and pre dinner) x3 days per week (MWF) at [facility] Repeat A1C 6.5% Trial metformin, repeat a1c with PCP in 3 months Continue insulin while hospitalized, monitor blood glucose levels Dizziness--resolved Mitral valve prolapse, mitral regurgitation Reportedly "passed out for 10 days" on admission and dizziness, but patient is unreliable historian given psych disorder and impaired cognition Head CT with no acute intracranial findings, no calvarial fractures Orthostatics negative, symptoms improved Updated TTE with LVEF 60-65%, prolapse of the posterior mitral leaflets, severe MR (progressed compared to prior echo in 2022), mild TR Discharge planning: Recommend outpatient surveillance CORY Hgb 7.4, asymptomatic Anemia panel consistent with CORY Given IV Venofer x1 on 08/25 Continue oral iron supplementation Incidental CT finding Head CT revealed large bilateral mastoid effusions, fluid within bilateral middle ears, suboptimal assessed erosion of bilateral ossicles Continue antibiotics as above for RLE wound/cellulitis Schizotypal personality disorder Possible cognitive impairment Previous evaluation by Psych in January 2023 Was on Abilify at that time but not currently on any psych medications Displays eccentric behavior, odd thought and speech patterns, vague and abstract thoughts Patient lives alone and has significant difficulty caring for self DVT Ppx: heparin Code status: full PCP: Dr. Navarrete Dispo: Rehab facility Vs home with home health as able Patient seen in collaboration with Dr. Lyman. Please see addendum.I spent a total of 25 minutes coordinating, documenting and providing care for this patient excluding time spent in the performance of separately billed services or time spent by another provider/QHP. (2) Syncope: (3) Anemia, chronic disease: (4) DM type 2 (diabetes mellitus, type 2): Admission and Anticipated Discharge Date Admission Date: August 19, 2025 Supervising Physician Co-Signing Physician Notes Patient is seen and examined at bedside. Eager to get discharged. Offers no new complaints. Plan for wound dressing change daily. Waiting for placement. On exam patient is well-built and nourished, no apparent distress, normocephalic atraumatic, EOMI, normal breath sounds, clear to auscultation, S1-S2,+ murmur, abdomen soft, nontender, normal bowel sounds, alert, awake monitor, grossly no focal deficits, right leg wound in dressing. Care coordinated with advanced practice provider. Patient is currently being managed for right leg cellulitis, venous stasis ulcer. Continue ciprofloxacin, linezolid as recommended by infectious disease. Continue wound care. Will complete antibiotic course tomorrow. Waiting for placement. ALPHONSO resolved. Will need to be discharged on metformin for diabetes mellitus. I have reviewed the advanced practitioner's documentation on the date of service referred in note and agree with plan. Patient's care is coordinated with Torie PATRICK. Please refer to the documentation above for details of patient's presentation and for discussion of other issues. I spent a total [id number] coordinating, documenting, and providing care for this patient excluding time spent in the performance of separately billed services or time spent by another provider/QHP. Subjective Patient is seen and examined at bedside. Denies at leg pain at this time and reports walking okay. Reports his leg drains if the dressing is off and isn't wrapped snuggly. Feels the right leg wound is feeling nicely and is much smaller in size compared to when he came in. Frequent shifts in conversation noted; jumps topics frequently but thoughts consistent with current hospital stay and health. When discussing discharge planning, he says he prefers transfer to SNF if that can be arranged with insurance approval, but is also agreeable to going home with wound care visits. He understands home health services may not be arranged at time of discharge, but feels hopeful that this could become available once he is home with repeated referrals. Uncertain level of comfort with dressing changes independently. He says the "technique the head nurse has going on is working well." Denies any headache, fever, chills, chest pain, shortness of breath, breathing difficulty, nausea, vomiting, abdominal pain, ambulation difficulty. Review of Systems Review of Systems: All systems reviewed & are unremarkable except as noted in Subjective Physical Exam Physical Exam: VITALS: Reviewed. WEIGHT/BMI reviewed. GEN: Healthy appearing, well-developed, NAD. PSYCH: Good Judgment. AOx3. Normal memory, mood, and affect. HEENT -Head: NC/AT; -Eyes: PERRL, EOMI. No discharge or redn ess; -Ears: External ears are normal. -Nose: Normal nares. -Mouth and throat: MMM. Normal gums, muc clarissa, palate,. Good dentition. NECK: Supple, with no masses. CV: RRR, no m/r/g. LUNGS: CTAB, no w/r/c. ABD: Soft, NT/ND, NBS, no masses or organomegaly. : N/A SKIN: RLE wrapped with kerlix dressing, dark erythema visible to superior zheng below the knee, slight swelling compared to right MSK: No deformities, Normal gait. EXT: No clubbing, cyanosis, or edema. NEURO: CN II-XII grossly intact. No focal deficits. Results & Data Results & Data Vital Signs (Past 12 Hours) Vital Signs Temp Pulse Resp BP Pulse Ox O2 Del Method 09/01/25 07:16 36.9 C 77 16 131/65 96 Room Air 09/01/25 07:15 Room Air
--- NOTE | 2025-09-02 13:24 | Hospitalist Progress Note ---
Date of Service September 02, 2025 Assessment & Plan (1) Cellulitis of right leg: Plan: (2) Syncope: (3) Anemia, chronic disease: (4) DM type 2 (diabetes mellitus, type 2): Plan Patient is a 59-year-old male with past medical history significant for schizotypal personality disorder, chronic RLE venous stasis ulcer/wound (present for >10 years), history of recurrent RLE cellulitis, chronic anemia, GERD and medical noncompliance who presented to the ED on 08/19/2025 due to foul-smelling drainage from his chronic RLE venous stasis ulcer/wound with associated, RLE pain and possible fever. Multiple prior hospitalizations for infected chronic RLE venous stasis ulcer/wound and cellulitis. Previous biopsy in January 2023 revealed stasis dermatitis with hemosiderin deposition. Previous evaluation by Plastic Surgery in May 2023 with multiple debridement procedures. Patient with history of poor outpatient follow up. On admission, wound was being dressed with old dirty rags and plastic bags with masking tape holding dressing together. RLE cellulitis Chronic RLE venous stasis ulcer/wound RLE MRI with circumferential skin thickening and edema from the level of the mid calf extending inferiorly, no abscess or osteomyelitis seen Blood cultures negative Wound cultures negative WOCN consulted and provided wound care recommendations Orthopedics consulted - no intervention indicated Plastic surgery consulted and recommend wound care and compression therapy; not candidate for operative debridement due to anemia or skin grafting given severity of venous stasis disease Infectious disease consulted and recommended Cipro 500mg bid and linezolid 600mg bid for 2 weeks of total antibiotic treatment-> completed today PT/OT recommended SNF rehab at discharge for assistance with caring for self and wound Medically cleared for discharge to SNF, CM following Appointment with Wound Care Clinic on 09/05/2025 at 1000 ALPHONSO -> resolved Creat 1.45-> 1.69-> 1.59-> 1.39 Renal ultrasound revealed no hydronephrosis, several renal cysts Avoid nephrotoxic agents as able DM II--new diagnosis Hemoglobin A1C 6.9% although fasting glucose <126 DM educator recommends discharging on low dose metformin (500mg daily) and BSG bid (fasting and pre dinner) x3 days per week (MWF) at [facility] Repeat A1C 6.5%-> repeat with PCP in 3 months Continue BSG ACHS and SSI while inpatient Dizziness-> resolved Reportedly "passed out for 10 days" on admission and dizziness, but patient is unreliable historian given psych disorder and impaired cognition Head CT with no acute intracranial findings, no calvarial fractures Orthostatics negative, symptoms improved Updated TTE with LVEF 60-65%, prolapse of the posterior mitral leaflets, severe MR (progressed compared to prior echo in 2022), mild TR Recommend outpatient surveillance CORY Hgb 7.4 on 08/25, asymptomatic Anemia panel consistent with CORY Given IV Venofer x1 on 08/25 Continue oral iron supplementation Incidental CT finding Head CT revealed large bilateral mastoid effusions, fluid within bilateral middle ears, suboptimal assessed erosion of bilateral ossicles Completed antibiotics as above for RLE wound/cellulitis Schizotypal personality disorder Possible cognitive impairment Previous evaluation by Psych in January 2023 Was on Abilify at that time but not currently on any psych medications Displays eccentric behavior, odd thought and speech patterns, vague and abstract thoughts Patient lives alone and has significant difficulty caring for self DVT Prophylaxis: SQ Heparin Code Status: FULL CODE - As per discussion at bedside with the patient. PCP: Elkin Navarrete Disposition: CM following for one time contract with [facility] Patient seen in collaboration with Dr. Lyman. Please see addendum. I spent a total of 40 minutes coordinating, documenting and providing care for this patient excluding time spent in the performance of separately billed services or time spent by another provider/QHP. Admission and Anticipated Discharge Date Admission Date: August 19, 2025 Supervising Physician Co-Signing Physician Notes Patient is seen and examined at bedside. No new complaints. Stable for discharge. Waiting for placement. On exam patient is well-built and nourished, no apparent distress, normocephalic atraumatic, EOMI, normal breath sounds, clear to auscultation, S1-S2,+ murmur, abdomen soft, nontender, normal bowel sounds, alert, awake monitor, grossly no focal deficits, right leg wound in dressing. Care coordinated with advanced practice provider. Patient is currently being managed for right leg cellulitis, venous stasis ulcer. Continue ciprofloxacin, linezolid as recommended by infectious disease. Continue wound care. Will complete antibiotic course today. Waiting for placement. ALPHONSO resol jame. Will need to be discharged on metformin for diabetes mellitus. I have reviewed the advanced practitioner's documentation on the date of service referred in note and agree with plan. Patient's care is coordinated with Torie PATRICK. Please refer to the documentation above for details of patient's presentation and for discussion of other issues. I spent a total [id number] coordinating, documenting, and providing care for this patient excluding time spent in the performance of separately billed services or time spent by another provider/QHP. Subjective Patient seen resting on edge of bed Reports he thinks his wound is looking better Denies other acute complaints Review of Systems Review of Systems: All systems reviewed & are unremarkable except as noted in HPI & below Physical Exam Physical Exam: General/Psych: WD/WN, sitting up in bed, NAD Head: normocephalic, atraumatic Eyes: normal inspection, PERRL, conjunctivae pink ENT: external ear and nose normal, oropharynx normal Neck: normal visual inspection, trachea midline Respiratory: normal respiratory effort, lungs clear to auscultation, no wheeze/rales/rhonchi, no accessory muscle use Cardiovascular: regular rate and rhythm, +murmur Extremities: no cyanosis or clubbing, normal peripheral pulses Abdomen/GI: normal bowel sounds, soft, nontender Neurologic/MSK: A+Ox3, motor strength 5/5, moves all extremities Skin: no rashes, normal color, warm and dry, RLE wound dressing c/d/i Results & Data Results & Data Vital Signs (Past 12 Hours) Vital Signs Temp Pulse Resp BP Pulse Ox O2 Del Method 09/02/25 06:59 36.5 C 87 16 95/60 L 97 Room Air Medications Administered Current Inpatient Medications Acetaminophen (Acetaminophen 500 Mg Tab) 1,000 mg PO Q8H PRN PRN Reason: Pain or Fever Stop: 09/24/25 12:58 Last Admin: 09/02/25 09:19 Dose: 1,000 mg Al Hydrox/Mg Hydrox/Simethicone (Aluminum/Magnesium Susp 30 Ml Udc) 30 ml PO Q6H PRN PRN Reason: Dyspepsia Stop: 09/18/25 15:26 Ascorbic Acid (Ascorbic Acid 500 Mg Tab) 500 mg PO QAM FAHAD Stop: 09/21/25 08:59 Last Admin: 09/02/25 09:08 Dose: 500 mg Dextrose (Dextrose 50% 50 Ml Syringe) 25 - 50 ml IV UD PRN; Protocol PRN Reason: Hypoglycemia Protocol Stop: 09/19/25 13:24 Ferrous Sulfate (Ferrous Sulfate 325 Mg Tab) 325 mg PO QAM FAHAD Stop: 09/21/25 08:59 Last Admin: 09/02/25 09:08 Dose: 325 mg Glucagon (Glucagon For Inj 1 Mg Vial) 1 mg SQ UD PRN; Protocol PRN Reason: Hypoglycemia Protocol Stop: 09/19/25 13:24 Glucose (Glucose 40% Gel 15 Gm Tube) 15 - 30 gm PO UD PRN; Protocol PRN Reason: Hypoglycemia Protocol Stop: 09/19/25 13:24 Glucose (Glucose 10 Tab/Tube) 4 - 8 tab PO UD PRN; Protocol PRN Reason: Hypoglycemia Protocol Stop: 09/19/25 13:24 Heparin Sodium (Porcine) (Heparin Sod 5,000 Unit/0.5 Ml Vial) 5,000 units SQ Q12 FAHAD Stop: 09/18/25 20:59 Last Admin: 09/02/25 09:12 Dose: Not Given Insulin Aspart (Insulin Aspart Per Unit Charge) 0 units SC ACHS FAHAD Stop: 09/19/25 16:29 Last Admin: 09/02/25 09:15 Dose: 3 units Lactobacillus Acidophilus (Advanced Probiotic 625 Mg Capsule) 1,250 mg PO DAILY FAHAD Stop: 09/19/25 08:59 Last Admin: 09/02/25 09:08 Dose: 1,250 mg Magnesium Hydroxide (Magnesium Hydroxide Susp 30 Ml Udc) 30 ml PO Q6H PRN PRN Reason: Constipation Stop: 09/18/25 15:26 Melatonin (Melatonin 3 Mg Tab) 3 mg PO HS PRN PRN Reason: Insomnia Stop: 09/18/25 15:26 Miscellaneous (Carbohydrates For Hypoglycemia ) 15 - 30 gm PO UD PRN PRN Reason: Hypoglycemia Protocol Stop: 09/19/25 13:24 Ondansetron HCl (Ondansetron Inj 2 Mg/Ml 2 Ml Vial) 4 mg IV Q6H PRN PRN Reason: Nausea Stop: 09/18/25 15:26 Polyethylene Glycol (Polyethylene (Miralax) 17 Gm Pack) 17 gm PO DAILY PRN PRN Reason: Constipation Stop: 09/18/25 15:26
--- NOTE | 2025-09-03 07:57 | Hospitalist Progress Note ---
Date of Service September 03, 2025 Assessment & Plan (1) Cellulitis of right leg: (2) Syncope: (3) Anemia, chronic disease: (4) DM type 2 (diabetes mellitus, type 2): Plan Patient is a 59-year-old male with past medical history significant for schizotypal personality disorder, chronic RLE venous stasis ulcer/wound (present for >10 years), history of recurrent RLE cellulitis, chronic anemia, GERD and medical noncompliance who presented to the ED on 08/19/2025 due to foul-smelling drainage from his chronic RLE venous stasis ulcer/wound with associated, RLE pain and possible fever. Multiple prior hospitalizations for infected chronic RLE venous stasis ulcer/wound and cellulitis. Previous biopsy in January 2023 revealed stasis dermatitis with hemosiderin deposition. Previous evaluation by Plastic Surgery in May 2023 with multiple debridement procedures. Patient with history of poor outpatient follow up. On admission, wound was being dressed with old dirty rags and plastic bags with masking tape holding dressing together. RLE cellulitis Chronic RLE venous stasis ulcer/wound RLE MRI with circumferential skin thickening and edema from the level of the mid calf extending inferiorly, no abscess or osteomyelitis seen Blood cultures negative Wound cultures negative WOCN consulted and provided wound care recommendations Orthopedics consulted - no intervention indicated Plastic surgery consulted and recommend wound care and compression therapy; not candidate for operative debridement due to anemia or skin grafting given severity of venous stasis disease Infectious disease consulted and recommended Cipro 500mg bid and linezolid 600mg bid for 2 weeks of total antibiotic treatment-> completed PT/OT recommended SNF rehab at discharge for assistance with caring for self and wound Medically cleared for discharge to SNF, CM following Appointment with [facility] Care Clinic on 09/05/2025 at 1000 ALPHONSO -> resolved Creat 1.45-> 1.69-> 1.59-> 1.39 Renal ultrasound revealed no hydronephrosis, several renal cysts Avoid nephrotoxic agents as able DM II--new diagnosis Hemoglobin A1C 6.9% although fasting glucose <126 DM educator recommends discharging on low dose metformin (500mg daily) and BSG bid (fasting and pre dinner) x3 days per week (MWF) at [facility] Repeat A1C 6.5%-> repeat with PCP in 3 months Continue BSG ACHS and SSI while inpatient Dizziness-> resolved Reportedly "passed out for 10 days" on admission and dizziness, but patient is unreliable historian given psych disorder and impaired cognition Head CT with no acute intracranial findings, no calvarial fractures Orthostatics negative, symptoms improved Updated TTE with LVEF 60-65%, prolapse of the posterior mitral leaflets, severe MR (progressed compared to prior echo in 2022), mild TR Recommend outpatient surveillance CORY Hgb 7.4 on 08/25, asymptomatic Anemia panel consistent with CORY Given IV Venofer x1 on 08/25 Continue oral iron supplementation Incidental CT finding Head CT revealed large bilateral mastoid effusions, fluid within bilateral middle ears, suboptimal assessed erosion of bilateral ossicles Completed antibiotics as above for RLE wound/cellulitis Schizotypal personality disorder Possible cognitive impairment Previous evaluation by Psych in January 2023 Was on Abilify at that time but not currently on any psych medications Displays eccentric behavior, odd thought and speech patterns, vague and abstract thoughts Patient lives alone and has significant difficulty caring for self DVT Prophylaxis: SQ Heparin Code Status: FULL CODE - As per discussion at bedside with the patient. PCP: Elkin Navarrete Disposition: CM following for placement assistance Patient seen in collaboration with Dr. Lyman. Please see addendum. I spent a total of 30 minutes coordinating, documenting and providing care for this patient excluding time spent in the performance of separately billed services or time spent by another provider/QHP. Admission and Anticipated Discharge Date Admission Date: August 19, 2025 Supervising Physician Co-Signing Physician Notes Patient is seen and examined at bedside. No drainage from the ulcer today. Waiting for placement. On exam patient is well-built and nourished, no apparent distress, normocephalic atraumatic, EOMI, normal breath sounds, clear to auscultation, S1-S2,+ murmur, abdomen soft, nontender, normal bowel sounds, alert, awake monitor, grossly no focal deficits, right leg wound in dressing. Care coordinated with advanced practice provider. Patient is currently being managed for right leg cellulitis, venous stasis ulcer. Completed ciprofloxacin, linezolid course as recommended by infectious disease. Continue wound care. Waiting for placement. ALPHONSO resolved. Will need to be discharged on metformin for diabetes mellitus. I have reviewed the advanced practitioner's documentation on the date of service referred in note and agree with plan. Patient's care is coordinated with Torie PATRICK. Please refer to the documentation above for details of patient's presentation and for discussion of other issues. I spent a total [id number] coordinating, documenting, and providing care for this patient excluding time spent in the performance of separately billed services or time spent by another provider/QHP. Subjective Patient seen resting on edge of bed Reports he thinks his wound is looking better Denies other acute complaints Review of Systems Review of Systems: All systems reviewed & are unremarkable except as noted in HPI & below Physical Exam Physical Exam: General/Psych: WD/WN, sitting up in bed, NAD Head: normocephalic, atraumatic Eyes: normal inspection, PERRL, conjunctivae pink ENT: external ear and nose normal, oropharynx normal Neck: normal visual inspection, trachea midline Respiratory: normal respiratory effort, lungs clear to auscultation, no wheeze/rales/rhonchi, no accessory muscle use Cardiovascular: regular rate and rhythm, +murmur Extremities: no cyanosis or clubbing, normal peripheral pulses Abdomen/GI: normal bowel sounds, soft, nontender Neurologic/MSK: A+Ox3, motor strength 5/5, moves all extremities Skin: no rashes, normal color, warm and dry, RLE wound dressing c/d/i Results & Data Results & Data Vital Signs (Past 12 Hours) Vital Signs Temp Pulse Pulse Resp BP BP Pulse Ox 09/03/25 07:45 36.7 C 90 16 110/62 96 09/02/25 23:25 36.6 C 88 16 114/69 96 O2 Del Method 09/03/25 07:45 Room Air 09/02/25 23:25 Room Air Medications Administered Current Inpatient Medications Acetaminophen (Acetaminophen 500 Mg Tab) 1,000 mg PO Q8H PRN PRN Reason: Pain or Fever Stop: 09/24/25 12:58 Last Admin: 09/03/25 08:21 Dose: 1,000 mg Al Hydrox/Mg Hydrox/Simethicone (Aluminum/Magnesium Susp 30 Ml Udc) 30 ml PO Q6H PRN PRN Reason: Dyspepsia Stop: 09/18/25 15:26 Ascorbic Acid (Ascorbic Acid 500 Mg Tab) 500 mg PO QAM FAHAD Stop: 09/21/25 08:59 Last Admin: 09/03/25 08:15 Dose: 500 mg Dextrose (Dextrose 50% 50 Ml Syringe) 25 - 50 ml IV UD PRN; Protocol PRN Reason: Hypoglycemia Protocol Stop: 09/19/25 13:24 Ferrous Sulfate (Ferrous Sulfate 325 Mg Tab) 325 mg PO QAM FAHAD Stop: 09/21/25 08:59 Last Admin: 09/03/25 08:15 Dose: 325 mg Glucagon (Glucagon For Inj 1 Mg Vial) 1 mg SQ UD PRN; Protocol PRN Reason: Hypoglycemia Protocol Stop: 09/19/25 13:24 Glucose (Glucose 40% Gel 15 Gm Tube) 15 - 30 gm PO UD PRN; Protocol PRN Reason: Hypoglycemia Protocol Stop: 09/19/25 13:24 Glucose (Glucose 10 Tab/Tube) 4 - 8 tab PO UD PRN; Protocol PRN Reason: Hypoglycemia Protocol Stop: 09/19/25 13:24 Heparin Sodium (Porcine) (Heparin Sod 5,000 Unit/0.5 Ml Vial) 5,000 units SQ Q12 FAHAD Stop: 09/18/25 20:59 Last Admin: 09/03/25 08:16 Dose: Not Given Insulin Aspart (Insulin Aspart Per Unit Charge) 0 units SC ACHS FAHAD Stop: 09/19/25 16:29 Last Admin: 09/03/25 09:50 Dose: 4 units Lactobacillus Acidophilus (Advanced Probiotic 625 Mg Capsule) 1,250 mg PO DAILY FAHAD Stop: 09/19/25 08:59 Last Admin: 09/03/25 08:15 Dose: 1,250 mg Magnesium Hydroxide (Magnesium Hydroxide Susp 30 Ml Udc) 30 ml PO Q6H PRN PRN Reason: Constipation Stop: 09/18/25 15:26 Melatonin (Melatonin 3 Mg Tab) 3 mg PO HS PRN PRN Reason: Insomnia Stop: 09/18/25 15:26 Miscellaneous (Carbohydrates For Hypoglycemia ) 15 - 30 gm PO UD PRN PRN Reason: Hypoglycemia Protocol Stop: 09/19/25 13:24 Ondansetron HCl (Ondansetron Inj 2 Mg/Ml 2 Ml Vial) 4 mg IV Q6H PRN PRN Reason: Nausea Stop: 09/18/25 15:26 Polyethylene Glycol (Polyethylene (Miralax) 17 Gm Pack) 17 gm PO DAILY PRN PRN Reason: Constipation Stop: 09/18/25 15:26
[2025-09-03 22:57] VITALS: O2SAT 96
[2025-09-04 08:07] VITALS: BP 136/74; PULSE 106; RESP 17; TEMP 98.1
--- NOTE | 2025-09-04 08:30 | Hospitalist Progress Note ---
Date of Service September 04, 2025 Assessment & Plan (1) Cellulitis of right leg: (2) Syncope: (3) Anemia, chronic disease: (4) DM type 2 (diabetes mellitus, type 2): Plan Patient is a 59-year-old male with past medical history significant for schizotypal personality disorder, chronic RLE venous stasis ulcer/wound (present for >10 years), history of recurrent RLE cellulitis, chronic anemia, GERD and medical noncompliance who presented to the ED on 08/19/2025 due to foul-smelling drainage from his chronic RLE venous stasis ulcer/wound with associated, RLE pain and possible fever. Multiple prior hospitalizations for infected chronic RLE venous stasis ulcer/wound and cellulitis. Previous biopsy in January 2023 revealed stasis dermatitis with hemosiderin deposition. Previous evaluation by Plastic Surgery in May 2023 with multiple debridement procedures. Patient with history of poor outpatient follow up. On admission, wound was being dressed with old dirty rags and plastic bags with masking tape holding dressing together. RLE cellulitis Chronic RLE venous stasis ulcer/wound RLE MRI with circumferential skin thickening and edema from the level of the mid calf extending inferiorly, no abscess or osteomyelitis seen Blood cultures negative Wound cultures negative WOCN consulted and provided wound care recommendations Orthopedics consulted - no intervention indicated Plastic surgery consulted and recommend wound care and compression therapy; not candidate for operative debridement due to anemia or skin grafting given severity of venous stasis disease Infectious disease consulted and recommended Cipro 500mg bid and linezolid 600mg bid for 2 weeks of total antibiotic treatment-> completed PT/OT recommended SNF rehab at discharge for assistance with caring for self and wound Medically cleared for discharge to SNF, CM following Appointment with Wound Care Clinic upon discharge ALPHONSO -> resolved Creat 1.45-> 1.69-> 1.59-> 1.39 Renal ultrasound revealed no hydronephrosis, several renal cysts Avoid nephrotoxic agents as able DM II--new diagnosis Hemoglobin A1C 6.9% although fasting glucose <126 DM educator recommends discharging on low dose metformin (500mg daily) and BSG bid (fasting and pre dinner) x3 days per week (MWF) at SNF Repeat A1C 6.5%-> repeat with PCP in 3 months Continue BSG ACHS and SSI while inpatient Dizziness-> resolved Reportedly "passed out for 10 days" on admission and dizziness, but patient is unreliable historian given psych disorder and impaired cognition Head CT with no acute intracranial findings, no calvarial fractures Orthostatics negative, symptoms improved Updated TTE with LVEF 60-65%, prolapse of the posterior mitral leaflets, severe MR (progressed compared to prior echo in 2022), mild TR Recommend outpatient surveillance CORY Hgb 7.4 on 08/25, asymptomatic Anemia panel consistent with CORY Given IV Venofer x1 on 08/25 Continue oral iron supplementation Incidental CT finding Head CT revealed large bilateral mastoid effusions, fluid within bilateral middle ears, suboptimal assessed erosion of bilateral ossicles Completed antibiotics as above for RLE wound/cellulitis Schizotypal personality disorder Possible cognitive impairment Previous evaluation by Psych in January 2023 Was on Abilify at that time but not currently on any psych medications Displays eccentric behavior, odd thought and speech patterns, vague and abstract thoughts Patient lives alone and has significant difficulty caring for self DVT Prophylaxis: SQ Heparin Code Status: FULL CODE - As per discussion at bedside with the patient. PCP: Elkin Navarrete Disposition: CM following for placement assistance Patient seen in collaboration with Dr. Lyman. Please see addendum. I spent a total of 30 minutes coordinating, documenting and providing care for this patient excluding time spent in the performance of separately billed services or time spent by another provider/QHP. Admission and Anticipated Discharge Date Admission Date: August 19, 2025 Subjective Patient seen resting on edge of bed Tolerating dressing changes Denies other acute complaints Review of Systems Review of Systems: All systems reviewed & are unremarkable except as noted in HPI & below Physical Exam Physical Exam: General/Psych: WD/WN, sitting up in bed, NAD Head: normocephalic, atraumatic Eyes: normal inspection, PERRL, conjunctivae pink ENT: external ear and nose normal, oropharynx normal Neck: normal visual inspection, trachea midline Respiratory: normal respiratory effort, lungs clear to auscultation, no wheeze/rales/rhonchi, no accessory muscle use Cardiovascular: regular rate and rhythm, +murmur Extremities: no cyanosis or clubbing, normal peripheral pulses Abdomen/GI: normal bowel sounds, soft, nontender Neurologic/MSK: A+Ox3, motor strength 5/5, moves all extremities Skin: no rashes, normal color, warm and dry, RLE wound dressing c/d/i Results & Data Results & Data Vital Signs (Past 12 Hours) Vital Signs Temp Pulse Pulse Resp BP BP Pulse Ox 09/04/25 08:06 36.7 C 106 H 17 136/74 96 09/03/25 22:00 36.1 C L 98 H 16 121/63 96 O2 Del Method 09/04/25 08:06 Room Air 09/03/25 22:00 Room Air Medications Administered Current Inpatient Medications Acetaminophen (Acetaminophen 500 Mg Tab) 1,000 mg PO Q8H PRN PRN Reason: Pain or Fever Stop: 09/24/25 12:58 Last Admin: 09/03/25 08:21 Dose: 1,000 mg Al Hydrox/Mg Hydrox/Simethicone (Aluminum/Magnesium Susp 30 Ml Udc) 30 ml PO Q6H PRN PRN Reason: Dyspepsia Stop: 09/18/25 15:26 Ascorbic Acid (Ascorbic Acid 500 Mg Tab) 500 mg PO QAM [facility] Stop: 09/21/25 08:59 Last Admin: 09/04/25 09:31 Dose: 500 mg Dextrose (Dextrose 50% 50 Ml Syringe) 25 - 50 ml IV UD PRN; Protocol PRN Reason: Hypoglycemia Protocol Stop: 09/19/25 13:24 Ferrous Sulfate (Ferrous Sulfate 325 Mg Tab) 325 mg PO QAM [facility] Stop: 09/21/25 08:59 Last Admin: 09/04/25 09:31 Dose: 325 mg Glucagon (Glucagon For Inj 1 Mg Vial) 1 mg SQ UD PRN; Protocol PRN Reason: Hypoglycemia Protocol Stop: 09/19/25 13:24 Glucose (Glucose 40% Gel 15 Gm Tube) 15 - 30 gm PO UD PRN; Protocol PRN Reason: Hypoglycemia Protocol Stop: 09/19/25 13:24 Glucose (Glucose 10 Tab/Tube) 4 - 8 tab PO UD PRN; Protocol PRN Reason: Hypoglycemia Protocol Stop: 09/19/25 13:24 Heparin Sodium (Porcine) (Heparin Sod 5,000 Unit/0.5 Ml Vial) 5,000 units SQ Q12 FAHAD Stop: 09/18/25 20:59 Last Admin: 09/04/25 09:31 Dose: Not Given Insulin Aspart (Insulin Aspart Per Unit Charge) 0 units SC ACHS [facility] Stop: 09/19/25 16:29 Last Admin: 09/04/25 12:34 Dose: 3 units Lactobacillus Acidophilus (Advanced Probiotic 625 Mg Capsule) 1,250 mg PO DAILY FAHAD Stop: 09/19/25 08:59 Last Admin: 09/04/25 09:31 Dose: 1,250 mg Magnesium Hydroxide (Magnesium Hydroxide Susp 30 Ml Udc) 30 ml PO Q6H PRN PRN Reason: Constipation Stop: 09/18/25 15:26 Melatonin (Melatonin 3 Mg Tab) 3 mg PO HS PRN PRN Reason: Insomnia Stop: 09/18/25 15:26 Miscellaneous (Carbohydrates For Hypoglycemia ) 15 - 30 gm PO UD PRN PRN Reason: Hypoglycemia Protocol Stop: 09/19/25 13:24 Ondansetron HCl (Ondansetron Inj 2 Mg/Ml 2 Ml Vial) 4 mg IV Q6H PRN PRN Reason: Nausea Stop: 09/18/25 15:26 Polyethylene Glycol (Polyethylene (Miralax) 17 Gm Pack) 17 gm PO DAILY PRN PRN Reason: Constipation Stop: 09/18/25 15:26
--- NOTE | 2025-09-04 15:47 | Discharge Summary ---
Discharge Summary Date of Service September 04, 2025 Principal Dx & Hospital Course #1 = Principal Diagnosis (1) Chronic wound: (2) DM type 2 (diabetes mellitus, type 2): (3) Anemia: Plan Patient is a 59-year-old male with past medical history significant for schizotypal personality disorder, chronic RLE venous stasis ulcer/wound (present for >10 years), history of recurrent RLE cellulitis, GERD and medical noncompliance who presented to the ED on 08/19/2025 due to foul-smelling drainage from his chronic RLE venous stasis ulcer/wound with associated, RLE pain and possible fever. Multiple prior hospitalizations for infected chronic RLE venous stasis ulcer/wound and cellulitis. Previous biopsy in January 2023 revealed stasis dermatitis with hemosiderin deposition. Previous evaluation by Plastic Surgery in May 2023 with multiple debridement procedures. Patient with history of poor outpatient follow up. On admission, wound was being dressed with old dirty rags and plastic bags with masking tape holding dressing together. RLE cellulitis Chronic RLE venous stasis ulcer/wound RLE MRI with circumferential skin thickening and edema from the level of the mid calf extending inferiorly, no abscess or osteomyelitis seen Blood and wound cultures negative WOCN consulted and provided wound care recommendations: --Clean wound with normal saline, and pat dry with gauze. Apply Aquacel Ag, abd pads, and kerlix to wound on right leg. Change daily and as needed for excess drainage. Elevate legs as much as possible. Recommend avoiding plastic bags and plastic backed pads around legs. Orthopedics consulted - no intervention indicated Plastic surgery consulted and recommend wound care and compression therapy; not candidate for operative debridement due to anemia or skin grafting given severity of venous stasis disease Infectious disease consulted and recommended Cipro 500mg bid and linezolid 600mg bid for 2 weeks of total antibiotic treatment-> completed PT/OT recommended SNF rehab at discharge for assistance with caring for self and wound Appointment with Wound Care Clinic on 09/19/2025 at 10:30am ALPHONSO -> resolved Renal ultrasound revealed no hydronephrosis, several renal cysts Avoid nephrotoxic agents as able DM II--new diagnosis Hemoglobin A1C 6.9%, repeat 6.5%, although fasting glucose <126 DM educator saw patient and recommended lifestyle changes, metformin, BSG checks at SNF: --Start metformin 500mg PO daily, check BSG twice daily (fasting and before supper) x 3 days per week (M/W/) Recommend PCP follow up and recheck of A1C in 3 months Dizziness-> resolved Reportedly "passed out for 10 days" on admission and dizziness, but patient is unreliable historian given psych disorder and impaired cognition Head CT with no acute intracranial findings, no calvarial fractures Orthostatics negative, symptoms improved Updated TTE with LVEF 60-65%, prolapse of the posterior mitral leaflets, severe MR (progressed compared to prior echo in 2022), mild TR Recommend outpatient surveillance Anemia Hgb 7.2-9.6 during admission Anemia panel consistent with CORY Given IV Venofer x1 on 08/25 Started on oral iron supplementation-> recommend continuing Incidental CT finding Head CT revealed large bilateral mastoid effusions, fluid within bilateral middle ears, suboptimal assessed erosion of bilateral ossicles Completed antibiotics as above for RLE wound/cellulitis Schizotypal personality disorder Possible cognitive impairment Previous evaluation by Psych in January 2023 Was on Abilify at that time but not currently on any psych medications Displays eccentric behavior, odd thought and speech patterns, vague and abstract thoughts Patient seen in collaboration with Dr. Lyman. Please see addendum. Notes For Next Care Provider 59 year old male with chronic RLE wound who was hospitalized for this and received two weeks of IV antibiotics and wound care. DC to SNF due to inability to care for self at home. Recommend continued wound care with daily dressing changes and follow up with Wound Care Clinic as scheduled. Medication Changes From Visit Start metformin 500mg PO daily Start ferrous sulfate 325mg PO daily or eod Admission HPI Per Admitting Provider Patient is a 59 year old M with a past medical history of anemia, mood disorder, chronic lower leg wound presenting with foul smelling right lower leg wound. Patient reports multiple hospitalizations for right leg wound, possibly related to a fall, but also states the wound first started in 2013. Reporting severe pain to right lower leg, 8/10 burning and stabbing pain, that has been ongoing and now unable to ambulate. Wound has been dressed for ~40 days with the same dressing- abd gauze, covered in trash bag and towels. Also reporting he "passed out for 10 days", "woke up about 30 days ago", and has been dizzy. Denies recent antibiotic treatment. Denies ETOH or illicit drug use. Not currently on any regular home meds. Denies fever, chills, weight loss, headache, cognitive changes, vision/hearing changes, chest pain, SOB,difficulty breathing, urinary concerns, N/V/D, joint swelling/pain, bleeding, bruising. In the emergency department, patient was hemodynamically stable, afebrile and without signs of sepsis. Leukocytosis noted on lab workup with WBC 12.6K. Lactate normal. Per ED provider and nurses, patient's RLE was covered with foul-smelling, old dressing was difficult to remove. Copious brown drainage from wound once uncovered. No infestation. Cleansed with soap and water. Blood cultures pending. Triple antibiotics initiated for treatment of RLE cellulitis- Cefepime, Vanco, and Clindamycin given in ED. Per ED provider, pharmacy consulted for antibiotic regimen given history of Citrobacter and Proteus mirabilis in wound from 08/2024. EKG showing sinus rhythm with premature atrial complexes, vent rate 93 bpm, QTc 430. Chest Xray showed no acute findings. Given patient report of syncopal event and disorientation to time, a head CT was ordered and showed no CVA but did show a large bilateral mastoid effusions with fluid within the bilateral middle ears with probable erosion of the bilateral ossicles. Echo from 01/2023 showed mild concentric LVH w/ EF 60-65%, mitral valve leaflets and chordae moderately thickened, MV posterior leaflet prolapse. Repeat Echo ordered with results pending. Obtaining history of present illness was challenging given the patient's impaired cognition and altered orientation to time. He was unable to provide an chronological account of present illness, stating he left [facility] in 'June about a year ago", yet was hospitalized at [facility] in August 2024 and then transferred to [facility] for additional wound care and therapy. He says he lives in an apartment in [place], '[facility]", without any assistive devices to help ambulate. He was unable to contact anyone for help due to phone issues. He suffers from mental health issues, but does not have regular provider follow-up or any routine pharmacological management. Patient will most likely need home assistance vs SNF at discharge. History obtained primarily from the patient and via hospitalization record. Admission Exam Per Admitting Provider VITALS: Reviewed. WEIGHT/BMI reviewed. GEN: Healthy appearing, well-developed, NAD. PSYCH: Good Judgment. AOx3. Normal memory, mood, and affect. HEENT -Head: NC/AT; -Eyes: PERRL, EOMI. No discharge or redness; -Ears: External ears are normal. Normal TMs. -Nose: Normal nares. -Mouth and throat: MMM. Normal gums, mucosa, palate,. Good dentition. NECK: Supple, with no masses. CV: RRR, no m/r/g. LUNGS: CTAB, no w/r/c. ABD: Soft, NT/ND, NBS, no masses or organomegaly. : N/A SKIN: RLE erythema, foul-smelling, purulent drainage, overgrown granulation tissue, swelling MSK: No deformities, Normal gait. EXT: No clubbing, cyanosis, or edema. NEURO: CN II-XII grossly intact. No focal deficits. Discharge Exam General/Psych: WD/WN, sitting up in bed, NAD Head: normocephalic, atraumatic Eyes: normal inspection, PERRL, conjunctivae pink ENT: external ear and nose normal, oropharynx normal Neck: normal visual inspection, trachea midline Respiratory: normal respiratory effort, lungs clear to auscultation, no wheeze/rales/rhonchi, no accessory muscle use Cardiovascular: regular rate and rhythm, +murmur Extremities: no cyanosis or clubbing, normal peripheral pulses Abdomen/GI: normal bowel sounds, soft, nontender Neurologic/MSK: A+Ox3, motor strength 5/5, moves all extremities Skin: no rashes, normal color, warm and dry, RLE wound dressing c/d/i Updated Medication List Medication Instructions Recorded Confirmed Type ibuprofen 200 mg tablet 200 mg PO Q6H PRN Pain 08/19/25 08/19/25 History ferrous sulfate 325 mg (65 mg 325 mg PO QAM #30 tabs 09/04/25 Rx iron) tablet,delayed release metformin 500 mg tablet 500 mg PO DAILY #30 tabs 09/04/25 Rx Hospital Stay Data Consultations 08/19/25 11:40 ED Decision to Admit Stat 08/19/25 12:43 Consult Orthopedic Surgery Routine 08/19/25 16:44 Consult Dermatology Routine 08/20/25 13:27 Consult Infectious Diseases Routine 08/26/25 11:42 Consult Plastic Surgery Routine Diagnostic Imagining Performed Chest X-Ray 08/19/25 10:31 XR chest 1V portable CLINICAL HISTORY: Sepsis COMPARISON STUDY: 01/28/2023 FINDINGS: Heart size and pulmonary structure are normal. No consolidation or pleural effusion. No pneumothorax. IMPRESSION: No acute findings. ACT 112: Negative or not required by law. Electronically signed by: Vj Vega M.D. 08/19/2025 10:57 AM Lower Extremity MRI 08/19/25 12:28 Exam(s): MRI EXTREMITY W/WO Contrast IV Amt: 8.6ml gadavist EXAM: MR Right Lower Extremity Without and With Intravenous Contrast, Tibia and Fibula CLINICAL HISTORY: Reason for exam: r/o osteo and abscess. TECHNIQUE: Multiplanar magnetic resonance images of the right tibia and fibula without and with intravenous contrast. CONTRAST: Patient received 8.6ml gadavist of IV contrast COMPARISON: No relevant prior studies available. FINDINGS: Artifacts: Images are degraded by motion artifact. Bones/joints: Normal marrow signal. No osteomyelitis. No acute fracture. No dislocation. Soft tissues: Circumferential skin thickening and edema from the level of the midcalf extending inferiorly. No abscess. Intramuscular edema and fatty atrophy which can be seen in the setting of neuropathic changes. No myotendinous tearing. IMPRESSION: 1. Circumferential skin thickening and edema from the level of the midcalf extending inferiorly. No abscess. Electronically signed by: Alex Hansen MD 08/19/25 22:[address] 08/19/25 13:01 CT SCAN OF THE BRAIN WITHOUT IV CONTRAST CLINICAL HISTORY: Syncope. COMPARISON STUDY: None. TECHNIQUE: Unenhanced axial CT scan of the brain was performed from the vertex to the skull base. A dose lowering technique was utilized adhering to the principles of ALARA. CT DOSE: 625.8 mGy.cm FINDINGS: Brain parenchyma: No acute intracranial hemorrhage, midline shift or mass effect is present. Marquez-white matter differentiation is preserved. There are no extra- axial fluid collections. There are no findings to suggest acute dural sinus thrombosis or acute territorial infarct. Ventricles, sulci, cisterns: There is no hydrocephalus. The basal cisterns are patent. Calvarium: There are no calvarial fractures. Sinuses and mastoids: There are large bilateral mastoid effusions. There is also fluid within the bilateral middle ears. Although suboptimally assessed on this exam, there is erosion of the bilateral ossicles. Abnormal soft tissue within the left external auditory canal is present. Orbits: The bony orbits are grossly intact. IMPRESSION: 1. No acute intracranial findings. 2. No calvarial fractures. 3. Large bilateral mastoid effusions. In addition, fluid within the bilateral middle ears with probable erosion of the bilateral ossicles, suboptimally assessed on this exam. ACT 112: Negative or not required by law. Electronically signed by: Chicho Juárez M.D. 08/19/2025 1:51 PM Ankle MRI 08/19/25 13:37 Exam(s): MRI RIGHT ANKLE W/WO Contrast IV Amt: 8.6ml gadavist EXAM: MR Right Lower Extremity Without and With Intravenous Contrast, Ankle CLINICAL HISTORY: Reason for exam: osteo. TECHNIQUE: Multiplanar magnetic resonance images of the right ankle without and with intravenous contrast. CONTRAST: Patient received 8.6ml gadavist of IV contrast COMPARISON: X-ray 08/19/2025 FINDINGS: LIGAMENTS: Anterior talofibular: Unremarkable. Posterior talofibular: Unremarkable. Anterior tibiofibular: Unremarkable. Posterior tibiofibular: Unremarkable. Calcaneofibular: Unremarkable. Deltoid: Unremarkable. Spring: Unremarkable. Lisfranc: Unremarkable. TENDONS: Achilles: Unremarkable. Flexor: Unremarkable. Extensor: Unremarkable. Peroneal: Unremarkable. Tibialis anterior: Unremarkable. Tibialis posterior: Unremarkable. Muscles: Unremarkable. Fluid: No joint effusion. Sinus tarsi: Unremarkable. Tarsal tunnel: Unremarkable. Plantar fascia: Unremarkable. Cartilage: Unremarkable. Bones/joints: Normal marrow signal. No evidence of acute osteomyelitis. No acute fracture. Soft tissues: Circumferential skin thickening and edema. IMPRESSION: 1. No evidence of acute osteomyelitis. 2. Circumferential skin thickening and edema. Electronically signed by: Alex Hansen MD 08/19/25 23:37 PM Foot MRI 08/19/25 13:37 Exam(s): MRI RIGHT FOOT W/WO Contrast IV Amt: 8.6ml gadavist EXAM: MR Right Lower Extremity Without and With Intravenous Contrast, Foot CLINICAL HISTORY: Reason for exam: osteo. TECHNIQUE: Multiplanar magnetic resonance images of the right foot without and with intravenous contrast. CONTRAST: Patient received 8.6ml gadavist of IV contrast COMPARISON: No relevant prior studies available. FINDINGS: Normal marrow signal. No acute osteomyelitis. No septic arthritis. Soft tissue edema. No abscess. No soft tissue gas. No tenosynovitis. Normal appearance of the Lisfranc ligament. IMPRESSION: No acute osteomyelitis. Electronically signed by: Alex Hansen MD 08/19/25 22:43 PM Ankle X-Ray 08/19/25 15:42 4 views of the right ankle are submitted for review. Findings: There is no clear evidence of acute osteomyelitis. No fracture or dislocation is seen. There is chronic appearing periosteal reaction involving the distal tibia and fibula. No significant arthritic changes are noted. There are dorsal and plantar calcaneal spurs. No other osseous abnormality is identified. There are no radiopaque foreign bodies. Impression: 1. No definite acute pathology 2. Calcaneal spurs Electronically signed by Robbie Cordero 08-19-2025 5:00 PM Tibia/Fibula X-Ray 08/19/25 15:42 3 views of the right lower leg are submitted for review. Findings: There is no clear evidence of acute osteomyelitis. No definite fracture is seen. There is chronic appearing periosteal reaction involving the tibial and fibular shafts that could be due to vascular insufficiency or old injury. No significant arthritic changes are noted. There are dorsal and plantar calcaneal spurs. No other osseous abnormality is identified. There are no radiopaque foreign bodies. Impression: 1. No definite acute pathology 2. Calcaneal spurs Electronically signed by Robbie Cordero 08-19-2025 5:01 PM Renal Ultrasound 08/21/25 12:13 RENAL ULTRASOUND CLINICAL HISTORY: Acute kidney injury. COMPARISON STUDY: None TECHNIQUE: Sonography of the kidneys and the urinary bladder was performed. FINDINGS: The right kidney measures 9.9 x 5.8 x 5.2 cm and the left kidney measures 10.2 x 5 x 5.6 cm. There is no hydronephrosis. Renal echogenicity is mildly increased. A 0.8 cm right lower pole renal cyst is noted. Several left renal cysts measure up to 2.8 cm. This contains a thin septation. Both ureteral jets were identified. IMPRESSION: 1. No hydronephrosis. 2. Several renal cysts. ACT 112: Negative or not required by law. Electronically signed by: Chicho Juárez M.D. 08/21/2025 4:18 PM Pending Results Patient Have Any Pending Studies at Discharge: No Discharge Instructions Given to Patient (Per Discharging Provider) You presented to the hospital for pain and increased drainage from a chronic right leg wound. You had imaging done which showed no infection in the bone and your wound and blood cultures were negative. You were seen by Orthopedic Surgery and Plastic Surgery who felt that no surgery was indicated. You completed two weeks of oral antibiotics based on the recommendation from Infectious Disease and had daily dressing changes by nursing. You are being discharged to [facility] for continued wound care. You also have a follow up appointment scheduled with the Wound Care Clinic on 09/19/2025 at 10:30am. Your blood work revealed a possible new diagnosis of Type 2 Diabetes Mellitus. You met with our Automotive Painter Helper who provided recommendations including lifestyle changes (eliminate sugar sweetened drinks/juices and eating regular/balanced meals with extra protein to support wound healing), starting a new medicine, and getting your blood sugar checked twice per day, three days per week at [facility]. Your blood work also revealed iron deficiency anemia, or low blood counts due to low iron. You were started on an iron pill while in the hospital and should continue to take this daily or every other day. This pill is best absorbed on an empty stomach or with vitamin C, such as orange juice. This pill can cause constipation so you can use a stool softener as needed. MEDICATION CHANGES: Start Metformin 500mg by mouth once daily - side effects include GI upset such as upset stomach, gas, diarrhea, vomiting Continue Ferrous Sulfate 325mg by mouth once daily or every other day - side effects include upset stomach, constipation, dark colored stools, metallic taste in the mouth SUMMARY OF TEST RESULTS: See above PENDING TEST RESULTS: None RECOMMENDATIONS FOR FOLLOW-UP: Follow up with a primary care physician at [facility] for ongoing management of your wound and possible new diabetes diagnosis Follow up with the Wound Care Clinic as scheduled on 09/19/2025 at 10:30am OTHER INSTRUCTIONS: Seek medical attention if you have: * temperature above 101 * chest pain or trouble breathing * abdominal pain, nausea, vomiting * diarrhea, dark stools or bloody stools * any unanswered questions or concerns Call 911 if symptoms are severe. It has been a pleasure taking care of you. Please take care of yourself. If you have any questions regarding your recent hospitalization please contact [facility] and request Sav Echols @ [phone]. Total Time Total Time Spent Total Time Spent (In Minutes): I spent a total of 35 minutes coordinating, documenting and providing care for this patient excluding time spent in the performance of separately billed services or time spent by another provider/QHP. Supervising Physician Co-Signing Physician Notes Patient is seen and examined at bedside on day of discharge. Patient admits to have minimal discomfort of leg ulcer. No new complaints. Patient was accepted to go to rehab facility. On exam patient is well-built and nourished, no apparent distress, normocephalic atraumatic, EOMI, normal breath sounds, clear to auscultation, S1-S2,+ murmur, abdomen soft, nontender, normal bowel sounds, alert, awake monitor, grossly no focal deficits, right leg wound in dressing. Care coordinated with advanced practice provider. Patient is currently being managed for right leg cellulitis, venous stasis ulcer. Completed ciprofloxacin, linezolid course as recommended by infectious disease. Continue wound care. ALPHONSO resolved. Plan to be discharged on metformin for management of diabetes mellitus. Patient is going to be discharged to rehab facility today. Patient needs daily wound dressing at rehab facility. Needs follow-up with wound clinic upon discharge from rehab facility. I have reviewed the advanced practitioner's documentation on the date of service referred in note and agree with plan. Len romanonba's care is coordinated with Torie PATRICK. Please refer to the documentation above for details of patient's presentation and for discussion of other issues. I spent a total [id number] coordinating, documenting, and providing care for this patient excluding time spent in the performance of separately billed services or time spent by another provider/QHP.
== END 2025-09-04 15:42 | DRG 603 ==
LOC: ED 10:10 → EDINP 12:35 → SUATTDRO 12:35 → 3E 15:25